=== PATIENT | female | born 1940 | race Caucasian/White ===

== ENCOUNTER → 2020-06-02 10:26 | Outpatient (BNVA) | payer MEDICARE, MEDICAID, SELFPAY | PROVIDERS: PCP Internal Medicine; Visit Provider Family Medicine Adult Medicine | DX: M54.17 Radiculopathy, lumbosacral region (principal); Z79.891 Long term (current) use of opiate analgesic | CPT/HCPCS: 99212 ==

== ENCOUNTER → 2020-07-07 11:28 | Outpatient (BNVA) | payer MEDICARE, MEDICAID, SELFPAY | PROVIDERS: Visit Provider Family Medicine Adult Medicine | DX: M54.17 Radiculopathy, lumbosacral region (principal) | CPT/HCPCS: 99212 ==

== ENCOUNTER → 2020-07-08 12:54 | Outpatient (BNVA) | payer MEDICARE, MEDICAID, SELFPAY | PROVIDERS: PCP Internal Medicine; Visit Provider Family Medicine Adult Medicine | DX: Z76.89 Persons encountering health services in other specified circumstances (principal) ==

== ENCOUNTER → 2020-09-13 13:02 | Outpatient (BNVA) | payer MEDICARE, MEDICAID, SELFPAY | PROVIDERS: PCP Internal Medicine; Visit Provider Family Medicine Adult Medicine | DX: M54.17 Radiculopathy, lumbosacral region (principal) | CPT/HCPCS: 99212 ==

== ENCOUNTER → 2020-10-11 13:34 | Outpatient (BNVA) | payer MEDICARE, MEDICAID, SELFPAY | PROVIDERS: PCP Internal Medicine; Visit Provider Family Medicine Adult Medicine | DX: M54.17 Radiculopathy, lumbosacral region (principal) | CPT/HCPCS: 99212 ==

== ENCOUNTER 2021-03-23 13:22 | Outpatient (RCR) | payer MEDICARE, MEDICAID, SELFPAY | END 2021-09-04 15:16 | disposition home or self-care (01) | LOC: HO.WCC 13:22 | PROVIDERS: Visit Provider Surgery | DX: E11.622 Type 2 diabetes mellitus with other skin ulcer (principal); I87.311 Chronic venous hypertension (idiopathic) with ulcer of right lower extremity; L97.812 Non-pressure chronic ulcer of other part of right lower leg with fat layer exposed; J44.9 Chronic obstructive pulmonary disease, unspecified; F17.200 Nicotine dependence, unspecified, uncomplicated; Z99.81 Dependence on supplemental oxygen; Z86.73 Personal history of transient ischemic attack (TIA), and cerebral infarction without residual deficits | CPT/HCPCS: 11042; 15271; 99212; 99214; Q4101 ==

== ENCOUNTER 2021-06-08 14:20 | Outpatient (REF) | payer MEDICARE, MEDICAID, SELFPAY ==
--- NOTE | ~2021-06-08 | US_ITS ---
EXAMINATION: US VENOUS ULTRASOUND WITH DOPPLER LOWER EXTREMITY, LEFT CLINICAL INFORMATION: Pain and edema COMPARISON: April 03, 2018 TECHNIQUE: Ultrasound of the deep veins is performed from the hip to the calf with compression sonography and color and pulse Doppler assessment. Spectral analysis with color-flow imaging is performed. FINDINGS: There is normal venous compression and respiratory variation and augmented flow. The visualized common femoral vein, superficial femoral vein, profunda femoral vein, popliteal vein, and the trifurcation region shows no evidence of deep venous thrombosis. There is limited visualization of the distal superficial femoral vein and peroneal veins related to edema. There is no significant popliteal fossa cyst. No popliteal artery aneurysm identified. There is noted to be reflux with insufficiency within the greater saphenous vein at the saphenofemoral junction. No definite evidence of synechiae or wall thickening from patient's old DVT seen on study of April 03, 2018. US/US venous duplex LE LT IMPRESSION: No acute DVT demonstrated in the left lower extremity.
== END 2021-06-08 14:21 | disposition home or self-care (01) ==
LOC: HO.US 14:20
PROVIDERS: PCP Internal Medicine; Visit Provider Surgery
DX: R60.0 Localized edema (principal); M79.662 Pain in left lower leg
CPT/HCPCS: 93971

== ENCOUNTER 2021-08-10 02:02 | Inpatient (IN) | payer MEDICARE, MEDICAID, SELFPAY ==
[2021-08-10] VITALS (10 sets, daily range): BP systolic 126–173; BP diastolic 50–98; PULSE 79–92; RESP 12–24; TEMP 36.2–36.9; O2SAT 90–100; BMI 25.9
--- NOTE | ~2021-08-10 | CT_ITS ---
EXAMINATION: CT ABDOMEN AND PELVIS WITHOUT CONTRAST CLINICAL INFORMATION: Pain. Deformity. COMPARISON: 03/22/2018 TECHNIQUE: Multidetector volumetric imaging was performed from the superior aspect of the liver through the pubic symphysis. Sagittal and coronal reformatted images were obtained on the technologist's workstation. This CT examination was performed using dose optimization techniques as appropriate, variously including the following: *Automated exposure control *Adjustment of mA and/or kV according to patient size (this includes techniques or standardized protocols for targeted exams where dose is matched to indication/reason for exam; i.e. extremities or head) *Use of iterative reconstruction technique DLP: 841 mGy-cm FINDINGS: LUNG BASES: Bibasilar atelectasis. Coronary artery calcifications. LIVER, GALLBLADDER, AND BILIARY TREE: The liver is normal in size, shape, and attenuation. No focal hepatic lesion or biliary ductal dilatation is present. The gallbladder is likely absent. PANCREAS: Unremarkable. 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 ADRENAL GLANDS: Bilateral hypoattenuating adrenal gland nodules are again noted. This measures 2.5 cm on the left. This measures 2.6 cm on the right. These measure simple fluid attenuation. KIDNEYS AND URETERS: The kidneys are normal in size, shape, and attenuation. No hydronephrosis, hydroureter, or calculi seen. No perinephric stranding. BLADDER: Unremarkable. GASTROINTESTINAL TRACT: The small and large bowel are unremarkable. The appendix is unremarkable. ABDOMINAL WALL: No significant hernia is appreciated. LYMPH NODES: Normal. VASCULAR: Normal caliber aorta with moderate atherosclerotic calcification. PELVIC VISCERA: No pelvic mass. OSSEOUS STRUCTURES: No acute or suspicious osseous abnormality. Degenerative changes throughout the spine. T12 vertebral body compression deformity noted. There is greater than 50% loss of anterior vertebral body height. CT/CT abdomen pelvis wo con IMPRESSION: Compression deformity of the anterior aspect of the T12 vertebral body. This is new from 2018 and could be acute. Bilateral hypoattenuating adrenal gland nodules. These were present in 2018. Fleischner guidelines were followed.
--- NOTE | ~2021-08-10 | CT_ITS ---
EXAMINATION: NONCONTRAST HEAD CT NONCONTRAST CERVICAL SPINE CT INDICATION INFORMATION: Fall COMPARISON: TECHNIQUE: Separate noncontrast CT examinations of the head and cervical spine were performed. Coronal and sagittal images were created for each examination at the technologist workstation. This CT examination was performed using dose optimization techniques as appropriate, variously including the following: *Automated exposure control *Adjustment of mA and/or kV according to patient size (this includes techniques or standardized protocols for targeted exams where dose is matched to indication/reason for exam; i.e. extremities or head) *Use of iterative reconstruction technique DLP: 1479 mGy-cm FINDINGS: Head: There is no evidence of acute intracranial hemorrhage or territorial infarction. No abnormal mass effect or midline shift is seen. Barahona to white matter differentiation is well preserved. No extra-axial fluid collections are identified. No hydrocephalus. Proportional prominence of the ventricles and sulcal spaces is consistent with mild volume loss. Patchy periventricular and deep white matter hypoattenuation is consistent with mild small vessel ischemic changes. No acute osseous or soft tissue abnormality. Opacification of the left mastoid air cells. Small fluid level in the left sphenoid sinus. The right mastoid air cells and visualized portions of the paranasal sinuses are otherwise well aerated. Cervical spine: There is anatomic alignment of the vertebral bodies and posterior elements. The atlantoaxial and atlantooccipital articulations are intact. Vertebral body heights are maintained. There is multilevel intervertebral disc space narrowing with endplate osteophyte formation and facet arthropathy. No evidence of acute fracture. No prevertebral soft tissue swelling. Visualized portions of the lung apices are unremarkable. The thyroid gland is unremarkable. CT/CT cervical spine wo con IMPRESSION: 1. No acute intracranial finding. 2. No fracture or malalignment of the cervical spine. Moderate degenerative changes throughout.
--- NOTE | ~2021-08-10 | XR_ITS ---
EXAMINATION: XR CHEST CLINICAL INFORMATION: Cough. COMPARISON: Chest radiograph 02/03/2019. 11/09/2018. 09/28/2018. CT angiography chest 09/02/2016 TECHNIQUE: Frontal view of the chest was obtained. FINDINGS: Multiple external artifacts overlie the thorax. Mild scattered aortic calcific atherosclerosis is noted. Blunting of the left costophrenic sulcus is noted and is unchanged in degree across multiple comparison studies. No pneumothoraces identified. Low lung volumes are present with the fourth anterior rib segments terminating projection with the lung bases. No focal pulmonary consolidation identified. Making allowances for low lung volumes, a normal pattern of pulmonary vasculature is noted. Diffuse osteopenia. XR/XR chest 1V IMPRESSION: *No acute cardiopulmonary abnormalities. *Chronic blunting of left costophrenic sulcus which may represent chronic pleural thickening.
--- NOTE | ~2021-08-10 | XR_ITS ---
EXAMINATION: XR BILATERAL HIPS WITH AP PELVIS CLINICAL INFORMATION: Fall. COMPARISON: None TECHNIQUE: AP view of the pelvis and single views of each hip were obtained. FINDINGS: AP pelvis: There is a right intraoperative medial femoral jessica and hip nail for an old healed neck fracture. No acute fracture or dislocation seen the right hip. The left hip is intact with maintained normal joint space.. SI joints are symmetrical and normal. The pelvic bones are unremarkable. There are bilateral inferior ischial enthesophytes. There is moderate gas and stool in the colon. Right hip: There is intramedullary short femoral jessica and a hip nail for an old healed right femoral neck fracture the hardware is intact. There is no periprosthetic fracture or loosening. Left hip: There is no acute fracture or dislocation. The soft tissues are normal. There is a small greater trochanter enthesophyte. XR/XR hip BI w PEL1V IMPRESSION: Old healed right femoral neck fracture with intact hardware. No periprostatic fracture or lucency. No acute fracture dislocation involving the pelvis or the left hip.
--- NOTE | 2021-08-10 02:28 | ECG_ITS ---
Test Reason : FALL Blood Pressure : / mmHG Vent. Rate : 085 BPM Atrial Rate : 085 BPM P-R Int : 146 ms QRS Dur : 136 ms QT Int : 410 ms P-R-T Axes : 000 020 006 degrees QTc Int : 487 ms Normal sinus rhythm Right bundle branch block Possible Inferior infarct (cited on or before 03-FEB-2019) Abnormal ECG When compared with ECG of 03-FEB-2019 15:58, Premature atrial complexes are no longer Present Referred By: Rosalind Avalos Electronically Signed By:Himanshu Du
[2021-08-10] MEDS: Ketorolac Tromethamine 30 MG/ML VIAL 15 MG IVPUSH (02:50)
[2021-08-10 02:59] LABS: MANUAL DIFF FLAG NO
[2021-08-10 03:00] LABS: Basophils Absolute Auto 0.1 X10*3/uL (0.0-0.2); Basophils Percent Auto 0.6 % (0-2); Eosinophils Percent Auto 0.2 % (0-4); Hematocrit 31.7 % (37.0-47.0); Hemoglobin 10.4 g/dl (12.0-16.0); Imm Gran Pct Auto 0.6 % (0.0-0.4); Lymphocytes Absolute Auto 1.4 X10*3/uL (1.2-4.9); Lymphocytes Percent Auto 7.7 % (20-40); Mean Corpuscular HGB Conc 32.8 g/dl (31.0-35.0); Mean Corpuscular Hemoglobin 31.2 pg (27.0-33.0); Mean Corpuscular Volume 95.2 fL (80.0-98.0); Mean Platelet Volume 10.1 fL (9.4-12.3); Monocytes Absolute Auto 1.2 X10*3/uL (0.1-1.2); Monocytes Percent Auto 6.8 % (2-11); Neutrophils Absolute Auto 15.1 x10*3/uL (2.0-8.3); Neutrophils Percent Auto 84.1 % (45-73); Platelet Count 436 X10*3/uL (160-400); Red Blood Count 3.33 X10*6/uL (4.20-5.50); Red Cell Distribution Width 13.1 % (11.0-16.0)
--- NOTE | 2021-08-10 03:00 | PC.NURSE ---
pt unable to take po at this time d/t inability to sit upright for aspiration precautions /04/[address] ellis aware. this rn requesting narcotic analgesics d/t pt's c/o 04/30 pain with appearance of likely hip dislocation. dr ellis states if pain persists despite toradol, she will consider narcotics.
[2021-08-10 03:04] LABS: Venous Blood Gas Refer to POC result
[2021-08-10 03:04] LABS: VBG Base Excess -3.7 mmol/L; VBG HCO3 22 mmol/L (22-26); VBG pCO2 45 mmHg; VBG pH 7.29 (7.32-7.43); VBG pO2 43 mmHg
[2021-08-10 03:05] LABS: INTERNATIONAL NORM RATIO 1.2 (0.9-1.1); Prothrombin Time 13.7 SEC (9.9-13.0)
[2021-08-10] MEDS: fentaNYL citrate/PF 100 MCG/2 ML VIAL 25 MCG IVPUSH (03:14)
[2021-08-10 03:16] LABS: COVID-19 Test Negative (Negative); IDNOW Serial# 9DD0AD1C
[2021-08-10 03:27] LABS: Alanine Aminotransferase 16 U/L (0-31); Albumin Level 2.9 g/dL (3.5-5.0); Alkaline Phosphatase 131 U/L (39-117); Anion Gap 16 (12-20); Aspartate Amino Transferase 21 U/L (5-31); Bilirubin Total 0.2 mg/dL (0.0-1.0); Blood Urea Nitrogen 37 mg/dL (9-16); Calcium 8.8 mg/dL (8.4-10.2); Carbon Dioxide 21 mmol/L (22-29); Chloride 101 mmol/L (96-108); Creatinine Clr Calc Pharmacy 22.2; Estimated Glomerular Filt Rate 24; Glucose Random 362 mg/dL (60-115); Potassium 5.8 mmol/L (3.3-5.1); Sodium 132 mmol/L (135-145); Total Protein 5.8 g/dL (6.5-8.0)
[2021-08-10 03:38] LABS: Acetone, serum QL Negative (Negative)
--- NOTE | 2021-08-10 03:46 | ED.FALL ---
HPI - Fall General Chief Complaint: Fall Stated Complaint: Fall Time Seen by Provider: 08/10/21 02:27 Source: patient Mode of arrival: EMS History of Present Illness HPI Narrative: 81-year-old female with history of COPD currently reliant on supplemental oxygen who is brought in via EMS after she had a slip and fall in the kitchen and landed on her left hip. Patient denies any head strike no although she states she is not on blood thinners she is noted to have a prescription for Xarelto and was provided a 90 day prescription on 06/01/2021. Patient denies any recent fever, chills, GI or symptoms and is expressing significant pain on movement that she points to the left hip. Related Data Home Medications Medication Instructions Recorded Confirmed alendronate 70 mg tablet (Fosamax) 70 mg PO QWEEK 05/23/20 08/01/21 dorzolamide 2 % eye drops 1 drp OPHTHALMIC (EYE) TID 05/23/20 08/01/21 fluticasone furoate 100 1 inh INHALATION DAILY 05/23/20 08/01/21 mcg-vilanterol 25 mcg/dose inhalation powder (Breo Ellipta) furosemide 40 mg tablet (Lasix) 40 mg PO DAILY 05/23/20 08/01/21 latanoprost 0.005 % eye drops 1 drp OPHTHALMIC (EYE) QPM 05/23/20 08/01/21 omeprazole 20 mg capsule,delayed 20 mg PO DAILY 05/23/20 08/01/21 release Previous Rx's Medication Instructions Recorded blood sugar diagnostic (FreeStyle #100 ea 04/03/21 Lite Strips) miscellaneous medical supply See Rx Instructions MISCELLANEOUS 04/03/21 .COMPLEX #1 ea albuterol sulfate 1.25 mg (1.5 mL) INHALATION TID 06/01/21 #75 ml insulin aspart U-100 100 unit/mL 10 unit (0.1 mL) SUBCUT TID #15 ml 06/01/21 (3 mL) subcutaneous pen (Novolog Flexpen U-100 Insulin aspart) lancets 28 gauge (FreeStyle #100 ea 06/01/21 Lancets) rivaroxaban 15 mg tablet (Xarelto) 15 mg PO DAILY #90 tab 06/01/21 miscellaneous medical supply 1 ea MISCELLANEOUS DAILY #1 ea 07/06/21 citalopram 10 mg tablet 10 mg PO DAILY #90 tab 07/25/21 insulin glargine 100 unit/mL (3 10 unit (0.1 mL) SUBCUT DAILY #15 07/25/21 mL) subcutaneous pen ml pen needle, diabetic 31 gauge x See Rx Instructions SUBCUT TID 07/25/2112/04 (BD Ultra-Fine Short Pen #100 ea Needle) spironolactone 25 mg tablet 25 mg PO DAILY #90 tab 07/25/21 sulfamethoxazole 800 1 tab PO Q12H #14 tab 08/01/21 mg-trimethoprim 160 mg tablet (Bactrim DS) diltiazem HCl 240 mg capsule,24 240 mg PO QAM #90 cap 08/04/21 hr,extended release Allergies Allergy/AdvReac Type Severity Reaction Status Date / Time No Known Allergies Allergy Unknown Verified 08/10/21 02:22 Review of Systems Review of Systems: Pertinent positives and negatives as stated in HPI 10 point review systems is otherwise negative. [facility] Past Medical History Source: nursing notes reviewed Medical History COPD (chronic obstructive pulmonary disease) Decreased hearing of both ears IDDM (insulin dependent diabetes mellitus) Lymphedema Osteoporosis with pathological fracture Right lumbosacral radiculopathy Smoker Surgical History H/O splenectomy History of section S/P LILI-BSO (total abdominal hysterectomy and bilateral salpingo-oophorectomy) Family History Family History Father No problems noted. Mother No problems noted. Social History Social History Housing: House Alcohol intake: never Patient Tobacco Use Status: Current everyday Tobacco user Tobacco use type: Cigarette Cigarettes Per Day: 1 e-Cigarette/Vaping Use: Never Used Second Hand Smoke Exposure: Yes Advance Directives: No service: No Current occupational status: retired Cognitive needs: Yes (wheelchair) Hearing needs: No Vision needs: No Physical Exam Vital Signs: Vital Signs: Last Vital Signs Temp 98.2 F 08/10/21 05:52 Pulse 83 08/10/21 05:52 Resp 15 08/10/21 05:52 BP 126/51 L 08/10/21 05:52 Pulse Ox 95 08/10/21 05:52 Oxygen Flow Rate 2 08/10/21 02:18 BMI result Body Mass Index 25.9 VITAL SIGNS: Reviewed. GENERAL: Well developed, well nourished, in no acute distress. HEAD: Normocephalic/atraumatic EYES: PERRLA, EOMI OROPHARYNX: no oral lesions noted, posterior pharynx clear, dry mucosa NECK: Supple, no adenopathy LUNGS: Good inspiratory effort, no wheeze/rhonchi/rales, no tachypnea <95> on 2 L of nasal cannula CARDIOVASCULAR: Regular rate and rhythm without noted murmurs, no JVD or lower extremity edema. ABDOMEN: Soft, non-tender, non-distended with bowel sounds. No rigidity. No guarding. No palpable masses or hernias noted MUSCULOSKELETAL: No tenderness, deformities, or effusions noted on gross inspection. EXTREMITIES: No cyanosis, clubbing but significant skin thickening and discoloration to bilateral lower extremities and a noted bandage to the right lower extremity. SKIN: Inspection of the skin reveals no rashes NEUROLOGIC: Alert and oriented x 4. Strength and sensation to light touch were grossly intact x 4. Course Course Course Narrative: 81-year-old female with history and clinical presentation suggestive of possible pelvic/femur fracture and/or dislocation. On review of all investigations there is a noted leukocytosis that is not significantly different from prior, patient is afebrile and provided with empiric antibiotics for RLE wound. In addition, on review recent notes the son reports that patient is minimally ambulatory with a cane and supervision (08/01/2020). Review of all imaging studies demonstrates suspected acute T12 compression fracture. Patient provided with pain medication as well as IV fluids and will repeat the BMP. I discussed this case with the inpatient hospitalist who accepts admission. There is noted anemia that on review is within normal range of prior values and there is no history or clinical evidence of blood loss. This case was discussed with the inpatient hospitalist who accepts admission. MDM - Fall Lab Data Result diagrams: 08/10/21 02:49 08/10/21 02:49 Labs: Lab Results 08/10/21 08/10/21 08/10/21 Range/Units 02:49 02:49 02:49 WBC 18.0 H (4.8-10.8) X10*3/uL RBC 3.33 L (4.20-5.50) X10*6/uL Hgb 10.4 L (12.0-16.0) g/dl Hct 31.7 L (37.0-47.0) % MCV 95.2 (80.0-98.0) fL MCH 31.2 (27.0-33.0) pg MCHC 32.8 (31.0-35.0) g/dl RDW 13.1 (11.0-16.0) % Plt Count 436 H (160-400) X10*3/uL MPV 10.1 (9.4-12.3) fL Immature Gran % (Auto) 0.6 H (0.0-0.4) % Neut % (Auto) 84.1 H (45-73) % Lymph % (Auto) 7.7 L (20-40) % Randolph % (Auto) 6.8 (2-11) % Eos % (Auto) 0.2 (0-4) % Baso % (Auto) 0.6 (0-2) % Lymph # (Auto) 1.4 (1.2-4.9) X10*3/uL Randolph # (Auto) 1.2 (0.1-1.2) X10*3/uL Eos # (Auto) 0.0 (0.0-0.4) X10*3/uL Baso # (Auto) 0.1 (0.0-0.2) X10*3/uL Abs Immat Gran (auto) 0.10 H (0.00-0.03) X10*3/uL Absolute Neuts (auto) 15.1 H (2.0-8.3) x10*3/uL Absolute Nucleated RBC 0.000 (0.0-0.012) X10*3/uL Nucleated RBC % (auto) 0.0 (0.0-0.2) /100WBC PT 13.7 H (9.9-13.0) SEC INR 1.2 H (0.9-1.1) VBG pH (7.32-7.43) VBG pCO2 mmHg VBG pO2 mmHg VBG HCO3 (22-26) mmol/L VBG O2 Saturation % VBG Base Excess mmol/L Sodium 132 L (135-145) mmol/L Potassium 5.8 H (3.3-5.1) mmol/L Chloride 101 (96-108) mmol/L Carbon Dioxide 21 L (22-29) mmol/L Anion Gap 16 (12-20) BUN 37 H (9-16) mg/dL Creatinine 1.96 H (0.5-1.4) mg/dL Estim Creat Clear Calc 22.2 Estimated GFR 24 Random Glucose 362 H* (60-115) mg/dL Lactic Acid (0.5-2.0) mmol/L Calcium 8.8 (8.4-10.2) mg/dL Total Bilirubin 0.2 (0.0-1.0) mg/dL AST 21 (5-31) U/L ALT 16 (0-31) U/L Alkaline Phosphatase 131 H (39-117) U/L Total Protein 5.8 L (6.5-8.0) g/dL Albumin 2.9 L (3.5-5.0) g/dL Urine Color Urine Appearance Urine pH (5.0-8.0) Ur Specific [place] (1.005-1.025) Urine Protein (NEG-TRACE) MG/DL Urine Glucose (UA) (NEG) MG/DL Urine Ketones (NEG) MG/DL Urine Blood (NEG) Urine Nitrite (NEG) Ur Leukocyte Esterase (NEG) Urine RBC (0) /HPF Urine WBC (0-4) /HPF Ur Squamous Epith Cells /LPF Amorphous Sediment /LPF Urine Bacteria /LPF Hyaline Casts /LPF Urine Mucus /LPF Acetone, Qual Negative (Negative) COVID-19 (DOUG) (Negative) COVID-19 Clin Com 08/10/21 08/10/21 08/10/21 Range/Units 02:54 02:56 04:24 WBC (4.8-10.8) X10*3/uL RBC (4.20-5.50) X10*6/uL Hgb (12.0-16.0) g/dl Hct (37.0-47.0) % MCV (80.0-98.0) fL MCH (27.0-33.0) pg MCHC (31.0-35.0) g/dl RDW (11.0-16.0) % Plt Count (160-400) X10*3/uL MPV (9.4-12.3) fL Immature Gran % (Auto) (0.0-0.4) % Neut % (Auto) (45-73) % Lymph % (Auto) (20-40) % [place] % (Auto) (2-11) % Eos % (Auto) (0-4) % Baso % (Auto) (0-2) % Lymph # (Auto) (1.2-4.9) X10*3/uL [place] # (Auto) (0.1-1.2) X10*3/uL Eos # (Auto) (0.0-0.4) X10*3/uL Baso # (Auto) (0.0-0.2) X10*3/uL Abs Immat Gran (auto) (0.00-0.03) X10*3/uL Absolute Neuts (auto) (2.0-8.3) x10*3/uL Absolute Nucleated RBC (0.0-0.012) X10*3/uL Nucleated RBC % (auto) (0.0-0.2) /100WBC PT (9.9-13.0) SEC INR (0.9-1.1) VBG pH 7.29 L (7.32-7.43) VBG pCO2 45 mmHg VBG pO2 43 mmHg VBG HCO3 22 (22-26) mmol/L VBG O2 Saturation 64.0 % VBG Base Excess -3.7 mmol/L Sodium (135-145) mmol/L Potassium (3.3-5.1) mmol/L Chloride (96-108) mmol/L Carbon Dioxide (22-29) mmol/L Anion Gap (12-20) BUN (9-16) mg/dL Creatinine (0.5-1.4) mg/dL Estim Creat Clear Calc Estimated GFR Random Glucose (60-115) mg/dL Lactic Acid (0.5-2.0) mmol/L Calcium (8.4-10.2) mg/dL Total Bilirubin (0.0-1.0) mg/dL AST (5-31) U/L ALT (0-31) U/L Alkaline Phosphatase (39-117) U/L Total Protein (6.5-8.0) g/dL Albumin (3.5-5.0) g/dL Urine Color YELLOW Urine Appearance CLEAR Urine pH 6.0 (5.0-8.0) Ur Specific [place] 1.020 (1.005-1.025) Urine Protein 2+ H (NEG-TRACE) MG/DL Urine Glucose (UA) 500 H (NEG) MG/DL Urine Ketones NEG (NEG) MG/DL Urine Blood TRACE (NEG) Urine Nitrite NEG (NEG) Ur Leukocyte Esterase NEG (NEG) Urine RBC 1-4 (0) /HPF Urine WBC 0 (0-4) /HPF Ur Squamous Epith Cells 1+ /LPF Amorphous Sediment TRACE /LPF Urine Bacteria NONE /LPF Hyaline Casts 5-9 /LPF Urine Mucus TRACE /LPF Acetone, Qual (Negative) COVID-19 (DOUG) Negative (Negative) COVID-19 Clin Com See Note 08/10/21 Range/Units 05:44 WBC (4.8-10.8) X10*3/uL RBC (4.20-5.50) X10*6/uL Hgb (12.0-16.0) g/dl Hct (37.0-47.0) % MCV (80.0-98.0) fL MCH (27.0-33.0) pg MCHC (31.0-35.0) g/dl RDW (11.0-16.0) % Plt Count (160-400) X10*3/uL MPV (9.4-12.3) fL Immature Gran % (Auto) (0.0-0.4) % Neut % (Auto) (45-73) % Lymph % (Auto) (20-40) % Randolph % (Auto) (2-11) % Eos % (Auto) (0-4) % Baso % (Auto) (0-2) % Lymph # (Auto) (1.2-4.9) X10*3/uL [place] # (Auto) (0.1-1.2) X10*3/uL Eos # (Auto) (0.0-0.4) X10*3/uL Baso # (Auto) (0.0-0.2) X10*3/uL Abs Immat Gran (auto) (0.00-0.03) X10*3/uL Absolute Neuts (auto) (2.0-8.3) x10*3/uL Absolute Nucleated RBC (0.0-0.012) X10*3/uL Nucleated RBC % (auto) (0.0-0.2) /100WBC PT (9.9-13.0) SEC INR (0.9-1.1) VBG pH (7.32-7.43) VBG pCO2 mmHg VBG pO2 mmHg VBG HCO3 (22-26) mmol/L VBG O2 Saturation % VBG Base Excess mmol/L Sodium (135-145) mmol/L Potassium (3.3-5.1) mmol/L Chloride (96-108) mmol/L Carbon Dioxide (22-29) mmol/L Anion Gap (12-20) BUN (9-16) mg/dL Creatinine (0.5-1.4) mg/dL Estim Creat Clear Calc Estimated GFR Random Glucose (60-115) mg/dL Lactic Acid 0.7 (0.5-2.0) mmol/L Calcium (8.4-10.2) mg/dL Total Bilirubin (0.0-1.0) mg/dL AST (5-31) U/L ALT (0-31) U/L Alkaline Phosphatase (39-117) U/L Total Protein (6.5-8.0) g/dL Albumin (3.5-5.0) g/dL Urine Color Urine Appearance Urine pH (5.0-8.0) Ur Specific [place] (1.005-1.025) Urine Protein (NEG-TRACE) MG/DL Urine Glucose (UA) (NEG) MG/DL Urine Ketones (NEG) MG/DL Urine Blood (NEG) Urine Nitrite (NEG) Ur Leukocyte Esterase (NEG) Urine RBC (0) /HPF Urine WBC (0-4) /HPF Ur Squamous Epith Cells /LPF Amorphous Sediment /LPF Urine Bacteria /LPF Hyaline Casts /LPF Urine Mucus /LPF Acetone, Qual (Negative) COVID-19 (DOUG) (Negative) COVID-19 Clin Com ECG Data Attestation: I personally reviewed and interpreted this ECG as follows: Prior ECG tracings: available for review (02/03/2019 no acute changes on comparison) Interpretation: NSR, HR-85, no STEMI, right bundle branch block, WA/QTC are within normal limits. Critical Care Time Critical Care Time Critical Care Time: Yes Total Critical Care Time: 30 Attestation: I personally attest to this time spent taking care of the patient. Discharge Plan Discharge Clinical Impression: T12 compression fracture, Intractable pain, Non-healing wound of right lower extremity, TONYA (acute kidney injury) Patient Disposition: Admitted As Inpatient
[2021-08-10 04:29] LABS: Appearance Urine CLEAR; Color Urine YELLOW; Glucose Urine UA 500 MG/DL (NEG); Leukocyte Esterase Urine NEG (NEG); Nitrite Urine NEG (NEG); UACC Culture Trigger NO; Urine Blood TRACE (NEG); Urine Ketones NEG (NEG); Urine Protein 2+ MG/DL (NEG-TRACE)
[2021-08-10 04:49] LABS: Amorphous Sediment Urine TRACE /LPF; Mucus Urine TRACE /LPF; Squamous Epithelial Cell Urine 1+ /LPF; WBC Urine 0 /HPF (0-4)
[2021-08-10] MEDS: cefTRIAXone sodium 1 GM in 0.9 % Sodium Chloride 50 ML IV (05:55)
[2021-08-10] MEDS: 0.9 % Sodium Chloride 1,000 ML 999 ML IV (05:56)
[2021-08-10 06:01] LABS: Lactic Acid 0.7 mmol/L (0.5-2.0)
[2021-08-10] MEDS: HYDROmorphone HCl 0.5 MG/0.5 ML SYRINGE 0.25 MG IVPUSH (07:09)
[2021-08-10] MEDS: Lidocaine 4 % Patch ADH..PATCH 1 PATCH TRANSDERMA (07:10)
--- NOTE | 2021-08-10 07:18 | PC.NURSE ---
patient medicated for pain with IV dilaudid. patient wanted to hold off to place lidocaine patch until pain decreases. will appy when patient feels ready.
[2021-08-10 07:57] LABS: Anion Gap 12 (12-20); Blood Urea Nitrogen 34 mg/dL (9-16); Calcium 8.1 mg/dL (8.4-10.2); Carbon Dioxide 23 mmol/L (22-29); Chloride 104 mmol/L (96-108); Creatinine Clr Calc Pharmacy 23.7; Estimated Glomerular Filt Rate 26; Glucose Random 353 mg/dL (60-115); Potassium 5.6 mmol/L (3.3-5.1); Sodium 133 mmol/L (135-145)
[2021-08-10 08:06] LABS: Glucose, Whole Blood 314 mg/dL (60-115)
--- NOTE | 2021-08-10 09:18 | PM.IMHP ---
History of Present Illness Date of Service: 08/10/21 Chief Complaint: Fall This is an 81 yo F with a PMH as outlined below who is BIBA after sustaining a fall on the evening prior to admission. The patient is currently confused and unable to provide a meaningful history. As such, history is largely obtained from the ED records. From the ED physician documentation: ?81-year-old female with history of COPD currently reliant on supplemental oxygen who is brought in via EMS after she had a slip and fall in the kitchen and landed on her left hip.? Patient denies any head strike no although she states she is not on blood thinners she is noted to have a prescription for Xarelto and was provided a 90 day prescription on 06/01/2021.? Patient denies any recent fever, chills, GI or symptoms and is expressing significant pain on movement that she points to the left hip. Multiple calls have been placed to the patients sons, but have not had any success in speaking with them. In the ED, her work up revealed suspected TONYA + T12 vertebral fracture. She was given IVF + IV analgesics. Her TONYA persisted and so she will be admitted for further treatment. Review of Systems Review of Systems: unreliable due to patients current confusion PMFSH Medical History COPD (chronic obstructive pulmonary disease) Decreased hearing of both ears IDDM (insulin dependent diabetes mellitus) Lymphedema Osteoporosis with pathological fracture Right lumbosacral radiculopathy Smoker Family History Father No problems noted. Mother No problems noted. Surgical History H/O splenectomy History of section S/P LILI-BSO (total abdominal hysterectomy and bilateral salpingo-oophorectomy) Social History Housing: House Alcohol intake: never Patient Tobacco Use Status: Current everyday Tobacco user Tobacco use type: Cigarette Cigarettes Per Day: 1 e-Cigarette/Vaping Use: Never Used Second Hand Smoke Exposure: Yes Advance Directives: No service: No Current occupational status: retired Cognitive needs: Yes (wheelchair) Hearing needs: No Vision needs: No Meds Allergies Allergy/AdvReac Type Severity Reaction Status Date / Time No Known Allergies Allergy Unknown Verified 08/10/21 02:22 Active Medications: Current Medications Pharmacy Consult (Consult Rx Perform Med Rec) 1 each MISCELLANE ONCE PRN PRN Reason: Consult order Pharmacy Consult (Consult Rx Perform Med Rec) 1 each MISCELLANE ONCE PRN PRN Reason: Consult order Home Medications Medication Instructions Recorded Confirmed Last Taken Type insulin aspart U-100 100 unit/mL 0 sliding scale dose SUBCUT TIDAC 08/10/21 08/10/21 Unknown History (3 mL) subcutaneous pen (Novolog Flexpen U-100 Insulin aspart) insulin glargine 100 unit/mL (3 10 unit SUBCUT BEDTIME 08/10/21 08/10/21 Unknown History mL) subcutaneous pen Physical Exam Vital Signs and Narrative: Vital Signs: Last Vital Signs Temp 98.1 F 08/10/21 07:24 Pulse 85 08/10/21 07:53 Resp 16 08/10/21 07:53 BP 156/54 H 08/10/21 07:53 Pulse Ox 95 08/10/21 07:53 Oxygen Flow Rate 2 08/10/21 02:18 BMI result Body Mass Index 25.9 Const: Other: Constitutional - Awake and Alert, No apparent distress; disoriented HEENT - PERRLA, EOMI; extremely dry mucous membranes Cardiovascular - S1S2, RRR, No edema Respiratory - Normal lung expansion, Normal respiratory effort, No respiratory distress, CTA bilaterally Gastrointestinal - NT / ND; +BS; No rebound or guarding - No CVA tenderness Extremities - no calf tenderness bilaterally, no swelling Musculoskeletal - Minimal TTP to thoracic spine; no bilateral hip tenderness Skin - Warm/Dry Neurological - Awake and alert; oriented to self and place, otherwise disoriented; tells me she lives with her mother Psychological - Appropriate affect Results Labs CBC and Chem 7: 08/10/21 02:49 08/10/21 07:23 Labs: Laboratory Results - last 24 hr 08/10/21 08/10/21 08/10/21 02:49 02:49 02:49 MCV 95.2 MCH 31.2 MCHC 32.8 RDW 13.1 Plt Count 436 H MPV 10.1 Immature Gran % (Auto) 0.6 H Neut % (Auto) 84.1 H Lymph % (Auto) 7.7 L [place] % (Auto) 6.8 Eos % (Auto) 0.2 Baso % (Auto) 0.6 Lymph # (Auto) 1.4 [place] # (Auto) 1.2 Eos # (Auto) 0.0 Baso # (Auto) 0.1 Abs Immat Gran (auto) 0.10 H Absolute Neuts (auto) 15.1 H Absolute Nucleated RBC 0.000 Nucleated RBC % (auto) 0.0 PT 13.7 H INR 1.2 H VBG pH VBG pCO2 VBG pO2 VBG HCO3 VBG O2 Saturation VBG Base Excess Anion Gap 16 Estim Creat Clear Calc 22.2 Estimated GFR 24 POC Glucose Random Glucose 362 H* Lactic Acid Calcium 8.8 Total Bilirubin 0.2 AST 21 ALT 16 Alkaline Phosphatase 131 H Total Protein 5.8 L Albumin 2.9 L Urine Color Urine Appearance Urine pH Ur Specific [place] Urine Protein Urine Glucose (UA) Urine Ketones Urine Blood Urine Nitrite Ur Leukocyte Esterase Urine RBC Urine WBC Ur Squamous Epith Cells Amorphous Sediment Urine Bacteria Hyaline Casts Urine Mucus Acetone, Qual Negative COVID-19 (DOUG) COVID-19 Clin Com 08/10/21 08/10/21 08/10/21 02:54 02:56 04:24 MCV MCH MCHC RDW Plt Count MPV Immature Gran % (Auto) Neut % (Auto) Lymph % (Auto) [place] % (Auto) Eos % (Auto) Baso % (Auto) Lymph # (Auto) [place] # (Auto) Eos # (Auto) Baso # (Auto) Abs Immat Gran (auto) Absolute Neuts (auto) Absolute Nucleated RBC Nucleated RBC % (auto) PT INR VBG pH 7.29 L VBG pCO2 45 VBG pO2 43 VBG HCO3 22 VBG O2 Saturation 64.0 VBG Base Excess -3.7 Anion Gap Estim Creat Clear Calc Estimated GFR POC Glucose Random Glucose Lactic Acid Calcium Total Bilirubin AST ALT Alkaline Phosphatase Total Protein Albumin Urine Color YELLOW Urine Appearance CLEAR Urine pH 6.0 Ur Specific [place] 1.020 Urine Protein 2+ H Urine Glucose (UA) 500 H Urine Ketones NEG Urine Blood TRACE Urine Nitrite NEG Ur Leukocyte Esterase NEG Urine RBC 1-4 Urine WBC 0 Ur Squamous Epith Cells 1+ Amorphous Sediment TRACE Urine Bacteria NONE Hyaline Casts 5-9 Urine Mucus TRACE Acetone, Qual COVID-19 (DOUG) Negative COVID-19 Clin Com See Note 08/10/21 08/10/21 08/10/21 05:44 07:23 08:02 MCV MCH MCHC RDW Plt Count MPV Immature Gran % (Auto) Neut % (Auto) Lymph % (Auto) [place] % (Auto) Eos % (Auto) Baso % (Auto) Lymph # (Auto) [place] # (Auto) Eos # (Auto) Baso # (Auto) Abs Immat Gran (auto) Absolute Neuts (auto) Absolute Nucleated RBC Nucleated RBC % (auto) PT INR VBG pH VBG pCO2 VBG pO2 VBG HCO3 VBG O2 Saturation VBG Base Excess Anion Gap 12 Estim Creat Clear Calc 23.7 Estimated GFR 26 POC Glucose 314 H Random Glucose 353 H* Lactic Acid 0.7 Calcium 8.1 L D Total Bilirubin AST ALT Alkaline Phosphatase Total Protein Albumin Urine Color Urine Appearance Urine pH Ur Specific [place] Urine Protein Urine Glucose (UA) Urine Ketones Urine Blood Urine Nitrite Ur Leukocyte Esterase Urine RBC Urine WBC Ur Squamous Epith Cells Amorphous Sediment Urine Bacteria Hyaline Casts Urine Mucus Acetone, Qual COVID-19 (DOUG) COVID-19 Clin Com Imaging Radiologist's Impressions: Impressions Abdomen/Pelvis CT 08/10/21 04:00 IMPRESSION: Compression deformity of the anterior aspect of the T12 vertebral body. This is new from 2018 and could be acute. Bilateral hypoattenuating adrenal gland nodules. These were present in 2018. Fleischner guidelines were followed. Cervical Spine CT 08/10/21 04:10 IMPRESSION: 1. No acute intracranial finding. 2. No fracture or malalignment of the cervical spine. Moderate degenerative changes throughout. Head CT 08/10/21 04:10 IMPRESSION: 1. No acute intracranial finding. 2. No fracture or malalignment of the cervical spine. Moderate degenerative changes throughout. Chest X-Ray 08/10/21 06:55 IMPRESSION: *No acute cardiopulmonary abnormalities. *Chronic blunting of left costophrenic sulcus which may represent chronic pleural thickening. Assessment and Plan (1) T12 compression fracture: Status: Acute (2) TONYA (acute kidney injury): Status: Acute This is a 81 yo F with multiple medical issues who presents to the ED after a mechanical fall and is found to have suspected TONYA + toxic/metabolic encephalopathy + T12 compression fracture. She will be admitted for further care. 1. TONYA Patients last SCr is around 1, but on presentation it is nearly double to 1.95 Suspected secondary to dehydration Will start LR @ 100 cc/hr x 2L repeat BMP tomorrow 2. Mlid hyperK no acute EKG changes lokelma 5mg x 1 3. Toxic/Metabolic Encephalopathy ? due to TONYA vs medications (received dilaudid in the ED) observe for now will need to get more collateral information from the patient's family 4. Fall suspected mechanical T12 compression fx -- pain control and if persisten, to consider IR for kyphoplasty no hip imaging done in the ED -- will order b/l hip+pelvis XR 5. DM basal + bolus hold orals if she on any at home 6. Anticoagulation use per outpatient records -- on it for DVT 7. Chronic COPD + Chronic Resp failure with hypoxia on 2L continue baseline O2 and inhalers Code status -- will be full code for the time being until discussion with family is held DVT pptx, Xarelt med rec is pending currently, continue baseline home meds as appropriate. Quality Stroke Does the patient have a stroke diagnosis?: No VTE Prior VTE?: No VTE Risk Level:: Medical - moderate - high VTE Device Contraindication: Treatment Not Indicated VTE Drug Contraindication: N/A - Med Ordered
[2021-08-10] MEDS: Insulin Lispro 100 UNIT/ML 3 ML VIAL SUBCUT ×3 (09:20→21:23)
--- NOTE | 2021-08-10 09:34 | PHA.MEDREC ---
Pharmacy Consult ? Medication Reconciliation Pharmacy has completed the medication reconciliation. Confirmed medications with patient's son. He was unsure if she still used eye drops or inhalers. There is no recent fill history but was on her medical record perviously. Steph Guerra, PharmD
[2021-08-10] MEDS: Lactated Ringers 1,000 ML 100 ML IVCONT ×2 (09:47→21:23)
[2021-08-10] MEDS: Sodium Zirconium Cyclosilicate 5 GM POWD.PACK PO (09:47)
[2021-08-10 12:26] LABS: Glucose, Whole Blood 213 mg/dL (60-115)
[2021-08-10] MEDS: dilTIAZem HCL CD 240 MG CAP.ER.DEG PO (12:33)
[2021-08-10] MEDS: HYDROmorphone HCl 2 MG TABLET 1 MG PO (12:33)
[2021-08-10] MEDS: ondansetron HCL 4 MG/2 ML VIAL IVPUSH (12:34)
[2021-08-10 16:41] LABS: Glucose, Whole Blood 105 mg/dL (60-115)
[2021-08-10] MEDS: 0.9 % Sodium Chloride Flush 3 ML SYRINGE IVFLUSH (16:56)
[2021-08-10] MEDS: Acetaminophen 325 MG TABLET 650 MG PO (17:19)
[2021-08-10 20:46] LABS: Glucose, Whole Blood 232 mg/dL (60-115)
[2021-08-10] MEDS: Insulin Glargine,Hum.rec.anlog 100 UNIT/ML 10 ML VIAL 10 UNIT SUBCUT (21:24)
[2021-08-11] VITALS (8 sets, daily range): BP systolic 131–184; BP diastolic 58–79; PULSE 55–94; RESP 17–18; TEMP 36.4–37.2; O2SAT 90–95
[2021-08-11] MEDS: HYDROmorphone HCl 2 MG TABLET 1 MG PO ×3 (04:21→13:27)
[2021-08-11 05:46] LABS: Hemoglobin 8.5 g/dl (12.0-16.0); Mean Corpuscular HGB Conc 32.7 g/dl (31.0-35.0); Mean Corpuscular Hemoglobin 31.3 pg (27.0-33.0); Mean Corpuscular Volume 95.6 fL (80.0-98.0); Platelet Count 412 X10*3/uL (160-400); Red Blood Count 2.72 X10*6/uL (4.20-5.50); Red Cell Distribution Width 13.2 % (11.0-16.0); White Blood Count 12.3 X10*3/uL (4.8-10.8)
[2021-08-11 06:15] LABS: Anion Gap 9 (12-20); Blood Urea Nitrogen 37 mg/dL (9-16); Calcium 8.5 mg/dL (8.4-10.2); Carbon Dioxide 25 mmol/L (22-29); Chloride 108 mmol/L (96-108); Creatinine Clr Calc Pharmacy 28.6; Estimated Glomerular Filt Rate 33; Glucose Random 91 mg/dL (60-115); Potassium 5.5 mmol/L (3.3-5.1); Sodium 136 mmol/L (135-145)
[2021-08-11 07:36] LABS: Glucose, Whole Blood 94 mg/dL (60-115)
[2021-08-11] MEDS: Escitalopram Oxalate 5 MG TABLET PO (08:34)
[2021-08-11] MEDS: dilTIAZem HCL CD 240 MG CAP.ER.DEG PO (08:34)
[2021-08-11] MEDS: Rivaroxaban 15 MG TABLET PO (08:34)
--- NOTE | 2021-08-11 09:24 | PC.NURSE ---
Skin/wound assessment completed. Patient has a venous/stasis ulcer on right lower anterior leg, cleansed with wound cleanser, silver alginate applied covered with foam dressing. Sween 24 moisturizer applied to dry skin on bilateral lower legs. No other skin issues noted at this time.
--- NOTE | 2021-08-11 09:47 | P.PNIM_ITS ---
Subjective Subjective Date of Service: 08/11/21 Interval History: seen and examined this AM reports she has back pain but improved with oral pain meds Review of Systems negative except interval history Physical Exam Vital Signs: Vital Signs: Last Vital Signs Temp 97.5 F 08/11/21 07:59 Pulse 79 08/11/21 07:59 Resp 18 08/11/21 07:59 BP 151/60 H 08/11/21 07:59 Pulse Ox 95 08/11/21 07:59 Oxygen Flow Rate 2 08/10/21 02:18 BMI result Body Mass Index 25.9 Const: Other: Constitutional - Awake and Alert, No apparent distress; disoriented HEENT -? PERRLA, EOMI; extremely dry mucous membranes Cardiovascular -? S1S2, RRR, No edema Respiratory - Normal lung expansion, Normal respiratory effort, No respiratory distress, CTA bilaterally Gastrointestinal -? NT / ND; +BS; No rebound or guarding - No CVA tenderness Extremities - no calf tenderness bilaterally, no swelling Musculoskeletal - Minimal TTP to thoracic spine; no bilateral hip tenderness Skin - Warm/Dry Neurological -? Awake and alert; oriented to self and place, otherwise disoriented; Psychological - Appropriate affect Objective Data Active Medications Acetaminophen (Acetaminophen 325 Mg Tablet) 650 mg PO Q6H PRN PRN Reason: Pain, Mild (Pain Scale 1-3) Last Admin: 08/10/21 17:19 Dose: 650 mg Documented by: ANGELA Diltiazem HCl (Diltiazem Hcl Cd 240 Mg Cap.Er.Deg) 240 mg PO DAILY [facility]; Protocol Last Admin: 08/11/21 08:34 Dose: 240 mg Documented by: SHRUTHI Escitalopram Oxalate (Escitalopram Oxalate 5 Mg Tablet) 5 mg PO DAILY [facility] Last Admin: 08/11/21 08:34 Dose: 5 mg Documented by: SHRUTHI Hydromorphone HCl (Hydromorphone Hcl 2 Mg Tablet) 1 mg PO Q4H PRN PRN Reason: Pain, Moderate (Pain Scale 4-6 Last Admin: 08/11/21 08:39 Dose: 1 mg Documented by: SHRUTHI Insulin Glargine (Insulin Glargine,Hum.Rec.Anlog 100 Unit/Ml 10 Ml Vial) 10 unit SUBCUT BEDTIME [facility] Last Admin: 08/10/21 21:24 Dose: 10 unit Documented by: ANGELA Insulin Human Lispro (Insulin Lispro 100 Unit/Ml 3 Ml Vial) 0 unit SUBCUT QIDACHS [facility]; Protocol Last Admin: 08/11/21 08:28 Dose: Not Given Documented by: SHRUTHI Non-Admin Reason: No Insulin Coverage Ondansetron HCl (Ondansetron Hcl 4 Mg/2 Ml Vial) 4 mg IVPUSH Q8H PRN PRN Reason: Nausea and Vomiting Last Admin: 08/10/21 12:34 Dose: 4 mg Documented by: CARLITO Pharmacy Consult (Consult Rx Perform Med Rec) 1 each MISCELLANE ONCE PRN PRN Reason: Consult order Rivaroxaban (Rivaroxaban 15 Mg Tablet) 15 mg PO DAILY [facility] Last Admin: 08/11/21 08:34 Dose: 15 mg Documented by: SHRUTHI Sodium Chloride (0.9 % Sodium Chloride Flush 3 Ml Syringe) 3 ml IVFLUSH QSHIFT [facility] Last Admin: 08/11/21 08:26 Dose: Not Given Documented by: SHRUTHI Non-Admin Reason: IV Running Labs CBC & Chem 7: 08/11/21 05:24 08/11/21 05:24 Labs: Laboratory Results - last 24 hr 08/10/21 08/10/21 08/10/21 12:19 16:37 20:43 MCV MCH MCHC RDW Plt Count MPV Absolute Nucleated RBC Nucleated RBC % (auto) Anion Gap Estim Creat Clear Calc Estimated GFR POC Glucose 213 H 105 232 H Random Glucose Calcium 08/11/21 08/11/21 08/11/21 05:24 05:24 07:28 MCV 95.6 MCH 31.3 MCHC 32.7 RDW 13.2 Plt Count 412 H MPV 10.0 Absolute Nucleated RBC 0.000 Nucleated RBC % (auto) 0.0 Anion Gap 9 L Estim Creat Clear Calc 28.6 Estimated GFR 33 POC Glucose 94 Random Glucose 91 Calcium 8.5 Microbiology Microbiology Results: Microbiology 08/10/21 05:52 Blood Culture - Preliminary Blood - Venous No growth after 24 hours. 08/10/21 05:44 Blood Culture - Preliminary Blood - Venous No growth after 24 hours. Assessment and Plan (1) TONYA (acute kidney injury): Status: Acute Assessment and Plan: This is a 81 yo F with multiple medical issues who presents to the ED after a mechanical fall and is found to have suspected TONYA + toxic/metabolic encephalopathy + T12 compression fracture. She will be admitted for further care. 1. TONYA Improving, SCr down to 1.5 encourage oral hydration secondary to deyhdration 2. Mlid hyperK repeat lokelma (on aldactone at home) 3. Toxic/Metabolic Encephalopathy ? due to TONYA vs medications (received dilaudid in the ED) observe for now will need to get more collateral information from the patient's family 4. Fall suspected mechanical T12 compression fx -- pain control and if persistent, to consider IR for kyphoplasty, however pain improving with oral meds given calcitonin nasal spray PT eval 5. DM basal + bolus hold orals if she on any at home 6. Anticoagulation use per outpatient records -- on it for DVT 7. Chronic COPD + Chronic Resp failure with hypoxia on 2L continue baseline O2 and inhalers Full Code DVT pptx, Xarelto Quality Stroke Does the patient have a stroke diagnosis?: No VTE Prior VTE?: No VTE Risk Level:: Medical - moderate - high VTE Device Contraindication: Treatment Not Indicated VTE Drug Contraindication: N/A - Med Ordered
[2021-08-11 12:13] LABS: Glucose, Whole Blood 177 mg/dL (60-115)
[2021-08-11] MEDS: Insulin Lispro 100 UNIT/ML 3 ML VIAL SUBCUT ×3 (12:39→22:06)
[2021-08-11] MEDS: Sodium Zirconium Cyclosilicate 10 GM POWD.PACK PO (12:40)
[2021-08-11] MEDS: Calcitonin,Salmon,Synth Nasal 3.7 ML BOTTLE 1 SPRAY NOSTRILALT (12:40)
--- NOTE | 2021-08-11 14:12 | MHC.CM.PN ---
pt reports livng alone call placed and message left for son genaro to discuss dc planning genaro rahman [phone]
--- NOTE | 2021-08-11 14:40 | MHC.CM.PN ---
met with pt who will need transportation home pt reports having a counselor no other services
[2021-08-11 16:36] LABS: Glucose, Whole Blood 172 mg/dL (60-115)
[2021-08-11] MEDS: 0.9 % Sodium Chloride Flush 3 ML SYRINGE IVFLUSH ×2 (17:21→22:07)
[2021-08-11 21:58] LABS: Glucose, Whole Blood 221 mg/dL (60-115)
[2021-08-11] MEDS: Insulin Glargine,Hum.rec.anlog 100 UNIT/ML 10 ML VIAL 10 UNIT SUBCUT (22:06)
[2021-08-12] VITALS (7 sets, daily range): BP systolic 149–177; BP diastolic 67–75; PULSE 72–87; RESP 16–19; TEMP 36.2–36.9; O2SAT 92–96
[2021-08-12] MEDS: HYDROmorphone HCl 2 MG TABLET 1 MG PO ×2 (01:36→09:48)
[2021-08-12 07:54] LABS: Glucose, Whole Blood 77 mg/dL (60-115)
[2021-08-12] MEDS: 0.9 % Sodium Chloride Flush 3 ML SYRINGE IVFLUSH ×3 (09:47→21:51)
[2021-08-12 09:48] LABS: Hematocrit 26.8 % (37.0-47.0); Hemoglobin 8.6 g/dl (12.0-16.0); Mean Corpuscular HGB Conc 32.1 g/dl (31.0-35.0); Mean Corpuscular Hemoglobin 30.6 pg (27.0-33.0); Mean Corpuscular Volume 95.4 fL (80.0-98.0); Mean Platelet Volume 10.5 fL (9.4-12.3); Platelet Count 433 X10*3/uL (160-400); Red Blood Count 2.81 X10*6/uL (4.20-5.50); Red Cell Distribution Width 13.1 % (11.0-16.0); White Blood Count 13.8 X10*3/uL (4.8-10.8)
[2021-08-12] MEDS: Acetaminophen 325 MG TABLET 650 MG PO (09:48)
[2021-08-12] MEDS: Rivaroxaban 15 MG TABLET PO (09:48)
[2021-08-12] MEDS: dilTIAZem HCL CD 240 MG CAP.ER.DEG PO (09:48)
[2021-08-12] MEDS: Escitalopram Oxalate 5 MG TABLET PO (09:52)
[2021-08-12] MEDS: Calcitonin,Salmon,Synth Nasal 3.7 ML BOTTLE 1 SPRAY NOSTRILALT (09:53)
[2021-08-12 10:07] LABS: Anion Gap 14 (12-20); Blood Urea Nitrogen 25 mg/dL (9-16); Calcium 8.8 mg/dL (8.4-10.2); Carbon Dioxide 23 mmol/L (22-29); Chloride 106 mmol/L (96-108); Creatinine Clr Calc Pharmacy 38.4; Estimated Glomerular Filt Rate 46; Glucose Random 85 mg/dL (60-115); Iron 45 mcg/dL (30-160); Lactate Dehydrogenase 205 U/L (122-220); Percent Iron Saturation 20 % (15-50); Potassium 5.5 mmol/L (3.3-5.1); Sodium 137 mmol/L (135-145); Total Iron Binding Capacity 228 mcg/dL (228-428); Unsaturated Iron Binding 183 ug/dL
--- NOTE | 2021-08-12 11:02 | HO.PM.IMPN ---
Subjective Subjective Date of Service: 08/12/21 Interval History: cc: fall, back pain interval history: improved but still with pain, able to ambulate with walker Cardiovascular Cardiovascular: Reports no additional cardiovascular complaints Respiratory Respiratory: Reports no additional respiratory complaints Physical Exam Vital Signs: Vital Signs: Last Vital Signs Temp 97.7 F 08/12/21 08:00 Pulse 72 08/12/21 08:28 Resp 19 08/12/21 08:00 BP 164/75 H 08/12/21 08:28 Pulse Ox 95 08/12/21 08:28 Oxygen Flow Rate 2 08/10/21 02:18 BMI result Body Mass Index 25.9 Const Other:?Constitutional - Awake and Alert, No apparent distress; disoriented HEENT -? PERRLA, EOMI; extremely dry mucous membranes Cardiovascular -? S1S2, RRR, No edema Respiratory - Normal lung expansion, Normal respiratory effort, No respiratory distress, CTA bilaterally Gastrointestinal -? NT / ND; +BS; No rebound or guarding - No CVA tenderness Extremities - no calf tenderness bilaterally, no swelling Musculoskeletal - Minimal TTP to thoracic spine; no bilateral hip tenderness Skin - Warm/Dry Neurological -? Awake and alert; oriented to self and place, otherwise disoriented; Psychological - Appropriate affect Objective Data Active Medications Acetaminophen (Acetaminophen 325 Mg Tablet) 650 mg PO Q6H PRN PRN Reason: Pain, Mild (Pain Scale 1-3) Last Admin: 08/12/21 09:48 Dose: 650 mg Documented by: LISA Calcitonin Irving (Calcitonin,Irving,Synth Nasal 3.7 Ml Bottle) 1 spray NOSTRILALT DAILY [facility] Last Admin: 08/12/21 09:53 Dose: 1 spray Documented by: LISA Diltiazem HCl (Diltiazem Hcl Cd 240 Mg Cap.Er.Deg) 240 mg PO DAILY [facility]; Protocol Last Admin: 08/12/21 09:48 Dose: 240 mg Documented by: LISA Escitalopram Oxalate (Escitalopram Oxalate 5 Mg Tablet) 5 mg PO DAILY [facility] Last Admin: 08/12/21 09:52 Dose: 5 mg Documented by: LISA Hydromorphone HCl (Hydromorphone Hcl 2 Mg Tablet) 1 mg PO Q4H PRN PRN Reason: Pain, Moderate (Pain Scale 4-6 Last Admin: 08/12/21 09:48 Dose: 1 mg Documented by: LISA Insulin Glargine (Insulin Glargine,Hum.Rec.Anlog 100 Unit/Ml 10 Ml Vial) 10 unit SUBCUT BEDTIME [facility] Last Admin: 08/11/21 22:06 Dose: 10 unit Documented by: CATRISGiuseppe Insulin Human Lispro (Insulin Lispro 100 Unit/Ml 3 Ml Vial) 0 unit SUBCUT QIDACHS [facility]; Protocol Last Admin: 08/12/21 07:46 Dose: Not Given Documented by: LISA Non-Admin Reason: No Insulin Coverage Ondansetron HCl (Ondansetron Hcl 4 Mg/2 Ml Vial) 4 mg IVPUSH Q8H PRN PRN Reason: Nausea and Vomiting Last Admin: 08/10/21 12:34 Dose: 4 mg Documented by: CARLITO Pharmacy Consult (Consult Rx Perform Med Rec) 1 each MISCELLANE ONCE PRN PRN Reason: Consult order Rivaroxaban (Rivaroxaban 15 Mg Tablet) 15 mg PO DAILY [facility] Last Admin: 08/12/21 09:48 Dose: 15 mg Documented by: LISA Sodium Chloride (0.9 % Sodium Chloride Flush 3 Ml Syringe) 3 ml IVFLUSH QSHIFT [facility] Last Admin: 08/12/21 09:47 Dose: 3 ml Documented by: LISA Sodium Zirconium Cyclosilicate (Sodium Zirconium Cyclosilicate 5 Gm Powd.Pack) 5 gm PO ONCE ONE Stop: 08/12/21 11:02 Labs CBC & Chem 7: 08/12/21 08:35 08/12/21 08:35 Labs: Laboratory Results - last 24 hr 08/11/21 08/11/21 08/11/21 11:26 15:54 21:46 MCV MCH MCHC RDW Plt Count MPV Absolute Nucleated RBC Nucleated RBC % (auto) Anion Gap Estim Creat Clear Calc Estimated GFR POC Glucose 177 H 172 H 221 H Random Glucose Calcium Iron TIBC % Saturation Unsat Iron Binding Lactate Dehydrogenase 08/12/21 08/12/21 08/12/21 07:37 08:35 08:35 MCV 95.4 MCH 30.6 MCHC 32.1 RDW 13.1 Plt Count 433 H MPV 10.5 Absolute Nucleated RBC 0.000 Nucleated RBC % (auto) 0.0 Anion Gap 14 Estim Creat Clear Calc 38.4 Estimated GFR 46 POC Glucose 77 Random Glucose 85 Calcium 8.8 Iron 45 TIBC 228 % Saturation 20 Unsat Iron Binding 183 Lactate Dehydrogenase 205 Microbiology Microbiology Results: Microbiology 08/10/21 05:52 Blood Culture - Preliminary Blood - Venous No growth after 48 hours. 08/10/21 05:44 Blood Culture - Preliminary Blood - Venous No growth after 48 hours. Assessment and Plan (1) TONYA (acute kidney injury): Status: Acute Assessment and Plan: This is a 81 yo F with multiple medical issues who presented to the ED after a mechanical fall and is found to have suspected TONYA + toxic/metabolic encephalopathy + T12 compression fracture. TONYA Improving, SCr down to 1.13, was 1.96 on admission secondary to deyhdration monitor Mlid hyperK 5.5 holding aldactone will give another dose of lokelma, follow up bmp Toxic/Metabolic Encephalopathy ? due to TONYA vs medications (received dilaudid in the ED) vs pain appears improved Fall suspected mechanical T12 compression fx -- pain control, ambulated with PT, will hold off on kyphoplasty for now given calcitonin nasal spray PT eval - reccomending str DM basal + bolus history of DVT continue xarelto Chronic COPD + Chronic Resp failure with hypoxia on 2L continue baseline O2 and inhalers Full Code DVT pptx, Xarelto Quality Stroke Does the patient have a stroke diagnosis?: No VTE Prior VTE?: No VTE Risk Level:: Medical - moderate - high VTE Device Contraindication: Treatment Not Indicated VTE Drug Contraindication: N/A - Med Ordered
[2021-08-12] MEDS: Sodium Zirconium Cyclosilicate 5 GM POWD.PACK PO (11:19)
[2021-08-12 11:49] LABS: Glucose, Whole Blood 197 mg/dL (60-115)
[2021-08-12] MEDS: Insulin Lispro 100 UNIT/ML 3 ML VIAL SUBCUT ×3 (12:25→21:51)
[2021-08-12 17:01] LABS: Glucose, Whole Blood 245 mg/dL (60-115)
[2021-08-12 20:52] LABS: Glucose, Whole Blood 236 mg/dL (60-115)
[2021-08-12] MEDS: Insulin Glargine,Hum.rec.anlog 100 UNIT/ML 10 ML VIAL 10 UNIT SUBCUT (21:50)
[2021-08-13] VITALS: BP 194/79; PULSE 85; RESP 18; TEMP 36; O2SAT 94
[2021-08-13] MEDS: HYDROmorphone HCl 2 MG TABLET 1 MG PO ×2 (02:27→17:45)
[2021-08-13 04:00] VITALS: BP 154/68; PULSE 86; RESP 17; TEMP 36.6; O2SAT 95
[2021-08-13 06:06] LABS: Hematocrit 26.1 % (37.0-47.0); Hemoglobin 8.4 g/dl (12.0-16.0); Mean Corpuscular HGB Conc 32.2 g/dl (31.0-35.0); Mean Corpuscular Hemoglobin 30.7 pg (27.0-33.0); Mean Corpuscular Volume 95.3 fL (80.0-98.0); Mean Platelet Volume 9.8 fL (9.4-12.3); Platelet Count 483 X10*3/uL (160-400); Red Blood Count 2.74 X10*6/uL (4.20-5.50); Red Cell Distribution Width 13.2 % (11.0-16.0); White Blood Count 12.2 X10*3/uL (4.8-10.8)
[2021-08-13 06:35] LABS: Anion Gap 12 (12-20); Blood Urea Nitrogen 25 mg/dL (9-16); Calcium 8.7 mg/dL (8.4-10.2); Carbon Dioxide 25 mmol/L (22-29); Chloride 104 mmol/L (96-108); Creatinine Clr Calc Pharmacy 41.4; Estimated Glomerular Filt Rate 50; Glucose Fasting 167 mg/dL (60-99); Potassium 5.1 mmol/L (3.3-5.1); Sodium 136 mmol/L (135-145)
[2021-08-13 07:58] LABS: Glucose, Whole Blood 137 mg/dL (60-115)
[2021-08-13 08:00] VITALS: BP 166/73; PULSE 84; RESP 17; TEMP 36.4; O2SAT 94
[2021-08-13] MEDS: 0.9 % Sodium Chloride Flush 3 ML SYRINGE IVFLUSH ×2 (09:40→16:51)
[2021-08-13] MEDS: dilTIAZem HCL CD 240 MG CAP.ER.DEG PO (09:40)
[2021-08-13] MEDS: Escitalopram Oxalate 5 MG TABLET PO (09:40)
[2021-08-13] MEDS: Rivaroxaban 15 MG TABLET PO (09:40)
[2021-08-13] MEDS: Calcitonin,Salmon,Synth Nasal 3.7 ML BOTTLE 1 SPRAY NOSTRILALT (09:41)
--- NOTE | 2021-08-13 10:01 | P.PNIM_ITS ---
Subjective Subjective Date of Service: 08/13/21 Interval History: cc: fall, back pain interval history: improved but still with pain, able to ambulate with walker Cardiovascular Cardiovascular: Reports no additional cardiovascular complaints Respiratory Respiratory: Reports no additional respiratory complaints Physical Exam Vital Signs: Vital Signs: Last Vital Signs Temp 97.5 F 08/13/21 08:00 Pulse 84 08/13/21 08:00 Resp 17 08/13/21 08:00 BP 166/73 H 08/13/21 08:00 Pulse Ox 94 08/13/21 08:00 Oxygen Flow Rate 2 08/10/21 02:18 BMI result Body Mass Index 25.9 onst Other:?Constitutional - Awake and Alert, No apparent distress; disoriented HEENT -? PERRLA, EOMI; extremely dry mucous membranes Cardiovascular -? S1S2, RRR, No edema Respiratory - Normal lung expansion, Normal respiratory effort, No respiratory distress, CTA bilaterally Gastrointestinal -? NT / ND; +BS; No rebound or guarding - No CVA tenderness Extremities - no calf tenderness bilaterally, no swelling Musculoskeletal - Minimal TTP to thoracic spine; no bilateral hip tenderness Skin - Warm/Dry Neurological -? Awake and alert; oriented to self and place, otherwise dis oriented; Psychological - Appropriate affect Objective Data Active Medications Acetaminophen (Acetaminophen 325 Mg Tablet) 650 mg PO Q6H PRN PRN Reason: Pain, Mild (Pain Scale 1-3) Last Admin: 08/12/21 09:48 Dose: 650 mg Documented by: LISA Calcitonin White (Calcitonin,White,Synth Nasal 3.7 Ml Bottle) 1 spray NOSTRILALT DAILY [facility] Last Admin: 08/13/21 09:41 Dose: 1 spray Documented by: LISA Diltiazem HCl (Diltiazem Hcl Cd 240 Mg Cap.Er.Deg) 240 mg PO DAILY [facility]; Protocol Last Admin: 08/13/21 09:40 Dose: 240 mg Documented by: LISA Escitalopram Oxalate (Escitalopram Oxalate 5 Mg Tablet) 5 mg PO DAILY [facility] Last Admin: 08/13/21 09:40 Dose: 5 mg Documented by: LISA Hydromorphone HCl (Hydromorphone Hcl 2 Mg Tablet) 1 mg PO Q4H PRN PRN Reason: Pain, Moderate (Pain Scale 4-6 Last Admin: 08/13/21 02:27 Dose: 1 mg Documented by: CATRISGiuseppe Insulin Glargine (Insulin Glargine,Hum.Rec.Anlog 100 Unit/Ml 10 Ml Vial) 10 unit SUBCUT BEDTIME [facility] Last Admin: 08/12/21 21:50 Dose: 10 unit Documented by: KIMBERLY Insulin Human Lispro (Insulin Lispro 100 Unit/Ml 3 Ml Vial) 0 unit SUBCUT QIDACHS [facility]; Protocol Last Admin: 08/13/21 07:48 Dose: Not Given Documented by: LISA Non-Admin Reason: No Insulin Coverage Ondansetron HCl (Ondansetron Hcl 4 Mg/2 Ml Vial) 4 mg IVPUSH Q8H PRN PRN Reason: Nausea and Vomiting Last Admin: 08/10/21 12:34 Dose: 4 mg Documented by: CARLITO Pharmacy Consult (Consult Rx Perform Med Rec) 1 each MISCELLANE ONCE PRN PRN Reason: Consult order Rivaroxaban (Rivaroxaban 15 Mg Tablet) 15 mg PO DAILY [facility] Last Admin: 08/13/21 09:40 Dose: 15 mg Documented by: LISA Sodium Chloride (0.9 % Sodium Chloride Flush 3 Ml Syringe) 3 ml IVFLUSH QSHIFT [facility] Last Admin: 08/13/21 09:40 Dose: 3 ml Documented by: LISA Labs CBC & Chem 7: 08/13/21 05:41 08/13/21 05:41 Labs: Laboratory Results - last 24 hr 08/12/21 08/12/21 08/12/21 08:35 11:31 16:51 MCV MCH MCHC RDW Plt Count MPV Absolute Nucleated RBC Nucleated RBC % (auto) Anion Gap 14 Estim Creat Clear Calc 38.4 Estimated GFR 46 POC Glucose 197 H 245 H Random Glucose 85 Fasting Glucose Calcium 8.8 Iron 45 TIBC 228 % Saturation 20 Unsat Iron Binding 183 Lactate Dehydrogenase 205 08/12/21 08/13/21 08/13/21 20:40 05:41 05:41 MCV 95.3 MCH 30.7 MCHC 32.2 RDW 13.2 Plt Count 483 H MPV 9.8 Absolute Nucleated RBC 0.000 Nucleated RBC % (auto) 0.0 Anion Gap 12 Estim Creat Clear Calc 41.4 Estimated GFR 50 POC Glucose 236 H Random Glucose Fasting Glucose 167 H Calcium 8.7 Iron TIBC % Saturation Unsat Iron Binding Lactate Dehydrogenase 08/13/21 07:36 MCV MCH MCHC RDW Plt Count MPV Absolute Nucleated RBC Nucleated RBC % (auto) Anion Gap Estim Creat Clear Calc Estimated GFR POC Glucose 137 H Random Glucose Fasting Glucose Calcium Iron TIBC % Saturation Unsat Iron Binding Lactate Dehydrogenase Microbiology Microbiology Results: Microbiology 08/10/21 05:52 Blood Culture - Preliminary Blood - Venous Prelim: GPR Gram Stain only 08/10/21 05:44 Blood Culture - Preliminary Blood - Venous No growth after 48 hours. Assessment and Plan (1) TONYA (acute kidney injury): Status: Acute Assessment and Plan: This is a 81 yo F with multiple medical issues who presented to the ED after a mechanical fall and is found to have suspected TONYA + toxic/metabolic encephalopa thy + T12 compression fracture. TONYA Improving, SCr down to 1.05, was 1.96 on admission secondary to deyhdration Mlid hyperK improved to 5.1 holding aldactone Toxic/Metabolic Encephalopathy ? 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
[2021-08-13 11:41] LABS: Glucose, Whole Blood 296 mg/dL (60-115)
[2021-08-13] MEDS: Insulin Lispro 100 UNIT/ML 3 ML VIAL SUBCUT ×3 (11:52→21:16)
[2021-08-13 12:00] VITALS: BP 164/71; PULSE 86; RESP 19; TEMP 36.6; O2SAT 95
[2021-08-13 15:43] VITALS: BP 175/77; PULSE 86; RESP 16; TEMP 36.4; O2SAT 92
[2021-08-13 16:17] LABS: Glucose, Whole Blood 299 mg/dL (60-115)
[2021-08-13 19:28] VITALS: BP 184/79; PULSE 89; RESP 16; TEMP 36.8; O2SAT 93
[2021-08-13 20:30] LABS: Glucose, Whole Blood 222 mg/dL (60-115)
[2021-08-13] MEDS: Insulin Glargine,Hum.rec.anlog 100 UNIT/ML 10 ML VIAL 10 UNIT SUBCUT (21:16)
[2021-08-14] VITALS: BP 133/78; PULSE 83; RESP 20; TEMP 36.6; O2SAT 96
[2021-08-14] MEDS: 0.9 % Sodium Chloride Flush 3 ML SYRINGE IVFLUSH ×3 (01:11→16:44)
[2021-08-14 03:34] VITALS: BP 159/71; PULSE 83; RESP 20; TEMP 36.8; O2SAT 92
[2021-08-14 08:00] VITALS: BP 168/72; PULSE 88; RESP 20; TEMP 36.8; O2SAT 94
[2021-08-14] MEDS: dilTIAZem HCL CD 240 MG CAP.ER.DEG PO (08:41)
[2021-08-14] MEDS: ondansetron HCL 4 MG/2 ML VIAL IVPUSH (08:41)
[2021-08-14] MEDS: Escitalopram Oxalate 5 MG TABLET PO (08:41)
[2021-08-14] MEDS: Rivaroxaban 15 MG TABLET PO (08:41)
[2021-08-14] MEDS: Calcitonin,Salmon,Synth Nasal 3.7 ML BOTTLE 1 SPRAY NOSTRILALT (08:48)
[2021-08-14] MEDS: HYDROmorphone HCl 2 MG TABLET 1 MG PO (08:51)
--- NOTE | 2021-08-14 09:34 | HO.PM.IMPN ---
Subjective Subjective Date of Service: 08/14/21 Interval History: ?cc: fall, back pain interval history: improved, able to ambulate with walker Cardiovascular Cardiovascular: Reports no additional cardiovascular complaints Respiratory Respiratory: Reports no additional respiratory complaints Physical Exam Vital Signs: Vital Signs: Last Vital Signs Temp 98.2 F 08/14/21 08:00 Pulse 88 08/14/21 08:00 Resp 20 08/14/21 08:00 BP 168/72 H 08/14/21 08:00 Pulse Ox 94 08/14/21 08:00 Oxygen Flow Rate 2 08/10/21 02:18 BMI result Body Mass Index 25.9 onst Other:?Constitutional - Awake and Alert, No apparent distress; disoriented HEENT -? PERRLA, EOMI; extremely dry mucous membranes Cardiovascular -? S1S2, RRR, No edema Respiratory - Normal lung expansion, Normal respiratory effort, No respiratory distress, CTA bilaterally Gastrointestinal -? NT / ND; +BS; No rebound or guarding - No CVA tenderness Extremities - no calf tenderness bilaterally, no swelling Musculoskeletal - Minimal TTP to thoracic spine; no bilateral hip tenderness Skin - Warm/Dry Neurological -? Awake and alert; oriented to self and place, otherwise disoriented; Psychological - Appropriate affect Objective Data Active Medications Acetaminophen (Acetaminophen 325 Mg Tablet) 650 mg PO Q6H PRN PRN Reason: Pain, Mild (Pain Scale 1-3) Last Admin: 08/12/21 09:48 Dose: 650 mg Documented by: LISA Calcitonin Lester (Calcitonin,Lester,Synth Nasal 3.7 Ml Bottle) 1 spray NOSTRILALT DAILY COUNT INCLUDES THE [facility] Last Admin: 08/14/21 08:48 Dose: 1 spray Documented by: SAMUEL Diltiazem HCl (Diltiazem Hcl Cd 240 Mg Cap.Er.Deg) 240 mg PO DAILY COUNT INCLUDES THE [facility]; Protocol Last Admin: 08/14/21 08:41 Dose: 240 mg Documented by: SAMUEL Escitalopram Oxalate (Escitalopram Oxalate 5 Mg Tablet) 5 mg PO DAILY COUNT INCLUDES THE [facility] Last Admin: 08/14/21 08:41 Dose: 5 mg Documented by: SAMUEL Hydromorphone HCl (Hydromorphone Hcl 2 Mg Tablet) 1 mg PO Q4H PRN PRN Reason: Pain, Moderate (Pain Scale 4-6 Last Admin: 08/14/21 08:51 Dose: 1 mg Documented by: SAMUEL Insulin Glargine (Insulin Glargine,Hum.Rec.Anlog 100 Unit/Ml 10 Ml Vial) 10 unit SUBCUT BEDTIME COUNT INCLUDES THE [facility] Last Admin: 08/13/21 21:16 Dose: 10 unit Documented by: LISA Insulin Human Lispro (Insulin Lispro 100 Unit/Ml 3 Ml Vial) 0 unit SUBCUT QIDACHS COUNT INCLUDES THE [facility]; Protocol Last Admin: 08/14/21 08:45 Dose: Not Given Documented by: SAMUEL Non-Admin Reason: No Insulin Coverage Ondansetron HCl (Ondansetron Hcl 4 Mg/2 Ml Vial) 4 mg IVPUSH Q8H PRN PRN Reason: Nausea and Vomiting Last Admin: 08/14/21 08:41 Dose: 4 mg Documented by: SAMUEL Pharmacy Consult (Consult Rx Perform Med Rec) 1 each MISCELLANE ONCE PRN PRN Reason: Consult order Rivaroxaban (Rivaroxaban 15 Mg Tablet) 15 mg PO DAILY COUNT INCLUDES THE [facility] Last Admin: 08/14/21 08:41 Dose: 15 mg Documented by: SAMUEL Sodium Chloride (0.9 % Sodium Chloride Flush 3 Ml Syringe) 3 ml IVFLUSH QSHIFT COUNT INCLUDES THE [facility] Last Admin: 08/14/21 08:42 Dose: 3 ml Documented by: SAMUEL Labs CBC & Chem 7: 08/13/21 05:41 08/13/21 05:41 Labs: Laboratory Results - last 24 hr 08/13/21 08/13/21 08/13/21 11:36 16:11 20:16 POC Glucose 296 H 299 H 222 H Microbiology Microbiology Results: Microbiology 08/10/21 05:52 Blood Culture - Final Blood - Venous Corynebacterium species Assessment and Plan (1) TONYA (acute kidney injury): Status: Acute Assessment and Plan: This is a 81 yo F with multiple medical issues who presented to the ED after a mechanical fall and is found to have suspected TONYA + toxic/metabolic encephalopathy + T12 compression fracture. TONYA Improving, SCr down to 1.05, was 1.96 on admission secondary to deyhdration Mlid hyperK improved to 5.1 holding aldactone Toxic/Metabolic Encephalopathy ? 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
[2021-08-14 10:29] VITALS: BP 168/72; PULSE 88; O2SAT 94
[2021-08-14 11:03] LABS: Glucose, Whole Blood 128 mg/dL (60-115)
[2021-08-14 11:03] LABS: Glucose, Whole Blood 272 mg/dL (60-115)
[2021-08-14 11:55] VITALS: BP 138/67; PULSE 88; RESP 18; TEMP 36.8; O2SAT 95
--- NOTE | 2021-08-14 12:02 | MHC.CM.PN ---
CM attempted to speak with listed contact/Son/Chau @ [phone], but the woman who answered indicated that Chau is not available and she provided CM with Patient's other Son/Kwasi's contact information.CM spoke with Kwasi, who indicated his approval for a broad snf search with the hope to stay as close to [facility] as possible. Patient is not covid vaccinated and CM will continue to follow.
[2021-08-14] MEDS: Insulin Lispro 100 UNIT/ML 3 ML VIAL SUBCUT ×2 (12:09→16:43)
--- NOTE | 2021-08-14 14:16 | P.CDIC_ITS ---
CDI Concurrent Query Documentation Clarification: PHYSICIAN'S DOCUMENTATION REQUEST Date of Query: 08/14/21 1416 Patient Name: Bibi Cormier Admit Date: 08/10/21 Dear Doctor, A review of the medical record indicates additional documentation may be indicated. Please review below and update the documentation accordingly. Clinical Indicators: Risk Factors/Clinical Indicators/Treatments per H&P 08/10/21: provided with empiric antibiotics for RLE wound PMH: IDDM, Lymphedema Per ED note, non-healing wound right lower extremity Based on the above, could you please provide, in the Progress Notes, further information regarding the ulcer/wound: * Location of the ulcer/wound * Type (etiology) of ulcer/wound: * Diabetic ulcer * Venous stasis ulcer * Arterial (ischemic) ulcer * Pressure (decubitus) ulcer * Traumatic wound * Non-healing surgical wound * Other * Unable to determine * For a non-pressure ulcer, please indicate the depth/severity: * Limited to the breakdown of skin * With fat layer exposed * With necrosis of muscle * With necrosis of bone * Other * Unable to determine * If a pressure ulcer, please also include the stage* of the ulcer: * Stage 1 - Skin intact, non-blanchable redness * Stage 2 - Partial thickness loss of dermis, includes intact or open blister * Stage 3 - Full thickness tissue not including bone, tendon, or muscle * Stage 4 - Full thickness tissue loss, including exposed bones, tendon, or muscle * Unstageable - Full thickness tissue loss in which the base of the ulcer is covered by slough (yellow, best, gusman, green or brown) and/or eschar (best, brown, or black) in the wound bed. * Suspected deep tissue injury - Purple or maroon localized area of discolored intact skin or blood-filled blister due to damage of underlying soft tissues from pressure and/or shear. The area may be preceded by tissue that is painful, firm, mushy, boggy, warmer, or cooler as compare to adjacent tissue. * Unable to determine *Source: National Pressure Ulcer Advisory Panel (NPUAP) Use of terms such as suspected, likely, concern for, or probable (associated with a specific diagnosis that is being evaluated, monitored, or treated as if it exists) are acceptable and can be coded in the inpatient setting, when documented at the time of discharge. Thank you, Salina Young RN Extension: [phone] Please use your independent medical judgment in providing your response. THIS QUERY IS PART OF THE PERMANENT MEDICAL RECORD Provider Response: Other Other Diagnosis: lymphedema
--- NOTE | 2021-08-14 14:16 | MHC.CDI.CONC ---
CDI Concurrent Query Documentation Clarification: PHYSICIAN'S DOCUMENTATION REQUEST Date of Query: 08/14/21 1416 Patient Name: Bibi Cormier Admit Date: 08/10/21 Dear Doctor, A review of the medical record indicates additional documentation may be indicated. Please review below and update the documentation accordingly. Clinical Indicators: Risk Factors/Clinical Indicators/Treatments per H&P 08/10/21: provided with empiric antibiotics for RLE wound PMH: IDDM, Lymphedema Per ED note, non-healing wound right lower extremity Based on the above, could you please provide, in the Progress Notes, further information regarding the ulcer/wound: Location of the ulcer/wound Type (etiology) of ulcer/wound: Diabetic ulcer Venous stasis ulcer Arterial (ischemic) ulcer Pressure (decubitus) ulcer Traumatic wound Non-healing surgical wound Other Unable to determine For a non-pressure ulcer, please indicate the depth/severity: Limited to the breakdown of skin With fat layer exposed With necrosis of muscle With necrosis of bone Other Unable to determine If a pressure ulcer, please also include the stage* of the ulcer: Stage 1 - Skin intact, non-blanchable redness Stage 2 - Partial thickness loss of dermis, includes intact or open blister Stage 3 - Full thickness tissue not including bone, tendon, or muscle Stage 4 - Full thickness tissue loss, including exposed bones, tendon, or muscle Unstageable - Full thickness tissue loss in which the base of the ulcer is covered by slough (yellow, best, gusman, green or brown) and/or eschar (best, brown, or black) in the wound bed. Suspected deep tissue injury - Purple or maroon localized area of discolored intact skin or blood-filled blister due to damage of underlying soft tissues from pressure and/or shear. The area may be preceded by tissue that is painful, firm, mushy, boggy, warmer, or cooler as compare to adjacent tissue. Unable to determine *Source: National Pressure Ulcer Advisory Panel (NPUAP) Use of terms such as suspected, likely, concern for, or probable (associated with a specific diagnosis that is being evaluated, monitored, or treated as if it exists) are acceptable and can be coded in the inpatient setting, when documented at the time of discharge. Thank you, Salina Young RN Extension: [phone] Please use your independent medical judgment in providing your response. THIS QUERY IS PART OF THE PERMANENT MEDICAL RECORD Provider Response: Other Other Diagnosis: lymphedema
--- NOTE | 2021-08-14 15:44 | PM.DS ---
DS: Providers Provider Date of Service: 08/14/21 Date of admission: 08/10/21 09:13 Primary care physician: Aba Cowan MD DS: Diagnosis Discharge Diagnosis (1) TONYA (acute kidney injury): Status: Acute DS: Summary Hospital Course Hospital Course: 81 yo F with multiple medical issues who presented to the ED after a mechanical fall and was found to have TONYA, hyperkalemia + toxic/metabolic encephalopathy + T12 compression fracture. her aldactone was held and she was given hydration. tonya and hyperkalemia resolved. her encephelaopathy also returned to baseline. she had PT and was able to ambulate with minimal pain. she will be discharged to SNF Time Spent with Patient Time attestation: Total time spent providing and/or coordinating discharge services: Discharge coordination time: Greater than 30 minutes Quality: Stroke Does the patient have a stroke diagnosis?: No Physical Exam Vital Signs: Vital Signs: Last Vital Signs Temp 98.2 F 08/14/21 11:55 Pulse 88 08/14/21 11:55 Resp 18 08/14/21 11:55 BP 138/67 08/14/21 11:55 Pulse Ox 95 08/14/21 11:55 Oxygen Flow Rate 2 08/10/21 02:18 BMI result Body Mass Index 25.9 onst Other:?Constitutional - Awake and Alert, No apparent distress; disoriented HEENT -? PERRLA, EOMI; extremely dry mucous membranes Cardiovascular -? S1S2, RRR, No edema Respiratory - Normal lung expansion, Normal respiratory effort, No respiratory distress, CTA bilaterally Gastrointestinal -? NT / ND; +BS; No rebound or guarding - No CVA tenderness Extremities - no calf tenderness bilaterally, no swelling Musculoskeletal - Minimal TTP to thoracic spine; no bilateral hip tenderness Skin - Warm/Dry Neurological -? Awake and alert; oriented to self and place, otherwise disoriented; Psychological - Appropriate affect DS: Data Data Completed and Pending Labs on day of discharge: Laboratory Results - last 24 hr 08/13/21 08/13/21 08/14/21 16:11 20:16 08:12 POC Glucose 299 H 222 H 128 H 08/14/21 10:49 POC Glucose 272 H Preliminary micro results at discharge 08/10/21 05:44 Blood Culture - Preliminary Blood - Venous No growth after 48 hours. Discharge Plan Discharge Patient Disposition: Xfer SNF Discharge Diagnosis: t12 fracture Referrals: [facility] [Outside] - 1 Week Aba Cowan MD [Primary Care Provider] - 1 Week Discharge Medications: New acetaminophen 325 mg Tablet 650 mg PO Q6H PRN (Reason: Pain, Mild (Pain Scale 1-3)) Qty: 0 RF: 0 Continued (DME) FreeStyle Lite Strips Strip See Rx Instructions .Route Qty: 100 RF: 12 citalopram 10 mg tablet 10 mg PO DAILY Qty: 90 RF: 1 diltiazem HCl 240 mg capsule,extended release 24 hr 240 mg PO QAM Qty: 90 RF: 1 insulin aspart U-100 [Novolog Flexpen U-100 Insulin] 100 unit/mL (3 mL) insulin pen 0 sliding scale dose subcut TIDAC RF: 0 insulin glargine 100 unit/mL (3 mL) insulin pen 10 unit subcut BEDTIME RF: 0 (DME) lancets [FreeStyle Lancets] 28 gauge misc See Rx Instructions .ROUTE .MEDSUPPLY Qty: 100 RF: 0 Xarelto 15 mg tablet 15 mg PO DAILY Qty: 90 RF: 1 Discontinued spironolactone 25 mg tablet 25 mg PO DAILY Qty: 90 RF: 1 Discharge Orders: Discharge Order (Routine); Ordered 08/14/21 Ordered By: Michoacano Castanon Diet: advance to usual diet Activity on Discharge: As tolerated Stand Alone Forms: Patient Portal Discharge page Care Plan Goals: rehab Health Concerns: t12 fracture Plan of Treatment: rehab Assessment: see above Discharge Date/Time: 08/14/21 19:09
[2021-08-14 15:56] VITALS: BP 138/67; PULSE 80; RESP 18; TEMP 36.6; O2SAT 93
--- NOTE | 2021-08-14 16:03 | MHC.CM.PN ---
Patient has been medically cleared for dc to [facility]/SNF today.Patient is confused and CM spoke with Son/Kwasi @ [phone],and addressed IMM with him (original to be mailed to Kwasi and a copy has been placed on the chart). Son/Kwasi is aware of and in agreement with the dc plan.Patient will dc to [facility] today at 6PM, via [facility].
[2021-08-14 16:31] LABS: Glucose, Whole Blood 235 mg/dL (60-115)
--- NOTE | 2021-08-14 17:05 | PC.NURSE ---
Spoke with RN from [facility] ,they are ok with monitoring voiding trials,sierra d/c
[2021-08-14 17:23] LABS: COVID-19 Test Negative (Negative)
--- NOTE | 2021-08-14 18:54 | MHC.CM.PN ---
CM uploaded current negative COVID results into [facility] to [facility]. Pt awaiting transport. CM to follow for d/c needs.
== END 2021-08-14 19:09 | disposition skilled nursing facility (03) | DRG 551 ==
LOC: HO.ED 07:06 → HO.EDOVER 09:21 → HO.S3 11:09
PROVIDERS: Admitting Provider Family Medicine; Emergency Provider Student in an Organized Health Care Education/Training Program; PCP Internal Medicine; Visit Provider Internal Medicine
DX: S22.088A Other fracture of T11-T12 vertebra, initial encounter for closed fracture (principal); G92.8 Other toxic encephalopathy; N17.9 Acute kidney failure, unspecified; J96.11 Chronic respiratory failure with hypoxia; W01.0XXA Fall on same level from slipping, tripping and stumbling without subsequent striking against object, initial encounter; I89.0 Lymphedema, not elsewhere classified; Y92.000 Kitchen of unspecified non-institutional (private) residence as the place of occurrence of the external cause; Z20.822 Contact with and (suspected) exposure to COVID-19; E86.0 Dehydration; F17.210 Nicotine dependence, cigarettes, uncomplicated; Z71.6 Tobacco abuse counseling; Z99.81 Dependence on supplemental oxygen; E87.5 Hyperkalemia; Z79.4 Long term (current) use of insulin; Z79.01 Long term (current) use of anticoagulants; Z79.899 Other long term (current) drug therapy
CPT/HCPCS: 36415; 70450; 71045; 72125; 73521; 74176; 80048; 80053; 81001; 82009; 82803; 82947; 83540; 83605; 83615; 85025; 85027; 85610; 87040; 87205; 87635; 93005; 97110; 97162; 99285; J0696; J1170; J1885; J2405; J3010

== ENCOUNTER 2021-08-18 09:25 | Emergency (ER) | payer MEDICARE, MEDICAID, SELFPAY ==
--- NOTE | ~2021-08-18 | XR_ITS ---
EXAMINATION: XR HIP, LEFT CLINICAL INFORMATION: Hip pain. COMPARISON: Radiographs of the pelvis and bilateral hips dated from 08/10/2021. TECHNIQUE: Two views of the left hip. FINDINGS: Evaluation is challenging due to patient's rotation, diffuse osteopenia and extensive overlying degenerative osteoarthritis. However, accounting for these limitations, no definite acute fractures or malalignment identified. Partially visualized right femoral hardware with chronic deformities of the right pubis and right ischial tuberosity. 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 Prominent bony productive changes and enthesophytes in the left ischial tuberosity. Pelvic phleboliths. Vascular calcifications. Moderate volume of stool burden in the rectum. XR/XR hip LT w PEL1V IMPRESSION: No acute fractures or malalignment. Chronic deformities of the right hemipelvis. Severe degenerative osteoarthritic of the left hip.
--- NOTE | ~2021-08-18 | CT_ITS ---
EXAMINATION: CT PELVIS WITHOUT CONTRAST CLINICAL INFORMATION: Fall, large hematoma left gluteus. COMPARISON: None TECHNIQUE: Helical scanning was performed with submillimeter collimation through the pelvis. Sagittal and coronal multiplanar 2-D reconstructions were obtained. This CT examination was performed using dose optimization techniques as appropriate, variously including the following: *Automated exposure control *Adjustment of mA and/or kV according to patient size (this includes techniques or standardized protocols for targeted exams where dose is matched to indication/reason for exam; i.e. extremities or head) *Use of iterative reconstruction technique DLP: 648 mGy-cm FINDINGS: PELVIS: The bladder is distended with no obstructive etiology seen. There is moderate stool seen throughout the colon consistent with severe constipation. The liver is enlarged there are small lacunar hernia containing a loop of bowel loops within. OSSEOUS STRUCTURES: There is a right femoral intramedullary not and hip nail. There is no acute fracture or dislocation left hip. There is calcified density seen adjacent to left ischium likely calcific bursitis. There is a large hematoma posterior to left ischium/gluteus measuring 10.8 x by 10.8 x 8.6 cm. There are degenerative disc changes and vacuum disc phenomena L4-L5 L5-S1 disc level with mild spondylosis. CT/CT pelvis wo con IMPRESSION: Large left gluteal/buttock hematoma. There is no ischial fracture. There is however calcification posterior to the ischium suggestive of calcific bursitis. Hepatomegaly. Distended urinary bladder with no obvious cause seen. Moderate to significant constipation. Umbilical hernia containing a loop of small bowel
--- NOTE | ~2021-08-18 | XR_ITS ---
EXAMINATION: XR CHEST CLINICAL INFORMATION: Cough, Covid positive. COMPARISON: None TECHNIQUE: Frontal view of the chest was obtained. FINDINGS: The lungs are well expanded with mild elevated left hemidiaphragm and blunting of left CP angle. There is patchy density in both lung bases and lingula, likely atelectasis. No consolidation seen. Prominent vasculature is seen in both lungs, especially right upper lung. Heart size and pulmonary vascularity is normal. No gross bony abnormality is seen. XR/XR chest 1V IMPRESSION: Mild elevated left hemidiaphragm with blunting of CP angle and bilateral lower lobe/lingular scarring and/or atelectasis.
[2021-08-18 09:30] VITALS: BP 144/50; BP 178/89; PULSE 79; PULSE 80; RESP 18; TEMP 36.6; O2SAT 100; BMI 23.4
--- NOTE | 2021-08-18 09:51 | PHA.MEDREC ---
Pharmacy Consult ? Medication Reconciliation Pharmacy has completed the medication reconciliation. Patient came from [facility] with a medication list. Steph Guerra, BeronicaD
[2021-08-18 09:52] LABS: Hematocrit 27.2 % (37.0-47.0); Hemoglobin 8.7 g/dl (12.0-16.0); Mean Corpuscular Volume 96.8 fL (80.0-98.0); Red Blood Count 2.81 X10*6/uL (4.20-5.50); White Blood Count 13.6 X10*3/uL (4.8-10.8)
[2021-08-18 09:53] LABS: Mean Platelet Volume 9.1 fL (9.4-12.3); Platelet Count 580 X10*3/uL (160-400); Red Cell Distribution Width 14.1 % (11.0-16.0)
[2021-08-18 10:09] LABS: Anion Gap 11 (12-20); Blood Urea Nitrogen 37 mg/dL (9-16); Calcium 8.4 mg/dL (8.4-10.2); Carbon Dioxide 27 mmol/L (22-29); Chloride 107 mmol/L (96-108); Creatinine Clr Calc Pharmacy 24.7; Estimated Glomerular Filt Rate 40; Glucose Random 212 mg/dL (60-115); Potassium 5.1 mmol/L (3.3-5.1); Sodium 140 mmol/L (135-145)
[2021-08-18 10:30] LABS: COVID-19 Test Positive (Negative)
--- NOTE | 2021-08-18 10:31 | ED_ITS ---
HPI - Fall General Chief Complaint: Fall Stated Complaint: fall, l hip pain Time Seen by Provider: 08/18/21 09:30 Source: patient and EMS Mode of arrival: EMS Limitations: no limitations History of Present Illness HPI Narrative: Patient comes to the emergency room [facility] [place] Patient had an unwitnessed fall this morning. Patient went to the bathroom unassisted. Patient was discharged from the hospital on August 14, patient was here for acute kidney injury and a left hip injury without fracture. Patient complaining of worsening pain in the left hip. Patient states that she did not hit her head, did not lose consciousness. Patient complaining of left-sided hip pain with any movement. Per patient's records, patient is on Xarelto. Related Data Home Medications Medication Instructions Recorded Confirmed insulin aspart U-100 100 0 sliding scale dose SUBCUT 08/10/21 08/18/21 unit/mL TIDAC (3 mL) subcutaneous pen (Novolog Flexpen U-100 Insulin aspart) insulin glargine 100 unit/mL 10 unit SUBCUT BEDTIME 08/10/21 08/18/21 (3 mL) subcutaneous pen acetaminophen 500 mg tablet 1,000 mg PO Q8H 08/18/21 08/18/21 lidocaine 4 % topical patch 1 patch TOPICAL DAILY 08/18/21 08/18/21 Previous Rx's Medication Instructions Recorded blood sugar diagnostic (FreeStyle #100 ea 04/03/21 Lite Strips) lancets 28 gauge (FreeStyle #100 ea 06/01/21 Lancets) rivaroxaban 15 mg tablet (Xarelto) 15 mg PO DAILY #90 tab 06/01/21 citalopram 10 mg tablet 10 mg PO DAILY #90 tab 07/25/21 diltiazem HCl 240 mg capsule,24 240 mg PO QAM #90 cap 08/04/21 hr,extended release oxycodone 5 mg tablet 5 mg PO Q8H PRN #10 tab 08/18/21 Allergies Allergy/AdvReac Type Severity Reaction Status Date / Time No Known Allergies Allergy Unknown Verified 08/10/21 02:22 Review of Systems Verdana 4l Review of Systems: Verdana 4d Verdana 4d Constitutional : No Weight loss, No Fever, No Chills, No Night Sweats, No Fatigue, No Malaise ENT/Mouth : No Hearing loss, No Ear Pain, No Nasal Congestion, No Sinus Pain, No Hoarseness, No sore throat, No Rhinorrhea, No Swallowing DifficultyDifficulty Eyes: No Eye Pain, No Swelling, No Redness, No Foreign Body, No Discharge, No Vision Changes Cardiovascular : No Chest Pain, No SOB, No Dyspnea on Exertion, No Orthopnea, No Edema, No Palpitations Respiratory : No Cough, No Sputum, No Wheezing, No Smoke Exposure, No Dyspnea Gastrointestinal : No Nausea, No Vomiting, No Diarrhea, No Constipation, No abdominal Pain, No Hematochezia, No Melena Genitourinary : no irregular bleeding, No Dysuria, No Urinary Frequency, No Hematuria, No Urinary Incontinence, No Urgency, No Flank Pain, No Urinary Flow Changes, No Hesitancy Musculoskeletal : Complaining of left-sided hip pain Skin : No Skin Lesions, No rash Neuro : No Weakness, No Numbness, No Paresthesias, No Loss of Consciousness, No Dizziness, No Headache Psych : No Anxiety/Panic, No Depression, No SI/HI/AH/VH, No Social Issues, Heme/Lymph: No Bruising, No Bleeding,No Lymphadenopathy Endocrine : No Polyuria, No Polydipsia, No Temperature Intolerance PMF Past Medical History Medical History COPD (chronic obstructive pulmonary disease) Decreased hearing of both ears IDDM (insulin dependent diabetes mellitus) Leukocytosis Lymphedema Osteoporosis with pathological fracture Right lumbosacral radiculopathy Smoker Thrombocytosis after splenectomy Surgical History H/O splenectomy History of section S/P LILI-BSO (total abdominal hysterectomy and bilateral salpingo-oophorectomy) Family History Family History Father No problems noted. Mother No problems noted. Social History Social History Household Members: Family Housing: House Alcohol intake: never Patient Tobacco Use Status: Never used Tobacco Tobacco use type: Cigarette Cigarettes Per Day: 3 e-Cigarette/Vaping Use: Never Used Second Hand Smoke Exposure: No Use of substances other than those prescribed or required for medical reasons: No Advance Directives: Yes Advance Directives on File: Yes Advance Directives Date on File: 08/10/21 service: No Current occupational status: retired Cognitive needs: Yes (wheelchair) Hearing needs: No Vision needs: No Physical Exam Verdana 4l Vital Signs: Verdana 4d Verdana 4d Vital Signs: Verdana 4d Verdana 4Bd Last Vital Signs Verdana 4d Heat Treatment Technician New 4d Heat Treatment Technician New 4d Temp 98.8 F 08/18/21 15:06 Heat Treatment Technician New 4d Pulse 76 08/18/21 15:06 Heat Treatment Technician New 4d Resp 18 08/18/21 15:06 BP 167/66 H 08/18/21 15:06 Pulse Ox 99 08/18/21 15:06 BMI result Body Mass Index 23.4 Const: Other: Appearance: Alert. Patient looks very uncomfortable Eyes: Pupils equal, round and reactive to light. ENT: Pharynx normal. Neck: Normal inspection. Neck supple. No lymph nodes noted. No crepitus CVS: Normal heart rate and rhythm. Pulses normal. Normal S1 and S2 Respiratory: No respiratory distress. Breath sounds normal. No Wheezing. No rales Abdomen: Soft and nontender. No rigidity. No distention. Skin: Skin warm and dry. Significant hematoma extending from the buttocks on the left side to the distal humerus on the left side. Patient unable to flex or extend the hip due to pain Extremities: No lower extremity edema. Neuro: Oriented X 3. No motor deficit. No sensory deficit. Moving all extermities. No slurred speech. Course Course Course Narrative: I discussed the CT scan with Dr. Batista, at this time, no surgical intervention for the hematoma. Recommendations: Warm compresses and pain management. Patient tested positive for COVID-19. Patient has no respiratory symptoms. MDM - Fall Lab Data Result diagrams: 08/18/21 17:13 08/18/21 09:42 Labs: Lab Results 08/18/21 08/18/21 08/18/21 Range/Units 09:42 09:42 09:43 WBC 13.6 H (4.8-10.8) X10*3/uL RBC 2.81 L (4.20-5.50) X10*6/uL Hgb 8.7 L (12.0-16.0) g/dl Hct 27.2 L (37.0-47.0) % MCV 96.8 (80.0-98.0) fL MCH 31.0 (27.0-33.0) pg MCHC 32.0 (31.0-35.0) g/dl RDW 14.1 (11.0-16.0) % Plt Count 580 H (160-400) X10*3/uL MPV 9.1 L (9.4-12.3) fL Immature Gran % (Auto) (0.0-0.4) % Neut % (Auto) (45-73) % Lymph % (Auto) (20-40) % Beltrami % (Auto) (2-11) % Eos % (Auto) (0-4) % Baso % (Auto) (0-2) % Lymph # (Auto) (1.2-4.9) X10*3/uL [place]ami # (Auto) (0.1-1.2) X10*3/uL Eos # (Auto) (0.0-0.4) X10*3/uL Baso # (Auto) (0.0-0.2) X10*3/uL Abs Immat Gran (auto) (0.00-0.03) X10*3/uL Absolute Neuts (auto) (2.0-8.3) x10*3/uL Absolute Nucleated RBC 0.000 (0.0-0.012) X10*3/uL Nucleated RBC % (auto) 0.0 (0.0-0.2) /100WBC Sodium 140 (135-145) mmol/L Potassium 5.1 (3.3-5.1) mmol/L Chloride 107 (96-108) mmol/L Carbon Dioxide 27 (22-29) mmol/L Anion Gap 11 L (12-20) BUN 37 H (9-16) mg/dL Creatinine 1.28 (0.5-1.4) mg/dL Estim Creat Clear Calc 24.7 Estimated GFR 40 Random Glucose 212 H (60-115) mg/dL Calcium 8.4 (8.4-10.2) mg/dL COVID-19 (DOUG) Positive A (Negative) COVID-19 Clin Com See Note 08/18/21 Range/Units 17:13 WBC 14.4 H (4.8-10.8) X10*3/uL RBC 2.73 L (4.20-5.50) X10*6/uL Hgb 8.5 L (12.0-16.0) g/dl Hct 26.6 L (37.0-47.0) % MCV 97.4 (80.0-98.0) fL MCH 31.1 (27.0-33.0) pg MCHC 32.0 (31.0-35.0) g/dl RDW 14.3 (11.0-16.0) % Plt Count 588 H (160-400) X10*3/uL MPV 9.2 L (9.4-12.3) fL Immature Gran % (Auto) 0.6 H (0.0-0.4) % Neut % (Auto) 76.1 H (45-73) % Lymph % (Auto) 13.9 L (20-40) % [place] % (Auto) 9.1 (2-11) % Eos % (Auto) 0.1 (0-4) % Baso % (Auto) 0.2 (0-2) % Lymph # (Auto) 2.0 (1.2-4.9) X10*3/uL [place]ami # (Auto) 1.3 H (0.1-1.2) X10*3/uL Eos # (Auto) 0.0 (0.0-0.4) X10*3/uL Baso # (Auto) 0.0 (0.0-0.2) X10*3/uL Abs Immat Gran (auto) 0.09 H (0.00-0.03) X10*3/uL Absolute Neuts (auto) 11.0 H (2.0-8.3) x10*3/uL Absolute Nucleated RBC 0.000 (0.0-0.012) X10*3/uL Nucleated RBC % (auto) 0.0 (0.0-0.2) /100WBC Sodium (135-145) mmol/L Potassium (3.3-5.1) mmol/L Chloride (96-108) mmol/L Carbon Dioxide (22-29) mmol/L Anion Gap (12-20) BUN (9-16) mg/dL Creatinine (0.5-1.4) mg/dL Estim Creat Clear Calc Estimated GFR Random Glucose (60-115) mg/dL Calcium (8.4-10.2) mg/dL COVID-19 (DOUG) (Negative) COVID-19 Clin Com Imaging Data Hip x-ray: Radiologist's impression: Evaluation is challenging due to patient's rotation, diffuse osteopenia and extensive overlying degenerative osteoarthritis. However, accounting for these limitations, no definite acute fractures or malalignment identified. Partially visualized right femoral hardware with chronic deformities of the right pubis and right ischial tuberosity. 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 Prominent bony productive changes and enthesophytes in the left ischial tuberosity. Pelvic phleboliths. Vascular calcifications. Moderate volume of stool burden in the rectum. XR/XR hip LT w PEL1V IMPRESSION: No acute fractures or malalignment. ? Chronic deformities of the right hemipelvis. ? Severe degenerative osteoarthritic of the left hip. CT pelvis: Radiologist's impression: FINDINGS: PELVIS: The bladder is distended with no obstructive etiology seen. There is moderate stool seen throughout the colon consistent with severe constipation. The liver is enlarged there are small lacunar hernia containing a loop of bowel loops within.? OSSEOUS STRUCTURES: There is a right femoral intramedullary not and hip nail. There is no acute fracture or dislocation left hip. There is calcified density seen adjacent to left ischium likely calcific bursitis. There is a large hematoma posterior to left ischium/gluteus measuring 10.8 x by 10.8 x 8.6 cm. There are degenerative disc changes and vacuum disc phenomena L4-L5 L5-S1 disc level with mild spondylosis. CT/CT pelvis wo con IMPRESSION: Large left gluteal/buttock hematoma. There is no ischial fracture. There is however calcification posterior to the ischium suggestive of calcific bursitis. ? Hepatomegaly. ? Distended urinary bladder with no obvious cause seen. ? Moderate to significant constipation. ? Umbilical hernia containing a loop of small bowel Chest x-ray: Radiologist's impression: FINDINGS: The lungs are well expanded with mild elevated left hemidiaphragm and blunting of left CP angle. There is patchy density in both lung bases and lingula, likely atelectasis. No consolidation seen. Prominent vasculature is seen in both lungs, especially right upper lung. Heart size and pulmonary vascularity is normal. No gross bony abnormality is seen. XR/XR chest 1V IMPRESSION: Mild elevated left hemidiaphragm with blunting of CP angle and bilateral lower lobe/lingular scarring and/or atelectasis. Discharge Plan Discharge Clinical Impression: Fall, Hematoma, COVID-19 Patient Disposition: Home, Self-Care Instructions: Contusion in Adults (ED), COVID-19 (Coronavirus Disease 2019) (ED) Additional Instructions: Discontinue Xarelto for 48 hours Apply warm compresses for 15 minutes every 3 hours for the next 24 hours Mrs. Cormier needs to quarantine for 7 days Please follow-up with your primary care physician tomorrow. If you have any worsening or new symptoms, please return to the emergency room or call 911 Prescriptions: New oxycodone 5 mg tablet 5 mg PO Q8H PRN (Reason: pain) Qty: 10 0RF No Action (DME) FreeStyle Lite Strips Strip See Rx Instructions .Route Qty: 100 12RF Rx Instructions: As directed three times daily citalopram 10 mg tablet 10 mg PO DAILY Qty: 90 1RF diltiazem HCl 240 mg capsule,extended release 24 hr 240 mg PO QAM Qty: 90 1RF insulin aspart U-100 [Novolog Flexpen U-100 Insulin] 100 unit/mL (3 mL) insulin pen 0 sliding scale dose subcut TIDAC 0RF Protocol: Insulin Correction Scale Less than or equal to 110 ---- Give (units): 0 111 to 150 Give (units): 0 151 to 200 Give (units): 2 201 to 250 Give (units): 4 251 to 300 Give (units): 6 301 to 350 Give (units): 8 Greater than 350 Give (units): 10 Call MD if Blood Glucose > : 350 insulin glargine 100 unit/mL (3 mL) insulin pen 10 unit subcut BEDTIME 0RF lidocaine 4 % Adhesive Patch,Medicated 1 patch TOPICAL DAILY 0RF acetaminophen 500 mg Tablet 1,000 mg PO Q8H 0RF (DME) lancets [FreeStyle Lancets] 28 gauge misc See Rx Instructions .ROUTE .MEDSUPPLY Qty: 100 0RF Rx Instructions: As directed Xarelto 15 mg tablet 15 mg PO DAILY Qty: 90 1RF
[2021-08-18] MEDS: Morphine Sulfate 2 MG/ML CARTRIDGE IVPUSH (10:44)
[2021-08-18] MEDS: ondansetron HCL 4 MG/2 ML VIAL IVPUSH (10:44)
[2021-08-18 13:37] VITALS: BP 140/65; PULSE 76; RESP 14; TEMP 36.8; O2SAT 99
[2021-08-18 15:06] VITALS: BP 167/66; PULSE 76; RESP 18; TEMP 37.1; O2SAT 99
[2021-08-18 17:17] LABS: MANUAL DIFF FLAG NO
[2021-08-18 17:19] LABS: Basophils Percent Auto 0.2 % (0-2); Eosinophils Percent Auto 0.1 % (0-4); Hematocrit 26.6 % (37.0-47.0); Hemoglobin 8.5 g/dl (12.0-16.0); Imm Gran Abs Auto 0.09 X10*3/uL (0.00-0.03); Imm Gran Pct Auto 0.6 % (0.0-0.4); Lymphocytes Percent Auto 13.9 % (20-40); Mean Corpuscular Hemoglobin 31.1 pg (27.0-33.0); Mean Corpuscular Volume 97.4 fL (80.0-98.0); Mean Platelet Volume 9.2 fL (9.4-12.3); Monocytes Absolute Auto 1.3 X10*3/uL (0.1-1.2); Monocytes Percent Auto 9.1 % (2-11); Neutrophils Percent Auto 76.1 % (45-73); Platelet Count 588 X10*3/uL (160-400); Red Blood Count 2.73 X10*6/uL (4.20-5.50); Red Cell Distribution Width 14.3 % (11.0-16.0); White Blood Count 14.4 X10*3/uL (4.8-10.8)
[2021-08-18] MEDS: oxyCODONE HCl Immed Release 5 MG TABLET PO (17:57)
[2021-08-18 19:27] VITALS: BP 171/98; PULSE 90; RESP 16; O2SAT 98
--- NOTE | 2021-08-18 19:36 | PC.NURSE ---
This RN to bedside to assess VS and determine if pt requires incontinence care. Pt asleep in between care, arousable to voice. Pt with purewick in place, draining appropriately. Pt offers no complaints of pain/discomfort while at rest but refusing to turn in stretcher for repositioning. Pt begins yelling at this RN I'm sick and tired of being turned around. Leave me alone and shut up! Pt placed in position of comfort. Stretcher low locked, rails raised, call [facility] within reach.
--- NOTE | 2021-08-18 20:16 | PC.NURSE ---
This RN called RN to RN report to Federico PETERS at [facility] who is accepting ptRubens Caballero aware of extended EMS wait times
== END 2021-08-18 22:20 | disposition home or self-care (01) ==
PROVIDERS: Emergency Provider Emergency Medicine
DX: S70.02XA Contusion of left hip, initial encounter (principal); M25.552 Pain in left hip; G44.309 Post-traumatic headache, unspecified, not intractable; W01.0XXA Fall on same level from slipping, tripping and stumbling without subsequent striking against object, initial encounter; Y93.9 Activity, unspecified; Y92.091 Bathroom in other non-institutional residence as the place of occurrence of the external cause; Y99.9 Unspecified external cause status; Z79.899 Other long term (current) drug therapy; Z20.822 Contact with and (suspected) exposure to COVID-19; F17.210 Nicotine dependence, cigarettes, uncomplicated; Z71.6 Tobacco abuse counseling
CPT/HCPCS: 36415; 71045; 72192; 73502; 80048; 85025; 85027; 87635; 96374; 96375; 99285; J2270; J2405

== ENCOUNTER 2021-08-29 16:25 | Inpatient (IN) | payer MEDICARE, MEDICAID, SELFPAY ==
--- NOTE | ~2021-08-29 | CT_ITS ---
EXAMINATION: CT ABDOMEN AND PELVIS WITHOUT CONTRAST CLINICAL INFORMATION: Left gluteal hematoma COMPARISON: CT scan of the chest from 08/29/[address] scan of the abdomen and pelvis from 08/10/[address] scan of the pelvis from 08/18/2019 TECHNIQUE: Multidetector volumetric imaging was performed from the superior aspect of the liver through the pubic symphysis. Sagittal and coronal reformatted images were obtained on the technologist's workstation. This CT examination was performed using dose optimization techniques as appropriate, variously including the following: *Automated exposure control *Adjustment of mA and/or kV according to patient size (this includes techniques or standardized protocols for targeted exams where dose is matched to indication/reason for exam; i.e. extremities or head) *Use of iterative reconstruction technique DLP: 875 mGy-cm Examination limited due to respiratory motion. FINDINGS: LUNG BASES: There is relatively stable dense consolidation in the right lower lobe with air bronchogram. LIVER, GALLBLADDER, AND BILIARY TREE: The liver is normal in size, shape, and attenuation. No focal hepatic lesion or biliary ductal dilatation is present. Gallbladder is surgically absent. PANCREAS: Pancreas limited for evaluation due to motion. SPLEEN: Spleen is surgically absent ADRENAL GLANDS: There are bilateral adrenal gland nodules of low attenuation measured approximately on the right 2.5 x 2.2 cm and on the left 3.0 x 2.7 cm unchanged since 08/10/2021 KIDNEYS AND URETERS: The kidneys are normal in size, shape, and attenuation. No hydronephrosis, hydroureter, or calculi seen. No perinephric stranding. BLADDER: Urinary bladder is distended GASTROINTESTINAL TRACT: Large amount of fecal debris seen through the sigmoid with fecal impaction ABDOMINAL WALL: No significant hernia is appreciated. LYMPH NODES: Normal. VASCULAR: Unremarkable. PELVIC VISCERA: Unremarkable. OSSEOUS STRUCTURES: There is no acute fracture seen. There is healed fracture deformity of right hemipelvis and there is more than 50% compression deformity of T12 vertebral body of increase attenuation of indeterminate age. There is large gluteal hematoma on the left measured 8.2 x 8.0 x 4.4 cm, with subcutaneous stranding, diminished since previous study of 08/10/2021. Patient is status post right hip surgery with hardware placement of indeterminate age CT/CT abdomen pelvis wo con IMPRESSION:. Limited study due to motion Diminished left gluteal hematoma Bilateral adrenal adenomas, stable since previous study. Fecal impaction Fleischner guidelines were followed.
--- NOTE | ~2021-08-29 | XR_ITS ---
EXAMINATION: XR CHEST CLINICAL INFORMATION: Dyspnea. Pneumonia. COMPARISON: Chest x-ray 08/10/2021 TECHNIQUE: Frontal view of the chest was obtained. FINDINGS: The lungs are hypoexpanded with bilateral basilar opacity likely effusion/underlying atelectasis. The upper lungs are clear. The heart size and pulmonary vascularity is normal. No gross bony abnormality seen. XR/XR chest 1V IMPRESSION: Bilateral lower lobe effusions/atelectasis/infiltrate. These are new findings compared to 08/18/2021 chest x-ray.
--- NOTE | ~2021-08-29 | CT_ITS ---
EXAMINATION: CT CHEST WITHOUT CONTRAST CLINICAL INFORMATION: Dyspnea, pulmonary edema and pleural effusion. COMPARISON: None TECHNIQUE: Multidetector volumetric CT imaging of the chest was done. Axial MIP volume rendering provided. Sagittal and coronal reformatted images were obtained. This CT examination was performed using dose optimization techniques as appropriate, variously including the following: *Automated exposure control *Adjustment of mA and/or kV according to patient size (this includes techniques or standardized protocols for targeted exams where dose is matched to indication/reason for exam; i.e. extremities or head) *Use of iterative reconstruction technique DLP: 160 mGy-cm FINDINGS: DIRECTOR [employer]IT[employer]: Mild blunting of right CP angle suggestive of pleural effusion. LUNGS: The lungs are well expanded with bilateral small pleural effusions and underlying bibasilar atelectasis/infiltrates. The upper lungs are clear. MEDIASTINUM: The heart size and the great vessels are normal caliber. There are coronary artery calcifications present. No pericardial effusion seen. There is food debris seen throughout the esophagus. No pericardial effusion seen. PLEURA: There is bilateral small pleural effusions. No pleural calcification or focal thickening seen. AXILLA: No lymphadenopathy. UPPER ABDOMEN: Visualized liver, spleen, pancreas and right adrenal gland appear unremarkable. 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 OSSEOUS STRUCTURES: Unremarkable. CT/CT chest wo con IMPRESSION: Bilateral small pleural effusions with underlying bibasilar atelectasis/infiltrate. Moderate food residue seen throughout the entire esophagus question reflux disease versus distal esophageal sphincter. Fleischner guidelines were followed.
--- NOTE | ~2021-08-29 | CT_ITS ---
EXAMINATION: CT CHEST WITHOUT CONTRAST CLINICAL INFORMATION: Pneumonia with altered mental status COMPARISON: Chest radiograph 08/18/[address] 03/14/2017 TECHNIQUE: Multidetector volumetric CT imaging of the chest was done. Axial MIP volume rendering provided. Sagittal and coronal reformatted images were obtained. This CT examination was performed using dose optimization techniques as appropriate, variously including the following: *Automated exposure control *Adjustment of mA and/or kV according to patient size (this includes techniques or standardized protocols for targeted exams where dose is matched to indication/reason for exam; i.e. extremities or head) *Use of iterative reconstruction technique DLP: 398 mGy-cm FINDINGS: The exam is degraded by marked respiratory motion artifact LUNGS: Patchy consolidation is noted in the right lower lobe. There is underlying COPD with hyperinflation. No other areas of gross infiltrate are seen. There is a minimal groundglass opacity seen adjacent to the mediastinum in the right upper lobe (5:212). Previously seen right upper lobe consolidation and other right lower lobe tree-in-bud opacities at the time of the prior study have cleared. MEDIASTINUM: Heart size normal. Coronary artery calcifications are seen. No mediastinal or hilar lymphadenopathy is seen PLEURA: There is no pleural effusion. No pleural mass or thickening. AXILLA: No lymphadenopathy. UPPER ABDOMEN: There is a 3.2 cm left adrenal mass along with a 2.5 cm right adrenal mass. These both measure fat density and are consistent with benign adenomas and have been seen previously. Status post cholecystectomy. OSSEOUS STRUCTURES: Again seen are degenerative changes in the spine with compression fracture of T12. CT/CT chest wo con IMPRESSION: 1. New right lower lobe pneumonia. 2. Other incidental findings as described above including COPD, adrenal adenomas, T12 compression fracture and coronary artery disease. Fleischner guidelines were followed.
[2021-08-29 16:36] VITALS: BP 130/72; BP 138/58; PULSE 96; RESP 24; TEMP 37.6; O2SAT 100; O2SAT 98; BMI 25.4
--- NOTE | 2021-08-29 16:43 | ECG_ITS ---
Test Reason : SOB/AMS Blood Pressure : / mmHG Vent. Rate : 089 BPM Atrial Rate : 089 BPM P-R Int : 126 ms QRS Dur : 120 ms QT Int : 384 ms P-R-T Axes : 000 034 -57 degrees QTc Int : 467 ms Sinus rhythm with Premature atrial complexes Right bundle branch block T wave abnormality, consider inferolateral ischemia Abnormal ECG When compared with ECG of 10-AUG-2021 04:10, Premature atrial complexes are now Present Borderline criteria for Inferior infarct are no longer Present Non-specific change in ST segment in Inferior leads T wave inversion more evident in Inferior leads T wave inversion now evident in Lateral leads Referred By: Ana Paula Del Cid Electronically Signed By:Himanshu Du
[2021-08-29 17:00] VITALS: O2SAT 88
[2021-08-29 17:05] LABS: Basophils Percent Auto 0.1 % (0-2); Hematocrit 33.8 % (37.0-47.0); Hemoglobin 10.8 g/dl (12.0-16.0); Imm Gran Abs Auto 0.19 X10*3/uL (0.00-0.03); Imm Gran Pct Auto 0.9 % (0.0-0.4); Lymphocytes Absolute Auto 0.9 X10*3/uL (1.2-4.9); Lymphocytes Percent Auto 3.9 % (20-40); MANUAL DIFF FLAG SCAN; Mean Corpuscular Hemoglobin 31.2 pg (27.0-33.0); Mean Corpuscular Volume 97.7 fL (80.0-98.0); Mean Platelet Volume 9.6 fL (9.4-12.3); Monocytes Absolute Auto 1.1 X10*3/uL (0.1-1.2); NRBC Pct Auto 0.1 /100WBC (0.0-0.2); Neutrophils Absolute Auto 19.5 x10*3/uL (2.0-8.3); Neutrophils Percent Auto 90.1 % (45-73); Platelet Count 729 X10*3/uL (160-400); Red Blood Count 3.46 X10*6/uL (4.20-5.50); Red Cell Distribution Width 15.1 % (11.0-16.0); SCAN SMEAR FLAG 1; White Blood Count 21.7 X10*3/uL (4.8-10.8)
--- NOTE | 2021-08-29 17:05 | ED.URI ---
HPI - URI/Sore Throat General Chief Complaint: Altered Mental Status <Ana Paula Del Cid NP - Last Filed: 08/29/21 20:20> Stated Complaint: weakness, confusion <Ana Paula Del Cid NP - Last Filed: 08/29/21 20:20> Time Seen by Provider: 08/29/21 21:37 <Ana Paula Del Cid NP - Last Filed: 08/29/21 20:20> Source: patient and EMS <Ana Paula Del Cid NP - Last Filed: 08/29/21 20:20> Mode of arrival: EMS <Ana Paula Del Cid NP - Last Filed: 08/29/21 20:20> Limitations: altered mental status <Ana Paula Del Cid NP - Last Filed: 08/29/21 20:20> History of Present Illness HPI Narrative: 81-year-old female presents from [facility] via EMS for altered mental status and hypoxia. Patient has dementia per baseline, was diagnosed with pneumonia yesterday. <Ana Paula Del Cid NP - Last Filed: 08/29/21 20:20> MD elicited complaint: cough and other (Pneumonia) <Ana Paula Del Cid NP - Last Filed: 08/29/21 20:20> Pertinent past history: pneumonia <Ana Paula Del Cid NP - Last Filed: 08/29/21 20:20> Onset (ago): day(s) <Ana Paula Del Cid NP - Last Filed: 08/29/21 20:20> Consistency: constant <Ana Paula Del Cid NP - Last Filed: 08/29/21 20:20> Severity: moderate <Ana Paula Del Cid NP - Last Filed: 08/29/21 20:20> Able to tolerate fluids by mouth: Yes <Ana Paula Del Cid NP - Last Filed: 08/29/21 20:20> Exacerbating factors: exertion and speaking <Ana Paula Del Cid NP - Last Filed: 08/29/21 20:20> Relieving factors: nothing <Ana Paula Del Cid NP - Last Filed: 08/29/21 20:20> Context: sick contacts <Ana Paula Del Cid NP - Last Filed: 08/29/21 20:20> Associated symptoms: nasal congestion, cough, shortness of breath and other (Altered mental status) <Ana Paula Del Cid NP - Last Filed: 08/29/21 20:20> Treatments prior to arrival: acetaminophen and antibiotics <Ana Paula De lCid NP - Last Filed: 08/29/21 20:20> Related Data Home Medications: Home Medications Medication Instructions Recorded Confirmed insulin aspart U-100 100 unit/mL 0 sliding scale dose SUBCUT TIDAC 08/10/21 08/29/21 (3 mL) subcutaneous pen (Novolog Flexpen U-100 Insulin aspart) insulin glargine 100 unit/mL (3 10 unit SUBCUT BEDTIME 08/10/21 08/29/21 mL) subcutaneous pen lidocaine 4 % topical patch 1 patch TOPICAL DAILY 08/18/21 08/29/21 diltiazem HCl 240 mg capsule,24 240 mg PO DAILY 08/29/21 08/29/21 hr,extended release spironolactone 25 mg tablet 1 tab PO DAILY 08/29/21 08/29/21 Previous Rx's Medication Instructions Recorded blood sugar diagnostic (FreeStyle #100 ea 04/03/21 Lite Strips) lancets 28 gauge (FreeStyle #100 ea 06/01/21 Lancets) rivaroxaban 15 mg tablet (Xarelto) 15 mg PO DAILY #90 tab 06/01/21 citalopram 10 mg tablet 10 mg PO DAILY #90 tab 07/25/21 oxycodone 5 mg tablet 5 mg PO Q8H PRN #10 tab 08/18/21 <Ana Paula Del Cid NP - Last Filed: 08/29/21 20:20> Allergies/Adverse Reactions: Allergies Allergy/AdvReac Type Severity Reaction Status Date / Time No Known Allergies Allergy Unknown Verified 08/10/21 02:22 <Ana Paula Del Cid NP - Last Filed: 08/29/21 20:20> Review of Systems Review of Systems: Constitutional: Positive altered mental status, No Fever, No Chills ENT/Mouth: No sore throat, No Rhinorrhea Eyes: No Eye Pain, No Swelling, No Redness Cardiovascular: No Chest Pain, positive SOB Respiratory: Positive hypoxia,Positive Cough, No Sputum Gastrointestinal: No Nausea, No Vomiting, No Diarrhea, No abdominal Pain Genitourinary: No Dysuria, No Hematuria Musculoskeletal: No joint pain, No Myalgias, No Joint Swelling Skin: No Skin Lesions, No rash Neuro: No Weakness, No Numbness, No Loss of Consciousness, No Dizziness, No Headache Psych: No Anxiety, No Depression, No SI/HI/AH/VH Heme/Lymph: No Bruising, No Bleeding,No Lymphadenopathy Endocrine: No Polyuria, No Polydipsia <Ana Paula Del Cid NP - Last Filed: 08/29/21 20:20> Yes all other systems are reviewed and are negative <Ana Paula Del Cid NP - Last Filed: 08/29/21 20:20> [facility] Past Medical History Attestation statement: The following information was validated with the patient. <Ana Paula Del Cid NP - Last Filed: 08/29/21 20:20> Source: old records reviewed <Ana Paula Del Cid NP - Last Filed: 08/29/21 20:20> Medical History: Medical History COPD (chronic obstructive pulmonary disease) Decreased hearing of both ears IDDM (insulin dependent diabetes mellitus) Leukocytosis Lymphedema Osteoporosis with pathological fracture Right lumbosacral radiculopathy Smoker Thrombocytosis after splenectomy <Ana Paula Del Cid NP - Last Filed: 08/29/21 20:20> Surgical History: Surgical History H/O splenectomy History of section S/P LILI-BSO (total abdominal hysterectomy and bilateral salpingo-oophorectomy) <Ana Paula Del Cid NP - Last Filed: 08/29/21 20:20> Family History Family History: Family History Father No problems noted. Mother No problems noted. <Ana Paula Del Cid NP - Last Filed: 08/29/21 20:20> Social History Social History: Social History Household Members: Family Housing: House Alcohol intake: never Patient Tobacco Use Status: Never used Tobacco Tobacco use type: Cigarette Cigarettes Per Day: 3 e-Cigarette/Vaping Use: Never Used Second Hand Smoke Exposure: No Use of substances other than those prescribed or required for medical reasons: No Advance Directives: Yes Advance Directives on File: Yes Advance Directives Date on File: 08/10/21 service: No Current occupational status: retired Cognitive needs: Yes (wheelchair) Hearing needs: No Vision needs: No <Ana Paula Del Cid NP - Last Filed: 08/29/21 20:20> Physical Exam Vital Signs: Vital Signs: Last Vital Signs Temp 99.7 F 08/29/21 16:36 Pulse 99 08/29/21 18:23 Resp 22 H 08/29/21 17:26 BP 132/55 L 08/29/21 18:23 Pulse Ox 91 L 08/29/21 18:23 BMI result Body Mass Index 25.4 <Ana Paula Del Cid NP - Last Filed: 08/29/21 20:20> Appearance: Alert. Oriented to self. Moderate respiratory distress. Eyes: Pupils equal, round and reactive to light. EOMI. Sclera nonicteric. ENT: Pharynx normal. Dry mucous membranes. Neck: Normal inspection. Neck supple. CVS: Tachycardic heart rate and rhythm. Pulses normal. Respiratory: Moderate respiratory distress, in orthoptic position. Rales greater on the left than the right, decreased airflow bilaterally. Abdomen: Soft and nontender. Skin: Skin warm and dry. Normal skin color. Normal skin turgor. Extremities: No lower extremity edema. Moves all extremities against resistance. Neuro: No motor deficit. No sensory deficit. <Ana Paula Del Cid NP - Last Filed: 08/29/21 20:20> Course Course Course Narrative: 81-year-old female presents with altered mental status, shortness of breath, and a diagnosis of pneumonia. Will rule out sepsis, COVID, order labs, CT scan of chest. Order for hour long albuterol, patient is hypoxic at 88% on 2 L. Patient on continuous O2 2 L per baseline. Patient unable to follow directions per baseline secondary to dementia. 17:23 lactic acid 2.1. Patient is COVID positive. Fluid resuscitation will remain at 1 L. white count 21.7 consistent with COVID pneumonia. CT scan pending. H&H 10.8/33.8 which is better than prior values dating back to 08/10/2021. 19:40 discussion with hospitalist regarding plan of care to admit for hypoxia, COVID pneumonia. <Ana Paula Del Cid CRYPTOANAL[employer]IS TEACHER - Last Filed: 08/29/21 20:20> Consultations Consultation #1: Billy <Ana Paula Del Cid CRYPTOANALYSIS TEACHER - Last Filed: 08/29/21 20:20> Time: 19:45 <Ana Paula Del Cid CRYPTOANALYSIS TEACHER - Last Filed: 08/29/21 20:20> MDM - URI/Sore Throat MDM Narrative Medical decision making narrative: Pneumonia, sepsis <Ana Paula Del Cid CRYPTOANALYSIS TEACHER - Last Filed: 08/29/21 20:20> Differential Diagnosis Differential diagnosis: Likely upper respiratory infection, viral infection, bronchitis, influenza and pharyngitis <Ana Paula Del Cid CRYPTOANALYSIS TEACHER - Last Filed: 08/29/21 20:20> Medical Records Attestation: I reviewed the patient's medical records. <Ana Paula Del Cid NP - Last Filed: 08/29/21 20:20> Lab Data Attestation: I reviewed the patient's lab results. <Ana Paula Del Cid NP - Last Filed: 08/29/21 20:20> Result diagrams: : 08/29/21 16:57 08/29/21 17:41 <Ana Paula Del Cid CRYPTOANALYSIS TEACHER - Last Filed: 08/29/21 20:20> Labs: Lab Results 08/29/21 08/29/21 08/29/21 Range/Units 16:54 16:56 16:56 WBC (4.8-10.8) X10*3/uL RBC (4.20-5.50) X10*6/uL Hgb (12.0-16.0) g/dl Hct (37.0-47.0) % MCV (80.0-98.0) fL MCH (27.0-33.0) pg MCHC (31.0-35.0) g/dl RDW (11.0-16.0) % Plt Count (160-400) X10*3/uL MPV (9.4-12.3) fL Immature Gran % (Auto) (0.0-0.4) % Neut % (Auto) (45-73) % Lymph % (Auto) (20-40) % [place] % (Auto) (2-11) % Eos % (Auto) (0-4) % Baso % (Auto) (0-2) % Lymph # (Auto) (1.2-4.9) X10*3/uL [place] # (Auto) (0.1-1.2) X10*3/uL Eos # (Auto) (0.0-0.4) X10*3/uL Baso # (Auto) (0.0-0.2) X10*3/uL Abs Immat Gran (auto) (0.00-0.03) X10*3/uL Absolute Neuts (auto) (2.0-8.3) x10*3/uL Absolute Nucleated RBC (0.0-0.012) X10*3/uL Nucleated RBC % (auto) (0.0-0.2) /100WBC Smear Tech's Comments PT (9.9-13.0) SEC INR (0.9-1.1) APTT (24.1-38.0) SEC VBG pH (7.32-7.43) VBG pCO2 mmHg VBG pO2 mmHg VBG HCO3 (22-26) mmol/L VBG O2 Saturation % VBG Base Excess mmol/L Sodium (135-145) mmol/L Potassium (3.3-5.1) mmol/L Chloride (96-108) mmol/L Carbon Dioxide (22-29) mmol/L Anion Gap (12-20) BUN (9-16) mg/dL Creatinine (0.5-1.4) mg/dL Estim Creat Clear Calc Estimated GFR Random Glucose (60-115) mg/dL Lactic Acid 2.1 H* (0.5-2.0) mmol/L Lactic Acid F/U @ 2Hr (0.5-2.0) mmol/L Calcium (8.4-10.2) mg/dL Magnesium (1.6-2.6) mg/dL Total Bilirubin (0.0-1.0) mg/dL Direct Bilirubin (0.0-0.5) mg/dL AST (5-31) U/L ALT (0-31) U/L Alkaline Phosphatase (39-117) U/L Troponin I High Sens 25.0 H (<3.5-17.0) ng/L B-Natriuretic Peptide 193 H (<100) pg/mL Total Protein (6.5-8.0) g/dL Albumin (3.5-5.0) g/dL Lipase (8-78) U/L Urine Color Urine Appearance Urine pH (5.0-8.0) Ur Specific [place] (1.005-1.025) Urine Protein (NEG-TRACE) MG/DL Urine Glucose (UA) (NEG) MG/DL Urine Ketones (NEG) MG/DL Urine Blood (NEG) Urine Nitrite (NEG) Ur Leukocyte Esterase (NEG) Urine RBC (0) /HPF Urine WBC (0-4) /HPF Urine WBC Clumps Ur Squamous Epith Cells /LPF Urine Bacteria /LPF Granular Casts /LPF Urine Mucus /LPF COVID-19 (DOUG) Positive A (Negative) COVID-19 Clin Com See Note 08/29/21 08/29/21 08/29/21 Range/Units 16:56 16:57 16:57 WBC 21.7 H (4.8-10.8) X10*3/uL RBC 3.46 L (4.20-5.50) X10*6/uL Hgb 10.8 L (12.0-16.0) g/dl Hct 33.8 L (37.0-47.0) % MCV 97.7 (80.0-98.0) fL MCH 31.2 (27.0-33.0) pg MCHC 32.0 (31.0-35.0) g/dl RDW 15.1 (11.0-16.0) % Plt Count 729 H (160-400) X10*3/uL MPV 9.6 (9.4-12.3) fL Immature Gran % (Auto) 0.9 H (0.0-0.4) % Neut % (Auto) 90.1 H (45-73) % Lymph % (Auto) 3.9 L (20-40) % Kaufman % (Auto) 5.0 (2-11) % Eos % (Auto) 0.0 (0-4) % Baso % (Auto) 0.1 (0-2) % Lymph # (Auto) 0.9 L (1.2-4.9) X10*3/uL [place] # (Auto) 1.1 (0.1-1.2) X10*3/uL Eos # (Auto) 0.0 (0.0-0.4) X10*3/uL Baso # (Auto) 0.0 (0.0-0.2) X10*3/uL Abs Immat Gran (auto) 0.19 H (0.00-0.03) X10*3/uL Absolute Neuts (auto) 19.5 H (2.0-8.3) x10*3/uL Absolute Nucleated RBC 0.020 H (0.0-0.012) X10*3/uL Nucleated RBC % (auto) 0.1 (0.0-0.2) /100WBC Smear Tech's Comments VERIFIED PT 12.6 (9.9-13.0) SEC INR 1.1 (0.9-1.1) APTT 40.8 H (24.1-38.0) SEC VBG pH (7.32-7.43) VBG pCO2 mmHg VBG pO2 mmHg VBG HCO3 (22-26) mmol/L VBG O2 Saturation % VBG Base Excess mmol/L Sodium (135-145) mmol/L Potassium (3.3-5.1) mmol/L Chloride (96-108) mmol/L Carbon Dioxide (22-29) mmol/L Anion Gap (12-20) BUN (9-16) mg/dL Creatinine (0.5-1.4) mg/dL Estim Creat Clear Calc Estimated GFR Random Glucose (60-115) mg/dL Lactic Acid (0.5-2.0) mmol/L Lactic Acid F/U @ 2Hr (0.5-2.0) mmol/L Calcium (8.4-10.2) mg/dL Magnesium (1.6-2.6) mg/dL Total Bilirubin (0.0-1.0) mg/dL Direct Bilirubin (0.0-0.5) mg/dL AST (5-31) U/L ALT (0-31) U/L Alkaline Phosphatase (39-117) U/L Troponin I High Sens (<3.5-17.0) ng/L B-Natriuretic Peptide Cancelled (<100) pg/mL Total Protein (6.5-8.0) g/dL Albumin (3.5-5.0) g/dL Lipase (8-78) U/L Urine Color Urine Appearance Urine pH (5.0-8.0) Ur Specific [place] (1.005-1.025) Urine Protein (NEG-TRACE) MG/DL Urine Glucose (UA) (NEG) MG/DL Urine Ketones (NEG) MG/DL Urine Blood (NEG) Urine Nitrite (NEG) Ur Leukocyte Esterase (NEG) Urine RBC (0) /HPF Urine WBC (0-4) /HPF Urine WBC Clumps Ur Squamous Epith Cells /LPF Urine Bacteria /LPF Granular Casts /LPF Urine Mucus /LPF COVID-19 (DOUG) (Negative) COVID-19 Clin Com 08/29/21 08/29/21 08/29/21 Range/Units 17:30 17:41 20:22 WBC (4.8-10.8) X10*3/uL RBC (4.20-5.50) X10*6/uL Hgb (12.0-16.0) g/dl Hct (37.0-47.0) % MCV (80.0-98.0) fL MCH (27.0-33.0) pg MCHC (31.0-35.0) g/dl RDW (11.0-16.0) % Plt Count (160-400) X10*3/uL MPV (9.4-12.3) fL Immature Gran % (Auto) (0.0-0.4) % Neut % (Auto) (45-73) % Lymph % (Auto) (20-40) % Kaufman % (Auto) (2-11) % Eos % (Auto) (0-4) % Baso % (Auto) (0-2) % Lymph # (Auto) (1.2-4.9) X10*3/uL [place] # (Auto) (0.1-1.2) X10*3/uL Eos # (Auto) (0.0-0.4) X10*3/uL Baso # (Auto) (0.0-0.2) X10*3/uL Abs Immat Gran (auto) (0.00-0.03) X10*3/uL Absolute Neuts (auto) (2.0-8.3) x10*3/uL Absolute Nucleated RBC (0.0-0.012) X10*3/uL Nucleated RBC % (auto) (0.0-0.2) /100WBC Smear Tech's Comments PT (9.9-13.0) SEC INR (0.9-1.1) APTT (24.1-38.0) SEC VBG pH 7.43 (7.32-7.43) VBG pCO2 35 mmHg VBG pO2 117 mmHg VBG HCO3 24 (22-26) mmol/L VBG O2 Saturation 98.0 % VBG Base Excess 0.3 mmol/L Sodium 146 H (135-145) mmol/L Potassium 4.2 D (3.3-5.1) mmol/L Chloride 111 H (96-108) mmol/L Carbon Dioxide 26 (22-29) mmol/L Anion Gap 13 (12-20) BUN 61 H (9-16) mg/dL Creatinine 1.31 (0.5-1.4) mg/dL Estim Creat Clear Calc 29.4 Estimated GFR 39 Random Glucose 95 (60-115) mg/dL Lactic Acid (0.5-2.0) mmol/L Lactic Acid F/U @ 2Hr 3.2 H* (0.5-2.0) mmol/L Calcium 8.7 (8.4-10.2) mg/dL Magnesium 2.2 (1.6-2.6) mg/dL Total Bilirubin 0.6 (0.0-1.0) mg/dL Direct Bilirubin 0.2 (0.0-0.5) mg/dL AST 20 (5-31) U/L ALT 17 (0-31) U/L Alkaline Phosphatase 144 H D (39-117) U/L Troponin I High Sens (<3.5-17.0) ng/L B-Natriuretic Peptide (<100) pg/mL Total Protein 6.6 D (6.5-8.0) g/dL Albumin 3.1 L (3.5-5.0) g/dL Lipase 23 (8-78) U/L Urine Color Urine Appearance Urine pH (5.0-8.0) Ur Specific [place] (1.005-1.025) Urine Protein (NEG-TRACE) MG/DL Urine Glucose (UA) (NEG) MG/DL Urine Ketones (NEG) MG/DL Urine Blood (NEG) Urine Nitrite (NEG) Ur Leukocyte Esterase (NEG) Urine RBC (0) /HPF Urine WBC (0-4) /HPF Urine WBC Clumps Ur Squamous Epith Cells /LPF Urine Bacteria /LPF Granular Casts /LPF Urine Mucus /LPF COVID-19 (DOUG) (Negative) COVID-19 Clin Com 08/29/21 08/29/21 Range/Units 20:22 20:42 WBC (4.8-10.8) X10*3/uL RBC (4.20-5.50) X10*6/uL Hgb (12.0-16.0) g/dl Hct (37.0-47.0) % MCV (80.0-98.0) fL MCH (27.0-33.0) pg MCHC (31.0-35.0) g/dl RDW (11.0-16.0) % Plt Count (160-400) X10*3/uL MPV (9.4-12.3) fL Immature Gran % (Auto) (0.0-0.4) % Neut % (Auto) (45-73) % Lymph % (Auto) (20-40) % [place]aufman % (Auto) (2-11) % Eos % (Auto) (0-4) % Baso % (Auto) (0-2) % Lymph # (Auto) (1.2-4.9) X10*3/uL [place] # (Auto) (0.1-1.2) X10*3/uL Eos # (Auto) (0.0-0.4) X10*3/uL Baso # (Auto) (0.0-0.2) X10*3/uL Abs Immat Gran (auto) (0.00-0.03) X10*3/uL Absolute Neuts (auto) (2.0-8.3) x10*3/uL Absolute Nucleated RBC (0.0-0.012) X10*3/uL Nucleated RBC % (auto) (0.0-0.2) /100WBC Smear Tech's Comments PT (9.9-13.0) SEC INR (0.9-1.1) APTT (24.1-38.0) SEC VBG pH (7.32-7.43) VBG pCO2 mmHg VBG pO2 mmHg VBG HCO3 (22-26) mmol/L VBG O2 Saturation % VBG Base Excess mmol/L Sodium (135-145) mmol/L Potassium (3.3-5.1) mmol/L Chloride (96-108) mmol/L Carbon Dioxide (22-29) mmol/L Anion Gap (12-20) BUN (9-16) mg/dL Creatinine (0.5-1.4) mg/dL Estim Creat Clear Calc Estimated GFR Random Glucose (60-115) mg/dL Lactic Acid (0.5-2.0) mmol/L Lactic Acid F/U @ 2Hr (0.5-2.0) mmol/L Calcium (8.4-10.2) mg/dL Magnesium (1.6-2.6) mg/dL Total Bilirubin (0.0-1.0) mg/dL Direct Bilirubin (0.0-0.5) mg/dL AST (5-31) U/L ALT (0-31) U/L Alkaline Phosphatase (39-117) U/L Troponin I High Sens 26.1 H (<3.5-17.0) ng/L B-Natriuretic Peptide (<100) pg/mL Total Protein (6.5-8.0) g/dL Albumin (3.5-5.0) g/dL Lipase (8-78) U/L Urine Color YELLOW Urine Appearance CLOUDY Urine pH 6.0 (5.0-8.0) Ur Specific [place] 1.025 (1.005-1.025) Urine Protein 3+ H (NEG-TRACE) MG/DL Urine Glucose (UA) 100 H (NEG) MG/DL Urine Ketones NEG (NEG) MG/DL Urine Blood 3+ H (NEG) Urine Nitrite NEG (NEG) Ur Leukocyte Esterase NEG (NEG) Urine RBC 1-4 (0) /HPF Urine WBC 15-29 H (0-4) /HPF Urine WBC Clumps NOTED Ur Squamous Epith Cells TRACE /LPF Urine Bacteria 4+ /LPF Granular Casts 5-9 /LPF Urine Mucus 1+ /LPF COVID-19 (DOUG) (Negative) COVID-19 Clin Com <Ana Paula Del Cid NP - Last Filed: 08/29/21 20:20> Imaging Data Chest CT: Attestation: I personally reviewed and interpreted this imaging study as follows: <JIM Craig Last Filed: 08/29/21 20:20> ECG Data Attestation: I personally reviewed and interpreted this ECG as follows: <Ana Paula Del Cid NP - Last Filed: 08/29/21 20:20> ECG interpretation date: 08/29/21 <JIM Craig Last Filed: 08/29/21 20:20> ECG interpretation time: 16:59 <Ana Paula Del Cid NP - Last Filed: 08/29/21 20:20> Prior ECG tracings: available for review <JIM Craig Last Filed: 08/29/21 20:20> Interpretation: Vent. rate 89 BPM HI interval 126 ms QRS duration 120 ms QT/QTc 384/467 ms P-R-T axes * 34 -57 Sinus rhythm with Premature atrial complexes Right bundle branch block T wave abnormality, consider inferolateral ischemia Abnormal ECG When compared with ECG of 10-AUG-2021 04:10, Premature atrial complexes are now Present Borderline criteria for Inferior infarct are no longer Present Non-specific change in ST segment in Inferior leads T wave inversion more evident in Inferior leads T wave inversion now evident in Lateral leads <Ana Paula Del Cid NP - Last Filed: 08/29/21 20:20> Critical Care Time Critical Care Time Critical Care Time: Yes <JIM Craig Last Filed: 08/29/21 20:20> Total Critical Care Time: 40 <Ana Paula Del Cid NP - Last Filed: 08/29/21 20:20> Attestation: I have personally provided critical care time exclusive of time spent on separately billable procedures. Time includes review of laboratory data, radiology results, discussion with consultants, and monitoring for potential decompensation. Interventions were performed as documented. <JIM Craig Last Filed: 08/29/21 20:20> Discharge Plan Discharge Clinical Impression: Pneumonia due to 2019 novel coronavirus, Hypoxia <JIM Craig Last Filed: 08/29/21 20:20> Patient Disposition: Admitted As Inpatient <JIM Craig Last Filed: 08/29/21 20:20>
[2021-08-29] MEDS: methylPREDNISolone Sod Succ 125 MG/2 ML VIAL IVPUSH (17:07)
[2021-08-29] MEDS: 0.9 % Sodium Chloride 1,000 ML 999 ML IVCONT (17:08)
[2021-08-29 17:11] LABS: INTERNATIONAL NORM RATIO 1.1 (0.9-1.1); Prothrombin Time 12.6 SEC (9.9-13.0)
[2021-08-29 17:13] LABS: Partial Thromboplastin Time 40.8 SEC (24.1-38.0)
[2021-08-29 17:15] LABS: COVID-19 Test Positive (Negative)
[2021-08-29] MEDS: Albuterol Sulfate (0.083%) 2.5 MG/3 ML VIAL.NEB 10 MG INHALE (17:15)
[2021-08-29 17:21] LABS: Lactic Acid 2.1 mmol/L (0.5-2.0)
[2021-08-29 17:24] LABS: SLIDE REVIEW VERIFIED
[2021-08-29] MEDS: cefTRIAXone sodium 1 GM in 0.9 % Sodium Chloride 50 ML IV (17:25)
[2021-08-29 17:26] VITALS: PULSE 107; RESP 22; O2SAT 95
[2021-08-29 17:28] LABS: B Type Natriuretic Peptide 193 pg/mL (<100)
[2021-08-29 17:36] LABS: VBG Base Excess 0.3 mmol/L; VBG HCO3 24 mmol/L (22-26); VBG pCO2 35 mmHg; VBG pH 7.43 (7.32-7.43); VBG pO2 117 mmHg
--- NOTE | 2021-08-29 17:55 | PHA.MEDREC ---
Pharmacy Consult ? Medication Reconciliation Pharmacy has completed the medication reconciliation.
[2021-08-29 17:57] LABS: Venous Blood Gas Refer to POC result
[2021-08-29 18:23] VITALS: BP 132/55; PULSE 99; O2SAT 91
[2021-08-29 18:26] LABS: Alanine Aminotransferase 17 U/L (0-31); Albumin Level 3.1 g/dL (3.5-5.0); Alkaline Phosphatase 144 U/L (39-117); Anion Gap 13 (12-20); Aspartate Amino Transferase 20 U/L (5-31); Bilirubin Direct 0.2 mg/dL (0.0-0.5); Bilirubin Total 0.6 mg/dL (0.0-1.0); Blood Urea Nitrogen 61 mg/dL (9-16); Calcium 8.7 mg/dL (8.4-10.2); Carbon Dioxide 26 mmol/L (22-29); Chloride 111 mmol/L (96-108); Creatinine Clr Calc Pharmacy 29.4; Estimated Glomerular Filt Rate 39; Glucose Random 95 mg/dL (60-115); Lipase 23 U/L (8-78); Magnesium 2.2 mg/dL (1.6-2.6); Potassium 4.2 mmol/L (3.3-5.1); Sodium 146 mmol/L (135-145); Total Protein 6.6 g/dL (6.5-8.0)
[2021-08-29] MEDS: Morphine Sulfate 2 MG/ML CARTRIDGE IVPUSH (18:28)
[2021-08-29 19:00] LABS: Reflex Lactate? Lactic Acid Added
[2021-08-29 20:51] LABS: Troponin-I High Sensitivity 26.1 ng/L (<3.5-17.0)
[2021-08-29 20:55] LABS: Appearance Urine CLOUDY; Color Urine YELLOW; Glucose Urine UA 100 MG/DL (NEG); Leukocyte Esterase Urine NEG (NEG); Nitrite Urine NEG (NEG); Specific Gravity - Urine 1.025 (1.005-1.025); UACC Culture Trigger NO; Urine Blood 3+ (NEG); Urine Ketones NEG (NEG); Urine Protein 3+ MG/DL (NEG-TRACE)
[2021-08-29 21:04] LABS: ~Lactic Acid-LAB USE ONLY 3.2 mmol/L (0.5-2.0)
--- NOTE | 2021-08-29 21:12 | P.HPHOSP_ITS ---
History of Present Illness Date of Service: 08/29/21 Chief Complaint: altered mental status this is a 81-year-old female with past medical history COPD, diabetes, lymphedema, who presents to the hospital from longterm with increased confusion from baseline. Patient is very confused, somnolent, wakes up to v erbal command but falls back asleep and unable to give much history. Therefore history is obtained from nursing documentation as well as PA. it appears the patient was diagnosed with pneumonia at the longterm the day prior, on arrival to the ED patient was found to be hypoxic in the low 80s, patient placed on high-flow in currently satting in the Low 90s. Unable to obtain review of system due to the clinical and mental status. on arrival to the ED patient found to be hypoxic, tachycardic with a heart rate of 107, respiratory rate of 22, blood pressure stable Labs are significant for WBC count of 21.7, hemoglobin of 10.8, sodium of 146, chloride of 111, lactic acid of 2.1, alk-phos of 144, troponin of 26, BNP of 193, UA positive for blood, negative for nitrites or leukocyte Estrace but positive for WBC. COVID-[address] shows right lower lobe consolidation. Patient will be admitted for further management Review of Systems Review of Systems: Yes all other systems are reviewed and are negative [facility] Medical History (Updated 08/30/21 @ 06:05 by Chrissy Cervantes MD) COPD (chronic obstructive pulmonary disease) Decreased hearing of both ears History of DVT (deep vein thrombosis) IDDM (insulin dependent diabetes mellitus) Leukocytosis Lymphedema Osteoporosis with pathological fracture Right lumbosacral radiculopathy Smoker Thrombocytosis after splenectomy Family History Father No problems noted. Mother No problems noted. Surgical History H/O splenectomy History of section S/P LILI-BSO (total abdominal hysterectomy and bilateral salpingo-oophorectomy) Social History Household Members: Family Housing: House Alcohol intake: never Patient Tobacco Use Status: Never used Tobacco Tobacco use type: Cigarette Cigarettes Per Day: 3 e-Cigarette/Vaping Use: Never Used Second Hand Smoke Exposure: No Use of substances other than those prescribed or required for medical reasons: No Advance Directives: Yes Advance Directives on File: Yes Advance Directives Date on File: 08/10/21 service: No Current occupational status: retired Cognitive needs: Yes (wheelchair) Hearing needs: No Vision needs: No Meds Allergies Allergy/AdvReac Type Severity Reaction Status Date / Time No Known Allergies Allergy Unknown Verified 08/10/21 02:22 Active Medications: Current Medications Acetaminophen (Acetaminophen 325 Mg Tablet) 650 mg PO Q6H PRN PRN Reason: Pain, Mild (Pain Scale 1-3) Dextrose (Dextrose 50 % 25 Gm/50 Ml Syringe) 25 gm IVPUSH Q15M PRN; Protocol PRN Reason: per Hypoglycemia Standing Ord. Docusate Sodium (Docusate Sodium 100 Mg Capsule) 100 mg PO DAILY PRN PRN Reason: Constipation Glucose (Glucose Gel 15 Gm Gel..Gram.) 15 gm PO Q15M PRN; Protocol PRN Reason: per Hypoglycemia Standing Ord. Lactated Ringer's (Lr) 1,000 mls @ 100 mls/hr IVCONT .Q10H [facility] Azithromycin 500 mg/ Sodium (Chloride) 250 mls @ 125 mls/hr IV ONCE ONE Stop: 08/29/21 23:06 Insulin Human Lispro (Insulin Lispro 100 Unit/Ml 3 Ml Vial) [facility]; Protocol Ondansetron HCl (Ondansetron Hcl 4 Mg/2 Ml Vial) 4 mg IVPUSH Q8H PRN PRN Reason: Nausea and Vomiting Sodium Chloride (0.9 % Sodium Chloride Flush 3 Ml Syringe) [address] [facility] Home Medications Medication Instructions Recorded Confirmed Last Taken Type insulin aspart U-100 100 unit/mL 0 sliding scale dose SUBCUT TIDAC 08/10/21 08/29/21 Unknown History (3 mL) subcutaneous pen (Novolog Flexpen U-100 Insulin aspart) insulin glargine 100 unit/mL (3 10 unit SUBCUT BEDTIME 08/10/21 08/29/21 Unknown History mL) subcutaneous pen lidocaine 4 % topical patch 1 patch TOPICAL DAILY 08/18/21 08/29/21 Unknown History diltiazem HCl 240 mg capsule,24 240 mg PO DAILY 08/29/21 08/29/21 Unknown History hr,extended release spironolactone 25 mg tablet 1 tab PO DAILY 08/29/21 08/29/21 Unknown History Physical Exam Vital Signs and Narrative: Vital Signs: Last Vital Signs Temp 99.7 F 08/29/21 16:36 Pulse 99 08/29/21 18:23 Resp 22 H 08/29/21 17:26 BP 132/55 L 08/29/21 18:23 Pulse Ox 91 L 08/29/21 18:23 BMI result Body Mass Index 25.4 Results Labs CBC and Chem 7: 08/29/21 16:57 08/29/21 17:41 Labs: Laboratory Results - last 24 hr 08/29/21 08/29/21 08/29/21 16:54 16:56 16:56 MCV MCH MCHC RDW Plt Count MPV Immature Gran % (Auto) Neut % (Auto) Lymph % (Auto) [place] % (Auto) Eos % (Auto) Baso % (Auto) Lymph # (Auto) [place] # (Auto) Eos # (Auto) Baso # (Auto) Abs Immat Gran (auto) Absolute Neuts (auto) Absolute Nucleated RBC Nucleated RBC % (auto) Smear Tech's Comments PT INR APTT VBG pH VBG pCO2 VBG pO2 VBG HCO3 VBG O2 Saturation VBG Base Excess Anion Gap Estim Creat Clear Calc Estimated GFR Random Glucose Lactic Acid 2.1 H* Lactic Acid F/U @ 2Hr Calcium Magnesium Total Bilirubin Direct Bilirubin AST ALT Alkaline Phosphatase B-Natriuretic Peptide 193 H Total Protein Albumin Lipase Urine Color Urine Appearance Urine pH Ur Specific [place] Urine Protein Urine Glucose (UA) Urine Ketones Urine Blood Urine Nitrite Ur Leukocyte Esterase COVID-19 (DOUG) Positive A COVID-19 Clin Com See Note 08/29/21 08/29/21 08/29/21 16:56 16:57 16:57 MCV 97.7 MCH 31.2 MCHC 32.0 RDW 15.1 Plt Count 729 H MPV 9.6 Immature Gran % (Auto) 0.9 H Neut % (Auto) 90.1 H Lymph % (Auto) 3.9 L [place] % (Auto) 5.0 Eos % (Auto) 0.0 Baso % (Auto) 0.1 Lymph # (Auto) 0.9 L [place] # (Auto) 1.1 Eos # (Auto) 0.0 Baso # (Auto) 0.0 Abs Immat Gran (auto) 0.19 H Absolute Neuts (auto) 19.5 H Absolute Nucleated RBC 0.020 H Nucleated RBC % (auto) 0.1 Smear Tech's Comments VERIFIED PT 12.6 INR 1.1 APTT 40.8 H VBG pH VBG pCO2 VBG pO2 VBG HCO3 VBG O2 Saturation VBG Base Excess Anion Gap Estim Creat Clear Calc Estimated GFR Random Glucose Lactic Acid Lactic Acid F/U @ 2Hr Calcium Magnesium Total Bilirubin Direct Bilirubin AST ALT Alkaline Phosphatase B-Natriuretic Peptide Cancelled Total Protein Albumin Lipase Urine Color Urine Appearance Urine pH Ur Specific [place] Urine Protein Urine Glucose (UA) Urine Ketones Urine Blood Urine Nitrite Ur Leukocyte Esterase COVID-19 (DOUG) COVID-Overwolf 08/29/21 08/29/21 08/29/21 17:30 17:41 20:22 MCV MCH MCHC RDW Plt Count MPV Immature Gran % (Auto) Neut % (Auto) Lymph % (Auto) [place] % (Auto) Eos % (Auto) Baso % (Auto) Lymph # (Auto) [place] # (Auto) Eos # (Auto) Baso # (Auto) Abs Immat Gran (auto) Absolute Neuts (auto) Absolute Nucleated RBC Nucleated RBC % (auto) Smear Tech's Comments PT INR APTT VBG pH 7.43 VBG pCO2 35 VBG pO2 117 VBG HCO3 24 VBG O2 Saturation 98.0 VBG Base Excess 0.3 Anion Gap 13 Estim Creat Clear Calc 29.4 Estimated GFR 39 Random Glucose 95 Lactic Acid Lactic Acid F/U @ 2Hr 3.2 H* Calcium 8.7 Magnesium 2.2 Total Bilirubin 0.6 Direct Bilirubin 0.2 AST 20 ALT 17 Alkaline Phosphatase 144 H D B-Natriuretic Peptide Total Protein 6.6 D Albumin 3.1 L Lipase 23 Urine Color Urine Appearance Urine pH Ur Specific [place] Urine Protein Urine Glucose (UA) Urine Ketones Urine Blood Urine Nitrite Ur Leukocyte Esterase COVID-19 (DOUG) COVID-19 [employer]Latex 08/29/21 20:42 MCV MCH MCHC RDW Plt Count MPV Immature Gran % (Auto) Neut % (Auto) Lymph % (Auto) [place] % (Auto) Eos % (Auto) Baso % (Auto) Lymph # (Auto) [place] # (Auto) Eos # (Auto) Baso # (Auto) Abs Immat Gran (auto) Absolute Neuts (auto) Absolute Nucleated RBC Nucleated RBC % (auto) Smear Tech's Comments PT INR APTT VBG pH VBG pCO2 VBG pO2 VBG HCO3 VBG O2 Saturation VBG Base Excess Anion Gap Estim Creat Clear Calc Estimated GFR Random Glucose Lactic Acid Lactic Acid F/U @ 2Hr Calcium Magnesium Total Bilirubin Direct Bilirubin AST ALT Alkaline Phosphatase B-Natriuretic Peptide Total Protein Albumin Lipase Urine Color YELLOW Urine Appearance CLOUDY Urine pH 6.0 Ur Specific [place] 1.025 Urine Protein 3+ H Urine Glucose (UA) 100 H Urine Ketones NEG Urine Blood 3+ H Urine Nitrite NEG Ur Leukocyte Esterase NEG COVID-19 (DOUG) COVID-19 Clin Com Assessment and Plan (1) COVID-19: Status: Acute (2) Pneumonia: Status: Acute (3) Encephalopathy: Status: Acute (4) Acute and chronic respiratory failure with hypoxia: Status: Acute Plan 81-year-old female with a past medical history of diabetes, COPD on baseline 2 L of oxygen presents to the hospital with increased confusion and recently treated for pneumonia found to have COVID-19 positive as well as pneumonia on chest CT # acute on chronic hypoxic respiratory failure - likely secondary to pneumonia as well as COVID-19 infection - patient on baseline 2 L of oxygen, currently requiring high-flow satting in the low 90s - chest CT showing right lower lobe pneumonia - given recent hospitalization will cover with vanc and Zosyn, pending blood cultures as well as procalcitonin - oxygen as required, titrate to less than 92% given her history of COPD # pneumonia - hospital versus acquired versus viral - patient with recent hospitalization, does also have positive COVID-19 infection - likely vaccinated given her longterm residency but I am not sure which vaccine at this time - will treat with broad-spectrum antibiotics given recent hospitalization, follow cultures - procalcitonin pending # cephalopathy - likely toxic metabolic - will treat above problems including hypoxia as well as pneumonia - follow mental status # COVID-19 infection - O2 as above - dexamethasone 6 mg daily # COPD - likely has exacerbation although unable to ask about any other symptoms including cough or sputum production - patient will be on dexamethasone, will add DuoNeb p.r.n. # diabetes - continue home insulin - will add low-dose sliding scale insulin, diabetic diet # History of DVT - continue Xarelto DVT prophylaxis: Xarelto Code status per MOLTS in chart full code Quality Stroke Does the patient have a stroke diagnosis?: No VTE Prior VTE?: Yes VTE Risk Level:: Medical - moderate - high VTE Device Contraindication: Treatment Not Indicated VTE Drug Contraindication: N/A - Med Ordered
[2021-08-29 21:13] LABS: UACC CULT YES
[2021-08-29 21:14] LABS: Bacteria Urine 4+ /LPF; Mucus Urine 1+ /LPF; Squamous Epithelial Cell Urine TRACE /LPF; WBC Clumps Urine NOTED
[2021-08-29] MEDS: Azithromycin 500 MG in 0.9 % Sodium Chloride 250 ML 125 MG IV (22:03)
[2021-08-29 22:26] LABS: Reflex Lactate? 2 Y
[2021-08-29 22:43] LABS: Procalcitonin 0.09 ng/mL
[2021-08-29] MEDS: Lactated Ringers 1,000 ML 100 ML IVCONT (23:08)
[2021-08-29 23:20] LABS: ~Lactic Acid-LAB USE ONLY 2.3 mmol/L (0.5-2.0)
[2021-08-30] VITALS (8 sets, daily range): BP systolic 115–150; BP diastolic 65–91; PULSE 63–80; RESP 16–20; TEMP 36.1–36.8; O2SAT 91–99
[2021-08-30 06:36] LABS: ABG Base Excess -3.3 mmol/L; ABG HCO3 20 mmol/L (22-26); ABG pCO2 34 mmHg (32-45); ABG pH 7.38 (7.35-7.45); ABG pO2 82 mmHg (83-108)
[2021-08-30] MEDS: Piperacillin Sodium/Tazobactam 3.375 GM in 0.9 % Sodium Chloride 50 ML IV ×2 (06:37→18:09)
[2021-08-30 07:21] LABS: Glucose, Whole Blood 402 mg/dL (60-115)
[2021-08-30 07:42] LABS: Basophils Percent Auto 0.1 % (0-2); Hematocrit 28.1 % (37.0-47.0); Hemoglobin 8.6 g/dl (12.0-16.0); Imm Gran Abs Auto 0.17 X10*3/uL (0.00-0.03); Imm Gran Pct Auto 1.1 % (0.0-0.4); Lymphocytes Absolute Auto 0.7 X10*3/uL (1.2-4.9); Lymphocytes Percent Auto 4.6 % (20-40); MANUAL DIFF FLAG SCAN; Mean Corpuscular HGB Conc 30.6 g/dl (31.0-35.0); Mean Corpuscular Hemoglobin 30.2 pg (27.0-33.0); Mean Corpuscular Volume 98.6 fL (80.0-98.0); Mean Platelet Volume 10.1 fL (9.4-12.3); Monocytes Absolute Auto 0.6 X10*3/uL (0.1-1.2); Monocytes Percent Auto 3.6 % (2-11); NRBC Pct Auto 0.1 /100WBC (0.0-0.2); Neutrophils Absolute Auto 14.3 x10*3/uL (2.0-8.3); Neutrophils Percent Auto 90.6 % (45-73); Platelet Count 611 X10*3/uL (160-400); Red Blood Count 2.85 X10*6/uL (4.20-5.50); Red Cell Distribution Width 15.5 % (11.0-16.0); SCAN SMEAR FLAG 1; White Blood Count 15.8 X10*3/uL (4.8-10.8)
[2021-08-30 07:59] LABS: Anion Gap 17 (12-20); Blood Urea Nitrogen 64 mg/dL (9-16); Carbon Dioxide 20 mmol/L (22-29); Chloride 111 mmol/L (96-108); Creatinine Clr Calc Pharmacy 26.9; Estimated Glomerular Filt Rate 35; Glucose Random 454 mg/dL (60-115); Potassium 5.3 mmol/L (3.3-5.1); Sodium 143 mmol/L (135-145)
[2021-08-30 08:02] LABS: Troponin-I High Sensitivity 24.4 ng/L (<3.5-17.0)
[2021-08-30 08:04] LABS: Glucose, Whole Blood 437 mg/dL (60-115)
[2021-08-30] MEDS: dexAMETHasone sod phosphate 4 MG/ML VIAL 6 MG IVPUSH (08:09)
[2021-08-30] MEDS: Rivaroxaban 15 MG TABLET PO (08:12)
[2021-08-30] MEDS: Escitalopram Oxalate 5 MG TABLET PO (08:12)
[2021-08-30] MEDS: dilTIAZem HCL CD 240 MG CAP.ER.DEG PO (08:12)
[2021-08-30] MEDS: vancomycin HCL 1,250 MG in 0.9 % Sodium Chloride 250 ML 166.67 MG IV (08:16)
[2021-08-30] MEDS: Lactated Ringers 1,000 ML 100 ML IVCONT (08:28)
[2021-08-30] MEDS: 0.9 % Sodium Chloride Flush 3 ML SYRINGE IVFLUSH ×2 (08:29→16:39)
--- NOTE | 2021-08-30 08:31 | PHA.PROG ---
Addendum entered by Steph Guerra RPh 08/31/21 08:33: Maintenance dose is 500 mg Q24H, not 750 mg Q24H Original Note: Admission Date/Time: August 29, 2021 21:01 Indication: Resp. Infection Weight in k.2 kg Adjusted body weight in K.3 kg Meally body weight in K.3 kg Obesity Dosing Indication % IBW: 125% Serum Creatinine - Last 168 Hours 08/29/21 08/30/21 17:41 07:29 Creatinine 1.31 1.43 H Estimated CrCl and GFR - Last 168 Hours 08/29/21 08/30/21 17:41 07:29 Estim Creat Clear Calc 29.4 26.9 Estimated GFR 39 35 Vancomycin Loading Dose: 1250 mg Current Vancomycin Dosing Regimen: 750 mg Q24H Date and Time for next Vancomycin Level to be drawn: 09/02 @ 0600 Pharmacist Comments on Vancomycin Plan: Utilize obese dosing due to % IBW >120 % Vancomycin 1250 mg loading dose to be given 08/30 @ 0800. Maintenance dose 750 mg Q24H to start 08/31 @ 0800. Expected AUC 432 with a trough of 14.6 Trough will be drawn prior to 4th dose on 09/02 @ 0600 SCr increase in 12 hours. Pharmacy will monitor renal function daily. Steph Guerra PharmD Vancomycin dosing will take advantage of [employer] as a clinical decision support tool that uses Bayesian modeling to calculate individual patient's pharmacokinetic parameters and forecast the patient's drug concentration time course with the target goal AUC 24 range of 400 - 600 mg/L/hr.
[2021-08-30 08:44] LABS: SLIDE REVIEW VERIFIED
[2021-08-30 08:49] LABS: C Reactive Protein 1.14 mg/dL (< or = 0.50); Lactate Dehydrogenase 368 U/L (122-220)
[2021-08-30 08:51] LABS: Estimated Average Glucose 220 mg/dL; Hemoglobin A1c % 9.3 %
[2021-08-30 09:10] LABS: Ferritin 502 ng/mL (10-250)
--- NOTE | 2021-08-30 09:51 | PC.NURSE ---
bindu held until 2hrs post meds. billy'torrie by pharmacy
[2021-08-30] MEDS: Sodium Zirconium Cyclosilicate 10 GM POWD.PACK PO (11:31)
[2021-08-30 11:35] LABS: Glucose, Whole Blood 323 mg/dL (60-115)
[2021-08-30] MEDS: Insulin Lispro 100 UNIT/ML 3 ML VIAL SUBCUT ×3 (12:53→21:38)
--- NOTE | 2021-08-30 13:35 | MHC.CM.PN ---
Patient is Covid (+); CM spoke with SonKyrie at [phone] and addressed IMM with him (original to be mailed certified letter to him and a copy has been placed on the chart). Patient lives in a two family house, on the second floor with her Son/Kwasi, while her Sister lives on the first floor of the same house. Patient is Active with [facility]; should STR be recommended, first choice is [facility] (prefers not to return to [facility]). CM has initiated and will follow for dc planning. Patient has had no Covid vax and her PCP is from [address] [place] [address]. Uday is the HCP @ [phone].
--- NOTE | 2021-08-30 14:49 | W.PM.IDCN ---
History of Present Illness Data of Consult Service Date: 08/30/21 Requesting physician: Ru Martin Primary Care Provider: Unknown Physician HPI Reason for consult: shortness of breath She presents with shortness of breath and worsening confusion from long-term. She had recently been in hospital and had T12 fracture and discharged on 08/14 She was noted to be more confused morning of admission and sent to ER She has WBC of 21,000 and procalcitonin of .09 She is normally on 2 liters and now is on high flow oxygen COVID test is postive She has COPD and diabetes and dementia. Review of Systems Review of Systems: Yes Unobtainable due to mental condition PMFSH Past Medical History Medical History COPD (chronic obstructive pulmonary disease) Decreased hearing of both ears Fecal impaction History of DVT (deep vein thrombosis) IDDM (insulin dependent diabetes mellitus) Leukocytosis Lymphedema Osteoporosis with pathological fracture Pneumonia due to 2019 novel coronavirus Right lumbosacral radiculopathy Smoker Thrombocytosis after splenectomy Family History Family History Father No problems noted. Mother No problems noted. Family history: reviewed and not pertinent Surgical History Surgical History H/O splenectomy History of section S/P LILI-BSO (total abdominal hysterectomy and bilateral salpingo-oophorectomy) Social History Social History Household Members: None Housing[facility] [place] [facility] [place] you presently have visiting nurse or other home services: No Unable to assess alcohol history related to: Refusing to respond Alcohol intake: never Patient Tobacco Use Status: Former Tobacco user Tobacco use type: Cigarette Cigarettes Per Day: 3 e-Cigarette/Vaping Use: Never Used Second Hand Smoke Exposure: No Advance Directives Date on File: 08/10/21 service: No Current occupational status: disabled Cognitive needs: Yes (wheelchair) Hearing needs: No Vision needs: No Meds Allergies Allergy/AdvReac Type Severity Reaction Status Date / Time No Known Allergies Allergy Unknown Verified 08/10/21 02:22 Active Medications: Current Medications Acetaminophen (Acetaminophen 325 Mg Tablet) 650 mg PO Q6H PRN PRN Reason: Pain, Mild (Pain Scale 1-3) Albuterol/Ipratropium (Albuterol/Iprat 2.5/0.5mg 3 Ml Ampul.Neb) 3 ml INHALE RQ4H PRN PRN Reason: Shortness of Breath/Wheezing Baricitinib (Baricitinib 2 Mg Tablet) 1 mg PO Q24H [facility] Stop: 09/12/21 09:01 Last Admin: 08/30/21 09:44 Dose: 1 mg Documented by: Dexamethasone Sodium Phosphate (Dexamethasone Sod Phosphate 4 Mg/Ml Vial) 6 mg IVPUSH DAILY [facility] Last Admin: 08/30/21 08:09 Dose: 6 mg Documented by: Dextrose (Dextrose 50 % 25 Gm/50 Ml Syringe) 25 gm IVPUSH Q15M PRN; Protocol PRN Reason: per Hypoglycemia Standing Ord. Dextrose (Dextrose 50 % 25 Gm/50 Ml Syringe) 25 gm IVPUSH Q15M PRN; Protocol PRN Reason: per Hypoglycemia Standing Ord. Diltiazem HCl (Diltiazem Hcl Cd 240 Mg Cap.Er.Deg) 240 mg PO DAILY [facility]; Protocol Last Admin: 08/30/21 08:12 Dose: 240 mg Documented by: Docusate Sodium (Docusate Sodium 100 Mg Capsule) 100 mg PO DAILY PRN PRN Reason: Constipation Escitalopram Oxalate (Escitalopram Oxalate 5 Mg Tablet) 5 mg PO DAILY [facility] Last Admin: 08/30/21 08:12 Dose: 5 mg Documented by: Glucose (Glucose Gel 15 Gm Gel..Gram.) 15 gm PO Q15M PRN; Protocol PRN Reason: per Hypoglycemia Standing Ord. Glucose (Glucose Gel 15 Gm Gel..Gram.) 15 gm PO Q15M PRN; Protocol PRN Reason: per Hypoglycemia Standing Ord. Piperacillin Sod/Tazobactam (Sod 3.375 gm/ Sodium Chloride) 50 mls @ 100 mls/hr IV Q6H [facility] Last Infusion: 08/30/21 07:53 Dose: Infused Documented by: Vancomycin HCl 500 mg/ Sodium (Chloride) 110 mls @ 110 mls/hr IV Q24H [facility] Insulin Glargine (Insulin Glargine,Hum.Rec.Anlog 100 Unit/Ml 10 Ml Vial) 10 unit SUBCUT BEDTIME [facility] Insulin Human Lispro (Insulin Lispro 100 Unit/Ml 3 Ml Vial) 0 unit SUBCUT QIDACHS [facility]; Protocol Last Admin: 08/30/21 12:53 Dose: 10 unit Documented by: Lidocaine (Lidocaine 4 % Patch Adh..Patch) 1 patch TRANSDERMA DAILY [facility]; Protocol Last Admin: 08/30/21 08:30 Dose: Not Given Documented by: Ondansetron HCl (Ondansetron Hcl 4 Mg/2 Ml Vial) 4 mg IVPUSH Q8H PRN PRN Reason: Nausea and Vomiting Pharmacy Consult (Consult Rx Vancomycin Dosing) 1 each MISCELLANE DAILY PRN PRN Reason: Consult order Rivaroxaban (Rivaroxaban 15 Mg Tablet) 15 mg PO DAILY [facility] Last Admin: 08/30/21 08:12 Dose: 15 mg Documented by: Sodium Chloride (0.9 % Sodium Chloride Flush 3 Ml Syringe) 3 ml IVFLUSH QSHIFT [facility] Last Admin: 08/30/21 08:29 Dose: 3 ml Documented by: Home Medications Medication Instructions Recorded Confirmed Last Taken Type insulin aspart U-100 100 unit/mL 0 sliding scale dose SUBCUT TIDAC 08/10/21 09/16/21 Unknown History (3 mL) subcutaneous pen (Novolog Flexpen U-100 Insulin aspart) diltiazem HCl 240 mg capsule,24 240 mg PO DAILY 08/29/21 09/16/21 Unknown History hr,extended release albuterol sulfate 0.5 vial INHALATION Q4H PRN 09/16/21 09/16/21 Unknown History albuterol sulfate 90 mcg/actuation 2 puff INHALATION Q4-6H PRN 09/16/21 09/16/21 Unknown History aerosol inhaler ipratropium 18 mcg-albuterol 103 2 spray INHALATION QID 09/16/21 09/16/21 Unknown History mcg/actuation aerosol inhaler Physical Exam Vital Signs: Vital Signs: Last Vital Signs Temp 97.8 F 08/30/21 12:53 Pulse 69 08/30/21 12:53 Resp 18 08/30/21 12:53 BP 148/70 H 08/30/21 12:53 Pulse Ox 93 08/30/21 12:53 BMI result Body Mass Index 25.4 Const: General: cooperative HENMT: Head: Yes normal to inspection Mouth: oropharynx normal Resp: Effort & Inspection: normal respiratory effort Cardio: Rate: regular rate Rhythm: regular rhythm GI: Palpation (GI): Soft to palpation and nontender Skin: General skin exam: no rashes or lesions noted Extrem: General: Yes normal to inspection Results Labs CBC & Chem 7: 09/13/21 06:37 09/13/21 06:37 Labs: Short CBC 08/29/21 08/29/21 08/30/21 Range/Units 16:57 21:58 07:29 WBC 21.7 H 15.8 H (4.8-10.8) X10*3/uL Hgb 10.8 L 8.6 L D (12.0-16.0) g/dl Hct 33.8 L 28.1 L (37.0-47.0) % Plt Count 729 H 611 H (160-400) X10*3/uL Procalcitonin 0.09 ng/mL BMP 08/29/21 08/30/21 17:41 07:29 Sodium 146 H 143 Potassium 4.2 D 5.3 H D Chloride 111 H 111 H Carbon Dioxide 26 20 L BUN 61 H 64 H Creatinine 1.31 1.43 H Calcium 8.7 8.0 L D Cardiac Enzymes 08/30/21 Range/Units 07:29 Total Creatine Kinase 64 (26-140) U/L Liver Function 08/29/21 Range/Units 17:41 Total Bilirubin 0.6 (0.0-1.0) mg/dL Direct Bilirubin 0.2 (0.0-0.5) mg/dL AST 20 (5-31) U/L ALT 17 (0-31) U/L Alkaline Phosphatase 144 H D (39-117) U/L Albumin 3.1 L (3.5-5.0) g/dL Urine 08/29/21 Range/Units 20:42 Urine Color YELLOW Urine Appearance CLOUDY Urine pH 6.0 (5.0-8.0) Ur Specific [place] 1.025 (1.005-1.025) Urine Protein 3+ H (NEG-TRACE) MG/DL Urine Glucose (UA) 100 H (NEG) MG/DL Microbiology Microbiology Results: Microbiology 08/29/21 20:42 Urine clean catch - Urine gusman top Urine Culture - Preliminary Culture in progress. Assessment and Plan (1) Acute and chronic respiratory failure with hypoxia: Status: Resolved This patient likely has multiple reasons for pneumonia The increased leukocytosis as well as immunosuppression and lobar infiltrate are highly suspicious for bacterial pneumonia even with unremarkable procalcitonin COVID is of unknown duration and unclear contribution to hypoxia however probably contributing highly COPD and DM risk factors as is age and living in facility (2) Encephalopathy: Status: Resolved (3) Pneumonia: Status: Resolved (4) Leukocytosis: Status: Chronic Plan Would continue Vancomycin and Zosyn possibly 3-5 days IV and then po Augmentin and Doxycycline Check nares for MRSA Would give steroids cover COVID and COPD Would not give Remdesivir due to unknown duration of COVID Would not give baricitinib due to suspected bacterial lung infection and immunosuppression
[2021-08-30 16:24] LABS: Glucose, Whole Blood 231 mg/dL (60-115)
--- NOTE | 2021-08-30 16:56 | P.PNIM_ITS ---
Subjective Subjective Date of Service: 08/30/21 Interval History: On 7L O2 via [place] nasal cannula Unable to obtain ROS due to altered mental status Review of Systems Review of Systems: Yes Unobtainable due to mental status Physical Exam Vital Signs: Vital Signs: Last Vital Signs Temp 97.7 F 08/30/21 15:21 Pulse 63 08/30/21 15:21 Resp 18 08/30/21 15:21 BP 132/71 08/30/21 15:21 Pulse Ox 95 08/30/21 15:21 BMI result Body Mass Index 25.4 Gen: ill-appearing, non-verbal HEENT: sclera anicteric, moist mucus membranes Neck: supple Lungs: diminished at R base Heart: regular rate and rhythm, no murmurs Abd: soft, non-tender, non-distended Ext: no edema Skin: warm/well-perfused Neuro: somnolent Psych: impaired insight Objective Data Active Medications Acetaminophen (Acetaminophen 325 Mg Tablet) 650 mg PO Q6H PRN PRN Reason: Pain, Mild (Pain Scale 1-3) Albuterol/Ipratropium (Albuterol/Iprat 2.5/0.5mg 3 Ml Ampul.Neb) 3 ml INHALE RQ4H PRN PRN Reason: Shortness of Breath/Wheezing Baricitinib (Baricitinib 2 Mg Tablet) 1 mg PO Q24H [facility] Stop: 09/12/21 09:01 Last Admin: 08/30/21 09:44 Dose: 1 mg Documented by: COMFORT Dexamethasone Sodium Phosphate (Dexamethasone Sod Phosphate 4 Mg/Ml Vial) 6 mg IVPUSH DAILY [facility] Last Admin: 08/30/21 08:09 Dose: 6 mg Documented by: COMFORT Dextrose (Dextrose 50 % 25 Gm/50 Ml Syringe) 25 gm IVPUSH Q15M PRN; Protocol PRN Reason: per Hypoglycemia Standing Ord. Dextrose (Dextrose 50 % 25 Gm/50 Ml Syringe) 25 gm IVPUSH Q15M PRN; Protocol PRN Reason: per Hypoglycemia Standing Ord. Diltiazem HCl (Diltiazem Hcl Cd 240 Mg Cap.Er.Deg) 240 mg PO DAILY [facility]; Protocol Last Admin: 08/30/21 08:12 Dose: 240 mg Documented by: COMFORT Docusate Sodium (Docusate Sodium 100 Mg Capsule) 100 mg PO DAILY PRN PRN Reason: Constipation Escitalopram Oxalate (Escitalopram Oxalate 5 Mg Tablet) 5 mg PO DAILY [facility] Last Admin: 08/30/21 08:12 Dose: 5 mg Documented by: COMFORT Glucose (Glucose Gel 15 Gm Gel..Gram.) 15 gm PO Q15M PRN; Protocol PRN Reason: per Hypoglycemia Standing Ord. Glucose (Glucose Gel 15 Gm Gel..Gram.) 15 gm PO Q15M PRN; Protocol PRN Reason: per Hypoglycemia Standing Ord. Piperacillin Sod/Tazobactam (Sod 3.375 gm/ Sodium Chloride) 50 mls @ 100 mls/hr IV Q6H [facility] Last Admin: 08/30/21 14:50 Dose: Not Given Documented by: BRITANY Non-Admin Reason: Not In Room Vancomycin HCl 500 mg/ Sodium (Chloride) 110 mls @ 110 mls/hr IV Q24H [facility] Insulin Glargine (Insulin Glargine,Hum.Rec.Anlog 100 Unit/Ml 10 Ml Vial) 10 unit SUBCUT BEDTIME [facility] Insulin Human Lispro (Insulin Lispro 100 Unit/Ml 3 Ml Vial) 0 unit SUBCUT QIDACHS [facility]; Protocol Last Admin: 08/30/21 16:38 Dose: 6 unit Documented by: LEONELA Lidocaine (Lidocaine 4 % Patch Adh..Patch) 1 patch TRANSDERMA DAILY [facility]; Protocol Last Admin: 08/30/21 08:30 Dose: Not Given Documented by: COMFORT Non-Admin Reason: Patient Refused Ondansetron HCl (Ondansetron Hcl 4 Mg/2 Ml Vial) 4 mg IVPUSH Q8H PRN PRN Reason: Nausea and Vomiting Pharmacy Consult (Consult Rx Vancomycin Dosing) 1 each MISCELLANE DAILY PRN PRN Reason: Consult order Rivaroxaban (Rivaroxaban 15 Mg Tablet) 15 mg PO DAILY [facility] Last Admin: 08/30/21 08:12 Dose: 15 mg Documented by: COMFORT Sodium Chloride (0.9 % Sodium Chloride Flush 3 Ml Syringe) 3 ml IVFLUSH QSHIFT [facility] Last Admin: 08/30/21 16:39 Dose: 3 ml Documented by: LEONELA Labs CBC & Chem 7: 08/30/21 07:29 08/30/21 07:29 Labs: Laboratory Results - last 24 hr 08/29/21 08/29/21 08/29/21 16:54 16:56 16:56 MCV MCH MCHC RDW Plt Count MPV Immature Gran % (Auto) Neut % (Auto) Lymph % (Auto) [place] % (Auto) Eos % (Auto) Baso % (Auto) Lymph # (Auto) [place] # (Auto) Eos # (Auto) Baso # (Auto) Abs Immat Gran (auto) Absolute Neuts (auto) Absolute Nucleated RBC Nucleated RBC % (auto) Smear Tech's Comments PT INR APTT O2 Saturation ABG pH at Pt Temp ABG pCO2 at Pt Temp ABG pO2 at Pt Temp ABG HCO3 ABG Base Excess (Actual) VBG pH VBG pCO2 VBG pO2 VBG HCO3 VBG O2 Saturation VBG Base Excess Anion Gap Estim Creat Clear Calc Estimated GFR POC Glucose Random Glucose Estimat Average Glucose Hemoglobin A1c % Lactic Acid 2.1 H* Lactic Acid F/U @ 2Hr Lactic Acid F/U @ 4Hr Calcium Magnesium Ferritin Total Bilirubin Direct Bilirubin AST ALT Alkaline Phosphatase Lactate Dehydrogenase Total Creatine Kinase C-Reactive Protein B-Natriuretic Peptide 193 H Total Protein Albumin Lipase Procalcitonin Urine Color Urine Appearance Urine pH Ur Specific [place] Urine Protein Urine Glucose (UA) Urine Ketones Urine Blood Urine Nitrite Ur Leukocyte Esterase Urine RBC Urine WBC Urine WBC Clumps Ur Squamous Epith Cells Urine Bacteria Granular Casts Urine Mucus COVID-19 (DOUG) Positive A COVID-19 Clin Com See Note 08/29/21 08/29/21 08/29/21 16:56 16:57 16:57 MCV 97.7 MCH 31.2 MCHC 32.0 RDW 15.1 Plt Count 729 H MPV 9.6 Immature Gran % (Auto) 0.9 H Neut % (Auto) 90.1 H Lymph % (Auto) 3.9 L [place] % (Auto) 5.0 Eos % (Auto) 0.0 Baso % (Auto) 0.1 Lymph # (Auto) 0.9 L [place] # (Auto) 1.1 Eos # (Auto) 0.0 Baso # (Auto) 0.0 Abs Immat Gran (auto) 0.19 H Absolute Neuts (auto) 19.5 H Absolute Nucleated RBC 0.020 H Nucleated RBC % (auto) 0.1 Smear Tech's Comments VERIFIED PT 12.6 INR 1.1 APTT 40.8 H O2 Saturation ABG pH at Pt Temp ABG pCO2 at Pt Temp ABG pO2 at Pt Temp ABG HCO3 ABG Base Excess (Actual) VBG pH VBG pCO2 VBG pO2 VBG HCO3 VBG O2 Saturation VBG Base Excess Anion Gap Estim Creat Clear Calc Estimated GFR POC Glucose Random Glucose Estimat Average Glucose Hemoglobin A1c % Lactic Acid Lactic Acid F/U @ 2Hr Lactic Acid F/U @ 4Hr Calcium Magnesium Ferritin Total Bilirubin Direct Bilirubin AST ALT Alkaline Phosphatase Lactate Dehydrogenase Total Creatine Kinase C-Reactive Protein B-Natriuretic Peptide Cancelled Total Protein Albumin Lipase Procalcitonin Urine Color Urine Appearance Urine pH Ur Specific [place] Urine Protein Urine Glucose (UA) Urine Ketones Urine Blood Urine Nitrite Ur Leukocyte Esterase Urine RBC Urine WBC Urine WBC Clumps Ur Squamous Epith Cells Urine Bacteria Granular Casts Urine Mucus COVID-19 (DOUG) COVID-19 Clin Com 08/29/21 08/29/21 08/29/21 17:30 17:41 20:22 MCV MCH MCHC RDW Plt Count MPV Immature Gran % (Auto) Neut % (Auto) Lymph % (Auto) [place] % (Auto) Eos % (Auto) Baso % (Auto) Lymph # (Auto) [place] # (Auto) Eos # (Auto) Baso # (Auto) Abs Immat Gran (auto) Absolute Neuts (auto) Absolute Nucleated RBC Nucleated RBC % (auto) Smear Tech's Comments PT INR APTT O2 Saturation ABG pH at Pt Temp ABG pCO2 at Pt Temp ABG pO2 at Pt Temp ABG HCO3 ABG Base Excess (Actual) VBG pH 7.43 VBG pCO2 35 VBG pO2 117 VBG HCO3 24 VBG O2 Saturation 98.0 VBG Base Excess 0.3 Anion Gap 13 Estim Creat Clear Calc 29.4 Estimated GFR 39 POC Glucose Random Glucose 95 Estimat Average Glucose Hemoglobin A1c % Lactic Acid Lactic Acid F/U @ 2Hr 3.2 H* Lactic Acid F/U @ 4Hr Calcium 8.7 Magnesium 2.2 Ferritin Total Bilirubin 0.6 Direct Bilirubin 0.2 AST 20 ALT 17 Alkaline Phosphatase 144 H D Lactate Dehydrogenase Total Creatine Kinase C-Reactive Protein B-Natriuretic Peptide Total Protein 6.6 D Albumin 3.1 L Lipase 23 Procalcitonin Urine Color Urine Appearance Urine pH Ur Specific [place] Urine Protein Urine Glucose (UA) Urine Ketones Urine Blood Urine Nitrite Ur Leukocyte Esterase Urine RBC Urine WBC Urine WBC Clumps Ur Squamous Epith Cells Urine Bacteria Granular Casts Urine Mucus COVID-19 (DOUG) COVID-19 Clin Com 08/29/21 08/29/21 08/29/21 20:42 21:58 22:48 MCV MCH MCHC RDW Plt Count MPV Immature Gran % (Auto) Neut % (Auto) Lymph % (Auto) [place] % (Auto) Eos % (Auto) Baso % (Auto) Lymph # (Auto) [place] # (Auto) Eos # (Auto) Baso # (Auto) Abs Immat Gran (auto) Absolute Neuts (auto) Absolute Nucleated RBC Nucleated RBC % (auto) Smear Tech's Comments PT INR APTT O2 Saturation ABG pH at Pt Temp ABG pCO2 at Pt Temp ABG pO2 at Pt Temp ABG HCO3 ABG Base Excess (Actual) VBG pH VBG pCO2 VBG pO2 VBG HCO3 VBG O2 Saturation VBG Base Excess Anion Gap Estim Creat Clear Calc Estimated GFR POC Glucose Random Glucose Estimat Average Glucose Hemoglobin A1c % Lactic Acid Lactic Acid F/U @ 2Hr Lactic Acid F/U @ 4Hr 2.3 H* Calcium Magnesium Ferritin Total Bilirubin Direct Bilirubin AST ALT Alkaline Phosphatase Lactate Dehydrogenase Total Creatine Kinase C-Reactive Protein B-Natriuretic Peptide Total Protein Albumin Lipase Procalcitonin 0.09 Urine Color YELLOW Urine Appearance CLOUDY Urine pH 6.0 Ur Specific [place] 1.025 Urine Protein 3+ H Urine Glucose (UA) 100 H Urine Ketones NEG Urine Blood 3+ H Urine Nitrite NEG Ur Leukocyte Esterase NEG Urine RBC 1-4 Urine WBC 15-29 H Urine WBC Clumps NOTED Ur Squamous Epith Cells TRACE Urine Bacteria 4+ Granular Casts 5-9 Urine Mucus 1+ COVID-19 (DOUG) COVID-19 Clin Com 08/30/21 08/30/21 08/30/21 06:29 07:16 07:29 MCV 98.6 H MCH 30.2 MCHC 30.6 L RDW 15.5 Plt Count 611 H MPV 10.1 Immature Gran % (Auto) 1.1 H Neut % (Auto) 90.6 H Lymph % (Auto) 4.6 L [place] % (Auto) 3.6 Eos % (Auto) 0.0 Baso % (Auto) 0.1 Lymph # (Auto) 0.7 L [place] # (Auto) 0.6 Eos # (Auto) 0.0 Baso # (Auto) 0.0 Abs Immat Gran (auto) 0.17 H Absolute Neuts (auto) 14.3 H Absolute Nucleated RBC 0.020 H Nucleated RBC % (auto) 0.1 Smear Tech's Comments VERIFIED PT INR APTT O2 Saturation 95.0 ABG pH at Pt Temp 7.38 ABG pCO2 at Pt Temp 34 ABG pO2 at Pt Temp 82 L ABG HCO3 20 L ABG Base Excess (Actual) -3.3 VBG pH VBG pCO2 VBG pO2 VBG HCO3 VBG O2 Saturation VBG Base Excess Anion Gap Estim Creat Clear Calc Estimated GFR POC Glucose 402 H* Random Glucose Estimat Average Glucose Hemoglobin A1c % Lactic Acid Lactic Acid F/U @ 2Hr Lactic Acid F/U @ 4Hr Calcium Magnesium Ferritin Total Bilirubin Direct Bilirubin AST ALT Alkaline Phosphatase Lactate Dehydrogenase Total Creatine Kinase C-Reactive Protein B-Natriuretic Peptide Total Protein Albumin Lipase Procalcitonin Urine Color Urine Appearance Urine pH Ur Specific [place] Urine Protein Urine Glucose (UA) Urine Ketones Urine Blood Urine Nitrite Ur Leukocyte Esterase Urine RBC Urine WBC Urine WBC Clumps Ur Squamous Epith Cells Urine Bacteria Granular Casts Urine Mucus COVID-19 (DOUG) COVID-19 Clin Com 08/30/21 08/30/21 08/30/21 07:29 07:29 07:57 MCV MCH MCHC RDW Plt Count MPV Immature Gran % (Auto) Neut % (Auto) Lymph % (Auto) [place] % (Auto) Eos % (Auto) Baso % (Auto) Lymph # (Auto) [place] # (Auto) Eos # (Auto) Baso # (Auto) Abs Immat Gran (auto) Absolute Neuts (auto) Absolute Nucleated RBC Nucleated RBC % (auto) Smear Tech's Comments PT INR APTT O2 Saturation ABG pH at Pt Temp ABG pCO2 at Pt Temp ABG pO2 at Pt Temp ABG HCO3 ABG Base Excess (Actual) VBG pH VBG pCO2 VBG pO2 VBG HCO3 VBG O2 Saturation VBG Base Excess Anion Gap 17 Estim Creat Clear Calc 26.9 Estimated GFR 35 POC Glucose 437 H* Random Glucose 454 H* D Estimat Average Glucose 220 Hemoglobin A1c % 9.3 Lactic Acid Lactic Acid F/U @ 2Hr Lactic Acid F/U @ 4Hr Calcium 8.0 L D Magnesium Ferritin 502 H Total Bilirubin Direct Bilirubin AST ALT Alkaline Phosphatase Lactate Dehydrogenase 368 H Total Creatine Kinase 64 C-Reactive Protein 1.14 H B-Natriuretic Peptide Total Protein Albumin Lipase Procalcitonin Urine Color Urine Appearance Urine pH Ur Specific [place] Urine Protein Urine Glucose (UA) Urine Ketones Urine Blood Urine Nitrite Ur Leukocyte Esterase Urine RBC Urine WBC Urine WBC Clumps Ur Squamous Epith Cells Urine Bacteria Granular Casts Urine Mucus COVID-19 (DOUG) COVID-19 Clin Com 08/30/21 08/30/21 11:30 16:16 MCV MCH MCHC RDW Plt Count MPV Immature Gran % (Auto) Neut % (Auto) Lymph % (Auto) [place] % (Auto) Eos % (Auto) Baso % (Auto) Lymph # (Auto) [place] # (Auto) Eos # (Auto) Baso # (Auto) Abs Immat Gran (auto) Absolute Neuts (auto) Absolute Nucleated RBC Nucleated RBC % (auto) Smear Tech's Comments PT INR APTT O2 Saturation ABG pH at Pt Temp ABG pCO2 at Pt Temp ABG pO2 at Pt Temp ABG HCO3 ABG Base Excess (Actual) VBG pH VBG pCO2 VBG pO2 VBG HCO3 VBG O2 Saturation VBG Base Excess Anion Gap Estim Creat Clear Calc Estimated GFR POC Glucose 323 H 231 H Random Glucose Estimat Average Glucose Hemoglobin A1c % Lactic Acid Lactic Acid F/U @ 2Hr Lactic Acid F/U @ 4Hr Calcium Magnesium Ferritin Total Bilirubin Direct Bilirubin AST ALT Alkaline Phosphatase Lactate Dehydrogenase Total Creatine Kinase C-Reactive Protein B-Natriuretic Peptide Total Protein Albumin Lipase Procalcitonin Urine Color Urine Appearance Urine pH Ur Specific [place] Urine Protein Urine Glucose (UA) Urine Ketones Urine Blood Urine Nitrite Ur Leukocyte Esterase Urine RBC Urine WBC Urine WBC Clumps Ur Squamous Epith Cells Urine Bacteria Granular Casts Urine Mucus COVID-19 (DOUG) COVID-19 Clin Com Microbiology Microbiology Results: Microbiology 08/29/21 20:42 Urine Culture - Preliminary Urine clean catch - Urine gusman top Culture in progress. Assessment and Plan (1) Acute and chronic respiratory failure with hypoxia: Status: Acute (2) Encephalopathy: Status: Acute (3) Pneumonia: Status: Acute (4) COVID-19: Status: Acute Plan hospital d#2 81yo F recently [08/14/20] admitted to [facility] with encephalopathy + thoracic compression fracture, tested positive for Covid-19 08/18/21 Hx DM2, COPD on 2L O2 brought in with increased confusion + PNA # suspected bacterial pneumonia - vanc + pip/justice d#2, trend PCT, follow BCx, check Legionella + pneumococcal UAgs, ID consulted # Covid-19 pneumonia - dexamethasone d#08/31 - ID consulted, no remdesivir given duration of Covid-19, no baricitinib due to concern of bacterial pneumonia # acute/chronic hypoxic respiratory failure - suppl via [place], wean as tolerated # encephalopathy secondary to infection - treat infection as above # COPD exacerbation - dexamethasone as above, nebs # pAF - continue rivaroxaban, diltiazem # DM2, A1c 9.3 - basal/bolus insulin # mood disorder - escitalopram # VTE ppx - rivaroxaban Quality Stroke Does the patient have a stroke diagnosis?: No VTE Prior VTE?: Yes VTE Risk Level:: Medical - moderate - high VTE Device Contraindication: Treatment Not Indicated VTE Drug Contraindication: N/A - Med Ordered
[2021-08-30 18:04] LABS: MRSA Nasal PCR NEGATIVE (Negative); SA Nasal PCR POSITIVE (Negative)
[2021-08-30 20:24] LABS: Glucose, Whole Blood 164 mg/dL (60-115)
[2021-08-30] MEDS: Insulin Glargine,Hum.rec.anlog 100 UNIT/ML 10 ML VIAL 10 UNIT SUBCUT (21:38)
[2021-08-31] MEDS: 0.9 % Sodium Chloride Flush 3 ML SYRINGE IVFLUSH ×4 (00:37→21:28)
[2021-08-31] MEDS: Piperacillin Sodium/Tazobactam 3.375 GM in 0.9 % Sodium Chloride 50 ML IV ×5 (00:37→23:24)
[2021-08-31 04:00] VITALS: BP 152/74; PULSE 82; RESP 16; TEMP 37.2; O2SAT 92
[2021-08-31 06:39] LABS: Hematocrit 26.6 % (37.0-47.0); Hemoglobin 8.4 g/dl (12.0-16.0); Mean Corpuscular HGB Conc 31.6 g/dl (31.0-35.0); Mean Corpuscular Hemoglobin 30.7 pg (27.0-33.0); Mean Corpuscular Volume 97.1 fL (80.0-98.0); Mean Platelet Volume 10.2 fL (9.4-12.3); NRBC Pct Auto 0.1 /100WBC (0.0-0.2); Platelet Count 612 X10*3/uL (160-400); Red Blood Count 2.74 X10*6/uL (4.20-5.50); Red Cell Distribution Width 15.4 % (11.0-16.0); Venous Blood Gas Refer to POC result; White Blood Count 29.6 X10*3/uL (4.8-10.8)
[2021-08-31 06:40] LABS: VBG Base Excess 1.9 mmol/L; VBG HCO3 26 mmol/L (22-26); VBG pCO2 38 mmHg; VBG pH 7.43 (7.32-7.43); VBG pO2 64 mmHg
[2021-08-31 07:17] LABS: Anion Gap 11 (12-20); Blood Urea Nitrogen 56 mg/dL (9-16); Calcium 8.4 mg/dL (8.4-10.2); Carbon Dioxide 26 mmol/L (22-29); Chloride 114 mmol/L (96-108); Creatinine Clr Calc Pharmacy 33.2; Estimated Glomerular Filt Rate 45; Glucose Random 255 mg/dL (60-115); Potassium 4.1 mmol/L (3.3-5.1); Sodium 147 mmol/L (135-145)
[2021-08-31 07:20] VITALS: BP 179/74; PULSE 78; RESP 18; TEMP 35.9; O2SAT 91
[2021-08-31 07:41] LABS: Glucose, Whole Blood 283 mg/dL (60-115)
[2021-08-31] MEDS: vancomycin HCL 500 MG in 0.9 % Sodium Chloride 100 ML 110 MG IV (08:28)
[2021-08-31] MEDS: dexAMETHasone sod phosphate 4 MG/ML VIAL 6 MG IVPUSH (08:29)
[2021-08-31] MEDS: Lidocaine 4 % Patch ADH..PATCH 1 PATCH TRANSDERMA (08:29)
[2021-08-31] MEDS: Rivaroxaban 15 MG TABLET PO (08:29)
[2021-08-31] MEDS: Escitalopram Oxalate 5 MG TABLET PO (08:29)
[2021-08-31] MEDS: dilTIAZem HCL CD 240 MG CAP.ER.DEG PO (08:29)
[2021-08-31] MEDS: Insulin Lispro 100 UNIT/ML 3 ML VIAL SUBCUT ×4 (08:30→21:28)
[2021-08-31 08:57] LABS: Glucose, Whole Blood 423 mg/dL (60-115)
[2021-08-31 09:49] LABS: Procalcitonin 0.12 ng/mL
--- NOTE | 2021-08-31 10:44 | P.CDIC_ITS ---
CDI Concurrent Query Documentation Clarification: PHYSICIAN'S DOCUMENTATION REQUEST Date of Query: 08/31/21 1045 Patient Name: Bibi Cormier Admit Date: 08/29/21 Dear Doctor, A review of the medical record indicates additional documentation may be needed. Please review below and update the documentation accordingly. Risk Factors/Clinical Indicators/Treatments PN 2/9 - Suspected bacterial pneumonia WBC 21.7 LA 3.2 RR 24 HR 107 IV Vancomycin and Zosyn, Oxygen, IV fluids. Hospital acquired pneumonia vs. viral pneumonia - Covid infection. Acute respiratory failure, encephalopathy due to infection. Based on the above, could you clarify in the Progress Notes the appropriate diagnosis, if significant, that supports the above abnormalities and additional evaluation, monitoring, and/or treatment rendered: Are the indicators above related to a sepsis criteria: * Sepsis, POA, Resolved, Treating or rule out * * Sepsis due to Pneumonia (bacterial vs. viral) or other etiology * Bacterial pneumonia vs. viral pneumonia * Other (please specify) * Unable to determine Use of terms such as suspected, likely, concern for, or probable (associated with a specific diagnosis that is being evaluated, monitored, or treated as if i t exists) are acceptable and can be coded in the inpatient setting, when documented at the time of discharge. Thank you, Goldie Yañez [facility], CD[facility] Extension: [phone] Please use your independent medical judgment in providing your response. THIS QUERY IS PART OF THE PERMANENT MEDICAL RECORD Provider Response: Other Other Diagnosis: Sepsis due to pneumonia
[2021-08-31 10:54] VITALS: BP 144/67; PULSE 83; RESP 19; TEMP 35.7; O2SAT 96
[2021-08-31 11:23] LABS: Glucose, Whole Blood 347 mg/dL (60-115)
[2021-08-31] MEDS: Acetaminophen 325 MG TABLET 650 MG PO (11:58)
--- NOTE | 2021-08-31 15:21 | P.PNIM_ITS ---
Subjective Subjective Date of Service: 08/31/21 Interval History: confused...no acute distress Review of Systems unable to obtain Physical Exam Vital Signs: Vital Signs: Last Vital Signs Temp 96.3 F L 08/31/21 10:54 Pulse 83 08/31/21 10:54 Resp 19 08/31/21 10:54 BP 144/67 H 08/31/21 10:54 Pulse Ox 96 08/31/21 10:54 BMI result Body Mass Index 25.4 Const: Other: NAD Resp: Other: diminished with bilat basilar crackles Cardio: Other: -S4 +S1/S2 -S3 No MRG GI: Other: soft NT/ND NABS x 4 quads Extrem: Other: no edema Objective Data Active Medications Acetaminophen (Acetaminophen 325 Mg Tablet) 650 mg PO Q6H PRN PRN Reason: Pain, Mild (Pain Scale 1-3) Last Admin: 08/31/21 11:58 Dose: 650 mg Documented by: LEYLA Albuterol/Ipratropium (Albuterol/Iprat 2.5/0.5mg 3 Ml Ampul.Neb) 3 ml INHALE RQ4H PRN PRN Reason: Shortness of Breath/Wheezing Dexamethasone Sodium Phosphate (Dexamethasone Sod Phosphate 4 Mg/Ml Vial) 6 mg IVPUSH DAILY [facility] Last Admin: 08/31/21 08:29 Dose: 6 mg Documented by: LEYLA Dextrose (Dextrose 50 % 25 Gm/50 Ml Syringe) 25 gm IVPUSH Q15M PRN; Protocol PRN Reason: per Hypoglycemia Standing Ord. Dextrose (Dextrose 50 % 25 Gm/50 Ml Syringe) 25 gm IVPUSH Q15M PRN; Protocol PRN Reason: per Hypoglycemia Standing Ord. Diltiazem HCl (Diltiazem Hcl Cd 240 Mg Cap.Er.Deg) 240 mg PO DAILY [facility]; Protocol Last Admin: 08/31/21 08:29 Dose: 240 mg Documented by: LEYLA Docusate Sodium (Docusate Sodium 100 Mg Capsule) 100 mg PO DAILY PRN PRN Reason: Constipation Escitalopram Oxalate (Escitalopram Oxalate 5 Mg Tablet) 5 mg PO DAILY [facility] Last Admin: 08/31/21 08:29 Dose: 5 mg Documented by: LEYLA Glucose (Glucose Gel 15 Gm Gel..Gram.) 15 gm PO Q15M PRN; Protocol PRN Reason: per Hypoglycemia Standing Ord. Glucose (Glucose Gel 15 Gm Gel..Gram.) 15 gm PO Q15M PRN; Protocol PRN Reason: per Hypoglycemia Standing Ord. Piperacillin Sod/Tazobactam (Sod 3.375 gm/ Sodium Chloride) 50 mls @ 100 mls/hr IV Q6H [facility] Last Infusion: 08/31/21 14:18 Dose: 0 mls/hr Documented by: LEYLA Vancomycin HCl 500 mg/ Sodium (Chloride) 110 mls @ 110 mls/hr IV Q24H [facility] Last Infusion: 08/31/21 10:13 Dose: 0 mls/hr Documented by: LEYLA Insulin Glargine (Insulin Glargine,Hum.Rec.Anlog 100 Unit/Ml 10 Ml Vial) 10 unit SUBCUT BEDTIME [facility] Last Admin: 08/30/21 21:38 Dose: 10 unit Documented by: LEONELA Insulin Human Lispro (Insulin Lispro 100 Unit/Ml 3 Ml Vial) 0 unit SUBCUT QIDACHS [facility]; Protocol Last Admin: 08/31/21 11:51 Dose: 10 unit Documented by: LEYLA Lidocaine (Lidocaine 4 % Patch Adh..Patch) 1 patch TRANSDERMA DAILY [facility]; Protocol Last Admin: 08/31/21 08:29 Dose: 1 patch Documented by: LEYLA Ondansetron HCl (Ondansetron Hcl 4 Mg/2 Ml Vial) 4 mg IVPUSH Q8H PRN PRN Reason: Nausea and Vomiting Pharmacy Consult (Consult Rx Vancomycin Dosing) 1 each MISCELLANE DAILY PRN PRN Reason: Consult order Rivaroxaban (Rivaroxaban 15 Mg Tablet) 15 mg PO DAILY [facility] Last Admin: 08/31/21 08:29 Dose: 15 mg Documented by: LEYLA Sodium Chloride (0.9 % Sodium Chloride Flush 3 Ml Syringe) 3 ml IVFLUSH QSHIFT [facility] Last Admin: 08/31/21 08:28 Dose: 3 ml Documented by: LEYLA Labs CBC & Chem 7: 08/31/21 06:24 08/31/21 06:24 Labs: Laboratory Results - last 24 hr 08/29/21 08/30/21 08/30/21 16:57 07:29 16:07 WBC 21.7 H 15.8 H MCV MCH MCHC RDW Plt Count MPV Absolute Nucleated RBC Nucleated RBC % (auto) VBG pH VBG pCO2 VBG pO2 VBG HCO3 VBG O2 Saturation VBG Base Excess Anion Gap Estim Creat Clear Calc Estimated GFR POC Glucose Random Glucose Calcium Procalcitonin Nasal Screen MRSA (PCR) NEGATIVE Nasal S. aureus Screen POSITIVE A Nasal MRSA/S.aureus Interp SEE NOTE 08/30/21 08/30/21 08/31/21 16:16 20:01 06:24 WBC 29.6 H MCV 97.1 MCH 30.7 MCHC 31.6 RDW 15.4 Plt Count 612 H MPV 10.2 Absolute Nucleated RBC 0.020 H Nucleated RBC % (auto) 0.1 VBG pH VBG pCO2 VBG pO2 VBG HCO3 VBG O2 Saturation VBG Base Excess Anion Gap Estim Creat Clear Calc Estimated GFR POC Glucose 231 H 164 H Random Glucose Calcium Procalcitonin Nasal Screen MRSA (PCR) Nasal S. aureus Screen Nasal MRSA/S.aureus Interp 08/31/21 08/31/21 08/31/21 06:24 06:24 06:34 WBC MCV MCH MCHC RDW Plt Count MPV Absolute Nucleated RBC Nucleated RBC % (auto) VBG pH 7.43 VBG pCO2 38 VBG pO2 64 VBG HCO3 26 VBG O2 Saturation 91.0 VBG Base Excess 1.9 Anion Gap 11 L Estim Creat Clear Calc 33.2 Estimated GFR 45 POC Glucose Random Glucose 255 H Calcium 8.4 Procalcitonin 0.12 Nasal Screen MRSA (PCR) Nasal S. aureus Screen Nasal MRSA/S.aureus Interp 08/31/21 08/31/21 08/31/21 07:20 08:53 11:19 WBC MCV MCH MCHC RDW Plt Count MPV Absolute Nucleated RBC Nucleated RBC % (auto) VBG pH VBG pCO2 VBG pO2 VBG HCO3 VBG O2 Saturation VBG Base Excess Anion Gap Estim Creat Clear Calc Estimated GFR POC Glucose 283 H 423 H* 347 H Random Glucose Calcium Procalcitonin Nasal Screen MRSA (PCR) Nasal S. aureus Screen Nasal MRSA/S.aureus Interp Microbiology Microbiology Results: Microbiology 08/29/21 20:42 Urine Culture - Preliminary Urine clean catch - Urine gusman top Gram negative jessica Lactobacillus species 08/29/21 16:57 Blood Culture - Preliminary Blood - Venous No growth after 24 hours. 08/29/21 16:54 Blood Culture - Preliminary Blood - Venous No growth after 24 hours. Assessment and Plan (1) Acute and chronic respiratory failure with hypoxia: Status: Acute (2) Pneumonia: Status: Acute (3) COVID-19: Status: Acute Plan hospital d#2 81yo F recently [08/14/20] admitted to [facility] with encephalopathy + thoracic compression fracture, tested positive for Covid-19 08/18/21 brought in with increased confusion + PNA 1.Pneumonia(HAP) acute/chronic hypoxic respiratory failure - continue Vanco/Zosyn -titrate O2 as tolerated 2.Covid-19 pneumonia - dexamethasone (09/28) - ID consulted, no remdesivir given duration of Covid-19, no baricitinib due to concern of bacterial pneumonia 2. COPD exacerbation - dexamethasone as above, nebs 3.PAF - continue rivaroxaban, diltiazem 4. DMII - acceptable control on current therapies(basal/bolus insulin) -adjust as indicated # VTE ppx - rivaroxaban Quality Stroke Does the patient have a stroke diagnosis?: No VTE Prior VTE?: Yes VTE Risk Level:: Medical - moderate - high VTE Device Contraindication: Treatment Not Indicated VTE Drug Contraindication: N/A - Med Ordered
[2021-08-31 15:58] VITALS: BP 139/62; PULSE 55; RESP 18; TEMP 36.6; O2SAT 2
--- NOTE | 2021-08-31 16:32 | PC.NURSE ---
Pt is alert and oriented x3 with occasional periods of confusion and forgetfulness. Pt continues on IV ABT therapy for PNE, and UTI. Urine Culture grew gram negative rods from Lactobacillus. notified. New IV inserted to Right hand. Pt was slightly combative and tried to hit the nurse while inserting IV.
[2021-08-31 16:44] LABS: Glucose, Whole Blood 150 mg/dL (60-115)
[2021-08-31 20:00] VITALS: BP 150/80; PULSE 68; RESP 18; TEMP 36.6; O2SAT 95
[2021-08-31 20:39] LABS: Glucose, Whole Blood 169 mg/dL (60-115)
[2021-08-31 23:25] VITALS: BP 153/76; PULSE 83; RESP 18; TEMP 36.2; O2SAT 96
[2021-09-01 03:04] VITALS: BP 146/72; PULSE 75; RESP 18; TEMP 36.5; O2SAT 91
[2021-09-01] MEDS: Piperacillin Sodium/Tazobactam 3.375 GM in 0.9 % Sodium Chloride 50 ML IV ×3 (05:23→17:13)
[2021-09-01 07:17] LABS: Basophils Percent Auto 0.1 % (0-2); Hematocrit 30.8 % (37.0-47.0); Hemoglobin 9.6 g/dl (12.0-16.0); Imm Gran Abs Auto 0.31 X10*3/uL (0.00-0.03); Imm Gran Pct Auto 1.2 % (0.0-0.4); Lymphocytes Absolute Auto 1.2 X10*3/uL (1.2-4.9); Lymphocytes Percent Auto 4.4 % (20-40); MANUAL DIFF FLAG SCAN; Mean Corpuscular HGB Conc 31.2 g/dl (31.0-35.0); Mean Corpuscular Hemoglobin 30.6 pg (27.0-33.0); Mean Corpuscular Volume 98.1 fL (80.0-98.0); Mean Platelet Volume 10.2 fL (9.4-12.3); Monocytes Absolute Auto 1.1 X10*3/uL (0.1-1.2); Monocytes Percent Auto 4.1 % (2-11); NRBC Pct Auto 0.1 /100WBC (0.0-0.2); Neutrophils Percent Auto 90.2 % (45-73); Platelet Count 673 X10*3/uL (160-400); Red Blood Count 3.14 X10*6/uL (4.20-5.50); Red Cell Distribution Width 15.3 % (11.0-16.0); SCAN SMEAR FLAG 1; White Blood Count 26.6 X10*3/uL (4.8-10.8)
[2021-09-01 07:25] LABS: Glucose, Whole Blood 214 mg/dL (60-115)
[2021-09-01 07:34] LABS: Alanine Aminotransferase 15 U/L (0-31); Albumin Level 2.6 g/dL (3.5-5.0); Alkaline Phosphatase 116 U/L (39-117); Anion Gap 11 (12-20); Aspartate Amino Transferase 15 U/L (5-31); Bilirubin Total 0.6 mg/dL (0.0-1.0); Blood Urea Nitrogen 46 mg/dL (9-16); Calcium 8.6 mg/dL (8.4-10.2); Carbon Dioxide 27 mmol/L (22-29); Chloride 112 mmol/L (96-108); Creatinine Clr Calc Pharmacy 33.5; Estimated Glomerular Filt Rate 45; Glucose Fasting 212 mg/dL (60-99); Potassium 4.2 mmol/L (3.3-5.1); Sodium 146 mmol/L (135-145); Total Protein 5.5 g/dL (6.5-8.0)
[2021-09-01 07:36] LABS: Vancomycin Trough 9.5 mcg/mL (10.0-20.0)
[2021-09-01 07:38] LABS: SLIDE REVIEW VERIFIED
[2021-09-01 07:47] VITALS: BP 161/89; PULSE 75; RESP 20; TEMP 36.6; O2SAT 100
--- NOTE | 2021-09-01 08:12 | HE.PHANOTE ---
RE Vancomycin Patient's trough returned at 9.5 after a 1250mg load, and 500mg IVQ24H x 1 dose. I recommend increasing the dose to 750mg Q24H (12 mg/kg) that will give a suspect AUC of 478 and trough of 16.9. Next trough to assess safety and efficacy is 09/03 @0600 Thanks Austin
[2021-09-01] MEDS: Insulin Lispro 100 UNIT/ML 3 ML VIAL SUBCUT ×3 (08:59→17:11)
[2021-09-01] MEDS: dilTIAZem HCL CD 240 MG CAP.ER.DEG PO (08:59)
[2021-09-01] MEDS: Escitalopram Oxalate 5 MG TABLET PO (08:59)
[2021-09-01] MEDS: Rivaroxaban 15 MG TABLET PO (08:59)
[2021-09-01] MEDS: vancomycin HCL 750 MG in 0.9 % Sodium Chloride 250 ML 265 MG IV (08:59)
[2021-09-01] MEDS: dexAMETHasone sod phosphate 4 MG/ML VIAL 6 MG IVPUSH (08:59)
[2021-09-01] MEDS: 0.9 % Sodium Chloride Flush 3 ML SYRINGE IVFLUSH ×2 (09:00→17:12)
[2021-09-01] MEDS: Lidocaine 4 % Patch ADH..PATCH 1 PATCH TRANSDERMA (10:27)
[2021-09-01 11:26] LABS: Glucose, Whole Blood 284 mg/dL (60-115)
[2021-09-01 11:39] VITALS: BP 159/77; PULSE 85; RESP 18; TEMP 36.6; O2SAT 95
--- NOTE | 2021-09-01 15:08 | MHC.CM.PN ---
Female 81 DX Covid+DP [facility] [address] [facility]. Bls will provide transport. Patient is not Vaccinated
[2021-09-01 15:18] VITALS: BP 123/59; PULSE 37; RESP 20; TEMP 36.7; O2SAT 93
--- NOTE | 2021-09-01 15:18 | P.PNIM_ITS ---
Subjective Subjective Date of Service: 09/01/21 Interval History: confused...no acute distress. No acute changes last 24hrs Review of Systems unable to obtain Physical Exam Vital Signs: Vital Signs: Last Vital Signs Temp 97.8 F 09/01/21 11:39 Pulse 85 09/01/21 11:39 Resp 18 09/01/21 11:39 BP 159/77 H 09/01/21 11:39 Pulse Ox 95 09/01/21 11:39 BMI result Body Mass Index 25.4 Const: Other: NAD Resp: Other: diminished with bilat basilar crackles Cardio: Other: -S4 +S1/S2 -S3 No MRG GI: Other: soft NT/ND NABS x 4 quads Extrem: Other: no edema Objective Data Active Medications Acetaminophen (Acetaminophen 325 Mg Tablet) 650 mg PO Q6H PRN PRN Reason: Pain, Mild (Pain Scale 1-3) Last Admin: 08/31/21 11:58 Dose: 650 mg Documented by: LEYLA Albuterol/Ipratropium (Albuterol/Iprat 2.5/0.5mg 3 Ml Ampul.Neb) 3 ml INHALE RQ4H PRN PRN Reason: Shortness of Breath/Wheezing Dexamethasone Sodium Phosphate (Dexamethasone Sod Phosphate 4 Mg/Ml Vial) 6 mg IVPUSH DAILY [facility] Last Admin: 09/01/21 08:59 Dose: 6 mg Documented by: LEYLA Dextrose (Dextrose 50 % 25 Gm/50 Ml Syringe) 25 gm IVPUSH Q15M PRN; Protocol PRN Reason: per Hypoglycemia Standing Ord. Dextrose (Dextrose 50 % 25 Gm/50 Ml Syringe) 25 gm IVPUSH Q15M PRN; Protocol PRN Reason: per Hypoglycemia Standing Ord. Diltiazem HCl (Diltiazem Hcl Cd 240 Mg Cap.Er.Deg) 240 mg PO DAILY [facility]; Protocol Last Admin: 09/01/21 08:59 Dose: 240 mg Documented by: LEYLA Docusate Sodium (Docusate Sodium 100 Mg Capsule) 100 mg PO DAILY PRN PRN Reason: Constipation Escitalopram Oxalate (Escitalopram Oxalate 5 Mg Tablet) 5 mg PO DAILY [facility] Last Admin: 09/01/21 08:59 Dose: 5 mg Documented by: LEYLA Glucose (Glucose Gel 15 Gm Gel..Gram.) 15 gm PO Q15M PRN; Protocol PRN Reason: per Hypoglycemia Standing Ord. Glucose (Glucose Gel 15 Gm Gel..Gram.) 15 gm PO Q15M PRN; Protocol PRN Reason: per Hypoglycemia Standing Ord. Piperacillin Sod/Tazobactam (Sod 3.375 gm/ Sodium Chloride) 50 mls @ 100 mls/hr IV Q6H [facility] Last Infusion: 09/01/21 13:43 Dose: 0 mls/hr Documented by: LEYLA Vancomycin HCl 750 mg/ Sodium (Chloride) 265 mls @ 265 mls/hr IV Q24H [facility] Last Infusion: 09/01/21 10:27 Dose: 0 mls/hr Documented by: LEYLA Insulin Glargine (Insulin Glargine,Hum.Rec.Anlog 100 Unit/Ml 10 Ml Vial) 10 unit SUBCUT BEDTIME [facility] Last Admin: 08/31/21 21:28 Dose: Not Given Documented by: PHU Non-Admin Reason: No Insulin Coverage Insulin Human Lispro (Insulin Lispro 100 Unit/Ml 3 Ml Vial) 0 unit SUBCUT Q IDACHS [facility]; Protocol Last Admin: 09/01/21 12:33 Dose: 8 unit Documented by: LEYLA Lidocaine (Lidocaine 4 % Patch Adh..Patch) 1 patch TRANSDERMA DAILY [facility]; Protocol Last Admin: 09/01/21 10:27 Dose: 1 patch Documented by: LEYLA Ondansetron HCl (Ondansetron Hcl 4 Mg/2 Ml Vial) 4 mg IVPUSH Q8H PRN PRN Reason: Nausea and Vomiting Pharmacy Consult (Consult Rx Vancomycin Dosing) 1 each MISCELLANE DAILY PRN PRN Reason: Consult order Rivaroxaban (Rivaroxaban 15 Mg Tablet) 15 mg PO DAILY [facility] Last Admin: 09/01/21 08:59 Dose: 15 mg Documented by: LEYLA Sodium Chloride (0.9 % Sodium Chloride Flush 3 Ml Syringe) 3 ml IVFLUSH QSHIFT [facility] Last Admin: 09/01/21 09:00 Dose: 3 ml Documented by: LEYLA Labs CBC & Chem 7: 09/01/21 06:39 09/01/21 06:39 Labs: Laboratory Results - last 24 hr 08/31/21 08/31/21 09/01/21 16:36 20:31 06:39 MCV MCH MCHC RDW Plt Count MPV Immature Gran % (Auto) Neut % (Auto) Lymph % (Auto) [place] % (Auto) Eos % (Auto) Baso % (Auto) Lymph # (Auto) [place] # (Auto) Eos # (Auto) Baso # (Auto) Abs Immat Gran (auto) Absolute Neuts (auto) Absolute Nucleated RBC Nucleated RBC % (auto) Smear Tech's Comments Anion Gap 11 L Estim Creat Clear Calc 33.5 Estimated GFR 45 POC Glucose 150 H 169 H Fasting Glucose 212 H Calcium 8.6 Total Bilirubin 0.6 AST 15 ALT 15 Alkaline Phosphatase 116 Total Protein 5.5 L Albumin 2.6 L Vancomycin Trough 09/01/21 09/01/21 09/01/21 06:39 06:39 07:17 MCV 98.1 H MCH 30.6 MCHC 31.2 RDW 15.3 Plt Count 673 H MPV 10.2 Immature Gran % (Auto) 1.2 H Neut % (Auto) 90.2 H Lymph % (Auto) 4.4 L [place] % (Auto) 4.1 Eos % (Auto) 0.0 Baso % (Auto) 0.1 Lymph # (Auto) 1.2 [place] # (Auto) 1.1 Eos # (Auto) 0.0 Baso # (Auto) 0.0 Abs Immat Gran (auto) 0.31 H Absolute Neuts (auto) 24.0 H Absolute Nucleated RBC 0.020 H Nucleated RBC % (auto) 0.1 Smear Tech's Comments VERIFIED Anion Gap Estim Creat Clear Calc Estimated GFR POC Glucose 214 H Fasting Glucose Calcium Total Bilirubin AST ALT Alkaline Phosphatase Total Protein Albumin Vancomycin Trough 9.5 L 09/01/21 11:19 MCV MCH MCHC RDW Plt Count MPV Immature Gran % (Auto) Neut % (Auto) Lymph % (Auto) [place] % (Auto) Eos % (Auto) Baso % (Auto) Lymph # (Auto) [place] # (Auto) Eos # (Auto) Baso # (Auto) Abs Immat Gran (auto) Absolute Neuts (auto) Absolute Nucleated RBC Nucleated RBC % (auto) Smear Tech's Comments Anion Gap Estim Creat Clear Calc Estimated GFR POC Glucose 284 H Fasting Glucose Calcium Total Bilirubin AST ALT Alkaline Phosphatase Total Protein Albumin Vancomycin Trough Microbiology Microbiology Results: Microbiology 08/29/21 20:42 Urine Culture - Final Urine clean catch - Urine gusman top Escherichia coli Lactobacillus species 08/29/21 16:57 Blood Culture - Preliminary Blood - Venous No growth after 48 hours. 08/29/21 16:54 Blood Culture - Preliminary Blood - Venous No growth after 48 hours. Assessment and Plan (1) Acute and chronic respiratory failure with hypoxia: Status: Acute (2) Pneumonia: Status: Acute (3) COVID-19: Status: Acute Plan hospital d#2 81yo F recently [08/14/20] admitted to [facility] with encephalopathy + thoracic compression fracture, tested positive for Covid-19 08/18/21 brought in with increased confusion + PNA 1.Pneumonia(HAP) acute/chronic hypoxic respiratory failure - continue Vanco/Zosyn(3) -titrate O2 as tolerated 2.Covid-19 pneumonia - dexamethasone (10/29) - ID consulted, no remdesivir given duration of Covid-19, no baricitinib due to concern of bacterial pneumonia 2. COPD exacerbation - dexamethasone as above, nebs 3.PAF - continue rivaroxaban, diltiazem 4. DMII - acceptable control on current therapies(basal/bolus insulin) -adjust as indicated # VTE ppx - rivaroxaban Quality Stroke Does the patient have a stroke diagnosis?: No VTE Prior VTE?: Yes VTE Risk Level:: Medical - moderate - high VTE Device Contraindication: Treatment Not Indicated VTE Drug Contraindication: N/A - Med Ordered
[2021-09-01 16:05] LABS: Glucose, Whole Blood 160 mg/dL (60-115)
--- NOTE | 2021-09-01 18:08 | PC.NURSE ---
Addendum entered by Charo Dia RN 09/01/21 18:10: Pt is nit on tele but she is saturating in the 90s Original Note: Pt is alert and oriented x3 but with periods of confusion and forgetfullness. Pt continues on IV ABT therapy for PNE and UTI. Pt is 1-2 assist OOB with a walker. Pt can be combative and resistive to care sometimes.
[2021-09-01 19:15] VITALS: BP 146/66; PULSE 80; RESP 20; TEMP 36.1; O2SAT 99
[2021-09-01 19:45] LABS: Glucose, Whole Blood 150 mg/dL (60-115)
[2021-09-01] MEDS: Insulin Glargine,Hum.rec.anlog 100 UNIT/ML 10 ML VIAL 10 UNIT SUBCUT (22:02)
[2021-09-01 23:09] VITALS: BP 149/70; PULSE 66; RESP 20; TEMP 36.7; O2SAT 97
[2021-09-02] VITALS (7 sets, daily range): BP systolic 128–173; BP diastolic 65–77; PULSE 67–104; RESP 16–24; TEMP 36.3–37.1; O2SAT 93–98
[2021-09-02] MEDS: 0.9 % Sodium Chloride Flush 3 ML SYRINGE IVFLUSH ×3 (00:31→16:13)
[2021-09-02] MEDS: Piperacillin Sodium/Tazobactam 3.375 GM in 0.9 % Sodium Chloride 50 ML IV ×4 (00:38→17:34)
[2021-09-02 07:19] LABS: Basophils Percent Auto 0.1 % (0-2); Hematocrit 32.5 % (37.0-47.0); Hemoglobin 10.2 g/dl (12.0-16.0); Lymphocytes Absolute Auto 1.6 X10*3/uL (1.2-4.9); Lymphocytes Percent Auto 5.5 % (20-40); MANUAL DIFF FLAG SCAN; Mean Corpuscular HGB Conc 31.4 g/dl (31.0-35.0); Mean Corpuscular Hemoglobin 30.7 pg (27.0-33.0); Mean Corpuscular Volume 97.9 fL (80.0-98.0); Mean Platelet Volume 10.5 fL (9.4-12.3); Monocytes Absolute Auto 1.3 X10*3/uL (0.1-1.2); Monocytes Percent Auto 4.6 % (2-11); Neutrophils Absolute Auto 25.7 x10*3/uL (2.0-8.3); Neutrophils Percent Auto 88.8 % (45-73); Platelet Count 610 X10*3/uL (160-400); Red Blood Count 3.32 X10*6/uL (4.20-5.50); Red Cell Distribution Width 15.3 % (11.0-16.0); SCAN SMEAR FLAG 1
[2021-09-02 07:42] LABS: Glucose, Whole Blood 167 mg/dL (60-115)
[2021-09-02 07:58] LABS: SLIDE REVIEW VERIFIED
[2021-09-02 08:02] LABS: Alanine Aminotransferase 14 U/L (0-31); Albumin Level 2.5 g/dL (3.5-5.0); Alkaline Phosphatase 114 U/L (39-117); Anion Gap 14 (12-20); Aspartate Amino Transferase 16 U/L (5-31); Bilirubin Total 0.6 mg/dL (0.0-1.0); Blood Urea Nitrogen 46 mg/dL (9-16); Calcium 8.4 mg/dL (8.4-10.2); Carbon Dioxide 22 mmol/L (22-29); Chloride 114 mmol/L (96-108); Creatinine Clr Calc Pharmacy 33.7; Estimated Glomerular Filt Rate 46; Glucose Fasting 145 mg/dL (60-99); Potassium 4.2 mmol/L (3.3-5.1); Sodium 146 mmol/L (135-145); Total Protein 5.7 g/dL (6.5-8.0)
[2021-09-02] MEDS: Rivaroxaban 15 MG TABLET PO (08:27)
[2021-09-02] MEDS: Escitalopram Oxalate 5 MG TABLET PO (08:27)
[2021-09-02] MEDS: Insulin Lispro 100 UNIT/ML 3 ML VIAL SUBCUT ×4 (08:27→21:29)
[2021-09-02] MEDS: dilTIAZem HCL CD 240 MG CAP.ER.DEG PO (08:27)
[2021-09-02] MEDS: dexAMETHasone sod phosphate 4 MG/ML VIAL 6 MG IVPUSH (08:28)
[2021-09-02] MEDS: Lidocaine 4 % Patch ADH..PATCH 1 PATCH TRANSDERMA (08:29)
[2021-09-02] MEDS: vancomycin HCL 750 MG in 0.9 % Sodium Chloride 250 ML 265 MG IV (08:44)
--- NOTE | 2021-09-02 08:53 | HE.PHANOTE ---
Cr is stable, next level 2/13
[2021-09-02 11:32] LABS: Glucose, Whole Blood 360 mg/dL (60-115)
--- NOTE | 2021-09-02 11:32 | P.PNIM_ITS ---
Subjective Subjective Date of Service: 09/02/21 Interval History: confused...no acute distress. No acute changes last 24hrs Review of Systems unable to obtain Physical Exam Vital Signs: Vital Signs: Last Vital Signs Temp 98.5 F 09/02/21 07:50 Pulse 76 09/02/21 07:50 Resp 20 09/02/21 07:50 BP 168/77 H 09/02/21 07:50 Pulse Ox 98 09/02/21 07:50 BMI result Body Mass Index 25.4 Const: Other: NAD Resp: Other: diminished with bilat basilar crackles Cardio: Other: -S4 +S1/S2 -S3 No MRG GI: Other: soft NT/ND NABS x 4 quads Extrem: Other: no edema Objective Data Active Medications Acetaminophen (Acetaminophen 325 Mg Tablet) 650 mg PO Q6H PRN PRN Reason: Pain, Mild (Pain Scale 1-3) Last Admin: 08/31/21 11:58 Dose: 650 mg Documented by: ELISEENOEMMIE Albuterol/Ipratropium (Albuterol/Iprat 2.5/0.5mg 3 Ml Ampul.Neb) 3 ml INHALE RQ4H PRN PRN Reason: Shortness of Breath/Wheezing Dexamethasone Sodium Phosphate (Dexamethasone Sod Phosphate 4 Mg/Ml Vial) 6 mg IVPUSH DAILY [facility] Last Admin: 09/02/21 08:28 Dose: 6 mg Documented by: SAMUEL Dextrose (Dextrose 50 % 25 Gm/50 Ml Syringe) 25 gm IVPUSH Q15M PRN; Protocol PRN Reason: per Hypoglycemia Standing Ord. Dextrose (Dextrose 50 % 25 Gm/50 Ml Syringe) 25 gm IVPUSH Q15M PRN; Protocol PRN Reason: per Hypoglycemia Standing Ord. Diltiazem HCl (Diltiazem Hcl Cd 240 Mg Cap.Er.Deg) 240 mg PO DAILY [facility]; Protocol Last Admin: 09/02/21 08:27 Dose: 240 mg Documented by: SAMUEL Docusate Sodium (Docusate Sodium 100 Mg Capsule) 100 mg PO DAILY PRN PRN Reason: Constipation Escitalopram Oxalate (Escitalopram Oxalate 5 Mg Tablet) 5 mg PO DAILY [facility] Last Admin: 09/02/21 08:27 Dose: 5 mg Documented by: SAMUEL Glucose (Glucose Gel 15 Gm Gel..Gram.) 15 gm PO Q15M PRN; Protocol PRN Reason: per Hypoglycemia Standing Ord. Glucose (Glucose Gel 15 Gm Gel..Gram.) 15 gm PO Q15M PRN; Protocol PRN Reason: per Hypoglycemia Standing Ord. Piperacillin Sod/Tazobactam (Sod 3.375 gm/ Sodium Chloride) 50 mls @ 100 mls/hr IV Q6H [facility] Last Infusion: 09/02/21 06:28 Dose: 100 mls/hr Documented by: MAYDA Vancomycin HCl 750 mg/ Sodium (Chloride) 265 mls @ 265 mls/hr IV Q24H [facility] Last Infusion: 09/02/21 10:42 Dose: 265 mls/hr Documented by: SAMUEL Insulin Glargine (Insulin Glargine,Hum.Rec.Anlog 100 Unit/Ml 10 Ml Vial) 10 unit SUBCUT BEDTIME [facility] Last Admin: 09/01/21 22:02 Dose: 10 unit Documented by: MAYDA Insulin Human Lispro (Insulin Lispro 100 Unit/Ml 3 Ml Vial) 0 unit SUBCUT QIDACHS [facility]; Protocol Last Admin: 09/02/21 08:27 Dose: 2 unit Documented by: SAMUEL Lidocaine (Lidocaine 4 % Patch Adh..Patch) 1 patch TRANSDERMA DAILY [facility]; Protocol Last Admin: 09/02/21 08:29 Dose: 1 patch Documented by: SAMUEL Ondansetron HCl (Ondansetron Hcl 4 Mg/2 Ml Vial) 4 mg IVPUSH Q8H PRN PRN Reason: Nausea and Vomiting Pharmacy Consult (Consult Rx Vancomycin Dosing) 1 each MISCELLANE DAILY PRN PRN Reason: Consult order Rivaroxaban (Rivaroxaban 15 Mg Tablet) 15 mg PO DAILY [facility] Last Admin: 09/02/21 08:27 Dose: 15 mg Documented by: SAMUEL Sodium Chloride (0.9 % Sodium Chloride Flush 3 Ml Syringe) 3 ml IVFLUSH QSHIFT [facility] Last Admin: 09/02/21 08:29 Dose: 3 ml Documented by: SAMUEL Labs CBC & Chem 7: 09/02/21 06:38 09/02/21 06:38 Labs: Laboratory Results - last 24 hr 09/01/21 09/01/21 09/02/21 15:58 19:38 06:38 MCV MCH MCHC RDW Plt Count MPV Immature Gran % (Auto) Neut % (Auto) Lymph % (Auto) [place] % (Auto) Eos % (Auto) Baso % (Auto) Lymph # (Auto) [place] # (Auto) Eos # (Auto) Baso # (Auto) Abs Immat Gran (auto) Absolute Neuts (auto) Absolute Nucleated RBC Nucleated RBC % (auto) Smear Tech's Comments Anion Gap 14 Estim Creat Clear Calc 33.7 Estimated GFR 46 POC Glucose 160 H 150 H Fasting Glucose 145 H Calcium 8.4 Total Bilirubin 0.6 AST 16 ALT 14 Alkaline Phosphatase 114 Total Protein 5.7 L Albumin 2.5 L 09/02/21 09/02/21 06:38 07:32 MCV 97.9 MCH 30.7 MCHC 31.4 RDW 15.3 Plt Count 610 H MPV 10.5 Immature Gran % (Auto) 1.0 H Neut % (Auto) 88.8 H Lymph % (Auto) 5.5 L [place] % (Auto) 4.6 Eos % (Auto) 0.0 Baso % (Auto) 0.1 Lymph # (Auto) 1.6 [place] # (Auto) 1.3 H Eos # (Auto) 0.0 Baso # (Auto) 0.0 Abs Immat Gran (auto) 0.30 H Absolute Neuts (auto) 25.7 H Absolute Nucleated RBC 0.000 Nucleated RBC % (auto) 0.0 Smear Tech's Comments VERIFIED Anion Gap Estim Creat Clear Calc Estimated GFR POC Glucose 167 H Fasting Glucose Calcium Total Bilirubin AST ALT Alkaline Phosphatase Total Protein Albumin Microbiology Microbiology Results: Microbiology 08/29/21 20:42 Urine Culture - Final Urine clean catch - Urine gusman top Escherichia coli Lactobacillus species Assessment and Plan (1) Acute and chronic respiratory failure with hypoxia: Status: Acute (2) Pneumonia: Status: Acute (3) COVID-19: Status: Acute Plan 81yo F recently [08/14/20] admitted to [facility] with encephalopathy + thoracic compression fracture, tested positive for Covid-19 08/18/21 brought in with increased confusion + PNA.Slow progress...not tolerating wean 1.Pneumonia(HAP) acute/chronic hypoxic respiratory failure - continue Vanco/Zosyn(4) -titrate O2 as tolerated 2.Covid-19 pneumonia - dexamethasone (5/10) - ID consulted, no remdesivir given duration of Covid-19, no baricitinib due to concern of bacterial pneumonia 2. COPD exacerbation - dexamethasone as above, nebs 3.PAF - continue rivaroxaban, diltiazem 4. DMII - acceptable control on current therapies(basal/bolus insulin) -adjust as indicated # VTE ppx - rivaroxaban Quality Stroke Does the patient have a stroke diagnosis?: No VTE Prior VTE?: Yes VTE Risk Level:: Medical - moderate - high VTE Device Contraindication: Treatment Not Indicated VTE Drug Contraindication: N/A - Med Ordered
[2021-09-02] MEDS: Albuterol/Iprat 2.5/0.5MG 3 ML AMPUL.NEB INHALE (13:15)
[2021-09-02 16:32] LABS: Glucose, Whole Blood 273 mg/dL (60-115)
[2021-09-02 20:42] LABS: Glucose, Whole Blood 328 mg/dL (60-115)
[2021-09-02] MEDS: Insulin Glargine,Hum.rec.anlog 100 UNIT/ML 10 ML VIAL 10 UNIT SUBCUT (21:29)
[2021-09-03] VITALS: BP 144/73; PULSE 70; RESP 18; TEMP 36.9; O2SAT 98
[2021-09-03] MEDS: Piperacillin Sodium/Tazobactam 3.375 GM in 0.9 % Sodium Chloride 50 ML IV ×4 (00:28→17:30)
[2021-09-03] MEDS: 0.9 % Sodium Chloride Flush 3 ML SYRINGE IVFLUSH (00:38)
[2021-09-03 04:00] VITALS: BP 165/76; PULSE 80; RESP 20; TEMP 36.6; O2SAT 97
[2021-09-03 06:25] LABS: Basophils Percent Auto 0.1 % (0-2); Hematocrit 29.5 % (37.0-47.0); Hemoglobin 9.1 g/dl (12.0-16.0); Imm Gran Abs Auto 0.23 X10*3/uL (0.00-0.03); Imm Gran Pct Auto 0.9 % (0.0-0.4); Lymphocytes Absolute Auto 1.3 X10*3/uL (1.2-4.9); Lymphocytes Percent Auto 5.1 % (20-40); MANUAL DIFF FLAG SCAN; Mean Corpuscular HGB Conc 30.8 g/dl (31.0-35.0); Mean Corpuscular Hemoglobin 30.1 pg (27.0-33.0); Mean Corpuscular Volume 97.7 fL (80.0-98.0); Mean Platelet Volume 10.3 fL (9.4-12.3); Monocytes Absolute Auto 1.2 X10*3/uL (0.1-1.2); Monocytes Percent Auto 4.8 % (2-11); NRBC Pct Auto 0.1 /100WBC (0.0-0.2); Neutrophils Absolute Auto 22.2 x10*3/uL (2.0-8.3); Neutrophils Percent Auto 89.1 % (45-73); Platelet Count 611 X10*3/uL (160-400); Red Blood Count 3.02 X10*6/uL (4.20-5.50); Red Cell Distribution Width 15.1 % (11.0-16.0); SCAN SMEAR FLAG 1; White Blood Count 24.9 X10*3/uL (4.8-10.8)
[2021-09-03 06:51] LABS: Vancomycin Trough 12.2 mcg/mL (10.0-20.0)
[2021-09-03 07:00] LABS: SLIDE REVIEW VERIFIED
--- NOTE | 2021-09-03 07:02 | HE.PHANOTE ---
PT trough 12.2, auc 403, pending scr, continue same dose, next trough 09/05@0600
[2021-09-03 07:03] LABS: Alanine Aminotransferase 11 U/L (0-31); Albumin Level 2.3 g/dL (3.5-5.0); Alkaline Phosphatase 102 U/L (39-117); Anion Gap 13 (12-20); Aspartate Amino Transferase 23 U/L (5-31); Bilirubin Total 0.5 mg/dL (0.0-1.0); Blood Urea Nitrogen 45 mg/dL (9-16); Calcium 8.1 mg/dL (8.4-10.2); Carbon Dioxide 23 mmol/L (22-29); Chloride 116 mmol/L (96-108); Creatinine Clr Calc Pharmacy 34.3; Estimated Glomerular Filt Rate 47; Glucose Fasting 103 mg/dL (60-99); Potassium 4.7 mmol/L (3.3-5.1); Sodium 147 mmol/L (135-145); Total Protein 5.5 g/dL (6.5-8.0)
[2021-09-03 07:37] VITALS: BP 125/81; PULSE 70; RESP 18; TEMP 36.3; O2SAT 93
[2021-09-03 07:49] LABS: Glucose, Whole Blood 89 mg/dL (60-115)
[2021-09-03] MEDS: Dextrose 5 % and 0.45 % NaCl 1,000 ML 100 ML IVCONT ×2 (08:35→21:30)
[2021-09-03] MEDS: vancomycin HCL 750 MG in 0.9 % Sodium Chloride 250 ML 265 MG IV (08:36)
[2021-09-03] MEDS: dexAMETHasone sod phosphate 4 MG/ML VIAL 6 MG IVPUSH (08:41)
[2021-09-03] MEDS: Rivaroxaban 15 MG TABLET PO (08:42)
[2021-09-03] MEDS: Escitalopram Oxalate 5 MG TABLET PO (08:42)
[2021-09-03] MEDS: dilTIAZem HCL CD 240 MG CAP.ER.DEG PO (08:42)
[2021-09-03] MEDS: Lidocaine 4 % Patch ADH..PATCH 1 PATCH TRANSDERMA (09:48)
[2021-09-03 11:26] VITALS: BP 133/66; PULSE 80; RESP 18; TEMP 36.7; O2SAT 97
[2021-09-03 11:35] LABS: Glucose, Whole Blood 178 mg/dL (60-115)
[2021-09-03] MEDS: Insulin Lispro 100 UNIT/ML 3 ML VIAL SUBCUT ×4 (11:54→21:30)
--- NOTE | 2021-09-03 13:44 | HO.PM.IMPN ---
Subjective Subjective Date of Service: 09/03/21 Interval History: confused...no acute distress. No improvement last 24hrs Review of Systems unable to obtain Physical Exam Vital Signs: Vital Signs: Last Vital Signs Temp 98.1 F 09/03/21 11:26 Pulse 80 09/03/21 11:26 Resp 18 09/03/21 11:26 BP 133/66 09/03/21 11:26 Pulse Ox 97 09/03/21 11:26 BMI result Body Mass Index 25.4 Const: Other: NAD Resp: Other: diminished with bilat basilar crackles Cardio: Other: -S4 +S1/S2 -S3 No MRG GI: Other: soft NT/ND NABS x 4 quads Extrem: Other: no edema Objective Data Active Medications Acetaminophen (Acetaminophen 325 Mg Tablet) 650 mg PO Q6H PRN PRN Reason: Pain, Mild (Pain Scale 1-3) Last Admin: 08/31/21 11:58 Dose: 650 mg Documented by: LEYLA Albuterol/Ipratropium (Albuterol/Iprat 2.5/0.5mg 3 Ml Ampul.Neb) 3 ml INHALE RQ4H PRN PRN Reason: Shortness of Breath/Wheezing Last Admin: 09/02/21 13:15 Dose: 3 ml Documented by: ISAÍAS Dexamethasone Sodium Phosphate (Dexamethasone Sod Phosphate 4 Mg/Ml Vial) 6 mg IVPUSH DAILY [facility] Last Admin: 09/03/21 08:41 Dose: 6 mg Documented by: SAMUEL Dextrose (Dextrose 50 % 25 Gm/50 Ml Syringe) 25 gm IVPUSH Q15M PRN; Protocol PRN Reason: per Hypoglycemia Standing Ord. Dextrose (Dextrose 50 % 25 Gm/50 Ml Syringe) 25 gm IVPUSH Q15M PRN; Protocol PRN Reason: per Hypoglycemia Standing Ord. Diltiazem HCl (Diltiazem Hcl Cd 240 Mg Cap.Er.Deg) 240 mg PO DAILY [facility]; Protocol Last Admin: 09/03/21 08:42 Dose: 240 mg Documented by: SAMUEL Docusate Sodium (Docusate Sodium 100 Mg Capsule) 100 mg PO DAILY PRN PRN Reason: Constipation Escitalopram Oxalate (Escitalopram Oxalate 5 Mg Tablet) 5 mg PO DAILY [facility] Last Admin: 09/03/21 08:42 Dose: 5 mg Documented by: SAMUEL Glucose (Glucose Gel 15 Gm Gel..Gram.) 15 gm PO Q15M PRN; Protocol PRN Reason: per Hypoglycemia Standing Ord. Glucose (Glucose Gel 15 Gm Gel..Gram.) 15 gm PO Q15M PRN; Protocol PRN Reason: per Hypoglycemia Standing Ord. Piperacillin Sod/Tazobactam (Sod 3.375 gm/ Sodium Chloride) 50 mls @ 100 mls/hr IV Q6H [facility] Last Infusion: 09/03/21 12:50 Dose: 100 mls/hr Documented by: SAMUEL Vancomycin HCl 750 mg/ Sodium (Chloride) 265 mls @ 265 mls/hr IV Q24H [facility] Last Infusion: 09/03/21 09:46 Dose: 265 mls/hr Documented by: SAMUEL Dextrose/Sodium Chloride (D51/2ns) 1,000 mls @ 100 mls/hr IVCONT .Q10H [facility] Last Admin: 09/03/21 08:35 Dose: 100 mls/hr Documented by: SAMUEL Insulin Glargine (Insulin Glargine,Hum.Rec.Anlog 100 Unit/Ml 10 Ml Vial) 10 unit SUBCUT BEDTIME [facility] Last Admin: 09/02/21 21:29 Dose: 10 unit Documented by: LEONELA Insulin Human Lispro (Insulin Lispro 100 Unit/Ml 3 Ml Vial) 0 unit SUBCUT QIDACHS [facility]; Protocol Last Admin: 09/03/21 11:54 Dose: 4 unit Documented by: SAMUEL Lidocaine (Lidocaine 4 % Patch Adh..Patch) 1 patch TRANSDERMA DAILY [facility]; Protocol Last Admin: 09/03/21 09:48 Dose: 1 patch Documented by: SAMUEL Ondansetron HCl (Ondansetron Hcl 4 Mg/2 Ml Vial) 4 mg IVPUSH Q8H PRN PRN Reason: Nausea and Vomiting Pharmacy Consult (Consult Rx Vancomycin Dosing) 1 each MISCELLANE DAILY PRN PRN Reason: Consult order Rivaroxaban (Rivaroxaban 15 Mg Tablet) 15 mg PO DAILY [facility] Last Admin: 09/03/21 08:42 Dose: 15 mg Documented by: SAMUEL Sodium Chloride (0.9 % Sodium Chloride Flush 3 Ml Syringe) 3 ml IVFLUSH QSHIFT [facility] Last Admin: 02/13/22 08:42 Dose: Not Given Documented by: SAMUEL Non-Admin Reason: IV Running Labs CBC & Chem 7: 09/03/21 06:09 09/03/21 06:09 Labs: Laboratory Results - last 24 hr 09/02/21 09/02/21 09/03/21 16:26 20:37 06:09 MCV MCH MCHC RDW Plt Count MPV Immature Gran % (Auto) Neut % (Auto) Lymph % (Auto) [place] % (Auto) Eos % (Auto) Baso % (Auto) Lymph # (Auto) [place] # (Auto) Eos # (Auto) Baso # (Auto) Abs Immat Gran (auto) Absolute Neuts (auto) Absolute Nucleated RBC Nucleated RBC % (auto) Smear Tech's Comments Anion Gap 13 Estim Creat Clear Calc 34.3 Estimated GFR 47 POC Glucose 273 H 328 H Fasting Glucose 103 H Calcium 8.1 L Total Bilirubin 0.5 AST 23 D ALT 11 Alkaline Phosphatase 102 Total Protein 5.5 L Albumin 2.3 L Vancomycin Trough 09/03/21 09/03/21 09/03/21 06:09 06:09 07:39 MCV 97.7 MCH 30.1 MCHC 30.8 L RDW 15.1 Plt Count 611 H MPV 10.3 Immature Gran % (Auto) 0.9 H Neut % (Auto) 89.1 H Lymph % (Auto) 5.1 L [place] % (Auto) 4.8 Eos % (Auto) 0.0 Baso % (Auto) 0.1 Lymph # (Auto) 1.3 [place] # (Auto) 1.2 Eos # (Auto) 0.0 Baso # (Auto) 0.0 Abs Immat Gran (auto) 0.23 H Absolute Neuts (auto) 22.2 H Absolute Nucleated RBC 0.020 H Nucleated RBC % (auto) 0.1 Smear Tech's Comments VERIFIED Anion Gap Estim Creat Clear Calc Estimated GFR POC Glucose 89 Fasting Glucose Calcium Total Bilirubin AST ALT Alkaline Phosphatase Total Protein Albumin Vancomycin Trough 12.2 09/03/21 11:28 MCV MCH MCHC RDW Plt Count MPV Immature Gran % (Auto) Neut % (Auto) Lymph % (Auto) [place] % (Auto) Eos % (Auto) Baso % (Auto) Lymph # (Auto) [place] # (Auto) Eos # (Auto) Baso # (Auto) Abs Immat Gran (auto) Absolute Neuts (auto) Absolute Nucleated RBC Nucleated RBC % (auto) Smear Tech's Comments Anion Gap Estim Creat Clear Calc Estimated GFR POC Glucose 178 H Fasting Glucose Calcium Total Bilirubin AST ALT Alkaline Phosphatase Total Protein Albumin Vancomycin Trough Assessment and Plan (1) Pneumonia: Status: Acute (2) COVID-19: Status: Acute (3) Acute and chronic respiratory failure with hypoxia: Status: Acute Plan 81yo F recently [08/14/20] admitted to [facility] with encephalopathy + thoracic compression fracture, tested positive for Covid-19 08/18/21 brought in with increased confusion + PNA.Slow progress...not tolerating wean 1.Pneumonia(HAP) acute/chronic hypoxic respiratory failure - continue Vanco/Zosyn(4) -titrate O2 as tolerated 2.Covid-19 pneumonia - dexamethasone (12/29) - ID consulted, no remdesivir given duration of Covid-19, no baricitinib due to concern of bacterial pneumonia 2. COPD exacerbation - dexamethasone as above, nebs 3.PAF - continue rivaroxaban, diltiazem 4. DMII - acceptable control on current therapies(basal/bolus insulin) -adjust as indicated # VTE ppx - rivaroxaban Quality Stroke Does the patient have a stroke diagnosis?: No VTE Prior VTE?: Yes VTE Risk Level:: Medical - moderate - high VTE Device Contraindication: Treatment Not Indicated VTE Drug Contraindication: N/A - Med Ordered
[2021-09-03 15:35] VITALS: BP 126/70; PULSE 80; RESP 18; TEMP 36.6; O2SAT 92
[2021-09-03 16:21] LABS: Glucose, Whole Blood 397 mg/dL (60-115)
[2021-09-03 19:27] VITALS: BP 138/68; PULSE 66; RESP 18; TEMP 36.6; O2SAT 97
[2021-09-03 20:30] LABS: Glucose, Whole Blood 338 mg/dL (60-115)
[2021-09-03] MEDS: Insulin Glargine,Hum.rec.anlog 100 UNIT/ML 10 ML VIAL 10 UNIT SUBCUT (21:31)
[2021-09-04] VITALS (8 sets, daily range): BP systolic 151–183; BP diastolic 63–85; PULSE 68–90; RESP 16–20; TEMP 36.1–36.9; O2SAT 94–100
[2021-09-04] MEDS: Piperacillin Sodium/Tazobactam 3.375 GM in 0.9 % Sodium Chloride 50 ML IV ×4 (01:39→17:30)
[2021-09-04 06:58] LABS: Basophils Absolute Auto 0.1 X10*3/uL (0.0-0.2); Basophils Percent Auto 0.2 % (0-2); Hematocrit 32.8 % (37.0-47.0); Hemoglobin 10.3 g/dl (12.0-16.0); Imm Gran Abs Auto 0.44 X10*3/uL (0.00-0.03); Imm Gran Pct Auto 1.5 % (0.0-0.4); Lymphocytes Absolute Auto 1.6 X10*3/uL (1.2-4.9); Lymphocytes Percent Auto 5.3 % (20-40); MANUAL DIFF FLAG SCAN; Mean Corpuscular HGB Conc 31.4 g/dl (31.0-35.0); Mean Corpuscular Hemoglobin 30.7 pg (27.0-33.0); Mean Corpuscular Volume 97.9 fL (80.0-98.0); Mean Platelet Volume 10.5 fL (9.4-12.3); Monocytes Absolute Auto 1.7 X10*3/uL (0.1-1.2); Monocytes Percent Auto 5.8 % (2-11); Neutrophils Percent Auto 87.2 % (45-73); Platelet Count 590 X10*3/uL (160-400); Red Blood Count 3.35 X10*6/uL (4.20-5.50); Red Cell Distribution Width 14.9 % (11.0-16.0); SCAN SMEAR FLAG 1; White Blood Count 29.8 X10*3/uL (4.8-10.8)
[2021-09-04 07:13] LABS: Alanine Aminotransferase 14 U/L (0-31); Albumin Level 2.3 g/dL (3.5-5.0); Alkaline Phosphatase 103 U/L (39-117); Anion Gap 12 (12-20); Aspartate Amino Transferase 13 U/L (5-31); Bilirubin Total 0.4 mg/dL (0.0-1.0); Blood Urea Nitrogen 43 mg/dL (9-16); Calcium 7.8 mg/dL (8.4-10.2); Carbon Dioxide 23 mmol/L (22-29); Chloride 114 mmol/L (96-108); Creatinine Clr Calc Pharmacy 33.7; Estimated Glomerular Filt Rate 46; Glucose Fasting 113 mg/dL (60-99); Potassium 3.8 mmol/L (3.3-5.1); Sodium 145 mmol/L (135-145); Total Protein 5.1 g/dL (6.5-8.0)
--- NOTE | 2021-09-04 07:34 | HE.PHANOTE ---
VANCOMYCIN ADDENDUM: Continue current regimen and continue to monitor renal function. Next trough will be drawn on 09/05 @ 0600.
[2021-09-04 07:39] LABS: Glucose, Whole Blood 148 mg/dL (60-115)
[2021-09-04 07:41] LABS: SLIDE REVIEW VERIFIED
[2021-09-04] MEDS: vancomycin HCL 750 MG in 0.9 % Sodium Chloride 250 ML 265 MG IV (08:21)
[2021-09-04] MEDS: Dextrose 5 % and 0.45 % NaCl 1,000 ML 100 ML IVCONT ×2 (08:21→17:31)
[2021-09-04] MEDS: dexAMETHasone sod phosphate 4 MG/ML VIAL 6 MG IVPUSH (08:24)
[2021-09-04] MEDS: dilTIAZem HCL CD 240 MG CAP.ER.DEG PO (08:24)
[2021-09-04] MEDS: Rivaroxaban 15 MG TABLET PO (08:24)
[2021-09-04] MEDS: Escitalopram Oxalate 5 MG TABLET PO (08:24)
[2021-09-04] MEDS: Lidocaine 4 % Patch ADH..PATCH 1 PATCH TRANSDERMA (08:25)
[2021-09-04] MEDS: 0.9 % Sodium Chloride Flush 3 ML SYRINGE IVFLUSH ×2 (08:26→17:30)
[2021-09-04 11:23] LABS: Glucose, Whole Blood 275 mg/dL (60-115)
--- NOTE | 2021-09-04 11:35 | MHC.CM.PN ---
Per ROUNDS discussion, Patient is not yet medically cleared for dc (IV Decadron, IV Vanco, IV Zosyn, 5L O2);Home resume vna vs str pending pt eval is the plan and CM will continue to follow for dc planning.
[2021-09-04] MEDS: Insulin Lispro 100 UNIT/ML 3 ML VIAL SUBCUT ×3 (12:29→20:35)
--- NOTE | 2021-09-04 13:26 | HO.PM.IMPN ---
Subjective Subjective Date of Service: 09/04/21 Interval History: confused...no acute distress. No improvement last 24hrs Review of Systems unable to obtain Physical Exam Vital Signs: Vital Signs: Last Vital Signs Temp 97.0 F 09/04/21 11:03 Pulse 81 09/04/21 11:03 Resp 19 09/04/21 11:03 BP 170/85 H 09/04/21 11:03 Pulse Ox 99 09/04/21 11:03 BMI result Body Mass Index 25.4 Const: Other: NAD Resp: Other: diminished with bilat basilar crackles Cardio: Other: -S4 +S1/S2 -S3 No MRG GI: Other: soft NT/ND NABS x 4 quads Extrem: Other: no edema Objective Data Active Medications Acetaminophen (Acetaminophen 325 Mg Tablet) 650 mg PO Q6H PRN PRN Reason: Pain, Mild (Pain Scale 1-3) Last Admin: 08/31/21 11:58 Dose: 650 mg Documented by: LEYLA Albuterol/Ipratropium (Albuterol/Iprat 2.5/0.5mg 3 Ml Ampul.Neb) 3 ml INHALE RQ4H PRN PRN Reason: Shortness of Breath/Wheezing Last Admin: 09/02/21 13:15 Dose: 3 ml Documented by: ISAÍAS Dexamethasone Sodium Phosphate (Dexamethasone Sod Phosphate 4 Mg/Ml Vial) 6 mg IVPUSH DAILY [facility] Last Admin: 09/04/21 08:24 Dose: 6 mg Documented by: BRANNON Dextrose (Dextrose 50 % 25 Gm/50 Ml Syringe) 25 gm IVPUSH Q15M PRN; Protocol PRN Reason: per Hypoglycemia Standing Ord. Dextrose (Dextrose 50 % 25 Gm/50 Ml Syringe) 25 gm IVPUSH Q15M PRN; Protocol PRN Reason: per Hypoglycemia Standing Ord. Diltiazem HCl (Diltiazem Hcl Cd 240 Mg Cap.Er.Deg) 240 mg PO DAILY [facility]; Protocol Last Admin: 09/04/21 08:24 Dose: 240 mg Documented by: BRANNON Docusate Sodium (Docusate Sodium 100 Mg Capsule) 100 mg PO DAILY PRN PRN Reason: Constipation Escitalopram Oxalate (Escitalopram Oxalate 5 Mg Tablet) 5 mg PO DAILY [facility] Last Admin: 09/04/21 08:24 Dose: 5 mg Documented by: BRANNON Glucose (Glucose Gel 15 Gm Gel..Gram.) 15 gm PO Q15M PRN; Protocol PRN Reason: per Hypoglycemia Standing Ord. Glucose (Glucose Gel 15 Gm Gel..Gram.) 15 gm PO Q15M PRN; Protocol PRN Reason: per Hypoglycemia Standing Ord. Piperacillin Sod/Tazobactam (Sod 3.375 gm/ Sodium Chloride) 50 mls @ 100 mls/hr IV Q6H [facility] Last Admin: 09/04/21 12:29 Dose: 100 mls/hr Documented by: BRANNON Vancomycin HCl 750 mg/ Sodium (Chloride) 265 mls @ 265 mls/hr IV Q24H [facility] Last Infusion: 09/04/21 09:34 Dose: 0 mls/hr Documented by: BRANNON Dextrose/Sodium Chloride (D51/2ns) 1,000 mls @ 100 mls/hr IVCONT .Q10H [facility] Last Admin: 09/04/21 08:21 Dose: 100 mls/hr Documented by: BRANNON Insulin Glargine (Insulin Glargine,Hum.Rec.Anlog 100 Unit/Ml 10 Ml Vial) 10 unit SUBCUT BEDTIME [facility] Last Admin: 09/03/21 21:31 Dose: 10 unit Documented by: LEONELA Insulin Human Lispro (Insulin Lispro 100 Unit/Ml 3 Ml Vial) 0 unit SUBCUT QIDACHS [facility]; Protocol Last Admin: 09/04/21 12:29 Dose: 8 unit Documented by: BRANNON Lidocaine (Lidocaine 4 % Patch Adh..Patch) 1 patch TRANSDERMA DAILY [facility]; Protocol Last Admin: 09/04/21 08:25 Dose: 1 patch Documented by: BRANNON Ondansetron HCl (Ondansetron Hcl 4 Mg/2 Ml Vial) 4 mg IVPUSH Q8H PRN PRN Reason: Nausea and Vomiting Pharmacy Consult (Consult Rx Vancomycin Dosing) 1 each MISCELLANE DAILY PRN PRN Reason: Consult order Rivaroxaban (Rivaroxaban 15 Mg Tablet) 15 mg PO DAILY [facility] Last Admin: 09/04/21 08:24 Dose: 15 mg Documented by: BRANNON Sodium Chloride (0.9 % Sodium Chloride Flush 3 Ml Syringe) 3 ml IVFLUSH QSHIFT [facility] Last Admin: 09/04/21 08:26 Dose: 3 ml Documented by: BRANNON Labs CBC & Chem 7: 09/04/21 06:12 09/04/21 06:12 Labs: Laboratory Results - last 24 hr 08/29/21 08/30/21 08/31/21 16:57 07:29 06:24 WBC 21.7 H 15.8 H 29.6 H MCV MCH MCHC RDW Plt Count MPV Immature Gran % (Auto) Neut % (Auto) Lymph % (Auto) [place] % (Auto) Eos % (Auto) Baso % (Auto) Lymph # (Auto) [place] # (Auto) Eos # (Auto) Baso # (Auto) Abs Immat Gran (auto) Absolute Neuts (auto) Absolute Nucleated RBC Nucleated RBC % (auto) Smear Tech's Comments Anion Gap Estim Creat Clear Calc Estimated GFR POC Glucose Fasting Glucose Calcium Total Bilirubin AST ALT Alkaline Phosphatase Total Protein Albumin 09/01/21 09/02/21 09/03/21 06:39 06:38 06:09 WBC 26.6 H 29.0 H 24.9 H MCV MCH MCHC RDW Plt Count MPV Immature Gran % (Auto) Neut % (Auto) Lymph % (Auto) [place] % (Auto) Eos % (Auto) Baso % (Auto) Lymph # (Auto) [place] # (Auto) Eos # (Auto) Baso # (Auto) Abs Immat Gran (auto) Absolute Neuts (auto) Absolute Nucleated RBC Nucleated RBC % (auto) Smear Tech's Comments Anion Gap Estim Creat Clear Calc Estimated GFR POC Glucose Fasting Glucose Calcium Total Bilirubin AST ALT Alkaline Phosphatase Total Protein Albumin 09/03/21 09/03/21 09/04/21 16:15 20:25 06:12 WBC MCV MCH MCHC RDW Plt Count MPV Immature Gran % (Auto) Neut % (Auto) Lymph % (Auto) [place] % (Auto) Eos % (Auto) Baso % (Auto) Lymph # (Auto) [place] # (Auto) Eos # (Auto) Baso # (Auto) Abs Immat Gran (auto) Absolute Neuts (auto) Absolute Nucleated RBC Nucleated RBC % (auto) Smear Tech's Comments Anion Gap 12 Estim Creat Clear Calc 33.7 Estimated GFR 46 POC Glucose 397 H* 338 H Fasting Glucose 113 H Calcium 7.8 L Total Bilirubin 0.4 AST 13 D ALT 14 Alkaline Phosphatase 103 Total Protein 5.1 L Albumin 2.3 L 09/04/21 09/04/21 09/04/21 06:12 07:27 11:05 WBC 29.8 H MCV 97.9 MCH 30.7 MCHC 31.4 RDW 14.9 Plt Count 590 H MPV 10.5 Immature Gran % (Auto) 1.5 H Neut % (Auto) 87.2 H Lymph % (Auto) 5.3 L [place] % (Auto) 5.8 Eos % (Auto) 0.0 Baso % (Auto) 0.2 Lymph # (Auto) 1.6 [place] # (Auto) 1.7 H Eos # (Auto) 0.0 Baso # (Auto) 0.1 Abs Immat Gran (auto) 0.44 H Absolute Neuts (auto) 26.0 H Absolute Nucleated RBC 0.000 Nucleated RBC % (auto) 0.0 Smear Tech's Comments VERIFIED Anion Gap Estim Creat Clear Calc Estimated GFR POC Glucose 148 H 275 H Fasting Glucose Calcium Total Bilirubin AST ALT Alkaline Phosphatase Total Protein Albumin Microbiology Microbiology Results: Microbiology 08/29/21 16:57 Blood Culture - Final Blood - Venous No growth after 5 days. 08/29/21 16:54 Blood Culture - Final Blood - Venous No growth after 5 days. Assessment and Plan (1) Acute and chronic respiratory failure with hypoxia: Status: Acute (2) Pneumonia: Status: Acute (3) COPD (chronic obstructive pulmonary disease): Status: Acute Plan 81yo F recently [08/14/20] admitted to [facility] with encephalopathy + thoracic compression fracture, tested positive for Covid-19 08/18/21 brought in with increased confusion + PNA.Slow progress...not tolerating wean 1.Pneumonia(HAP) acute/chronic hypoxic respiratory failure - continue Vanco/Zosyn(4) -titrate O2 as tolerated -ID consult..leukocytosis likely secondary to steroids 2.Covid-19 pneumonia - dexamethasone (01/28) - ID consulted, no remdesivir given duration of Covid-19, no baricitinib due to concern of bacterial pneumonia 2. COPD exacerbation - dexamethasone as above, nebs 3.PAF - continue rivaroxaban, diltiazem 4. DMII - acceptable control on current therapies(basal/bolus insulin) -adjust as indicated # VTE ppx - rivaroxaban Quality Stroke Does the patient have a stroke diagnosis?: No VTE Prior VTE?: Yes VTE Risk Level:: Medical - moderate - high VTE Device Contraindication: Treatment Not Indicated VTE Drug Contraindication: N/A - Med Ordered
--- NOTE | 2021-09-04 16:37 | P.PNID_ITS ---
Subjective Subjective Date of Service: 09/04/21 Critical Care Time (minutes): 15 Comment: she still has leukocytosis with WBC in 20s she is proning ,not awake Objective Data Labs CBC & Chem 7: 09/13/21 06:37 09/13/21 06:37 Labs: Laboratory Results - last 24 hr 09/03/21 09/04/21 09/04/21 20:25 06:12 06:12 WBC 29.8 H RBC 3.35 L Hgb 10.3 L Hct 32.8 L MCV 97.9 MCH 30.7 MCHC 31.4 RDW 14.9 Plt Count 590 H MPV 10.5 Immature Gran % (Auto) 1.5 H Neut % (Auto) 87.2 H Lymph % (Auto) 5.3 L [place] % (Auto) 5.8 Eos % (Auto) 0.0 Baso % (Auto) 0.2 Lymph # (Auto) 1.6 [place] # (Auto) 1.7 H Eos # (Auto) 0.0 Baso # (Auto) 0.1 Abs Immat Gran (auto) 0.44 H Absolute Neuts (auto) 26.0 H Absolute Nucleated RBC 0.000 Nucleated RBC % (auto) 0.0 Smear Tech's Comments VERIFIED Sodium 145 Potassium 3.8 Chloride 114 H Carbon Dioxide 23 Anion Gap 12 BUN 43 H Creatinine 1.14 Estim Creat Clear Calc 33.7 Estimated GFR 46 POC Glucose 338 H Fasting Glucose 113 H Calcium 7.8 L Total Bilirubin 0.4 AST 13 D ALT 14 Alkaline Phosphatase 103 Total Protein 5.1 L Albumin 2.3 L 09/04/21 09/04/21 07:27 11:05 WBC RBC Hgb Hct MCV MCH MCHC RDW Plt Count MPV Immature Gran % (Auto) Neut % (Auto) Lymph % (Auto) [place] % (Auto) Eos % (Auto) Baso % (Auto) Lymph # (Auto) [place] # (Auto) Eos # (Auto) Baso # (Auto) Abs Immat Gran (auto) Absolute Neuts (auto) Absolute Nucleated RBC Nucleated RBC % (auto) Smear Tech's Comments Sodium Potassium Chloride Carbon Dioxide Anion Gap BUN Creatinine Estim Creat Clear Calc Estimated GFR POC Glucose 148 H 275 H Fasting Glucose Calcium Total Bilirubin AST ALT Alkaline Phosphatase Total Protein Albumin Microbiology Microbiology Results: Microbiology 08/29/21 16:57 Blood - Venous Blood Culture - Final No growth after 5 days. 08/29/21 16:54 Blood - Venous Blood Culture - Final No growth after 5 days. 08/29/21 20:42 Urine clean catch - Urine gusman top Urine Culture - Final Escherichia coli Lactobacillus species Physical Exam Vital Signs: Vital Signs: Last Vital Signs Temp 97.9 F 09/04/21 15:12 Pulse 74 09/04/21 15:12 Resp 16 09/04/21 15:12 BP 151/63 H 09/04/21 15:12 Pulse Ox 100 09/04/21 15:12 BMI result Body Mass Index 25.4 Const: General: cooperative HENMT: Head: Yes normal to inspection Mouth: Normal oral and palatal mucosa present Resp: Effort & Inspection: normal respiratory effort Cardio: Rate: regular rate Rhythm: regular rhythm GI: Palpation (GI): Soft to palpation and nontender Skin: General skin exam: no rashes or lesions noted Assessment and Plan Assessment and plan (1) Acute and chronic respiratory failure with hypoxia: Status: Resolved (2) Leukocytosis: Problem details: 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 She is on day 6 of Vancomycin and Zosyn Status: Chronic Plan Would recheck CT abdomen and pelvis without contrast Continue Vancomycin and Zosyn Time Spent With Patient Time: Total time spent is greater than 50% in coordination of care (as documented) at patient's floor/unit and/or counseling patient: Time with patient: 15 - 24 minutes
[2021-09-04 16:54] LABS: Glucose, Whole Blood 276 mg/dL (60-115)
[2021-09-04 20:09] LABS: Glucose, Whole Blood 203 mg/dL (60-115)
[2021-09-04] MEDS: Insulin Glargine,Hum.rec.anlog 100 UNIT/ML 10 ML VIAL 10 UNIT SUBCUT (20:35)
[2021-09-05] MEDS: 0.9 % Sodium Chloride Flush 3 ML SYRINGE IVFLUSH ×4 (01:04→23:53)
[2021-09-05] MEDS: Piperacillin Sodium/Tazobactam 3.375 GM in 0.9 % Sodium Chloride 50 ML IV ×5 (01:05→23:52)
[2021-09-05 03:49] VITALS: BP 147/77; PULSE 64; RESP 20; TEMP 36.3; O2SAT 94
[2021-09-05] MEDS: Dextrose 5 % and 0.45 % NaCl 1,000 ML 100 ML IVCONT ×3 (06:16→23:59)
[2021-09-05 07:16] LABS: Vancomycin Trough 14.5 mcg/mL (10.0-20.0)
[2021-09-05 07:17] LABS: Creatinine Clr Calc Pharmacy 40.1; Estimated Glomerular Filt Rate 56
[2021-09-05 07:31] VITALS: BP 150/76; PULSE 69; RESP 19; TEMP 35.9; O2SAT 92
--- NOTE | 2021-09-05 07:34 | HE.PHANOTE ---
Vancomycin trough came back at 14.5. AUC model is predicting a AUC of 391, but I am going to continue the current regimen and monitor the renal function.
[2021-09-05 07:42] LABS: Glucose, Whole Blood 106 mg/dL (60-115)
[2021-09-05] MEDS: vancomycin HCL 750 MG in 0.9 % Sodium Chloride 250 ML 265 MG IV (08:52)
[2021-09-05] MEDS: Rivaroxaban 15 MG TABLET PO (08:52)
[2021-09-05] MEDS: dilTIAZem HCL CD 240 MG CAP.ER.DEG PO (08:52)
[2021-09-05] MEDS: Escitalopram Oxalate 5 MG TABLET PO (08:52)
[2021-09-05] MEDS: Lidocaine 4 % Patch ADH..PATCH 1 PATCH TRANSDERMA (08:52)
[2021-09-05] MEDS: dexAMETHasone sod phosphate 4 MG/ML VIAL 6 MG IVPUSH (09:01)
[2021-09-05 10:41] VITALS: BP 125/68; PULSE 83; RESP 19; TEMP 36.7; O2SAT 93
[2021-09-05 10:58] LABS: Glucose, Whole Blood 202 mg/dL (60-115)
[2021-09-05] MEDS: Insulin Lispro 100 UNIT/ML 3 ML VIAL SUBCUT ×3 (11:15→20:33)
--- NOTE | 2021-09-05 14:08 | HO.PM.IMPN ---
Subjective Subjective Date of Service: 09/05/21 Interval History: confused...no acute distress. No improvement last 24hrs Review of Systems unable to obtain Physical Exam Vital Signs: Vital Signs: Last Vital Signs Temp 98.0 F 09/05/21 10:41 Pulse 83 09/05/21 10:41 Resp 19 09/05/21 10:41 BP 125/68 09/05/21 10:41 Pulse Ox 93 09/05/21 10:41 BMI result Body Mass Index 25.4 Const: Other: NAD Resp: Other: diminished with bilat basilar crackles Cardio: Other: -S4 +S1/S2 -S3 No MRG GI: Other: soft NT/ND NABS x 4 quads Extrem: Other: no edema Objective Data Active Medications Acetaminophen (Acetaminophen 325 Mg Tablet) 650 mg PO Q6H PRN PRN Reason: Pain, Mild (Pain Scale 1-3) Last Admin: 08/31/21 11:58 Dose: 650 mg Documented by: LEYLA Albuterol/Ipratropium (Albuterol/Iprat 2.5/0.5mg 3 Ml Ampul.Neb) 3 ml INHALE RQ4H PRN PRN Reason: Shortness of Breath/Wheezing Last Admin: 09/02/21 13:15 Dose: 3 ml Documented by: ISAÍAS Dexamethasone Sodium Phosphate (Dexamethasone Sod Phosphate 4 Mg/Ml Vial) 6 mg IVPUSH DAILY [facility] Last Admin: 09/05/21 09:01 Dose: 6 mg Documented by: BELTRAN Dextrose (Dextrose 50 % 25 Gm/50 Ml Syringe) 25 gm IVPUSH Q15M PRN; Protocol PRN Reason: per Hypoglycemia Standing Ord. Dextrose (Dextrose 50 % 25 Gm/50 Ml Syringe) 25 gm IVPUSH Q15M PRN; Protocol PRN Reason: per Hypoglycemia Standing Ord. Diltiazem HCl (Diltiazem Hcl Cd 240 Mg Cap.Er.Deg) 240 mg PO DAILY [facility]; Protocol Last Admin: 09/05/21 08:52 Dose: 240 mg Documented by: BELTRAN Docusate Sodium (Docusate Sodium 100 Mg Capsule) 100 mg PO DAILY PRN PRN Reason: Constipation Escitalopram Oxalate (Escitalopram Oxalate 5 Mg Tablet) 5 mg PO DAILY [facility] Last Admin: 09/05/21 08:52 Dose: 5 mg Documented by: BELTRAN Glucose (Glucose Gel 15 Gm Gel..Gram.) 15 gm PO Q15M PRN; Protocol PRN Reason: per Hypoglycemia Standing Ord. Glucose (Glucose Gel 15 Gm Gel..Gram.) 15 gm PO Q15M PRN; Protocol PRN Reason: per Hypoglycemia Standing Ord. Piperacillin Sod/Tazobactam (Sod 3.375 gm/ Sodium Chloride) 50 mls @ 100 mls/hr IV Q6H [facility] Last Infusion: 09/05/21 11:54 Dose: 0 mls/hr Documented by: BELTRAN Vancomycin HCl 750 mg/ Sodium (Chloride) 265 mls @ 265 mls/hr IV Q24H [facility] Last Infusion: 09/05/21 09:54 Dose: 0 mls/hr Documented by: BELTRAN Dextrose/Sodium Chloride (D51/2ns) 1,000 mls @ 100 mls/hr IVCONT .Q10H [facility] Last Admin: 09/05/21 06:16 Dose: 100 mls/hr Documented by: KAYLEIGH Insulin Glargine (Insulin Glargine,Hum.Rec.Anlog 100 Unit/Ml 10 Ml Vial) 10 unit SUBCUT BEDTIME [facility] Last Admin: 09/04/21 20:35 Dose: 10 unit Documented by: LEONELA Insulin Human Lispro (Insulin Lispro 100 Unit/Ml 3 Ml Vial) 0 unit SUBCUT QIDACHS [facility]; Protocol Last Admin: 09/05/21 11:15 Dose: 6 unit Documented by: BELTRAN Lidocaine (Lidocaine 4 % Patch Adh..Patch) 1 patch TRANSDERMA DAILY [facility]; Protocol Last Admin: 09/05/21 08:52 Dose: 1 patch Documented by: BELTRAN Ondansetron HCl (Ondansetron Hcl 4 Mg/2 Ml Vial) 4 mg IVPUSH Q8H PRN PRN Reason: Nausea and Vomiting Pharmacy Consult (Consult Rx Vancomycin Dosing) 1 each MISCELLANE DAILY PRN PRN Reason: Consult order Rivaroxaban (Rivaroxaban 15 Mg Tablet) 15 mg PO DAILY [facility] Last Admin: 09/05/21 08:52 Dose: 15 mg Documented by: BELTRAN Sodium Chloride (0.9 % Sodium Chloride Flush 3 Ml Syringe) 3 ml IVFLUSH QSHIFT [facility] Last Admin: 02/15/22 08:52 Dose: 3 ml Documented by: BELTRAN Labs CBC & Chem 7: 09/04/21 06:12 09/05/21 06:19 Labs: Laboratory Results - last 24 hr 09/04/21 09/04/21 09/05/21 16:10 20:05 06:19 Estim Creat Clear Calc 40.1 Estimated GFR 56 POC Glucose 276 H 203 H Vancomycin Trough 09/05/21 09/05/21 09/05/21 06:19 07:33 10:43 Estim Creat Clear Calc Estimated GFR POC Glucose 106 202 H Vancomycin Trough 14.5 Assessment and Plan (1) Acute and chronic respiratory failure with hypoxia: Status: Acute (2) Pneumonia: Status: Acute (3) COVID-19: Status: Acute Plan 81yo F recently [08/14/20] admitted to [facility] with encephalopathy + thoracic compression fracture, tested positive for Covid-19 08/18/21 brought in with increased confusion + PNA.Slow progress...not tolerating wean 1.Pneumonia(HAP) acute/chronic hypoxic respiratory failure - continue Vanco/Zosyn(5) -titrate O2 as tolerated -ID consult..reviewed. Will obtain CT abd pelvis 2.Covid-19 pneumonia - dexamethasone (02/28) - ID consulted, no remdesivir given duration of Covid-19, no baricitinib due to concern of bacterial pneumonia 2. COPD exacerbation - dexamethasone as above, nebs 3.PAF - continue rivaroxaban, diltiazem 4. DMII - acceptable control on current therapies(basal/bolus insulin) -adjust as indicated # VTE ppx - rivaroxaban Quality Stroke Does the patient have a stroke diagnosis?: No VTE Prior VTE?: Yes VTE Risk Level:: Medical - moderate - high VTE Device Contraindication: Treatment Not Indicated VTE Drug Contraindication: N/A - Med Ordered
[2021-09-05 15:21] VITALS: BP 164/79; PULSE 80; RESP 20; TEMP 36.3; O2SAT 91
--- NOTE | 2021-09-05 15:36 | PM.CNGS ---
History of Present Illness Consult details Consult date: 09/05/21 Narrative: 81-year-old female with multiple medical problem problems including COPD, and chronic lymphedema, was admitted on August 29 because of altered mental status. She was diagnosed to have lower lobe pneumonia. She had been in acute on chronic respiratory failure and is requiring O2 by nasal cannula. She has also tested positive for COVID. She had a CAT scan done on admission because of workup for sepsis and had shown fecal impaction so I was consulted. She has significant respiratory distress so it is difficult to as for details regards to her history. Review of Systems Constitutional: Constitutional: Reports lethargy Cardiovascular: Cardiovascular: Denies chest pain, Reports dyspnea and Reports dyspnea on exertion Respiratory: Respiratory: Reports dyspnea and Reports dyspnea on exertion Gastrointestinal: Gastrointestinal: Denies hematochezia and Reports constipation Genitourinary: Genitourinary: Reports no additional female genitourinary complaints FORMERLY [facility], [facility] Past Medical History Medical History (Updated 09/05/21 @ 15:40 by Jerry Batista MD) COPD (chronic obstructive pulmonary disease) Decreased hearing of both ears Fecal impaction History of DVT (deep vein thrombosis) IDDM (insulin dependent diabetes mellitus) Leukocytosis Lymphedema Osteoporosis with pathological fracture Right lumbosacral radiculopathy Smoker Thrombocytosis after splenectomy Family History Family History Father No problems noted. Mother No problems noted. Family history: reviewed and not pertinent Surgical History Surgical History H/O splenectomy History of section S/P LILI-BSO (total abdominal hysterectomy and bilateral salpingo-oophorectomy) Social History Social History Household Members: Other Housing: Other Housing Other:: nsg home Unable to assess alcohol history related to: Unable to respond Alcohol intake: never Patient Tobacco Use Status: Former Tobacco user Tobacco use type: Cigarette Cigarettes Per Day: 3 e-Cigarette/Vaping Use: Never Used Second Hand Smoke Exposure: No Advance Directives Date on File: 08/10/21 service: No Current occupational status: disabled Cognitive needs: Yes (wheelchair) Hearing needs: No Vision needs: No Meds Allergies Allergy/AdvReac Type Severity Reaction Status Date / Time No Known Allergies Allergy Unknown Verified 08/10/21 02:22 Active Medications: Current Medications Acetaminophen (Acetaminophen 325 Mg Tablet) 650 mg PO Q6H PRN PRN Reason: Pain, Mild (Pain Scale 1-3) Last Admin: 08/31/21 11:58 Dose: 650 mg Documented by: Albuterol/Ipratropium (Albuterol/Iprat 2.5/0.5mg 3 Ml Ampul.Neb) 3 ml INHALE RQ4H PRN PRN Reason: Shortness of Breath/Wheezing Last Admin: 09/02/21 13:15 Dose: 3 ml Documented by: Dexamethasone Sodium Phosphate (Dexamethasone Sod Phosphate 4 Mg/Ml Vial) 6 mg IVPUSH DAILY [facility] Last Admin: 09/05/21 09:01 Dose: 6 mg Documented by: Dextrose (Dextrose 50 % 25 Gm/50 Ml Syringe) 25 gm IVPUSH Q15M PRN; Protocol PRN Reason: per Hypoglycemia Standing Ord. Dextrose (Dextrose 50 % 25 Gm/50 Ml Syringe) 25 gm IVPUSH Q15M PRN; Protocol PRN Reason: per Hypoglycemia Standing Ord. Diltiazem HCl (Diltiazem Hcl Cd 240 Mg Cap.Er.Deg) 240 mg PO DAILY [facility]; Protocol Last Admin: 09/05/21 08:52 Dose: 240 mg Documented by: Docusate Sodium (Docusate Sodium 100 Mg Capsule) 100 mg PO DAILY PRN PRN Reason: Constipation Escitalopram Oxalate (Escitalopram Oxalate 5 Mg Tablet) 5 mg PO DAILY [facility] Last Admin: 09/05/21 08:52 Dose: 5 mg Documented by: Glucose (Glucose Gel 15 Gm Gel..Gram.) 15 gm PO Q15M PRN; Protocol PRN Reason: per Hypoglycemia Standing Ord. Glucose (Glucose Gel 15 Gm Gel..Gram.) 15 gm PO Q15M PRN; Protocol PRN Reason: per Hypoglycemia Standing Ord. Piperacillin Sod/Tazobactam (Sod 3.375 gm/ Sodium Chloride) 50 mls @ 100 mls/hr IV Q6H [facility] Last Infusion: 09/05/21 11:54 Dose: Infused Documented by: Vancomycin HCl 750 mg/ Sodium (Chloride) 265 mls @ 265 mls/hr IV Q24H [facility] Last Infusion: 09/05/21 09:54 Dose: Infused Documented by: Dextrose/Sodium Chloride (D51/2ns) 1,000 mls @ 100 mls/hr IVCONT .Q10H [facility] Last Admin: 09/05/21 06:16 Dose: 100 mls/hr Documented by: Insulin Glargine (Insulin Glargine,Hum.Rec.Anlog 100 Unit/Ml 10 Ml Vial) 10 unit SUBCUT BEDTIME [facility] Last Admin: 09/04/21 20:35 Dose: 10 unit Documented by: Insulin Human Lispro (Insulin Lispro 100 Unit/Ml 3 Ml Vial) 0 unit SUBCUT QIDACHS [facility]; Protocol Last Admin: 09/05/21 11:15 Dose: 6 unit Documented by: Lidocaine (Lidocaine 4 % Patch Adh..Patch) 1 patch TRANSDERMA DAILY [facility]; Protocol Last Admin: 09/05/21 08:52 Dose: 1 patch Documented by: Ondansetron HCl (Ondansetron Hcl 4 Mg/2 Ml Vial) 4 mg IVPUSH Q8H PRN PRN Reason: Nausea and Vomiting Pharmacy Consult (Consult Rx Vancomycin Dosing) 1 each MISCELLANE DAILY PRN PRN Reason: Consult order Rivaroxaban (Rivaroxaban 15 Mg Tablet) 15 mg PO DAILY [facility] Last Admin: 09/05/21 08:52 Dose: 15 mg Documented by: Sodium Chloride (0.9 % Sodium Chloride Flush 3 Ml Syringe) 3 ml IVFLUSH QSHIFT [facility] Last Admin: 09/05/21 08:52 Dose: 3 ml Documented by: Home Medications Medication Instructions Recorded Confirmed Last Taken Type insulin aspart U-100 100 unit/mL 0 sliding scale dose SUBCUT TIDAC 08/10/21 08/29/21 Unknown History (3 mL) subcutaneous pen (Novolog Flexpen U-100 Insulin aspart) insulin glargine 100 unit/mL (3 10 unit SUBCUT BEDTIME 08/10/21 08/29/21 Unknown History mL) subcutaneous pen lidocaine 4 % topical patch 1 patch TOPICAL DAILY 08/18/21 08/29/21 Unknown History diltiazem HCl 240 mg capsule,24 240 mg PO DAILY 08/29/21 08/29/21 Unknown History hr,extended release spironolactone 25 mg tablet 1 tab PO DAILY 08/29/21 08/29/21 Unknown History Physical Exam Vital Signs: Vital Signs: Last Vital Signs Temp 97.4 F 09/05/21 15:21 Pulse 80 09/05/21 15:21 Resp 20 09/05/21 15:21 BP 164/79 H 09/05/21 15:21 Pulse Ox 91 L 09/05/21 15:21 BMI result Body Mass Index 25.4 Const: Other: Appears to be in respiratory distress, Resp: Effort & Inspection: not able to speak in complete sentences and abnormal respiratory pattern Cardio: Rhythm: regular rhythm GI: Other: Rectal exam was done - large amounts of hard, tolerated stools in the rectal vault, impacted, no lesions, no blood seen Palpation (GI): Soft to palpation, not firm and nontender Results Labs Result diagrams: 09/04/21 06:12 09/05/21 06:19 Labs: Abnormal lab results 09/04/21 09/04/21 09/05/21 Range/Units 16:10 20:05 10:43 POC Glucose 276 H 203 H 202 H (60-115) mg/dL BMP 09/05/21 06:19 Creatinine 0.96 Urine 08/29/21 Range/Units 20:42 Urine Color YELLOW Urine Appearance CLOUDY Urine pH 6.0 (5.0-8.0) Ur Specific [place] 1.025 (1.005-1.025) Urine Protein 3+ H (NEG-TRACE) MG/DL Urine Glucose (UA) 100 H (NEG) MG/DL All other labs normal. Imaging Abdomen CT scan report/results: report reviewed and image reviewed CT scan - pelvis: report reviewed and image reviewed Assessment and Plan (1) Fecal impaction: Status: Acute She was placed in left lateral decubitus knee-chest position. Digital rectal exam showed large amounts of hard, impacted stools in the rectal vault. I was able to successfully disimpact her rectal vault. She may need to be on softeners as well as enemas periodically. She has multiple other medical issues at this time. The rest of her management will be as per the medical service. Procedures Date of Service Date of Service: 09/05/21
[2021-09-05 16:16] LABS: Glucose, Whole Blood 200 mg/dL (60-115)
[2021-09-05 19:26] VITALS: BP 154/71; PULSE 80; RESP 20; TEMP 36.7; O2SAT 99
[2021-09-05 19:44] LABS: Glucose, Whole Blood 230 mg/dL (60-115)
[2021-09-05] MEDS: Insulin Glargine,Hum.rec.anlog 100 UNIT/ML 10 ML VIAL 10 UNIT SUBCUT (20:33)
[2021-09-05 23:49] VITALS: BP 151/74; PULSE 69; RESP 16; TEMP 36.3; O2SAT 98
[2021-09-06 04:00] VITALS: BP 158/76; PULSE 67; RESP 12; TEMP 36.3; O2SAT 97
[2021-09-06] MEDS: Piperacillin Sodium/Tazobactam 3.375 GM in 0.9 % Sodium Chloride 50 ML IV (05:32)
[2021-09-06 06:30] LABS: Basophils Percent Auto 0.1 % (0-2); Hematocrit 31.8 % (37.0-47.0); Hemoglobin 10.2 g/dl (12.0-16.0); Imm Gran Abs Auto 0.36 X10*3/uL (0.00-0.03); Imm Gran Pct Auto 1.5 % (0.0-0.4); Lymphocytes Absolute Auto 1.1 X10*3/uL (1.2-4.9); Lymphocytes Percent Auto 4.3 % (20-40); MANUAL DIFF FLAG SCAN; Mean Corpuscular HGB Conc 32.1 g/dl (31.0-35.0); Mean Corpuscular Hemoglobin 31.2 pg (27.0-33.0); Mean Corpuscular Volume 97.2 fL (80.0-98.0); Mean Platelet Volume 10.5 fL (9.4-12.3); Monocytes Absolute Auto 1.1 X10*3/uL (0.1-1.2); Monocytes Percent Auto 4.5 % (2-11); Neutrophils Absolute Auto 21.8 x10*3/uL (2.0-8.3); Neutrophils Percent Auto 89.6 % (45-73); Platelet Count 533 X10*3/uL (160-400); Red Blood Count 3.27 X10*6/uL (4.20-5.50); Red Cell Distribution Width 14.9 % (11.0-16.0); SCAN SMEAR FLAG 1; White Blood Count 24.4 X10*3/uL (4.8-10.8)
[2021-09-06 06:58] LABS: Alanine Aminotransferase 13 U/L (0-31); Alkaline Phosphatase 97 U/L (39-117); Anion Gap 11 (12-20); Aspartate Amino Transferase 14 U/L (5-31); Bilirubin Total 0.3 mg/dL (0.0-1.0); Blood Urea Nitrogen 33 mg/dL (9-16); Calcium 7.8 mg/dL (8.4-10.2); Carbon Dioxide 21 mmol/L (22-29); Chloride 112 mmol/L (96-108); Creatinine Clr Calc Pharmacy 34.7; Estimated Glomerular Filt Rate 47; Glucose Fasting 222 mg/dL (60-99); Potassium 3.9 mmol/L (3.3-5.1); Sodium 140 mmol/L (135-145); Total Protein 4.6 g/dL (6.5-8.0)
[2021-09-06 07:12] LABS: SLIDE REVIEW VERIFIED
[2021-09-06 07:29] VITALS: BP 151/62; PULSE 62; RESP 19; TEMP 36.4; O2SAT 97
[2021-09-06 07:37] LABS: Glucose, Whole Blood 244 mg/dL (60-115)
[2021-09-06] MEDS: Insulin Lispro 100 UNIT/ML 3 ML VIAL SUBCUT ×4 (08:01→20:39)
[2021-09-06] MEDS: Rivaroxaban 15 MG TABLET PO (08:02)
[2021-09-06] MEDS: Escitalopram Oxalate 5 MG TABLET PO (08:02)
[2021-09-06] MEDS: 0.9 % Sodium Chloride Flush 3 ML SYRINGE IVFLUSH ×3 (08:02→20:40)
[2021-09-06] MEDS: dexAMETHasone sod phosphate 4 MG/ML VIAL 6 MG IVPUSH (08:02)
[2021-09-06] MEDS: Lidocaine 4 % Patch ADH..PATCH 1 PATCH TRANSDERMA (08:02)
[2021-09-06] MEDS: vancomycin HCL 750 MG in 0.9 % Sodium Chloride 250 ML 265 MG IV (08:02)
[2021-09-06] MEDS: dilTIAZem HCL CD 240 MG CAP.ER.DEG PO (08:05)
[2021-09-06 11:28] VITALS: BP 160/66; PULSE 73; RESP 18; TEMP 36.3; O2SAT 96
[2021-09-06 11:33] LABS: C Reactive Protein 0.05 mg/dL (< or = 0.50)
[2021-09-06 11:35] LABS: Glucose, Whole Blood 286 mg/dL (60-115)
[2021-09-06 11:58] LABS: Procalcitonin 0.03 ng/mL
[2021-09-06 15:05] VITALS: BP 138/62; PULSE 80; RESP 20; TEMP 36.1; O2SAT 100
--- NOTE | 2021-09-06 15:45 | P.PNIM_ITS ---
Subjective Subjective Date of Service: 09/06/21 Interval History: Breathing somewhat improved but still c/o dyspnea. On 4L O2 via NC Review of Systems Review of Systems: Yes all other systems are reviewed and are negative Physical Exam Vital Signs: Vital Signs: Last Vital Signs Temp 97.0 F 09/06/21 15:05 Pulse 80 09/06/21 15:05 Resp 20 09/06/21 15:05 BP 138/62 09/06/21 15:05 Pulse Ox 100 09/06/21 15:05 BMI result Body Mass Index 25.4 Gen: mild resp distress HEENT: sclera anicteric, moist mucus membranes Neck: supple Lungs: bibasilar inspiratory crackles Heart: regular rate and rhythm, no murmurs Abd: soft, non-tender, non-distended Ext: no edema Skin: warm/well-perfused Neuro: alert and oriented x3, no focal findings Psych: appropriate affect Objective Data Active Medications Acetaminophen (Acetaminophen 325 Mg Tablet) 650 mg PO Q6H PRN PRN Reason: Pain, Mild (Pain Scale 1-3) Last Admin: 08/31/21 11:58 Dose: 650 mg Documented by: LEYLA Dexamethasone Sodium Phosphate (Dexamethasone Sod Phosphate 4 Mg/Ml Vial) 6 mg IVPUSH DAILY [facility] Last Admin: 09/06/21 08:02 Dose: 6 mg Documented by: BRANNON Dextrose (Dextrose 50 % 25 Gm/50 Ml Syringe) 25 gm IVPUSH Q15M PRN; Protocol PRN Reason: per Hypoglycemia Standing Ord. Dextrose (Dextrose 50 % 25 Gm/50 Ml Syringe) 25 gm IVPUSH Q15M PRN; Protocol PRN Reason: per Hypoglycemia Standing Ord. Diltiazem HCl (Diltiazem Hcl Cd 240 Mg Cap.Er.Deg) 240 mg PO DAILY [facility]; Protocol Last Admin: 09/06/21 08:05 Dose: 240 mg Documented by: BRANNON Docusate Sodium (Docusate Sodium 100 Mg Capsule) 100 mg PO DAILY PRN PRN Reason: Constipation Escitalopram Oxalate (Escitalopram Oxalate 5 Mg Tablet) 5 mg PO DAILY [facility] Last Admin: 09/06/21 08:02 Dose: 5 mg Documented by: BRANNON Glucose (Glucose Gel 15 Gm Gel..Gram.) 15 gm PO Q15M PRN; Protocol PRN Reason: per Hypoglycemia Standing Ord. Glucose (Glucose Gel 15 Gm Gel..Gram.) 15 gm PO Q15M PRN; Protocol PRN Reason: per Hypoglycemia Standing Ord. Vancomycin HCl 750 mg/ Sodium (Chloride) 265 mls @ 265 mls/hr IV Q24H [facility] Last Infusion: 09/06/21 09:07 Dose: 0 mls/hr Documented by: BRANNON Insulin Glargine (Insulin Glargine,Hum.Rec.Anlog 100 Unit/Ml 10 Ml Vial) 10 unit SUBCUT BEDTIME [facility] Last Admin: 09/05/21 20:33 Dose: 10 unit Documented by: SABINO Insulin Human Lispro (Insulin Lispro 100 Unit/Ml 3 Ml Vial) 0 unit SUBCUT QIDACHS [facility]; Protocol Last Admin: 09/06/21 12:21 Dose: 8 unit Documented by: BRANNON Lidocaine (Lidocaine 4 % Patch Adh..Patch) 1 patch TRANSDERMA DAILY [facility]; Protocol Last Admin: 09/06/21 08:02 Dose: 1 patch Documented by: BRANNON Ondansetron HCl (Ondansetron Hcl 4 Mg/2 Ml Vial) 4 mg IVPUSH Q8H PRN PRN Reason: Nausea and Vomiting Rivaroxaban (Rivaroxaban 15 Mg Tablet) 15 mg PO DAILY [facility] Last Admin: 09/06/21 08:02 Dose: 15 mg Documented by: BRANNON Sodium Chloride (0.9 % Sodium Chloride Flush 3 Ml Syringe) 3 ml IVFLUSH QSHIFT [facility] Last Admin: 09/06/21 08:02 Dose: 3 ml Documented by: BRANNON Labs CBC & Chem 7: 09/06/21 06:06 09/06/21 06:06 Labs: Laboratory Results - last 24 hr 09/05/21 09/05/21 09/06/21 16:12 19:41 06:06 MCV MCH MCHC RDW Plt Count MPV Immature Gran % (Auto) Neut % (Auto) Lymph % (Auto) [place] % (Auto) Eos % (Auto) Baso % (Auto) Lymph # (Auto) [place] # (Auto) Eos # (Auto) Baso # (Auto) Abs Immat Gran (auto) Absolute Neuts (auto) Absolute Nucleated RBC Nucleated RBC % (auto) Smear Tech's Comments Anion Gap 11 L Estim Creat Clear Calc 34.7 Estimated GFR 47 POC Glucose 200 H 230 H Fasting Glucose 222 H Calcium 7.8 L Total Bilirubin 0.3 AST 14 ALT 13 Alkaline Phosphatase 97 C-Reactive Protein 0.05 Total Protein 4.6 L Albumin 2.0 L Procalcitonin 09/06/21 09/06/21 09/06/21 06:06 06:06 07:31 MCV 97.2 MCH 31.2 MCHC 32.1 RDW 14.9 Plt Count 533 H MPV 10.5 Immature Gran % (Auto) 1.5 H Neut % (Auto) 89.6 H Lymph % (Auto) 4.3 L Adams % (Auto) 4.5 Eos % (Auto) 0.0 Baso % (Auto) 0.1 Lymph # (Auto) 1.1 L [place] # (Auto) 1.1 Eos # (Auto) 0.0 Baso # (Auto) 0.0 Abs Immat Gran (auto) 0.36 H Absolute Neuts (auto) 21.8 H Absolute Nucleated RBC 0.000 Nucleated RBC % (auto) 0.0 Smear Tech's Comments VERIFIED Anion Gap Estim Creat Clear Calc Estimated GFR POC Glucose 244 H Fasting Glucose Calcium Total Bilirubin AST ALT Alkaline Phosphatase C-Reactive Protein Total Protein Albumin Procalcitonin 0.03 09/06/21 11:30 MCV MCH MCHC RDW Plt Count MPV Immature Gran % (Auto) Neut % (Auto) Lymph % (Auto) [place] % (Auto) Eos % (Auto) Baso % (Auto) Lymph # (Auto) [place] # (Auto) Eos # (Auto) Baso # (Auto) Abs Immat Gran (auto) Absolute Neuts (auto) Absolute Nucleated RBC Nucleated RBC % (auto) Smear Tech's Comments Anion Gap Estim Creat Clear Calc Estimated GFR POC Glucose 286 H Fasting Glucose Calcium Total Bilirubin AST ALT Alkaline Phosphatase C-Reactive Protein Total Protein Albumin Procalcitonin Assessment and Plan (1) Acute and chronic respiratory failure with hypoxia: Status: Acute (2) Pneumonia: Status: Acute (3) COVID-19: Status: Acute Plan 81yo F recently [08/14/20] admitted to [facility] for STR for encephalopathy + thoracic compression fracture, tested positive for Covid-19 08/18/21, brought in with increased confusion + PNA + hypoxia due to Covid-19 + bacterial pneumonia # HCAP - completed 7d of vanc + pip/justice + PCT + CRP are low. BCx negative # acute/chronic hypoxic respiratory failure - wean O2 as tolerated # Covid-19 pneumonia - dexamethasone d#03/31, no remdesivir given duration of Covid-19, no baricitinib due to concern of bacterial pneumonia # encephalopathy secondary to infection - treat infection as above # COPD exacerbation - dexamethasone as above, nebs # pAF - continue rivaroxaban, diltiazem # DM2, A1c 9.3 - basal/bolus insulin # mood disorder - escitalopram # VTE ppx - rivaroxaban Quality Stroke Does the patient have a stroke diagnosis?: No VTE Prior VTE?: Yes VTE Risk Level:: Medical - moderate - high VTE Device Contraindication: Treatment Not Indicated VTE Drug Contraindication: N/A - Med Ordered
[2021-09-06 15:56] LABS: Glucose, Whole Blood 282 mg/dL (60-115)
--- NOTE | 2021-09-06 15:58 | MHC.CM.PN ---
Female 81 DX Covid+ Patient continues to require supplemental oxygen. DP Home resume [facility] vs [facility] STR. Transport via BLS.
[2021-09-06] MEDS: polyethylene glycoL 3350 17 GM POWD.PACK PO (16:16)
[2021-09-06 19:17] VITALS: BP 156/69; PULSE 80; RESP 20; TEMP 36.2; O2SAT 98
[2021-09-06 19:49] LABS: Glucose, Whole Blood 120 mg/dL (60-115)
[2021-09-06] MEDS: Insulin Glargine,Hum.rec.anlog 100 UNIT/ML 10 ML VIAL 10 UNIT SUBCUT (20:40)
[2021-09-06 23:37] VITALS: BP 146/70; PULSE 113; RESP 24; TEMP 36.1; O2SAT 94
[2021-09-07] VITALS (7 sets, daily range): BP systolic 126–153; BP diastolic 59–73; PULSE 76–102; RESP 18–22; TEMP 36–36.7; O2SAT 92–99
--- NOTE | 2021-09-07 | ECG_ITS ---
Test Reason : DYSPNEA Blood Pressure : / mmHG Vent. Rate : 080 BPM Atrial Rate : 080 BPM P-R Int : 140 ms QRS Dur : 114 ms QT Int : 428 ms P-R-T Axes : 095 030 235 degrees QTc Int : 493 ms Sinus rhythm with Premature atrial complexes Incomplete right bundle branch block ST & T wave abnormality, consider inferior ischemia ST & T wave abnormality, consider anterolateral ischemia Prolonged QT Abnormal ECG When compared with ECG of 29-AUG-2021 16:59, ST no longer depressed in Anterior leads T wave inversion more evident in Lateral leads Referred By: Ru Martin Electronically Signed By:RICKEY LAGUERRE MD
--- NOTE | 2021-09-07 04:46 | PC.NURSE ---
Around 0330, patients O2 saturation dipped down to 88% on 4L NC. Woke patient to assess. Pt slightly labored. Repositioned patint and increased O2 to 5L NC with sat 91%. Will continue to monitor.
[2021-09-07 07:02] LABS: Basophils Absolute Auto 0.1 X10*3/uL (0.0-0.2); Basophils Percent Auto 0.2 % (0-2); Hematocrit 33.2 % (37.0-47.0); Hemoglobin 10.6 g/dl (12.0-16.0); Imm Gran Abs Auto 0.68 X10*3/uL (0.00-0.03); Imm Gran Pct Auto 2.4 % (0.0-0.4); Lymphocytes Absolute Auto 1.6 X10*3/uL (1.2-4.9); Lymphocytes Percent Auto 5.8 % (20-40); MANUAL DIFF FLAG SCAN; Mean Corpuscular HGB Conc 31.9 g/dl (31.0-35.0); Mean Corpuscular Hemoglobin 30.8 pg (27.0-33.0); Mean Corpuscular Volume 96.5 fL (80.0-98.0); Mean Platelet Volume 10.6 fL (9.4-12.3); Monocytes Absolute Auto 2.3 X10*3/uL (0.1-1.2); Monocytes Percent Auto 8.1 % (2-11); Neutrophils Absolute Auto 23.3 x10*3/uL (2.0-8.3); Neutrophils Percent Auto 83.5 % (45-73); PLT CLUMP 1; Red Blood Count 3.44 X10*6/uL (4.20-5.50); Red Cell Distribution Width 15.4 % (11.0-16.0); SCAN SMEAR FLAG 1
[2021-09-07 07:06] LABS: Vancomycin Trough 18.1 mcg/mL (10.0-20.0)
[2021-09-07 07:17] LABS: Alanine Aminotransferase 12 U/L (0-31); Albumin Level 2.2 g/dL (3.5-5.0); Alkaline Phosphatase 99 U/L (39-117); Anion Gap 13 (12-20); Aspartate Amino Transferase 19 U/L (5-31); Bilirubin Total 0.3 mg/dL (0.0-1.0); Blood Urea Nitrogen 40 mg/dL (9-16); Calcium 8.2 mg/dL (8.4-10.2); Carbon Dioxide 20 mmol/L (22-29); Chloride 114 mmol/L (96-108); Creatinine Clr Calc Pharmacy 30.3; Estimated Glomerular Filt Rate 40; Glucose Fasting 40 mg/dL (60-99); Potassium 4.1 mmol/L (3.3-5.1); Sodium 143 mmol/L (135-145); Total Protein 4.9 g/dL (6.5-8.0)
[2021-09-07 07:38] LABS: Glucose, Whole Blood 34 mg/dL (60-115)
[2021-09-07] MEDS: Glucose Gel 15 GM GEL..GRAM. PO (07:43)
[2021-09-07] MEDS: Dextrose 50 % 25 GM/50 ML SYRINGE IVPUSH (07:43)
[2021-09-07 07:51] LABS: Glucose, Whole Blood 134 mg/dL (60-115)
[2021-09-07] MEDS: 0.9 % Sodium Chloride Flush 3 ML SYRINGE IVFLUSH ×3 (07:51→20:28)
[2021-09-07 08:31] LABS: Platelet Count 455 X10*3/uL (160-400); White Blood Count 27.5 X10*3/uL (4.8-10.8)
[2021-09-07 08:32] LABS: SLIDE REVIEW VERIFIED
[2021-09-07] MEDS: Lidocaine 4 % Patch ADH..PATCH 1 PATCH TRANSDERMA (08:43)
[2021-09-07] MEDS: dexAMETHasone sod phosphate 4 MG/ML VIAL 6 MG IVPUSH (08:44)
[2021-09-07] MEDS: Rivaroxaban 15 MG TABLET PO (08:46)
[2021-09-07] MEDS: Escitalopram Oxalate 5 MG TABLET PO (08:47)
[2021-09-07] MEDS: dilTIAZem HCL CD 240 MG CAP.ER.DEG PO (08:47)
[2021-09-07] MEDS: polyethylene glycoL 3350 17 GM POWD.PACK PO (08:47)
[2021-09-07 11:31] LABS: Venous Blood Gas Refer to POC result
[2021-09-07 11:31] LABS: Glucose, Whole Blood 217 mg/dL (60-115)
[2021-09-07 11:31] LABS: VBG Base Excess -0.8 mmol/L; VBG HCO3 23 mmol/L (22-26); VBG pCO2 36 mmHg; VBG pH 7.41 (7.32-7.43); VBG pO2 79 mmHg
[2021-09-07 11:49] LABS: B Type Natriuretic Peptide 403 pg/mL (<100)
[2021-09-07 12:01] LABS: Troponin-I High Sensitivity 65.6 ng/L (<3.5-17.0)
[2021-09-07] MEDS: Furosemide 40 MG/4 ML VIAL IVPUSH ×2 (12:54→17:21)
[2021-09-07] MEDS: Aspirin 81 MG TAB.CHEW 324 MG PO (12:54)
[2021-09-07] MEDS: Atorvastatin Calcium 40 MG TABLET PO (12:55)
--- NOTE | 2021-09-07 15:01 | P.PNIM_ITS ---
Subjective Subjective Date of Service: 09/07/21 Interval History: C/o dyspnea and chest pressure. On 5L O2 via NC Hypoglycemic this am, resolved after given D50 Review of Systems Review of Systems: Yes all other systems are reviewed and are negative Physical Exam Vital Signs: Vital Signs: Last Vital Signs Temp 96.8 F 09/07/21 11:30 Pulse 82 09/07/21 11:30 Resp 20 09/07/21 11:30 BP 141/67 H 09/07/21 11:30 Pulse Ox 93 09/07/21 11:30 BMI result Body Mass Index 25.4 Gen: mild resp distress HEENT: sclera anicteric, moist mucus membranes Neck: supple Lungs: bibasilar inspiratory crackles Heart: regular rate and rhythm, no murmurs Abd: soft, non-tender, non-distended Ext: no edema Skin: warm/well-perfused Neuro: alert and oriented x3, no focal findings Psych: appropriate affect Objective Data Active Medications Acetaminophen (Acetaminophen 325 Mg Tablet) 650 mg PO Q6H PRN PRN Reason: Pain, Mild (Pain Scale 1-3) Last Admin: 08/31/21 11:58 Dose: 650 mg Documented by: LEYLA Albuterol Sulfate (Albuterol Sulfate (0.083%) 2.5 Mg/3 Ml Vial.Neb) 2.5 mg INHALE Q2H PRN PRN Reason: shortness of breath/wheeze Albuterol/Ipratropium (Albuterol/Iprat 2.5/0.5mg 3 Ml Ampul.Neb) 3 ml INHALE RQ4H WHILE AWAKE [facility] Last Admin: 09/07/21 12:13 Dose: Not Given Documented by: ISAÍAS Non-Admin Reason: Patient Refused Aspirin (Aspirin 81 Mg Tab.Chew) 81 mg PO DAILY [facility] Atorvastatin Calcium (Atorvastatin Calcium 40 Mg Tablet) 40 mg PO DAILY [facility] Last Admin: 09/07/21 12:55 Dose: 40 mg Documented by: BRITANY Dexamethasone Sodium Phosphate (Dexamethasone Sod Phosphate 4 Mg/Ml Vial) 6 mg IVPUSH DAILY [facility] Last Admin: 09/07/21 08:44 Dose: 6 mg Documented by: BRITANY Dextrose (Dextrose 50 % 25 Gm/50 Ml Syringe) 25 gm IVPUSH Q15M PRN; Protocol PRN Reason: per Hypoglycemia Standing Ord. Last Admin: 09/07/21 07:43 Dose: 25 gm Documented by: BRITANY Dextrose (Dextrose 50 % 25 Gm/50 Ml Syringe) 25 gm IVPUSH Q15M PRN; Protocol PRN Reason: per Hypoglycemia Standing Ord. Diltiazem HCl (Diltiazem Hcl Cd 240 Mg Cap.Er.Deg) 240 mg PO DAILY [facility]; Protocol Last Admin: 09/07/21 08:47 Dose: 240 mg Documented by: BRITANY Docusate Sodium (Docusate Sodium 100 Mg Capsule) 100 mg PO DAILY PRN PRN Reason: Constipation Escitalopram Oxalate (Escitalopram Oxalate 5 Mg Tablet) 5 mg PO DAILY [facility] Last Admin: 09/07/21 08:47 Dose: 5 mg Documented by: BRITANY Furosemide (Furosemide 40 Mg/4 Ml Vial) 40 mg IVPUSH BID@0900,1800 [facility]; Protocol Last Admin: 09/07/21 12:54 Dose: 40 mg Documented by: BRITANY Glucose (Glucose Gel 15 Gm Gel..Gram.) 15 gm PO Q15M PRN; Protocol PRN Reason: per Hypoglycemia Standing Ord. Last Admin: 09/07/21 07:43 Dose: 15 gm Documented by: BRITANY Glucose (Glucose Gel 15 Gm Gel..Gram.) 15 gm PO Q15M PRN; Protocol PRN Reason: per Hypoglycemia Standing Ord. Insulin Human Lispro (Insulin Lispro 100 Unit/Ml 3 Ml Vial) 0 unit SUBCUT QIDACHS [facility]; Protocol Last Admin: 09/07/21 12:03 Dose: Not Given Documented by: BRITANY Non-Admin Reason: refused lunch Lidocaine (Lidocaine 4 % Patch Adh..Patch) 1 patch TRANSDERMA DAILY [facility]; Pr otocol Last Admin: 09/07/21 08:43 Dose: 1 patch Documented by: BRITANY Ondansetron HCl (Ondansetron Hcl 4 Mg/2 Ml Vial) 4 mg IVPUSH Q8H PRN PRN Reason: Nausea and Vomiting Polyethylene Glycol (Polyethylene Glycol 3350 17 Gm Powd.Pack) 17 gm PO DAILY [facility] Last Admin: 09/07/21 08:47 Dose: 17 gm Documented by: BRITANY Rivaroxaban (Rivaroxaban 15 Mg Tablet) 15 mg PO DAILY [facility] Last Admin: 09/07/21 08:46 Dose: 15 mg Documented by: BRITANY Sodium Chloride (0.9 % Sodium Chloride Flush 3 Ml Syringe) 3 ml IVFLUSH QSHIFT [facility] Last Admin: 09/07/21 07:51 Dose: 3 ml Documented by: BRITANY Labs CBC & Chem 7: 09/07/21 06:30 09/07/21 06:30 Labs: Laboratory Results - last 24 hr 09/06/21 09/06/21 09/07/21 15:53 19:46 06:30 MCV MCH MCHC RDW Plt Count MPV Immature Gran % (Auto) Neut % (Auto) Lymph % (Auto) [place] % (Auto) Eos % (Auto) Baso % (Auto) Lymph # (Auto) [place] # (Auto) Eos # (Auto) Baso # (Auto) Abs Immat Gran (auto) Absolute Neuts (auto) Absolute Nucleated RBC Nucleated RBC % (auto) Smear Tech's Comments VBG pH VBG pCO2 VBG pO2 VBG HCO3 VBG O2 Saturation VBG Base Excess Anion Gap Estim Creat Clear Calc Estimated GFR POC Glucose 282 H 120 H Fasting Glucose Calcium Total Bilirubin AST ALT Alkaline Phosphatase B-Natriuretic Peptide Total Protein Albumin Vancomycin Trough 18.1 09/07/21 09/07/21 09/07/21 06:30 06:30 07:32 MCV 96.5 MCH 30.8 MCHC 31.9 RDW 15.4 Plt Count 455 H MPV 10.6 Immature Gran % (Auto) 2.4 H Neut % (Auto) 83.5 H Lymph % (Auto) 5.8 L [place] % (Auto) 8.1 Eos % (Auto) 0.0 Baso % (Auto) 0.2 Lymph # (Auto) 1.6 [place] # (Auto) 2.3 H Eos # (Auto) 0.0 Baso # (Auto) 0.1 Abs Immat Gran (auto) 0.68 H Absolute Neuts (auto) 23.3 H Absolute Nucleated RBC 0.000 Nucleated RBC % (auto) 0.0 Smear Tech's Comments VERIFIED VBG pH VBG pCO2 VBG pO2 VBG HCO3 VBG O2 Saturation VBG Base Excess Anion Gap 13 Estim Creat Clear Calc 30.3 Estimated GFR 40 POC Glucose 34 L* Fasting Glucose 40 L* Calcium 8.2 L Total Bilirubin 0.3 AST 19 ALT 12 Alkaline Phosphatase 99 B-Natriuretic Peptide Total Protein 4.9 L Albumin 2.2 L Vancomycin Trough 09/07/21 09/07/21 09/07/21 07:46 11:20 11:24 MCV MCH MCHC RDW Plt Count MPV Immature Gran % (Auto) Neut % (Auto) Lymph % (Auto) [place] % (Auto) Eos % (Auto) Baso % (Auto) Lymph # (Auto) [place] # (Auto) Eos # (Auto) Baso # (Auto) Abs Immat Gran (auto) Absolute Neuts (auto) Absolute Nucleated RBC Nucleated RBC % (auto) Smear Tech's Comments VBG pH 7.41 VBG pCO2 36 VBG pO2 79 VBG HCO3 23 VBG O2 Saturation 95.0 VBG Base Excess -0.8 Anion Gap Estim Creat Clear Calc Estimated GFR POC Glucose 134 H Fasting Glucose Calcium Total Bilirubin AST ALT Alkaline Phosphatase B-Natriuretic Peptide 403 H Total Protein Albumin Vancomycin Trough 09/07/21 11:27 MCV MCH MCHC RDW Plt Count MPV Immature Gran % (Auto) Neut % (Auto) Lymph % (Auto) [place] % (Auto) Eos % (Auto) Baso % (Auto) Lymph # (Auto) [place] # (Auto) Eos # (Auto) Baso # (Auto) Abs Immat Gran (auto) Absolute Neuts (auto) Absolute Nucleated RBC Nucleated RBC % (auto) Smear Tech's Comments VBG pH VBG pCO2 VBG pO2 VBG HCO3 VBG O2 Saturation VBG Base Excess Anion Gap Estim Creat Clear Calc Estimated GFR POC Glucose 217 H Fasting Glucose Calcium Total Bilirubin AST ALT Alkaline Phosphatase B-Natriuretic Peptide Total Protein Albumin Vancomycin Trough Impressions Chest X-Ray 09/07/21 10:52 IMPRESSION: Bilateral lower lobe effusions/atelectasis/infiltrate. These are new findings compared to 08/18/2021 chest x-ray. Assessment and Plan (1) Acute and chronic respiratory failure with hypoxia: Status: Acute (2) Pneumonia: Status: Acute (3) COVID-19: Status: Acute Plan 81yo F recently [08/14/20] admitted to [facility] for STR for encephalopathy + thoracic compression fracture, tested positive for Covid-19 08/18/21, brought in with increased confusion + PNA + hypoxia due to Covid-19 + bacterial pneumonia # suspected CHF - start IV diuresis with furosemide + trend BNP + monitor BMP/Mg - TTE ordered; Cardiology consult # Tn-I indeterminate - delta <50%; ASA + atorvastatin; TTE; Cardiology consult # HCAP - completed 7d of vanc + pip/justice + PCT + CRP are low. BCx negative # acute/chronic hypoxic respiratory failure - wean O2 as tolerated, treat CHF as above # Covid-19 pneumonia - dexamethasone d#04/30, no remdesivir given duration of Covid-19, no baricitinib due to concern of bacterial pneumonia # encephalopathy secondary to infection - treat infection as above # COPD exacerbation - dexamethasone as above, nebs # pAF - continue rivaroxaban, diltiazem # DM2, A1c 9.3 - correciton-dose lispro; d/c Lantus due to hypoglycemia # mood disorder - escitalopram # VTE ppx - rivaroxaban Quality Stroke Does the patient have a stroke diagnosis?: No VTE Prior VTE?: Yes VTE Risk Level:: Medical - moderate - high VTE Device Contraindication: Treatment Not Indicated VTE Drug Contraindication: N/A - Med Ordered
[2021-09-07 15:16] LABS: Troponin-I High Sensitivity 45.8 ng/L (<3.5-17.0)
[2021-09-07] MEDS: Albuterol/Iprat 2.5/0.5MG 3 ML AMPUL.NEB INHALE (15:16)
--- NOTE | 2021-09-07 15:19 | PC.NURSE ---
0645 glucose 40 glucose gel PO given. Recheck of POC was 34. Pt very lethargic. Diff to arouse. IV Dextrose given with good eff. Recheck POC was [address] Martin that she was having chest pain and pressure. New orders received for EKG, blood work and CXR 1100 reported no further chest pain. lethargic, arousable. refused llunch.
[2021-09-07 16:15] LABS: Glucose, Whole Blood 297 mg/dL (60-115)
[2021-09-07] MEDS: Insulin Lispro 100 UNIT/ML 3 ML VIAL SUBCUT ×2 (17:20→20:27)
[2021-09-07 19:43] LABS: Glucose, Whole Blood 305 mg/dL (60-115)
[2021-09-08] VITALS (8 sets, daily range): BP systolic 130–142; BP diastolic 58–89; PULSE 56–83; RESP 18–24; TEMP 35.9–36.2; O2SAT 91–97
[2021-09-08 07:05] LABS: MANUAL DIFF FLAG NO
[2021-09-08 07:10] LABS: Basophils Percent Auto 0.1 % (0-2); Hematocrit 31.4 % (37.0-47.0); Hemoglobin 9.9 g/dl (12.0-16.0); Imm Gran Abs Auto 0.31 X10*3/uL (0.00-0.03); Imm Gran Pct Auto 1.4 % (0.0-0.4); Lymphocytes Absolute Auto 0.9 X10*3/uL (1.2-4.9); Lymphocytes Percent Auto 3.9 % (20-40); Mean Corpuscular HGB Conc 31.5 g/dl (31.0-35.0); Mean Corpuscular Hemoglobin 30.7 pg (27.0-33.0); Mean Corpuscular Volume 97.5 fL (80.0-98.0); Mean Platelet Volume 10.1 fL (9.4-12.3); Monocytes Absolute Auto 1.2 X10*3/uL (0.1-1.2); Monocytes Percent Auto 5.4 % (2-11); Neutrophils Absolute Auto 19.7 x10*3/uL (2.0-8.3); Neutrophils Percent Auto 89.2 % (45-73); Platelet Count 571 X10*3/uL (160-400); Red Blood Count 3.22 X10*6/uL (4.20-5.50); Red Cell Distribution Width 15.9 % (11.0-16.0); White Blood Count 22.1 X10*3/uL (4.8-10.8)
[2021-09-08 07:23] LABS: Alanine Aminotransferase 12 U/L (0-31); Albumin Level 2.4 g/dL (3.5-5.0); Alkaline Phosphatase 103 U/L (39-117); Anion Gap 13 (12-20); Aspartate Amino Transferase 13 U/L (5-31); Bilirubin Total 0.4 mg/dL (0.0-1.0); Blood Urea Nitrogen 48 mg/dL (9-16); Calcium 8.2 mg/dL (8.4-10.2); Carbon Dioxide 24 mmol/L (22-29); Chloride 112 mmol/L (96-108); Creatinine Clr Calc Pharmacy 27.3; Estimated Glomerular Filt Rate 36; Glucose Fasting 220 mg/dL (60-99); Potassium 4.6 mmol/L (3.3-5.1); Sodium 144 mmol/L (135-145); Total Protein 4.7 g/dL (6.5-8.0)
[2021-09-08 07:30] LABS: B Type Natriuretic Peptide 219 pg/mL (<100)
--- NOTE | 2021-09-08 07:30 | CA_ITS ---
Transthoracic Echocardiogram Patient (Last, First, Middle): Bibi Cormier A Gender: Female Date of : 1940 Age: 81 Procedure Date: 09/08/2021 Procedure Type: Transthoracic Echocardiogram Location: OP Height: 157.48 cm Weight: 63.05 kg BSA: 1.64 m2 Heart Rate: bpm BP: 140 / 65 mmHg Expenditure Requisition Clerk: REJI Referring MD: Ru Martin MD Napkin Machine Operator: Trell Fountain MD Symptoms: suspect HF, Tn-I elevated Study Quality: Technically Difficult ECG Rhythm: Sinus Conclusions: - 1. Technically difficult study due to positioning 2. Normal LV systolic function with moderate LVH with grade 1 diastolic dysfunction 3. Normal cardiac valvular Doppler 4. Normal RV systolic pressure 5. No gross pericardial effusion Findings Left Ventricle Normal left ventricular size and systolic function. There is moderately increased left ventricular wall thickness. The visually estimated ejection fraction is between 60-65%. Spectral Doppler is indicative of an impaired relaxation filling pattern. E/E prime ratio is <8, consistent with normal filling pressures. Evidence suggests grade I (mild) diastolic dysfunction. Right Ventricle The right ventricle was not well visualized. Atria The left atrium is normal in size. Interatrial shunt cannot be excluded. The right atrium is normal in size. Aortic Valve There is mild calcification of the aortic valve. There is no aortic valve stenosis. There is no aortic valve regurgitation. Mitral Valve There is mild anterior and posterior mitral leaflet thickening. There is mild mitral annular calcification. There is trace mitral valve regurgitation. There is no mitral valve stenosis. Pulmonic Valve The pulmonic valve was not well visualized. Tricuspid Valve Likely normal tricuspid valve structure and function. There is trace tricuspid valve regurgitation. The right ventricular systolic pressure is normal. The right ventricular systolic pressure is 16 mmHg. Low right atrial pressure. There is no evidence of pulmonary hypertension. Great Vessels The pulmonary artery was not well visualized. There is mild dilatation of the ascending aorta measuring 4.10 cm. Venous The inferior vena cava is collapsed, consistent with reduced intravascular volume. Pericardium/Pleural There is no evidence of pericardial effusion. Prior Study Comparison No significant change compared to prior study dated: 08/02/2016. Measurements 2D Linear Measurements IVSd: 1.41 0.6-0.9/0.6-1.0 cm LVIDd: 2.71 3.9-5.3/4.2-5.9 cm LVIDd Index: 1.65 2.4-3.2/2.2-3.1 cm/m2 LVIDs: 1.47 2.0-3.6 cm LVPWd: 1.44 0.7-1.1 cm Ao Root: 3.70 2.1-3.5 cm LA Diam: 3.40 2.7-3.8/3.0-4.0 cm LAIDs Index: 2.07 1.5-2.3 cm/m2 LV Mass: 178.05 67-162/88-224 g LV Mass Index: 108.57 43-95/49-115 g/m2 LVOT Diam: 2.00 3.0+(-)1.3 cm Mitral Valve MV Pk E: 0.43 MV PK A: 0.93 MV Decel Time: 303.00 E/A: 0.50 E'Lateral: 7.94 E'Medial: 5.00 E/E' Med: 8.70 E/E' Lat: 5.50 PHT: 89.00 MVA PHT: 2.47 Decel Cocke: 1.43 Aortic Valve AoV Pk Edin: 1.53 AoV Mn Edin: 1.22 AoV VTI: 0.35 AoV Pk Grad: 9.00 Aov Mn Grad: 7.00 VANESA Cont.VTI: 2.57 LVOT LVOT Pk Edin: 1.42 LVOT Mn Edin: 0.96 LVOT VTI: 0.29 LVOT Pk Grad: 8.00 LVOT Mn Grad: 4.00 LVOT Diam: 2.00 LVOT Area: 3.14 Diastolic Function MV Pk E: 0.43 MV Pk A: 0.93 E/A: 0.50 E'Medial: 5.00 E/E' Med: 8.70 E' Laterial: 7.94 E/E' Lat: 5.50 Right Ventricle TAPSE (mm): 19.30 TVS' Edin: 19.40 Tricuspid Valve TR Pk Edin: 1.79 TR Pk Grad: 13.00 RA Press: 3.00 RVSP: 16.00 Great Vessels Aorta Ao Root-2D: 3.70 2.0-3.7 cm Ao Asc: 4.10 2.1-3.4 cm Updated in Other Vendor System with Status of Final Trell Fountain MD electronically signed on 09/08/2021 4:45:44 PM with status of Final
[2021-09-08 07:36] LABS: Glucose, Whole Blood 195 mg/dL (60-115)
[2021-09-08] MEDS: dilTIAZem HCL CD 240 MG CAP.ER.DEG PO (08:37)
[2021-09-08] MEDS: dexAMETHasone sod phosphate 4 MG/ML VIAL 6 MG IVPUSH (08:37)
[2021-09-08] MEDS: Furosemide 40 MG/4 ML VIAL IVPUSH (08:37)
[2021-09-08] MEDS: Rivaroxaban 15 MG TABLET PO (08:37)
[2021-09-08] MEDS: Escitalopram Oxalate 5 MG TABLET PO (08:37)
[2021-09-08] MEDS: Atorvastatin Calcium 40 MG TABLET PO (08:37)
[2021-09-08] MEDS: Aspirin 81 MG TAB.CHEW PO (08:38)
[2021-09-08] MEDS: Lidocaine 4 % Patch ADH..PATCH 1 PATCH TRANSDERMA (08:38)
[2021-09-08] MEDS: 0.9 % Sodium Chloride Flush 3 ML SYRINGE IVFLUSH ×3 (08:38→20:34)
[2021-09-08] MEDS: polyethylene glycoL 3350 17 GM POWD.PACK PO (08:38)
[2021-09-08] MEDS: Insulin Lispro 100 UNIT/ML 3 ML VIAL SUBCUT ×4 (08:38→20:34)
--- NOTE | 2021-09-08 10:33 | P.CONCA_ITS ---
History of Present Illness History of Present Illness Date of Service: 09/08/21 Requesting physician: Ru Martin Chief complaint: Hypoxic respiratory failure Narrative: I was consulted to see Bibi in cardiology consultation today due to persistent hypoxemia requiring high levels of oxygen. Yesterday she underwent blood work and showed BNP was elevated upper 400 range with minimally elevated troponins. EKG showed T-wave inversions diffusely. Patient was then given Lasix 40 mg IV b.i.d. and seems like has had good diuresis with improving BMP. Patient says she is feeling better as compared to yesterday not sure she is reliable historian. Patient has been admitted with bacterial pneumonia an acute on chronic hypoxic respiratory failure with prior COVID-19 diagnosis. Patient denies any chest pain currently no palpitations. No arrhythmias noted. C ardiology consult was sought due to persistent hypoxemia. Review of Systems Review of Systems: Yes Unobtainable due to mental condition PMFSH Past Medical History Medical History COPD (chronic obstructive pulmonary disease) Decreased hearing of both ears Fecal impaction History of DVT (deep vein thrombosis) IDDM (insulin dependent diabetes mellitus) Leukocytosis Lymphedema Osteoporosis with pathological fracture Right lumbosacral radiculopathy Smoker Thrombocytosis after splenectomy Family History Family History Father No problems noted. Mother No problems noted. Family history: reviewed and not pertinent Surgical History Surgical History H/O splenectomy History of section S/P LILI-BSO (total abdominal hysterectomy and bilateral salpingo-oophorectomy) Social History Social History Household Members: Other Housing: Other Housing Other:: nsg home Unable to assess alcohol history related to: Unable to respond Alcohol intake: never Patient Tobacco Use Status: Former Tobacco user Tobacco use type: Cigarette Cigarettes Per Day: 3 e-Cigarette/Vaping Use: Never Used Second Hand Smoke Exposure: No Advance Directives Date on File: 08/10/21 service: No Current occupational status: disabled Cognitive needs: Yes (wheelchair) Hearing needs: No Vision needs: No Meds Allergies Allergy/AdvReac Type Severity Reaction Status Date / Time No Known Allergies Allergy Unknown Verified 08/10/21 02:22 Active Medications: Current Medications Acetaminophen (Acetaminophen 325 Mg Tablet) 650 mg PO Q6H PRN PRN Reason: Pain, Mild (Pain Scale 1-3) Last Admin: 08/31/21 11:58 Dose: 650 mg Documented by: Albuterol Sulfate (Albuterol Sulfate (0.083%) 2.5 Mg/3 Ml Vial.Neb) 2.5 mg INHALE Q2H PRN PRN Reason: shortness of breath/wheeze Albuterol/Ipratropium (Albuterol/Iprat 2.5/0.5mg 3 Ml Ampul.Neb) 3 ml INHALE RQ4H WHILE AWAKE [facility] Last Admin: 09/08/21 08:05 Dose: Not Given Documented by: Aspirin (Aspirin 81 Mg Tab.Chew) 81 mg PO DAILY [facility] Last Admin: 09/08/21 08:38 Dose: 81 mg Documented by: Atorvastatin Calcium (Atorvastatin Calcium 40 Mg Tablet) 40 mg PO DAILY [facility] Last Admin: 09/08/21 08:37 Dose: 40 mg Documented by: Dexamethasone Sodium Phosphate (Dexamethasone Sod Phosphate 4 Mg/Ml Vial) 6 mg IVPUSH DAILY [facility] Last Admin: 09/08/21 08:37 Dose: 6 mg Documented by: Dextrose (Dextrose 50 % 25 Gm/50 Ml Syringe) 25 gm IVPUSH Q15M PRN; Protocol PRN Reason: per Hypoglycemia Standing Ord. Last Admin: 09/07/21 07:43 Dose: 25 gm Documented by: Dextrose (Dextrose 50 % 25 Gm/50 Ml Syringe) 25 gm IVPUSH Q15M PRN; Protocol PRN Reason: per Hypoglycemia Standing Ord. Diltiazem HCl (Diltiazem Hcl Cd 240 Mg Cap.Er.Deg) 240 mg PO DAILY [facility]; Protocol Last Admin: 09/08/21 08:37 Dose: 240 mg Documented by: Docusate Sodium (Docusate Sodium 100 Mg Capsule) 100 mg PO DAILY PRN PRN Reason: Constipation Escitalopram Oxalate (Escitalopram Oxalate 5 Mg Tablet) 5 mg PO DAILY [facility] Last Admin: 09/08/21 08:37 Dose: 5 mg Documented by: Furosemide (Furosemide 40 Mg/4 Ml Vial) 40 mg IVPUSH BID@0900,1800 [facility]; Protocol Last Admin: 09/08/21 08:37 Dose: 40 mg Documented by: Glucose (Glucose Gel 15 Gm Gel..Gram.) 15 gm PO Q15M PRN; Protocol PRN Reason: per Hypoglycemia Standing Ord. Last Admin: 09/07/21 07:43 Dose: 15 gm Documented by: Glucose (Glucose Gel 15 Gm Gel..Gram.) 15 gm PO Q15M PRN; Protocol PRN Reason: per Hypoglycemia Standing Ord. Insulin Human Lispro (Insulin Lispro 100 Unit/Ml 3 Ml Vial) 0 unit SUBCUT QIDACHS [facility]; Protocol Last Admin: 09/08/21 08:38 Dose: 4 unit Documented by: Lidocaine (Lidocaine 4 % Patch Adh..Patch) 1 patch TRANSDERMA DAILY [facility]; Protocol Last Admin: 09/08/21 08:38 Dose: 1 patch Documented by: Ondansetron HCl (Ondansetron Hcl 4 Mg/2 Ml Vial) 4 mg IVPUSH Q8H PRN PRN Reason: Nausea and Vomiting Polyethylene Glycol (Polyethylene Glycol 3350 17 Gm Powd.Pack) 17 gm PO DAILY [facility] Last Admin: 09/08/21 08:38 Dose: 17 gm Documented by: Rivaroxaban (Rivaroxaban 15 Mg Tablet) 15 mg PO DAILY [facility] Last Admin: 09/08/21 08:37 Dose: 15 mg Documented by: Sodium Chloride (0.9 % Sodium Chloride Flush 3 Ml Syringe) [facility] Last Admin: 09/08/21 08:38 Dose: 3 ml Documented by: Home Medications Medication Instructions Recorded Confirmed Last Taken Type insulin aspart U-100 100 unit/mL 0 sliding scale dose SUBCUT TIDAC 08/10/21 08/29/21 Unknown History (3 mL) subcutaneous pen (Novolog Flexpen U-100 Insulin aspart) insulin glargine 100 unit/mL (3 10 unit SUBCUT BEDTIME 08/10/21 08/29/21 Unknown History mL) subcutaneous pen lidocaine 4 % topical patch 1 patch TOPICAL DAILY 08/18/21 08/29/21 Unknown History diltiazem HCl 240 mg capsule,24 240 mg PO DAILY 08/29/21 08/29/21 Unknown History hr,extended release spironolactone 25 mg tablet 1 tab PO DAILY 08/29/21 08/29/21 Unknown History Physical Exam Vital Signs: Vital Signs: Last Vital Signs Temp 97.2 F 09/08/21 08:00 Pulse 58 09/08/21 08:00 Resp 20 09/08/21 08:00 BP 134/66 09/08/21 08:00 Pulse Ox 95 09/08/21 08:00 BMI result Body Mass Index 25.4 Const: General: cooperative, alert, awake, in distress mild and respiratory and tired appearing Nutritional Appearance: average body habitus HENMT: Head: Yes normocephalic and Yes atraumatic Neck: Neck: Yes trachea midline and No no JVD Resp: Effort & Inspection: decreased respiratory effort Auscultation: no crackles, no rales, wheezes and diminished lung sounds Cardio: Palpation: normal PMI Rate: regular rate Rhythm: regular rhythm Heart sounds: S1 normal heart sound present, S2 normal heart sound present, no click, no gallops and no murmurs GI: Auscultation: normal bowel sounds Skin: General skin exam: no rashes or lesions noted and ecchymosis Extrem: General: Yes no clubbing, cyanosis or edema Objective Labs and Meds Result diagrams: 09/08/21 06:42 09/08/21 06:41 Lab results: Laboratory Results - last 24 hr 09/07/21 09/07/21 09/07/21 11:20 11:20 11:24 WBC RBC Hgb Hct MCV MCH MCHC RDW Plt Count MPV Immature Gran % (Auto) Neut % (Auto) Lymph % (Auto) [place] % (Auto) Eos % (Auto) Baso % (Auto) Lymph # (Auto) [place] # (Auto) Eos # (Auto) Baso # (Auto) Abs Immat Gran (auto) Absolute Neuts (auto) Absolute Nucleated RBC Nucleated RBC % (auto) VBG pH 7.41 VBG pCO2 36 VBG pO2 79 VBG HCO3 23 VBG O2 Saturation 95.0 VBG Base Excess -0.8 Sodium Potassium Chloride Carbon Dioxide Anion Gap BUN Creatinine Estim Creat Clear Calc Estimated GFR POC Glucose Fasting Glucose Calcium Magnesium Total Bilirubin AST ALT Alkaline Phosphatase Troponin I High Sens 65.6 H* D B-Natriuretic Peptide 403 H Total Protein Albumin 09/07/21 09/07/21 09/07/21 11:27 14:32 16:11 WBC RBC Hgb Hct MCV MCH MCHC RDW Plt Count MPV Immature Gran % (Auto) Neut % (Auto) Lymph % (Auto) [place] % (Auto) Eos % (Auto) Baso % (Auto) Lymph # (Auto) [place] # (Auto) Eos # (Auto) Baso # (Auto) Abs Immat Gran (auto) Absolute Neuts (auto) Absolute Nucleated RBC Nucleated RBC % (auto) VBG pH VBG pCO2 VBG pO2 VBG HCO3 VBG O2 Saturation VBG Base Excess Sodium Potassium Chloride Carbon Dioxide Anion Gap BUN Creatinine Estim Creat Clear Calc Estimated GFR POC Glucose 217 H 297 H Fasting Glucose Calcium Magnesium Total Bilirubin AST ALT Alkaline Phosphatase Troponin I High Sens 45.8 H B-Natriuretic Peptide Total Protein Albumin 09/07/21 09/08/21 09/08/21 19:39 06:41 06:41 WBC RBC Hgb Hct MCV MCH MCHC RDW Plt Count MPV Immature Gran % (Auto) Neut % (Auto) Lymph % (Auto) [place] % (Auto) Eos % (Auto) Baso % (Auto) Lymph # (Auto) [place] # (Auto) Eos # (Auto) Baso # (Auto) Abs Immat Gran (auto) Absolute Neuts (auto) Absolute Nucleated RBC Nucleated RBC % (auto) VBG pH VBG pCO2 VBG pO2 VBG HCO3 VBG O2 Saturation VBG Base Excess Sodium 144 Potassium 4.6 Chloride 112 H Carbon Dioxide 24 Anion Gap 13 BUN 48 H Creatinine 1.41 H Estim Creat Clear Calc 27.3 Estimated GFR 36 POC Glucose 305 H Fasting Glucose 220 H Calcium 8.2 L Magnesium 2.0 Total Bilirubin 0.4 AST 13 ALT 12 Alkaline Phosphatase 103 Troponin I High Sens B-Natriuretic Peptide 219 H Total Protein 4.7 L Albumin 2.4 L 09/08/21 09/08/21 06:42 07:30 WBC 22.1 H RBC 3.22 L Hgb 9.9 L Hct 31.4 L MCV 97.5 MCH 30.7 MCHC 31.5 RDW 15.9 Plt Count 571 H D MPV 10.1 Immature Gran % (Auto) 1.4 H Neut % (Auto) 89.2 H Lymph % (Auto) 3.9 L [place] % (Auto) 5.4 Eos % (Auto) 0.0 Baso % (Auto) 0.1 Lymph # (Auto) 0.9 L [place] # (Auto) 1.2 Eos # (Auto) 0.0 Baso # (Auto) 0.0 Abs Immat Gran (auto) 0.31 H Absolute Neuts (auto) 19.7 H Absolute Nucleated RBC 0.000 Nucleated RBC % (auto) 0.0 VBG pH VBG pCO2 VBG pO2 VBG HCO3 VBG O2 Saturation VBG Base Excess Sodium Potassium Chloride Carbon Dioxide Anion Gap BUN Creatinine Estim Creat Clear Calc Estimated GFR POC Glucose 195 H Fasting Glucose Calcium Magnesium Total Bilirubin AST ALT Alkaline Phosphatase Troponin I High Sens B-Natriuretic Peptide Total Protein Albumin Imaging Radiologist's impression: Impressions Chest X-Ray 09/07/21 10:52 IMPRESSION: Bilateral lower lobe effusions/atelectasis/infiltrate. These are new findings compared to 08/18/2021 chest x-ray. Assessment and Plan (1) Acute and chronic respiratory failure with hypoxia: Status: Acute Acute hypoxic respiratory failure in elderly woman, clinically does appear to be significantly fluid overloaded at this point time. Although her BNP and troponin the high which could probably due to RV strain from hypoxemia worse is stress-induced cardiomyopathy. Agree with echocardiogram. Her clinically I do not think she requires aggressive diuresis at this point in time given her rising creatinine. Possible other causes of hypoxemia needs to be considered including pleural effusion with underlying pulmonary atelectasis and decreased pulmonary capacity given her prolonged hospitalization deconditioning. Consider CT scan without contrast for the same. Discussed the case with Dr. Martin. Will review the echocardiogram. Will sign of the case. Thank you for allowing me to partake in her care Procedures Date of Service Date of Service: 09/08/21
[2021-09-08 11:14] LABS: Glucose, Whole Blood 246 mg/dL (60-115)
[2021-09-08] MEDS: Albuterol/Iprat 2.5/0.5MG 3 ML AMPUL.NEB INHALE ×2 (15:02→19:06)
[2021-09-08 15:41] LABS: Procalcitonin 0.04 ng/mL
--- NOTE | 2021-09-08 15:57 | P.PNIM_ITS ---
Subjective Subjective Date of Service: 09/08/21 Interval History: Chest pressure improved Still quite dyspniec + requiring 6L O2 via NC Physical Exam Vital Signs: Vital Signs: Last Vital Signs Temp 97.0 F 09/08/21 11:48 Pulse 78 09/08/21 15:06 Resp 24 H 09/08/21 15:06 BP 130/58 L 09/08/21 11:48 Pulse Ox 96 09/08/21 11:48 BMI result Body Mass Index 25.4 Gen: mild resp distress HEENT: sclera anicteric, moist mucus membranes Neck: supple Lungs: diminished bilaterally Heart: regular rate and rhythm, no murmurs Abd: soft, non-tender, non-distended Ext: no edema Skin: warm/well-perfused Neuro: alert and oriented x3, no focal findings Psych: appropriate affect Objective Data Active Medications Acetaminophen (Acetaminophen 325 Mg Tablet) 650 mg PO Q6H PRN PRN Reason: Pain, Mild (Pain Scale 1-3) Last Admin: 08/31/21 11:58 Dose: 650 mg Documented by: LEYLA Albuterol Sulfate (Albuterol Sulfate (0.083%) 2.5 Mg/3 Ml Vial.Neb) 2.5 mg INHALE Q2H PRN PRN Reason: shortness of breath/wheeze Albuterol/Ipratropium (Albuterol/Iprat 2.5/0.5mg 3 Ml Ampul.Neb) 3 ml INHALE RQ4H WHILE AWAKE [facility] Last Admin: 09/08/21 15:02 Dose: 3 ml Documented by: ERIN Aspirin (Aspirin 81 Mg Tab.Chew) 81 mg PO DAILY [facility] Last Admin: 09/08/21 08:38 Dose: 81 mg Documented by: CARLITO Atorvastatin Calcium (Atorvastatin Calcium 40 Mg Tablet) 40 mg PO DAILY [facility] Last Admin: 09/08/21 08:37 Dose: 40 mg Documented by: CARLITO Dexamethasone Sodium Phosphate (Dexamethasone Sod Phosphate 4 Mg/Ml Vial) 6 mg IVPUSH DAILY [facility] Last Admin: 09/08/21 08:37 Dose: 6 mg Documented by: CARLITO Dextrose (Dextrose 50 % 25 Gm/50 Ml Syringe) 25 gm IVPUSH Q15M PRN; Protocol PRN Reason: per Hypoglycemia Standing Ord. Last Admin: 09/07/21 07:43 Dose: 25 gm Documented by: BRITANY Dextrose (Dextrose 50 % 25 Gm/50 Ml Syringe) 25 gm IVPUSH Q15M PRN; Protocol PRN Reason: per Hypoglycemia Standing Ord. Diltiazem HCl (Diltiazem Hcl Cd 240 Mg Cap.Er.Deg) 240 mg PO DAILY [facility]; Protocol Last Admin: 09/08/21 08:37 Dose: 240 mg Documented by: CARLITO Docusate Sodium (Docusate Sodium 100 Mg Capsule) 100 mg PO DAILY PRN PRN Reason: Constipation Escitalopram Oxalate (Escitalopram Oxalate 5 Mg Tablet) 5 mg PO DAILY [facility] Last Admin: 09/08/21 08:37 Dose: 5 mg Documented by: CARLITO Furosemide (Furosemide 40 Mg/4 Ml Vial) 40 mg IVPUSH BID@0900,1800 [facility]; Protocol Last Admin: 09/08/21 08:37 Dose: 40 mg Documented by: CARLITO Glucose (Glucose Gel 15 Gm Gel..Gram.) 15 gm PO Q15M PRN; Protocol PRN Reason: per Hypoglycemia Standing Ord. Last Admin: 09/07/21 07:43 Dose: 15 gm Documented by: BRITANY Glucose (Glucose Gel 15 Gm Gel..Gram.) 15 gm PO Q15M PRN; Protocol PRN Reason: per Hypoglycemia Standing Ord. Insulin Human Lispro (Insulin Lispro 100 Unit/Ml 3 Ml Vial) 0 unit SUBCUT QIDACHS [facility]; Protocol Last Admin: 09/08/21 12:43 Dose: 6 unit Documented by: CARLITO Lidocaine (Lidocaine 4 % Patch Adh..Patch) 1 patch TRANSDERMA DAILY [facility]; Protocol Last Admin: 09/08/21 08:38 Dose: 1 patch Documented by: CARLITO Ondansetron HCl (Ondansetron Hcl 4 Mg/2 Ml Vial) 4 mg IVPUSH Q8H PRN PRN Reason: Nausea and Vomiting Polyethylene Glycol (Polyethylene Glycol 3350 17 Gm Powd.Pack) 17 gm PO DAILY [facility] Last Admin: 09/08/21 08:38 Dose: 17 gm Documented by: CARLITO Rivaroxaban (Rivaroxaban 15 Mg Tablet) 15 mg PO DAILY [facility] Last Admin: 09/08/21 08:37 Dose: 15 mg Documented by: CARLITO Sodium Chloride (0.9 % Sodium Chloride Flush 3 Ml Syringe) 3 ml IVFLUSH QSHIFT [facility] Last Admin: 09/08/21 08:38 Dose: 3 ml Documented by: CARLITO Labs CBC & Chem 7: 09/08/21 06:42 09/08/21 06:41 Labs: Laboratory Results - last 24 hr 09/07/21 09/07/21 09/08/21 16:11 19:39 06:41 MCV MCH MCHC RDW Plt Count MPV Immature Gran % (Auto) Neut % (Auto) Lymph % (Auto) [place] % (Auto) Eos % (Auto) Baso % (Auto) Lymph # (Auto) [place] # (Auto) Eos # (Auto) Baso # (Auto) Abs Immat Gran (auto) Absolute Neuts (auto) Absolute Nucleated RBC Nucleated RBC % (auto) Anion Gap 13 Estim Creat Clear Calc 27.3 Estimated GFR 36 POC Glucose 297 H 305 H Fasting Glucose 220 H Calcium 8.2 L Magnesium 2.0 Total Bilirubin 0.4 AST 13 ALT 12 Alkaline Phosphatase 103 B-Natriuretic Peptide Total Protein 4.7 L Albumin 2.4 L Procalcitonin 09/08/21 09/08/21 09/08/21 06:41 06:41 06:42 MCV 97.5 MCH 30.7 MCHC 31.5 RDW 15.9 Plt Count 571 H D MPV 10.1 Immature Gran % (Auto) 1.4 H Neut % (Auto) 89.2 H Lymph % (Auto) 3.9 L [place] % (Auto) 5.4 Eos % (Auto) 0.0 Baso % (Auto) 0.1 Lymph # (Auto) 0.9 L [place] # (Auto) 1.2 Eos # (Auto) 0.0 Baso # (Auto) 0.0 Abs Immat Gran (auto) 0.31 H Absolute Neuts (auto) 19.7 H Absolute Nucleated RBC 0.000 Nucleated RBC % (auto) 0.0 Anion Gap Estim Creat Clear Calc Estimated GFR POC Glucose Fasting Glucose Calcium Magnesium Total Bilirubin AST ALT Alkaline Phosphatase B-Natriuretic Peptide 219 H Total Protein Albumin Procalcitonin 0.04 09/08/21 09/08/21 07:30 11:09 MCV MCH MCHC RDW Plt Count MPV Immature Gran % (Auto) Neut % (Auto) Lymph % (Auto) [place] % (Auto) Eos % (Auto) Baso % (Auto) Lymph # (Auto) [place] # (Auto) Eos # (Auto) Baso # (Auto) Abs Immat Gran (auto) Absolute Neuts (auto) Absolute Nucleated RBC Nucleated RBC % (auto) Anion Gap Estim Creat Clear Calc Estimated GFR POC Glucose 195 H 246 H Fasting Glucose Calcium Magnesium Total Bilirubin AST ALT Alkaline Phosphatase B-Natriuretic Peptide Total Protein Albumin Procalcitonin Assessment and Plan (1) Acute and chronic respiratory failure with hypoxia: Status: Acute (2) Pneumonia: Status: Acute (3) COVID-19: Status: Acute Plan hospital d#[id number] 81yo F recently [08/14/20] admitted to [facility] for STR for encephalopathy + t horacic compression fracture, tested positive for Covid-19 08/18/21, brought in with increased confusion + PNA + hypoxia due to Covid-19 + bacterial pneumonia # acute/chronic hypoxic respiratory failure - CT chest, pulmonology consult - wean O2 as tolerated # COPD exacerbation - completed dexamethasone- will give IV methlyprednisolone; continue standing/prn nebs; pulmonology consult # ? CHF - diuresed with IV furosemide- hold given worsening SCr. Cardiology consulted, TTE pending # Tn-I indeterminate - delta <50%; ASA + atorvastatin; TTE # HCAP - completed 7d of vanc + pip/justice + PCT + CRP are low. BCx negative # Covid-19 pneumonia - completed 10d of dexamethasone; no remdesivir given duration of Covid-19, no baricitinib due to concern of bacterial pneumonia # encephalopathy secondary to infection - treat infection as above # pAF - continue rivaroxaban, diltiazem # DM2, A1c 9.3 - correciton-dose lispro; d/c'ed Lantus due to hypoglycemia # mood disorder - escitalopram # VTE ppx - rivaroxaban Quality Stroke Does the patient have a stroke diagnosis?: No VTE Prior VTE?: Yes VTE Risk Level:: Medical - moderate - high VTE Device Contraindication: Treatment Not Indicated VTE Drug Contraindication: N/A - Med Ordered
[2021-09-08 16:00] LABS: C Reactive Protein 0.08 mg/dL (< or = 0.50)
[2021-09-08 16:16] LABS: Glucose, Whole Blood 223 mg/dL (60-115)
[2021-09-08] MEDS: Omeprazole 20 MG CAPSULE.DR PO (16:52)
[2021-09-08] MEDS: methylPREDNISolone Sod Succ 40 MG/ML VIAL IVPUSH (16:52)
[2021-09-08 20:11] LABS: Glucose, Whole Blood 242 mg/dL (60-115)
[2021-09-09] VITALS (9 sets, daily range): BP systolic 140–157; BP diastolic 47–68; PULSE 71–80; RESP 20–24; TEMP 36.4–36.8; O2SAT 91–97
[2021-09-09] MEDS: methylPREDNISolone Sod Succ 40 MG/ML VIAL IVPUSH ×2 (01:00→10:54)
[2021-09-09] MEDS: Omeprazole 20 MG CAPSULE.DR PO ×2 (06:28→17:04)
[2021-09-09 06:51] LABS: Hemoglobin 9.4 g/dl (12.0-16.0); Mean Corpuscular HGB Conc 30.3 g/dl (31.0-35.0); Mean Corpuscular Hemoglobin 30.8 pg (27.0-33.0); Mean Corpuscular Volume 101.6 fL (80.0-98.0); Mean Platelet Volume 10.4 fL (9.4-12.3); Platelet Count 544 X10*3/uL (160-400); Red Blood Count 3.05 X10*6/uL (4.20-5.50); Red Cell Distribution Width 16.4 % (11.0-16.0); White Blood Count 24.7 X10*3/uL (4.8-10.8)
[2021-09-09 07:09] LABS: B Type Natriuretic Peptide 295 pg/mL (<100)
[2021-09-09 07:39] LABS: Glucose, Whole Blood 291 mg/dL (60-115)
[2021-09-09] MEDS: 0.9 % Sodium Chloride Flush 3 ML SYRINGE IVFLUSH ×3 (08:09→21:31)
[2021-09-09] MEDS: Insulin Lispro 100 UNIT/ML 3 ML VIAL SUBCUT ×4 (08:09→21:30)
[2021-09-09] MEDS: Albuterol/Iprat 2.5/0.5MG 3 ML AMPUL.NEB INHALE ×3 (09:51→19:06)
[2021-09-09 09:57] LABS: Anion Gap 19 (12-20); Blood Urea Nitrogen 64 mg/dL (9-16); Carbon Dioxide 20 mmol/L (22-29); Chloride 111 mmol/L (96-108); Creatinine Clr Calc Pharmacy 21.3; Estimated Glomerular Filt Rate 27; Glucose Random 316 mg/dL (60-115); Magnesium 2.2 mg/dL (1.6-2.6); Potassium 4.7 mmol/L (3.3-5.1); Sodium 145 mmol/L (135-145)
[2021-09-09] MEDS: Lidocaine 4 % Patch ADH..PATCH 1 PATCH TRANSDERMA (10:52)
[2021-09-09] MEDS: Aspirin 81 MG TAB.CHEW PO (10:53)
[2021-09-09] MEDS: dilTIAZem HCL CD 240 MG CAP.ER.DEG PO (10:54)
[2021-09-09] MEDS: Escitalopram Oxalate 5 MG TABLET PO (10:54)
[2021-09-09] MEDS: Atorvastatin Calcium 40 MG TABLET PO (10:54)
[2021-09-09] MEDS: Rivaroxaban 15 MG TABLET PO (10:54)
[2021-09-09] MEDS: polyethylene glycoL 3350 17 GM POWD.PACK PO (10:54)
[2021-09-09 11:36] LABS: Glucose, Whole Blood 337 mg/dL (60-115)
--- NOTE | 2021-09-09 12:22 | P.CONPL_ITS ---
History of Present Illness History of Present Illness Consult date: 09/09/21 Reason for consult: COPD, hypoxemia and pneumonia Chief complaint: Hypoxic respiratory failure Narrative: I am seeing this 81 years old female for pulmonary consultation. She has been admitted from a rehab facility 11 days ago, with increased confusion, shortness of breath, and marked generalized weakness. This patient has long-standing history of smoking, COPD, use of narcotic meds fo r chronic back pain, diabetes mellitus, chronic stasis edema of the legs, And she remains relatively immobile while in her house. A few weeks ago she had severe back pain and evaluation in the emergency room revealed compression fracture of T12, thus she was sent to the rehab facility. So currently she is being admitted from a healthcare facility. As noted in the records the fairly she did have a chest x-ray at the rehab facility showing some infiltrate , and as patient developed more hypoxemia and confusion she was sent to the hospital for admission his. At the time of admission her recur COVID 19 test positive for COVID 19 antibody, indicating that she may have had COVID pneumonia at some point, or it may be due to COVID vaccine. Anyway she has been treated with a course of dexamethasone, and did not require antiviral meds . Her past to records the indicated that she does have chronic leukocytosis, as she has had splenectomy in the past. CT scan of the chest on admission negative for pulmonary embolism, does show infiltrate in the right lower lobe, suggesting pneumonia, and in addition she has bibasilar atelectasis, Currently patient is the oxygenating well with nasal cannula 2 L/minute. Review of Systems Review of Systems: Yes Unobtainable due to mental condition PMFSH Past Medical History Medical History COPD (chronic obstructive pulmonary disease) Decreased hearing of both ears Fecal impaction History of DVT (deep vein thrombosis) IDDM (insulin dependent diabetes mellitus) Leukocytosis Lymphedema Osteoporosis with pathological fracture Right lumbosacral radiculopathy Smoker Thrombocytosis after splenectomy Family History Family History Father No problems noted. Mother No problems noted. Family history: reviewed and not pertinent Surgical History Surgical History H/O splenectomy History of section S/P LILI-BSO (total abdominal hysterectomy and bilateral salpingo-oophorectomy) Social History Social History Household Members: Other Housing: Other Housing Other:: nsg home Unable to assess alcohol history related to: Unable to respond Alcohol intake: never Patient Tobacco Use Status: Former Tobacco user Tobacco use type: Cigarette Cigarettes Per Day: 3 e-Cigarette/Vaping Use: Never Used Second Hand Smoke Exposure: No Advance Directives Date on File: 08/10/21 service: No Current occupational status: disabled Cognitive needs: Yes (wheelchair) Hearing needs: No Vision needs: No Meds Allergies Allergy/AdvReac Type Severity Reaction Status Date / Time No Known Allergies Allergy Unknown Verified 08/10/21 02:22 Active Medications: Current Medications Acetaminophen (Acetaminophen 325 Mg Tablet) 650 mg PO Q6H PRN PRN Reason: Pain, Mild (Pain Scale 1-3) Last Admin: 08/31/21 11:58 Dose: 650 mg Documented by: Albuterol Sulfate (Albuterol Sulfate (0.083%) 2.5 Mg/3 Ml Vial.Neb) 2.5 mg INHALE Q2H PRN PRN Reason: shortness of breath/wheeze Albuterol/Ipratropium (Albuterol/Iprat 2.5/0.5mg 3 Ml Ampul.Neb) 3 ml INHALE RQ4H WHILE AWAKE [facility] Last Admin: 09/09/21 09:51 Dose: 3 ml Documented by: Aspirin (Aspirin 81 Mg Tab.Chew) 81 mg PO DAILY [facility] Last Admin: 09/09/21 10:53 Dose: 81 mg Documented by: Atorvastatin Calcium (Atorvastatin Calcium 40 Mg Tablet) 40 mg PO DAILY [facility] Last Admin: 09/09/21 10:54 Dose: 40 mg Documented by: Dextrose (Dextrose 50 % 25 Gm/50 Ml Syringe) 25 gm IVPUSH Q15M PRN; Protocol PRN Reason: per Hypoglycemia Standing Ord. Last Admin: 09/07/21 07:43 Dose: 25 gm Documented by: Dextrose (Dextrose 50 % 25 Gm/50 Ml Syringe) 25 gm IVPUSH Q15M PRN; Protocol PRN Reason: per Hypoglycemia Standing Ord. Diltiazem HCl (Diltiazem Hcl Cd 240 Mg Cap.Er.Deg) 240 mg PO DAILY [facility]; Protocol Last Admin: 09/09/21 10:54 Dose: 240 mg Documented by: Docusate Sodium (Docusate Sodium 100 Mg Capsule) 100 mg PO DAILY PRN PRN Reason: Constipation Escitalopram Oxalate (Escitalopram Oxalate 5 Mg Tablet) 5 mg PO DAILY [facility] Last Admin: 09/09/21 10:54 Dose: 5 mg Documented by: Glucose (Glucose Gel 15 Gm Gel..Gram.) 15 gm PO Q15M PRN; Protocol PRN Reason: per Hypoglycemia Standing Ord. Last Admin: 09/07/21 07:43 Dose: 15 gm Documented by: Glucose (Glucose Gel 15 Gm Gel..Gram.) 15 gm PO Q15M PRN; Protocol PRN Reason: per Hypoglycemia Standing Ord. Insulin Human Lispro (Insulin Lispro 100 Unit/Ml 3 Ml Vial) 0 unit SUBCUT QIDACHS [facility]; Protocol Last Admin: 09/09/21 11:56 Dose: 10 unit Documented by: Lidocaine (Lidocaine 4 % Patch Adh..Patch) 1 patch TRANSDERMA DAILY [facility]; Protocol Last Admin: 09/09/21 10:52 Dose: 1 patch Documented by: Methylprednisolone Sodium Succinate (Methylprednisolone Sod Succ 40 Mg/Ml Vial) 40 mg IVPUSH Q8H [facility] Last Admin: 09/09/21 10:54 Dose: 40 mg Documented by: Omeprazole (Omeprazole 20 Mg Capsule.) 20 mg PO BID@0630,1630 [facility] Last Admin: 09/09/21 06:28 Dose: 20 mg Documented by: Ondansetron HCl (Ondansetron Hcl 4 Mg/2 Ml Vial) 4 mg IVPUSH Q8H PRN PRN Reason: Nausea and Vomiting Polyethylene Glycol (Polyethylene Glycol 3350 17 Gm Powd.Pack) 17 gm PO DAILY [facility] Last Admin: 09/09/21 10:54 Dose: 17 gm Documented by: Rivaroxaban (Rivaroxaban 15 Mg Tablet) 15 mg PO DAILY [facility] Last Admin: 09/09/21 10:54 Dose: 15 mg Documented by: Sodium Chloride (0.9 % Sodium Chloride Flush 3 Ml Syringe) 3 ml IVFLUSH QSHIFT [facility] Last Admin: 09/09/21 08:09 Dose: 3 ml Documented by: Home Medications Medication Instructions Recorded Confirmed Last Taken Type insulin aspart U-100 100 unit/mL 0 sliding scale dose SUBCUT TIDAC 08/10/21 08/29/21 Unknown History (3 mL) subcutaneous pen (Novolog Flexpen U-100 Insulin aspart) insulin glargine 100 unit/mL (3 10 unit SUBCUT BEDTIME 08/10/21 08/29/21 Unknown History mL) subcutaneous pen lidocaine 4 % topical patch 1 patch TOPICAL DAILY 08/18/21 08/29/21 Unknown History diltiazem HCl 240 mg capsule,24 240 mg PO DAILY 08/29/21 08/29/21 Unknown History hr,extended release spironolactone 25 mg tablet 1 tab PO DAILY 08/29/21 08/29/21 Unknown History Physical Exam Vital Signs: Vital Signs: Last Vital Signs Temp 97.9 F 09/09/21 12:00 Pulse 77 09/09/21 12:00 Resp 20 09/09/21 12:00 BP 145/59 H 09/09/21 12:00 Pulse Ox 91 L 09/09/21 12:00 BMI result Body Mass Index 25.4 Const: General: comfortable, no acute distress, alert and awake Orientation/consciousness: oriented to person, No oriented to place and No duy ented to time HENMT: Head: Yes normal to inspection General nose exam: No nasal polyps present and No nasal discharge present Face and sinus: Yes sinuses nontender Mouth: oropharynx normal Throat: Yes posterior oropharynx normal Eyes: General: appearance normal, both eyes and all related structures Neck: Neck: Yes normal visual inspection, Yes no lymphadenopathy, Yes trachea midline and Yes no JVD Thyroid: Thyroid normal Chest: Chest palpation & inspection: normal inspection of the chest, normal palpation of entire chest wall and no tenderness Resp: Other: Percussion note is resonant, Breath sounds are distant on both sides with prolonged expiratory phase, Coarse inspiratory crepitations are heard over right lower lobe on left base. No wheezes are heard. Cardio: Palpation: normal PMI Rate: regular rate Rhythm: regular rhythm Heart sounds: no gallops and Murmur heart sound present GI: Palpation (GI): Soft to palpation, nontender, No hepatosplenomegaly present and no masses Auscultation: normal bowel sounds Back/Spine/Pelvis: Other: Not examine Skin: General skin exam: no rashes or lesions noted Neuro: General: oriented to person, No oriented to place, No oriented to time, No gait normal (Patient is the a mobile and mostly in bed) and no focal motor deficits Cognition (Neuro): abnormal cognition (Slow) Extrem: General: Yes normal to inspection, Yes no calf tenderness, Yes edema (Minimal around the ankle) and Yes muscle atrophy Psych: Other: Patient to is quiet but to when I started conversation with her she did talk slowly and she was able to recognize me. Results Laboratory Findings CBC and BMP: 09/09/21 06:33 09/09/21 08:55 ABG, PT/INR, D-dimer: PT/INR, D-dimer PT 12.6 SEC (9.9-13.0) 08/29/21 16:57 INR 1.1 (0.9-1.1) 08/29/21 16:57 Abnormal lab findings: Abnormal Labs 08/29/21 08/29/21 08/29/21 16:54 16:56 16:56 WBC RBC Hgb Hct MCV MCHC RDW Plt Count Immature Gran % (Auto) Neut % (Auto) Lymph % (Auto) Lymph # (Auto) Pepin # (Auto) Abs Immat Gran (auto) Absolute Neuts (auto) Absolute Nucleated RBC APTT ABG pO2 at Pt Temp ABG HCO3 Sodium Potassium Chloride Carbon Dioxide Anion Gap BUN Creatinine POC Glucose Random Glucose Fasting Glucose Lactic Acid 2.1 H* Lactic Acid F/U @ 2Hr Lactic Acid F/U @ 4Hr Calcium Ferritin Alkaline Phosphatase Lactate Dehydrogenase Troponin I High Sens 25.0 H C-Reactive Protein B-Natriuretic Peptide 193 H Total Protein Albumin Urine Protein Urine Glucose (UA) Urine Blood Urine WBC Nasal S. aureus Screen Vancomycin Trough COVID-19 (DOUG) Positive A 08/29/21 08/29/21 08/29/21 16:57 16:57 17:41 WBC 21.7 H RBC 3.46 L Hgb 10.8 L Hct 33.8 L MCV MCHC RDW Plt Count 729 H Immature Gran % (Auto) 0.9 H Neut % (Auto) 90.1 H Lymph % (Auto) 3.9 L Lymph # (Auto) 0.9 L Pepin # (Auto) Abs Immat Gran (auto) 0.19 H Absolute Neuts (auto) 19.5 H Absolute Nucleated RBC 0.020 H APTT 40.8 H ABG pO2 at Pt Temp ABG HCO3 Sodium 146 H Potassium Chloride 111 H Carbon Dioxide Anion Gap BUN 61 H Creatinine POC Glucose Random Glucose Fasting Glucose Lactic Acid Lactic Acid F/U @ 2Hr Lactic Acid F/U @ 4Hr Calcium Ferritin Alkaline Phosphatase 144 H D Lactate Dehydrogenase Troponin I High Sens C-Reactive Protein B-Natriuretic Peptide Total Protein Albumin 3.1 L Urine Protein Urine Glucose (UA) Urine Blood Urine WBC Nasal S. aureus Screen Vancomycin Trough COVID-19 (DOUG) 08/29/21 08/29/21 08/29/21 20:22 20:22 20:42 WBC RBC Hgb Hct MCV MCHC RDW Plt Count Immature Gran % (Auto) Neut % (Auto) Lymph % (Auto) Lymph # (Auto) Pepin # (Auto) Abs Immat Gran (auto) Absolute Neuts (auto) Absolute Nucleated RBC APTT ABG pO2 at Pt Temp ABG HCO3 Sodium Potassium Chloride Carbon Dioxide Anion Gap BUN Creatinine POC Glucose Random Glucose Fasting Glucose Lactic Acid Lactic Acid F/U @ 2Hr 3.2 H* Lactic Acid F/U @ 4Hr Calcium Ferritin Alkaline Phosphatase Lactate Dehydrogenase Troponin I High Sens 26.1 H C-Reactive Protein B-Natriuretic Peptide Total Protein Albumin Urine Protein 3+ H Urine Glucose (UA) 100 H Urine Blood 3+ H Urine WBC 15-29 H Nasal S. aureus Screen Vancomycin Trough COVID-19 ([facility]OUG) 08/29/21 08/30/21 08/30/21 22:48 06:29 07:16 WBC RBC Hgb Hct MCV MCHC RDW Plt Count Immature Gran % (Auto) Neut % (Auto) Lymph % (Auto) Lymph # (Auto) Pepin # (Auto) Abs Immat Gran (auto) Absolute Neuts (auto) Absolute Nucleated RBC APTT ABG pO2 at Pt Temp 82 L ABG HCO3 20 L Sodium Potassium Chloride Carbon Dioxide Anion Gap BUN Creatinine POC Glucose 402 H* Random Glucose Fasting Glucose Lactic Acid Lactic Acid F/U @ 2Hr Lactic Acid F/U @ 4Hr 2.3 H* Calcium Ferritin Alkaline Phosphatase Lactate Dehydrogenase Troponin I High Sens C-Reactive Protein B-Natriuretic Peptide Total Protein Albumin Urine Protein Urine Glucose (UA) Urine Blood Urine WBC Nasal S. aureus Screen Vancomycin Trough COVID-19 ([facility]G) 08/30/21 08/30/21 08/30/21 07:29 07:29 07:29 WBC 15.8 H RBC 2.85 L Hgb 8.6 L D Hct 28.1 L MCV 98.6 H MCHC 30.6 L RDW Plt Count 611 H Immature Gran % (Auto) 1.1 H Neut % (Auto) 90.6 H Lymph % (Auto) 4.6 L Lymph # (Auto) 0.7 L Pepin # (Auto) Abs Immat Gran (auto) 0.17 H Absolute Neuts (auto) 14.3 H Absolute Nucleated RBC 0.020 H APTT ABG pO2 at Pt Temp ABG HCO3 Sodium Potassium 5.3 H D Chloride 111 H Carbon Dioxide 20 L Anion Gap BUN 64 H Creatinine 1.43 H POC Glucose Random Glucose 454 H* D Fasting Glucose Lactic Acid Lactic Acid F/U @ 2Hr Lactic Acid F/U @ 4Hr Calcium 8.0 L D Ferritin 502 H Alkaline Phosphatase Lactate Dehydrogenase 368 H Troponin I High Sens 24.4 H C-Reactive Protein 1.14 H B-Natriuretic Peptide Total Protein Albumin Urine Protein Urine Glucose (UA) Urine Blood Urine WBC Nasal S. aureus Screen Vancomycin Trough COVID-19 (D[facility]G) 08/30/21 08/30/21 08/30/21 07:57 11:30 16:07 WBC RBC Hgb Hct MCV MCHC RDW Plt Count Immature Gran % (Auto) Neut % (Auto) Lymph % (Auto) Lymph # (Auto) Pepin # (Auto) Abs Immat Gran (auto) Absolute Neuts (auto) Absolute Nucleated RBC APTT ABG pO2 at Pt Temp ABG HCO3 Sodium Potassium Chloride Carbon Dioxide Anion Gap BUN Creatinine POC Glucose 437 H* 323 H Random Glucose Fasting Glucose Lactic Acid Lactic Acid F/U @ 2Hr Lactic Acid F/U @ 4Hr Calcium Ferritin Alkaline Phosphatase Lactate Dehydrogenase Troponin I High Sens C-Reactive Protein B-Natriuretic Peptide Total Protein Albumin Urine Protein Urine Glucose (UA) Urine Blood Urine WBC Nasal S. aureus Screen POSITIVE A Vancomycin Trough COVID-19 ([facility]G) 08/30/21 08/30/21 08/31/21 16:16 20:01 06:24 WBC 29.6 H RBC 2.74 L Hgb 8.4 L Hct 26.6 L MCV MCHC RDW Plt Count 612 H Immature Gran % (Auto) Neut % (Auto) Lymph % (Auto) Lymph # (Auto) Pepin # (Auto) Abs Immat Gran (auto) Absolute Neuts (auto) Absolute Nucleated RBC 0.020 H APTT ABG pO2 at Pt Temp ABG HCO3 Sodium Potassium Chloride Carbon Dioxide Anion Gap BUN Creatinine POC Glucose 231 H 164 H Random Glucose Fasting Glucose Lactic Acid Lactic Acid F/U @ 2Hr Lactic Acid F/U @ 4Hr Calcium Ferritin Alkaline Phosphatase Lactate Dehydrogenase Troponin I High Sens C-Reactive Protein B-Natriuretic Peptide Total Protein Albumin Urine Protein Urine Glucose (UA) Urine Blood Urine WBC Nasal S. aureus Screen Vancomycin Trough COVID-19 ([facility]G) 08/31/21 08/31/21 08/31/21 06:24 07:20 08:53 WBC RBC Hgb Hct MCV MCHC RDW Plt Count Immature Gran % (Auto) Neut % (Auto) Lymph % (Auto) Lymph # (Auto) Pepin # (Auto) Abs Immat Gran (auto) Absolute Neuts (auto) Absolute Nucleated RBC APTT ABG pO2 at Pt Temp ABG HCO3 Sodium 147 H Potassium Chloride 114 H Carbon Dioxide Anion Gap 11 L BUN 56 H Creatinine POC Glucose 283 H 423 H* Random Glucose 255 H Fasting Glucose Lactic Acid Lactic Acid F/U @ 2Hr Lactic Acid F/U @ 4Hr Calcium Ferritin Alkaline Phosphatase Lactate Dehydrogenase Troponin I High Sens C-Reactive Protein B-Natriuretic Peptide Total Protein Albumin Urine Protein Urine Glucose (UA) Urine Blood Urine WBC Nasal S. aureus Screen Vancomycin Trough COVID-19 ([facility]G) 08/31/21 08/31/21 08/31/21 11:19 16:36 20:31 WBC RBC Hgb Hct MCV MCHC RDW Plt Count Immature Gran % (Auto) Neut % (Auto) Lymph % (Auto) Lymph # (Auto) Pepin # (Auto) Abs Immat Gran (auto) Absolute Neuts (auto) Absolute Nucleated RBC APTT ABG pO2 at Pt Temp ABG HCO3 Sodium Potassium Chloride Carbon Dioxide Anion Gap BUN Creatinine POC Glucose 347 H 150 H 169 H Random Glucose Fasting Glucose Lactic Acid Lactic Acid F/U @ 2Hr Lactic Acid F/U @ 4Hr Calcium Ferritin Alkaline Phosphatase Lactate Dehydrogenase Troponin I High Sens C-Reactive Protein B-Natriuretic Peptide Total Protein Albumin Urine Protein Urine Glucose (UA) Urine Blood Urine WBC Nasal S. aureus Screen Vancomycin Trough COVID-19 ([facility]G) 09/01/21 09/01/21 09/01/21 06:39 06:39 06:39 WBC 26.6 H RBC 3.14 L Hgb 9.6 L Hct 30.8 L MCV 98.1 H MCHC RDW Plt Count 673 H Immature Gran % (Auto) 1.2 H Neut % (Auto) 90.2 H Lymph % (Auto) 4.4 L Lymph # (Auto) Pepin # (Auto) Abs Immat Gran (auto) 0.31 H Absolute Neuts (auto) 24.0 H Absolute Nucleated RBC 0.020 H APTT ABG pO2 at Pt Temp ABG HCO3 Sodium 146 H Potassium Chloride 112 H Carbon Dioxide Anion Gap 11 L BUN 46 H Creatinine POC Glucose Random Glucose Fasting Glucose 212 H Lactic Acid Lactic Acid F/U @ 2Hr Lactic Acid F/U @ 4Hr Calcium Ferritin Alkaline Phosphatase Lactate Dehydrogenase Troponin I High Sens C-Reactive Protein B-Natriuretic Peptide Total Protein 5.5 L Albumin 2.6 L Urine Protein Urine Glucose (UA) Urine Blood Urine WBC Nasal S. aureus Screen Vancomycin Trough 9.5 L COVID-19 ([facility]G) 09/01/21 09/01/21 09/01/21 07:17 11:19 15:58 WBC RBC Hgb Hct MCV MCHC RDW Plt Count Immature Gran % (Auto) Neut % (Auto) Lymph % (Auto) Lymph # (Auto) Pepin # (Auto) Abs Immat Gran (auto) Absolute Neuts (auto) Absolute Nucleated RBC APTT ABG pO2 at Pt Temp ABG HCO3 Sodium Potassium Chloride Carbon Dioxide Anion Gap BUN Creatinine POC Glucose 214 H 284 H 160 H Random Glucose Fasting Glucose Lactic Acid Lactic Acid F/U @ 2Hr Lactic Acid F/U @ 4Hr Calcium Ferritin Alkaline Phosphatase Lactate Dehydrogenase Troponin I High Sens C-Reactive Protein B-Natriuretic Peptide Total Protein Albumin Urine Protein Urine Glucose (UA) Urine Blood Urine WBC Nasal S. aureus Screen Vancomycin Trough COVID-19 ([facility]) 09/01/21 09/02/21 09/02/21 19:38 06:38 06:38 WBC 29.0 H RBC 3.32 L Hgb 10.2 L Hct 32.5 L MCV MCHC RDW Plt Count 610 H Immature Gran % (Auto) 1.0 H Neut % (Auto) 88.8 H Lymph % (Auto) 5.5 L Lymph # (Auto) Pepin # (Auto) 1.3 H Abs Immat Gran (auto) 0.30 H Absolute Neuts (auto) 25.7 H Absolute Nucleated RBC APTT ABG pO2 at Pt Temp ABG HCO3 Sodium 146 H Potassium Chloride 114 H Carbon Dioxide Anion Gap BUN 46 H Creatinine POC Glucose 150 H Random Glucose Fasting Glucose 145 H Lactic Acid Lactic Acid F/U @ 2Hr Lactic Acid F/U @ 4Hr Calcium Ferritin Alkaline Phosphatase Lactate Dehydrogenase Troponin I High Sens C-Reactive Protein B-Natriuretic Peptide Total Protein 5.7 L Albumin 2.5 L Urine Protein Urine Glucose (UA) Urine Blood Urine WBC Nasal S. aureus Screen Vancomycin Trough COVID-19 ([facility]) 09/02/21 09/02/21 09/02/21 07:32 11:24 16:26 WBC RBC Hgb Hct MCV MCHC RDW Plt Count Immature Gran % (Auto) Neut % (Auto) Lymph % (Auto) Lymph # (Auto) Pepin # (Auto) Abs Immat Gran (auto) Absolute Neuts (auto) Absolute Nucleated RBC APTT ABG pO2 at Pt Temp ABG HCO3 Sodium Potassium Chloride Carbon Dioxide Anion Gap BUN Creatinine POC Glucose 167 H 360 H* 273 H Random Glucose Fasting Glucose Lactic Acid Lactic Acid F/U @ 2Hr Lactic Acid F/U @ 4Hr Calcium Ferritin Alkaline Phosphatase Lactate Dehydrogenase Troponin I High Sens C-Reactive Protein B-Natriuretic Peptide Total Protein Albumin Urine Protein Urine Glucose (UA) Urine Blood Urine WBC Nasal S. aureus Screen Vancomycin Trough COVID-19 ([facility]) 09/02/21 09/03/21 09/03/21 20:37 06:09 06:09 WBC 24.9 H RBC 3.02 L Hgb 9.1 L Hct 29.5 L MCV MCHC 30.8 L RDW Plt Count 611 H Immature Gran % (Auto) 0.9 H Neut % (Auto) 89.1 H Lymph % (Auto) 5.1 L Lymph # (Auto) Pepin # (Auto) Abs Immat Gran (auto) 0.23 H Absolute Neuts (auto) 22.2 H Absolute Nucleated RBC 0.020 H APTT ABG pO2 at Pt Temp ABG HCO3 Sodium 147 H Potassium Chloride 116 H Carbon Dioxide Anion Gap BUN 45 H Creatinine POC Glucose 328 H Random Glucose Fasting Glucose 103 H Lactic Acid Lactic Acid F/U @ 2Hr Lactic Acid F/U @ 4Hr Calcium 8.1 L Ferritin Alkaline Phosphatase Lactate Dehydrogenase Troponin I High Sens C-Reactive Protein B-Natriuretic Peptide Total Protein 5.5 L Albumin 2.3 L Urine Protein Urine Glucose (UA) Urine Blood Urine WBC Nasal S. aureus Screen Vancomycin Trough COVID-19 ([facility]) 09/03/21 09/03/21 09/03/21 11:28 16:15 20:25 WBC RBC Hgb Hct MCV MCHC RDW Plt Count Immature Gran % (Auto) Neut % (Auto) Lymph % (Auto) Lymph # (Auto) Pepin # (Auto) Abs Immat Gran (auto) Absolute Neuts (auto) Absolute Nucleated RBC APTT ABG pO2 at Pt Temp ABG HCO3 Sodium Potassium Chloride Carbon Dioxide Anion Gap BUN Creatinine POC Glucose 178 H 397 H* 338 H Random Glucose Fasting Glucose Lactic Acid Lactic Acid F/U @ 2Hr Lactic Acid F/U @ 4Hr Calcium Ferritin Alkaline Phosphatase Lactate Dehydrogenase Troponin I High Sens C-Reactive Protein B-Natriuretic Peptide Total Protein Albumin Urine Protein Urine Glucose (UA) Urine Blood Urine WBC Nasal S. aureus Screen Vancomycin Trough COVID-19 ([facility]) 09/04/21 09/04/21 09/04/21 06:12 06:12 07:27 WBC 29.8 H RBC 3.35 L Hgb 10.3 L Hct 32.8 L MCV MCHC RDW Plt Count 590 H Immature Gran % (Auto) 1.5 H Neut % (Auto) 87.2 H Lymph % (Auto) 5.3 L Lymph # (Auto) Pepin # (Auto) 1.7 H Abs Immat Gran (auto) 0.44 H Absolute Neuts (auto) 26.0 H Absolute Nucleated RBC APTT ABG pO2 at Pt Temp ABG HCO3 Sodium Potassium Chloride 114 H Carbon Dioxide Anion Gap BUN 43 H Creatinine POC Glucose 148 H Random Glucose Fasting Glucose 113 H Lactic Acid Lactic Acid F/U @ 2Hr Lactic Acid F/U @ 4Hr Calcium 7.8 L Ferritin Alkaline Phosphatase Lactate Dehydrogenase Troponin I High Sens C-Reactive Protein B-Natriuretic Peptide Total Protein 5.1 L Albumin 2.3 L Urine Protein Urine Glucose (UA) Urine Blood Urine WBC Nasal S. aureus Screen Vancomycin Trough COVID-19 ([facility]) 09/04/21 09/04/21 09/04/21 11:05 16:10 20:05 WBC RBC Hgb Hct MCV MCHC RDW Plt Count Immature Gran % (Auto) Neut % (Auto) Lymph % (Auto) Lymph # (Auto) Pepin # (Auto) Abs Immat Gran (auto) Absolute Neuts (auto) Absolute Nucleated RBC APTT ABG pO2 at Pt Temp ABG HCO3 Sodium Potassium Chloride Carbon Dioxide Anion Gap BUN Creatinine POC Glucose 275 H 276 H 203 H Random Glucose Fasting Glucose Lactic Acid Lactic Acid F/U @ 2Hr Lactic Acid F/U @ 4Hr Calcium Ferritin Alkaline Phosphatase Lactate Dehydrogenase Troponin I High Sens C-Reactive Protein B-Natriuretic Peptide Total Protein Albumin Urine Protein Urine Glucose (UA) Urine Blood Urine WBC Nasal S. aureus Screen Vancomycin Trough COVID-19 ([facility]) 09/05/21 09/05/21 09/05/21 10:43 16:12 19:41 WBC RBC Hgb Hct MCV MCHC RDW Plt Count Immature Gran % (Auto) Neut % (Auto) Lymph % (Auto) Lymph # (Auto) Pepin # (Auto) Abs Immat Gran (auto) Absolute Neuts (auto) Absolute Nucleated RBC APTT ABG pO2 at Pt Temp ABG HCO3 Sodium Potassium Chloride Carbon Dioxide Anion Gap BUN Creatinine POC Glucose 202 H 200 H 230 H Random Glucose Fasting Glucose Lactic Acid Lactic Acid F/U @ 2Hr Lactic Acid F/U @ 4Hr Calcium Ferritin Alkaline Phosphatase Lactate Dehydrogenase Troponin I High Sens C-Reactive Protein B-Natriuretic Peptide Total Protein Albumin Urine Protein Urine Glucose (UA) Urine Blood Urine WBC Nasal S. aureus Screen Vancomycin Trough COVID-19 ([facility]G) 09/06/21 09/06/21 09/06/21 06:06 06:06 07:31 WBC 24.4 H RBC 3.27 L Hgb 10.2 L Hct 31.8 L MCV MCHC RDW Plt Count 533 H Immature Gran % (Auto) 1.5 H Neut % (Auto) 89.6 H Lymph % (Auto) 4.3 L Lymph # (Auto) 1.1 L Pepin # (Auto) Abs Immat Gran (auto) 0.36 H Absolute Neuts (auto) 21.8 H Absolute Nucleated RBC APTT ABG pO2 at Pt Temp ABG HCO3 Sodium Potassium Chloride 112 H Carbon Dioxide 21 L Anion Gap 11 L BUN 33 H Creatinine POC Glucose 244 H Random Glucose Fasting Glucose 222 H Lactic Acid Lactic Acid F/U @ 2Hr Lactic Acid F/U @ 4Hr Calcium 7.8 L Ferritin Alkaline Phosphatase Lactate Dehydrogenase Troponin I High Sens C-Reactive Protein B-Natriuretic Peptide Total Protein 4.6 L Albumin 2.0 L Urine Protein Urine Glucose (UA) Urine Blood Urine WBC Nasal S. aureus Screen Vancomycin Trough COVID-19 ([facility]) 09/06/21 09/06/21 09/06/21 11:30 15:53 19:46 WBC RBC Hgb Hct MCV MCHC RDW Plt Count Immature Gran % (Auto) Neut % (Auto) Lymph % (Auto) Lymph # (Auto) Pepin # (Auto) Abs Immat Gran (auto) Absolute Neuts (auto) Absolute Nucleated RBC APTT ABG pO2 at Pt Temp ABG HCO3 Sodium Potassium Chloride Carbon Dioxide Anion Gap BUN Creatinine POC Glucose 286 H 282 H 120 H Random Glucose Fasting Glucose Lactic Acid Lactic Acid F/U @ 2Hr Lactic Acid F/U @ 4Hr Calcium Ferritin Alkaline Phosphatase Lactate Dehydrogenase Troponin I High Sens C-Reactive Protein B-Natriuretic Peptide Total Protein Albumin Urine Protein Urine Glucose (UA) Urine Blood Urine WBC Nasal S. aureus Screen Vancomycin Trough COVID-19 (DOUG) 09/07/21 09/07/21 09/07/21 06:30 06:30 07:32 WBC 27.5 H RBC 3.44 L Hgb 10.6 L Hct 33.2 L MCV MCHC RDW Plt Count 455 H Immature Gran % (Auto) 2.4 H Neut % (Auto) 83.5 H Lymph % (Auto) 5.8 L Lymph # (Auto) Pepin # (Auto) 2.3 H Abs Immat Gran (auto) 0.68 H Absolute Neuts (auto) 23.3 H Absolute Nucleated RBC APTT ABG pO2 at Pt Temp ABG HCO3 Sodium Potassium Chloride 114 H Carbon Dioxide 20 L Anion Gap BUN 40 H Creatinine POC Glucose 34 L* Random Glucose Fasting Glucose 40 L* Lactic Acid Lactic Acid F/U @ 2Hr Lactic Acid F/U @ 4Hr Calcium 8.2 L Ferritin Alkaline Phosphatase Lactate Dehydrogenase Troponin I High Sens C-Reactive Protein B-Natriuretic Peptide Total Protein 4.9 L Albumin 2.2 L Urine Protein Urine Glucose (UA) Urine Blood Urine WBC Nasal S. aureus Screen Vancomycin Trough COVID-19 (DOUG) 09/07/21 09/07/21 09/07/21 07:46 11:20 11:20 WBC RBC Hgb Hct MCV MCHC RDW Plt Count Immature Gran % (Auto) Neut % (Auto) Lymph % (Auto) Lymph # (Auto) Pepin # (Auto) Abs Immat Gran (auto) Absolute Neuts (auto) Absolute Nucleated RBC APTT ABG pO2 at Pt Temp ABG HCO3 Sodium Potassium Chloride Carbon Dioxide Anion Gap BUN Creatinine POC Glucose 134 H Random Glucose Fasting Glucose Lactic Acid Lactic Acid F/U @ 2Hr Lactic Acid F/U @ 4Hr Calcium Ferritin Alkaline Phosphatase Lactate Dehydrogenase Troponin I High Sens 65.6 H* D C-Reactive Protein B-Natriuretic Peptide 403 H Total Protein Albumin Urine Protein Urine Glucose (UA) Urine Blood Urine WBC Nasal S. aureus Screen Vancomycin Trough COVID-19 (DOUG) 09/07/21 09/07/21 09/07/21 11:27 14:32 16:11 WBC RBC Hgb Hct MCV MCHC RDW Plt Count Immature Gran % (Auto) Neut % (Auto) Lymph % (Auto) Lymph # (Auto) Pepin # (Auto) Abs Immat Gran (auto) Absolute Neuts (auto) Absolute Nucleated RBC APTT ABG pO2 at Pt Temp ABG HCO3 Sodium Potassium Chloride Carbon Dioxide Anion Gap BUN Creatinine POC Glucose 217 H 297 H Random Glucose Fasting Glucose Lactic Acid Lactic Acid F/U @ 2Hr Lactic Acid F/U @ 4Hr Calcium Ferritin Alkaline Phosphatase Lactate Dehydrogenase Troponin I High Sens 45.8 H C-Reactive Protein B-Natriuretic Peptide Total Protein Albumin Urine Protein Urine Glucose (UA) Urine Blood Urine WBC Nasal S. aureus Screen Vancomycin Trough COVID-19 (DOUG) 09/07/21 09/08/21 09/08/21 19:39 06:41 06:41 WBC RBC Hgb Hct MCV MCHC RDW Plt Count Immature Gran % (Auto) Neut % (Auto) Lymph % (Auto) Lymph # (Auto) Pepin # (Auto) Abs Immat Gran (auto) Absolute Neuts (auto) Absolute Nucleated RBC APTT ABG pO2 at Pt Temp ABG HCO3 Sodium Potassium Chloride 112 H Carbon Dioxide Anion Gap BUN 48 H Creatinine 1.41 H POC Glucose 305 H Random Glucose Fasting Glucose 220 H Lactic Acid Lactic Acid F/U @ 2Hr Lactic Acid F/U @ 4Hr Calcium 8.2 L Ferritin Alkaline Phosphatase Lactate Dehydrogenase Troponin I High Sens C-Reactive Protein B-Natriuretic Peptide 219 H Total Protein 4.7 L Albumin 2.4 L Urine Protein Urine Glucose (UA) Urine Blood Urine WBC Nasal S. aureus Screen Vancomycin Trough COVID-19 (DOUG) 09/08/21 09/08/21 09/08/21 06:42 07:30 11:09 WBC 22.1 H RBC 3.22 L Hgb 9.9 L Hct 31.4 L MCV MCHC RDW Plt Count 571 H D Immature Gran % (Auto) 1.4 H Neut % (Auto) 89.2 H Lymph % (Auto) 3.9 L Lymph # (Auto) 0.9 L Pepin # (Auto) Abs Immat Gran (auto) 0.31 H Absolute Neuts (auto) 19.7 H Absolute Nucleated RBC APTT ABG pO2 at Pt Temp ABG HCO3 Sodium Potassium Chloride Carbon Dioxide Anion Gap BUN Creatinine POC Glucose 195 H 246 H Random Glucose Fasting Glucose Lactic Acid Lactic Acid F/U @ 2Hr Lactic Acid F/U @ 4Hr Calcium Ferritin Alkaline Phosphatase Lactate Dehydrogenase Troponin I High Sens C-Reactive Protein B-Natriuretic Peptide Total Protein Albumin Urine Protein Urine Glucose (UA) Urine Blood Urine WBC Nasal S. aureus Screen Vancomycin Trough COVID-19 (DOUG) 09/08/21 09/08/21 09/09/21 16:10 20:06 06:33 WBC 24.7 H RBC 3.05 L Hgb 9.4 L Hct 31.0 L MCV 101.6 H MCHC 30.3 L RDW 16.4 H Plt Count 544 H Immature Gran % (Auto) Neut % (Auto) Lymph % (Auto) Lymph # (Auto) Pepin # (Auto) Abs Immat Gran (auto) Absolute Neuts (auto) Absolute Nucleated RBC APTT ABG pO2 at Pt Temp ABG HCO3 Sodium Potassium Chloride Carbon Dioxide Anion Gap BUN Creatinine POC Glucose 223 H 242 H Random Glucose Fasting Glucose Lactic Acid Lactic Acid F/U @ 2Hr Lactic Acid F/U @ 4Hr Calcium Ferritin Alkaline Phosphatase Lactate Dehydrogenase Troponin I High Sens C-Reactive Protein B-Natriuretic Peptide Total Protein Albumin Urine Protein Urine Glucose (UA) Urine Blood Urine WBC Nasal S. aureus Screen Vancomycin Trough COVID-19 (DOUG) 09/09/21 09/09/21 09/09/21 06:33 07:31 08:55 WBC RBC Hgb Hct MCV MCHC RDW Plt Count Immature Gran % (Auto) Neut % (Auto) Lymph % (Auto) Lymph # (Auto) Pepin # (Auto) Abs Immat Gran (auto) Absolute Neuts (auto) Absolute Nucleated RBC APTT ABG pO2 at Pt Temp ABG HCO3 Sodium Potassium Chloride 111 H Carbon Dioxide 20 L Anion Gap BUN 64 H Creatinine 1.81 H POC Glucose 291 H Random Glucose 316 H Fasting Glucose Lactic Acid Lactic Acid F/U @ 2Hr Lactic Acid F/U @ 4Hr Calcium 8.0 L Ferritin Alkaline Phosphatase Lactate Dehydrogenase Troponin I High Sens C-Reactive Protein B-Natriuretic Peptide 295 H Total Protein Albumin Urine Protein Urine Glucose (UA) Urine Blood Urine WBC Nasal S. aureus Screen Vancomycin Trough COVID-19 (DOUG) 09/09/21 11:28 WBC RBC Hgb Hct MCV MCHC RDW Plt Count Immature Gran % (Auto) Neut % (Auto) Lymph % (Auto) Lymph # (Auto) Pepin # (Auto) Abs Immat Gran (auto) Absolute Neuts (auto) Absolute Nucleated RBC APTT ABG pO2 at Pt Temp ABG HCO3 Sodium Potassium Chloride Carbon Dioxide Anion Gap BUN Creatinine POC Glucose 337 H Random Glucose Fasting Glucose Lactic Acid Lactic Acid F/U @ 2Hr Lactic Acid F/U @ 4Hr Calcium Ferritin Alkaline Phosphatase Lactate Dehydrogenase Troponin I High Sens C-Reactive Protein B-Natriuretic Peptide Total Protein Albumin Urine Protein Urine Glucose (UA) Urine Blood Urine WBC Nasal S. aureus Screen Vancomycin Trough COVID-19 (DOUG) Microbiology: Microbiology 08/29/21 16:57 Blood - Venous Blood Culture - Final No growth after 5 days. 08/29/21 16:54 Blood - Venous Blood Culture - Final No growth after 5 days. 08/29/21 20:42 Urine clean catch - Urine gusman top Urine Culture - Final Escherichia coli Lactobacillus species Diagnostic Findings Chest x-ray: report reviewed and image reviewed CT scan - chest: report reviewed and image reviewed Assessment and Plan (1) COVID-19: Status: Acute (2) Pneumonia: Status: Acute (3) COPD (chronic obstructive pulmonary disease): Status: Acute (4) Thrombocytosis after splenectomy: Status: Acute (5) Leukocytosis: Status: Chronic (6) Acute and chronic respiratory failure with hypoxia: Status: Acute Plan Patient does have chronic obstructive pulmonary disease due to her lifelong smoking, At present her acute exacerbation seems to have treated well and she should be on maintenance treatment. I would suggest that we can DC IV Solu-Medrol and put her on prednisone 40 mg a day taper by 10 mg every 5 days. Oxygen supplementation as needed to keep O2 sat above 90%. She will be better of having DuoNeb updrafts Q 6 hours while awake, and p.r.n.. Tested positive for COVID-19 on admission, but retrospectively ,I do not think she had a COVID related pneumonitis. I think she had community-acquired or healthcare facility acquired pneumonia right lower lobe, which has been treated adequately. Her persistent leukocytosis is chronic and probably related to previous splenectomy/as a leukemoid reaction. Patient is markedly debilitated and D condition, and she would definitely need short term or even long-term rehab . Placement. Procedures Date of Service Date of Service: 09/09/21
--- NOTE | 2021-09-09 14:12 | P.PNIM_ITS ---
Subjective Subjective Date of Service: 09/09/21 Interval History: Dyspnea improved On 6-7L O2 via NC No chest pain Review of Systems Review of Systems: Yes all other systems are reviewed and are negative Physical Exam Vital Signs: Vital Signs: Last Vital Signs Temp 97.9 F 09/09/21 12:00 Pulse 77 09/09/21 12:00 Resp 20 09/09/21 12:00 BP 145/59 H 09/09/21 12:00 Pulse Ox 91 L 09/09/21 12:00 BMI result Body Mass Index 25.4 Gen: mild resp distress HEENT: sclera anicteric, moist mucus membranes Neck: supple Lungs: diminished bilaterally Heart: regular rate and rhythm, no murmurs Abd: soft, non-tender, non-distended Ext: no edema Skin: warm/well-perfused Neuro: alert and oriented x3, no focal findings Psych: appropriate affect Objective Data Active Medications Acetaminophen (Acetaminophen 325 Mg Tablet) 650 mg PO Q6H PRN PRN Reason: Pain, Mild (Pain Scale 1-3) Last Admin: 08/31/21 11:58 Dose: 650 mg Documented by: LEYLA Albuterol Sulfate (Albuterol Sulfate (0.083%) 2.5 Mg/3 Ml Vial.Neb) 2.5 mg INHALE Q2H PRN PRN Reason: shortness of breath/wheeze Albuterol/Ipratropium (Albuterol/Iprat 2.5/0.5mg 3 Ml Ampul.Neb) 3 ml INHALE RQ4H WHILE AWAKE [facility] Last Admin: 09/09/21 09:51 Dose: 3 ml Documented by: MAX Aspirin (Aspirin 81 Mg Tab.Chew) 81 mg PO DAILY [facility] Last Admin: 09/09/21 10:53 Dose: 81 mg Documented by: PHILLIP Atorvastatin Calcium (Atorvastatin Calcium 40 Mg Tablet) 40 mg PO DAILY [facility] Last Admin: 09/09/21 10:54 Dose: 40 mg Documented by: PHILLIP Dextrose (Dextrose 50 % 25 Gm/50 Ml Syringe) 25 gm IVPUSH Q15M PRN; Protocol PRN Reason: per Hypoglycemia Standing Ord. Last Admin: 09/07/21 07:43 Dose: 25 gm Documented by: BRITANY Dextrose (Dextrose 50 % 25 Gm/50 Ml Syringe) 25 gm IVPUSH Q15M PRN; Protocol PRN Reason: per Hypoglycemia Standing Ord. Diltiazem HCl (Diltiazem Hcl Cd 240 Mg Cap.Er.Deg) 240 mg PO DAILY [facility]; Protoco l Last Admin: 09/09/21 10:54 Dose: 240 mg Documented by: PHILLIP Docusate Sodium (Docusate Sodium 100 Mg Capsule) 100 mg PO DAILY PRN PRN Reason: Constipation Escitalopram Oxalate (Escitalopram Oxalate 5 Mg Tablet) 5 mg PO DAILY [facility] Last Admin: 09/09/21 10:54 Dose: 5 mg Documented by: PHILLIP Glucose (Glucose Gel 15 Gm Gel..Gram.) 15 gm PO Q15M PRN; Protocol PRN Reason: per Hypoglycemia Standing Ord. Last Admin: 09/07/21 07:43 Dose: 15 gm Documented by: BRITANY Glucose (Glucose Gel 15 Gm Gel..Gram.) 15 gm PO Q15M PRN; Protocol PRN Reason: per Hypoglycemia Standing Ord. Insulin Human Lispro (Insulin Lispro 100 Unit/Ml 3 Ml Vial) 0 unit SUBCUT QIDACHS [facility]; Protocol Last Admin: 09/09/21 11:56 Dose: 10 unit Documented by: PHILLIP Lidocaine (Lidocaine 4 % Patch Adh..Patch) 1 patch TRANSDERMA DAILY [facility]; Protocol Last Admin: 09/09/21 10:52 Dose: 1 patch Documented by: PHILLIP Omeprazole (Omeprazole 20 Mg Capsule.Dr) 20 mg PO BID@0630,1630 [facility] Last Admin: 09/09/21 06:28 Dose: 20 mg Documented by: PHU Ondansetron HCl (Ondansetron Hcl 4 Mg/2 Ml Vial) 4 mg IVPUSH Q8H PRN PRN Reason: Nausea and Vomiting Polyethylene Glycol (Polyethylene Glycol 3350 17 Gm Powd.Pack) 17 gm PO DAILY [facility] Last Admin: 09/09/21 10:54 Dose: 17 gm Documented by: PHILLIP Prednisone (Prednisone 20 Mg Tablet) 40 mg PO DAILY [facility] Rivaroxaban (Rivaroxaban 15 Mg Tablet) 15 mg PO DAILY [facility] Last Admin: 09/09/21 10:54 Dose: 15 mg Documented by: PHILLIP Sodium Chloride (0.9 % Sodium Chloride Flush 3 Ml Syringe) 3 ml IVFLUSH QSHIFT KATE Last Admin: 09/09/21 08:09 Dose: 3 ml Documented by: PHILLIP Labs CBC & Chem 7: 09/09/21 06:33 09/09/21 08:55 Labs: Laboratory Results - last 24 hr 09/08/21 09/08/21 09/08/21 06:41 06:41 16:10 MCV MCH MCHC RDW Plt Count MPV Absolute Nucleated RBC Nucleated RBC % (auto) Anion Gap Estim Creat Clear Calc Estimated GFR POC Glucose 223 H Random Glucose Calcium Magnesium C-Reactive Protein 0.08 B-Natriuretic Peptide Procalcitonin 0.04 09/08/21 09/09/21 09/09/21 20:06 06:33 06:33 MCV 101.6 H MCH 30.8 MCHC 30.3 L RDW 16.4 H Plt Count 544 H MPV 10.4 Absolute Nucleated RBC 0.000 Nucleated RBC % (auto) 0.0 Anion Gap Estim Creat Clear Calc Estimated GFR POC Glucose 242 H Random Glucose Calcium Magnesium C-Reactive Protein B-Natriuretic Peptide 295 H Procalcitonin 09/09/21 09/09/21 09/09/21 07:31 08:55 11:28 MCV MCH MCHC RDW Plt Count MPV Absolute Nucleated RBC Nucleated RBC % (auto) Anion Gap 19 Estim Creat Clear Calc 21.3 Estimated GFR 27 POC Glucose 291 H 337 H Random Glucose 316 H Calcium 8.0 L Magnesium 2.2 C-Reactive Protein B-Natriuretic Peptide Procalcitonin Impressions Chest CT 09/08/21 13:11 IMPRESSION: Bilateral small pleural effusions with underlying bibasilar atelectasis/infiltrate. Moderate food residue seen throughout the entire esophagus question reflux disease versus distal esophageal sphincter. Fleischner guidelines were followed. TTE 09/08/21 1. Technically difficult study due to positioning? 2.? Normal LV systolic function with moderate LVH with grade 1 ? diastolic dysfunction? 3.? Normal cardiac valvular Doppler? 4.? Normal RV systolic pressure? 5. No gross pericardial effusion ? Assessment and Plan (1) Acute and chronic respiratory failure with hypoxia: Status: Acute (2) Pneumonia: Status: Acute (3) COVID-19: Status: Acute Plan hospital d#12 81yo F recently [08/14/20] admitted to [facility] for STR for encephalopathy + thoracic compression fracture, tested positive for Covid-19 08/18/21, brought in with increased confusion + PNA + hypoxia due to Covid-19 + bacterial pneumonia # acute/chronic hypoxic respiratory failure - wean O2 as tolerated # COPD exacerbation - completed dexamethasone - pulmonology consulted; change methylprednisolone to prednisone 40 mg/d, wean by 10 mg/d every 5d - continue standing/prn nebs # acute/chronic HFpEF - diuresed with IV furosemide x1d then stopped due to worsening sCr # TONYA - likely due to diuresis- held. recheck BMP in am # Tn-I indeterminate - delta <50%; ASA + atorvastatin; TTE no WMAs. likely demand physiology # HCAP - completed 7d of vanc + pip/justice + PCT + CRP are low. BCx negative # Covid-19 pneumonia - completed 10d of dexamethasone; no remdesivir given duration of Covid-19, no baricitinib due to concern of bacterial pneumonia # encephalopathy secondary to infection - treat infection as above # pAF - continue rivaroxaban, diltiazem # DM2, A1c 9.3 - correction-dose lispro; d/c'ed Lantus due to hypoglycemia # mood disorder - escitalopram # VTE ppx - rivaroxaban # dispo - plan return to STR in next few days - check Covid-19 DOUG to see if precautions can be lifted Quality Stroke Does the patient have a stroke diagnosis?: No VTE Prior VTE?: Yes VTE Risk Level:: Medical - moderate - high VTE Device Contraindication: Treatment Not Indicated VTE Drug Contraindication: N/A - Med Ordered
[2021-09-09 14:33] LABS: COVID-19 Test Negative (Negative)
[2021-09-09 16:08] LABS: Glucose, Whole Blood 265 mg/dL (60-115)
[2021-09-09 21:03] LABS: Glucose, Whole Blood 315 mg/dL (60-115)
[2021-09-10] VITALS (11 sets, daily range): BP systolic 130–185; BP diastolic 58–83; PULSE 66–89; RESP 14–22; TEMP 36.2–36.8; O2SAT 92–98
--- NOTE | 2021-09-10 05:00 | MHC.PIE ---
P.C/O DIFF BREATHING I/PT STATING SHE HAS DIFF BREATHING,SATS 70'S ON O2 7L PRATT.O2 INCREASED TO 11L,SATS IMPROVED TO 90.RESP NOTIFIED AND UPDRAFT GIVEN WITH GOOD EFFECT.PT STATES SHE FEELS BETTER.SATS 91-92% REMAINING ON 11L PRATT CANNULA.NEXT SHIFT UPDATED. E.CONT TO MONITOR.
[2021-09-10] MEDS: Omeprazole 20 MG CAPSULE.DR PO ×2 (05:28→17:28)
[2021-09-10] MEDS: Albuterol Sulfate (0.083%) 2.5 MG/3 ML VIAL.NEB INHALE (05:28)
[2021-09-10 07:30] LABS: Glucose, Whole Blood 254 mg/dL (60-115)
[2021-09-10 07:42] LABS: Anion Gap 18 (12-20); Blood Urea Nitrogen 78 mg/dL (9-16); Calcium 7.8 mg/dL (8.4-10.2); Carbon Dioxide 18 mmol/L (22-29); Chloride 111 mmol/L (96-108); Creatinine Clr Calc Pharmacy 18.8; Estimated Glomerular Filt Rate 23; Glucose Random 276 mg/dL (60-115); Potassium 4.9 mmol/L (3.3-5.1); Sodium 142 mmol/L (135-145)
[2021-09-10] MEDS: Albuterol/Iprat 2.5/0.5MG 3 ML AMPUL.NEB INHALE ×4 (07:55→19:55)
[2021-09-10] MEDS: 0.9 % Sodium Chloride Flush 3 ML SYRINGE IVFLUSH ×3 (07:56→20:58)
[2021-09-10] MEDS: Insulin Lispro 100 UNIT/ML 3 ML VIAL SUBCUT ×4 (07:56→20:56)
[2021-09-10] MEDS: Lidocaine 4 % Patch ADH..PATCH 1 PATCH TRANSDERMA (10:18)
[2021-09-10] MEDS: Atorvastatin Calcium 40 MG TABLET PO (10:19)
[2021-09-10] MEDS: Escitalopram Oxalate 5 MG TABLET PO (10:19)
[2021-09-10] MEDS: Aspirin 81 MG TAB.CHEW PO (10:19)
[2021-09-10] MEDS: predniSONE 20 MG TABLET 40 MG PO (10:19)
[2021-09-10] MEDS: polyethylene glycoL 3350 17 GM POWD.PACK PO (10:19)
[2021-09-10] MEDS: Rivaroxaban 15 MG TABLET PO (10:19)
[2021-09-10 11:25] LABS: Glucose, Whole Blood 278 mg/dL (60-115)
--- NOTE | 2021-09-10 12:11 | CONS_ITS ---
DATE OF SERVICE: 09/10/2021 REFERRING PHYSICIAN: Ru Martin MD REASON FOR CONSULTATION: Abnormal CT scan of the esophagus. HISTORY OF PRESENT ILLNESS: The patient is a pleasant 81-year-old woman, who was admitted to the hospital on August 29, with change in mental status and found to have COVID-19 infection with pneumonia. During her hospitalization, she underwent evaluation with CT scanning of the chest, which is reviewed. This is interpreted as showing moderate food residue throughout the entire esophagus, question reflux disease versus distal esophageal stricture. The patient denies any trouble swallowing. Nursing reports that she did have trouble with 1 long-acting pill that showed some difficulty when she transferred from the oral cavity to the pharynx. Swallowing evaluation has been requested. The patient denies any problems with chronic reflux or food sticking. She is on a diabetic diet, which is reportedly being tolerated well. PAST MEDICAL HISTORY: 1. COPD. 2. Diabetes. 3. Lymphedema. 4. DVT. 5. Leukocytosis. 6. Osteoporosis. 7. Splenectomy. 8. Lumbosacral radiculopathy on the right. CURRENT MEDICATIONS: Her current medication list is reviewed in the chart. ALLERGIES: THERE ARE NONE REPORTED. FAMILY HISTORY: This is reviewed with the patient, is noncontributory. SOCIAL HISTORY: There is no current substance abuse. REVIEW OF SYSTEMS: SKIN: No pruritus. HEENT: Negative. CARDIOPULMONARY: No shortness of breath or chest pain. GASTROINTESTINAL: As above. GENITOURINARY: Negative. NEUROPSYCHIATRIC: Negative. PHYSICAL EXAMINATION: GENERAL: A pleasant female, sitting comfortably in bed. VITAL SIGNS: Reviewed in electronic medical record and are stable. SKIN: Anicteric. HEENT: No scleral icterus. NECK: Without lymphadenopathy or thyromegaly. LUNGS: Clear with decreased breath sounds bilaterally. HEART: Regular rate and rhythm. S1, S2. No murmur. ABDOMEN: Soft without focal masses or tenderness. Bowel sounds are present. No organomegaly is noted. EXTREMITIES: Do show edema. LABORATORY DATA AND CT SCANNING: Reviewed. IMPRESSION: Abnormal CT scan of the esophagus. The findings are consistent with esophageal dysmotility. At this point, the patient seems to be tolerating her diet and swallowing without difficulty with the exception of the pill as described above and swallowing evaluation is being pursued by nursing. At some point, when her condition improves and allows, I would recommend she undergo a barium swallow to assess for the degree of dysmotility and rule out lower esophageal stricture, although clinically she does not appear to have one. Thank you for asking me to see her. I will follow her in the hospital with you. MD TOÑO Rutledge/CARMELO / [phone]
--- NOTE | 2021-09-10 14:32 | P.PNIM_ITS ---
Subjective Subjective Date of Service: 09/10/21 Interval History: No acute events overnight Review of Systems Denies chest pain Admits to shortness of breath denies nausea vomiting diarrhea Physical Exam Vital Signs: Vital Signs: Last Vital Signs Temp 98.0 F 09/10/21 12:00 Pulse 72 09/10/21 12:00 Resp 16 09/10/21 12:00 BP 185/83 H 09/10/21 12:00 Pulse Ox 98 09/10/21 12:00 BMI result Body Mass Index 25.4 Const: Other: No acute distress Resp: Other: Diminished at bases with scant expiratory wheezes Cardio: Other: No S4; positive S1-S2; NO S3 IS MURMURS RUBS OR GALLOPS GI: Other: Soft nontender nondistended with normoactive bowel sounds Extrem: Other: No edema bilaterally Objective Data Active Medications Acetaminophen (Acetaminophen 325 Mg Tablet) 650 mg PO Q6H PRN PRN Reason: Pain, Mild (Pain Scale 1-3) Last Admin: 08/31/21 11:58 Dose: 650 mg Documented by: LEYLA Albuterol Sulfate (Albuterol Sulfate (0.083%) 2.5 Mg/3 Ml Vial.Neb) 2.5 mg INHALE Q2H PRN PRN Reason: shortness of breath/wheeze Last Admin: 09/10/21 05:28 Dose: 2.5 mg Documented by: UMAIR Albuterol/Ipratropium (Albuterol/Iprat 2.5/0.5mg 3 Ml Ampul.Neb) 3 ml INHALE RQ4H WHILE AWAKE [facility] Last Admin: 09/10/21 11:25 Dose: 3 ml Documented by: MAX Aspirin (Aspirin 81 Mg Tab.Chew) 81 mg PO DAILY [facility] Last Admin: 09/10/21 10:19 Dose: 81 mg Documented by: PHILLIP Atorvastatin Calcium (Atorvastatin Calcium 40 Mg Tablet) 40 mg PO DAILY [facility] Last Admin: 09/10/21 10:19 Dose: 40 mg Documented by: PHILLIP Dextrose (Dextrose 50 % 25 Gm/50 Ml Syringe) 25 gm IVPUSH Q15M PRN; Protocol PRN Reason: per Hypoglycemia Standing Ord. Last Admin: 09/07/21 07:43 Dose: 25 gm Documented by: BRITANY Dextrose (Dextrose 50 % 25 Gm/50 Ml Syringe) 25 gm IVPUSH Q15M PRN; Protocol PRN Reason: per Hypoglycemia Standing Ord. Diltiazem HCl (Diltiazem Hcl Cd 240 Mg Cap.Er.Deg) 240 mg PO DAILY [facility]; Protocol Last Admin: 09/10/21 10:17 Dose: Not Given Documented by: PHILLIP Non-Admin Reason: cannot be crushed Docusate Sodium (Docusate Sodium 100 Mg Capsule) 100 mg PO DAILY PRN PRN Reason: Constipation Escitalopram Oxalate (Escitalopram Oxalate 5 Mg Tablet) 5 mg PO DAILY [facility] Last Admin: 09/10/21 10:19 Dose: 5 mg Documented by: PHILLIP Glucose (Glucose Gel 15 Gm Gel..Gram.) 15 gm PO Q15M PRN; Protocol PRN Reason: per Hypoglycemia Standing Ord. Last Admin: 09/07/21 07:43 Dose: 15 gm Documented by: BRITANY Glucose (Glucose Gel 15 Gm Gel..Gram.) 15 gm PO Q15M PRN; Protocol PRN Reason: per Hypoglycemia Standing Ord. Insulin Human Lispro (Insulin Lispro 100 Unit/Ml 3 Ml Vial) 0 unit SUBCUT QIDACHS [facility]; Protocol Last Admin: 09/10/21 11:55 Dose: 8 unit Documented by: PHILLIP Lidocaine (Lidocaine 4 % Patch Adh..Patch) 1 patch TRANSDERMA DAILY [facility]; Protocol Last Admin: 09/10/21 10:18 Dose: 1 patch Documented by: PHILLIP Omeprazole (Omeprazole 20 Mg Capsule.Dr) 20 mg PO BID@0630,1630 [facility] Last Admin: 09/10/21 05:28 Dose: 20 mg Documented by: KAYLEIGH Ondansetron HCl (Ondansetron Hcl 4 Mg/2 Ml Vial) 4 mg IVPUSH Q8H PRN PRN Reason: Nausea and Vomiting Polyethylene Glycol (Polyethylene Glycol 3350 17 Gm Powd.Pack) 17 gm PO DAILY [facility] Last Admin: 09/10/21 10:19 Dose: 17 gm Documented by: PHILLIP Prednisone (Prednisone 20 Mg Tablet) 40 mg PO DAILY [facility] Last Admin: 09/10/21 10:19 Dose: 40 mg Documented by: PHILLIP Rivaroxaban (Rivaroxaban 15 Mg Tablet) 15 mg PO DAILY [facility] Last Admin: 09/10/21 10:19 Dose: 15 mg Documented by: PHILLIP Sodium Chloride (0.9 % Sodium Chloride Flush 3 Ml Syringe) 3 ml IVFLUSH QSHIFT [facility] Last Admin: 09/10/21 07:56 Dose: 3 ml Documented by: PHILLIP Labs CBC & Chem 7: 09/09/21 06:33 09/10/21 07:00 Labs: Laboratory Results - last 24 hr 09/09/21 09/09/21 09/09/21 13:48 16:02 20:58 Anion Gap Estim Creat Clear Calc Estimated GFR POC Glucose 265 H 315 H Random Glucose Calcium COVID-19 (DOUG) Negative COVID-19 Clin Com See Note 09/10/21 09/10/21 09/10/21 07:00 07:22 11:19 Anion Gap 18 Estim Creat Clear Calc 18.8 Estimated GFR 23 POC Glucose 254 H 278 H Random Glucose 276 H Calcium 7.8 L COVID-19 (DOUG) COVID-19 Clin Com Assessment and Plan (1) COPD (chronic obstructive pulmonary disease): Status: Acute (2) PAF (paroxysmal atrial fibrillation): Status: Acute Plan 81yo F recently [08/14/20] admitted to [facility] for STR for encephalopathy + thoracic compression fracture; tested positive for Covid-19 08/18/21, brought in with increased confusion + PNA + hypoxia due to Covid-19 + bacterial pneumonia 1. COPD exacerbation - completed dexamethasone - prednisone 40 mg/d, wean by 10 mg/d every 5d(07/26) - continue standing/prn nebs 2.Acute/chronic HFpEF - well compensated on current theraapies -adjust as indicated 3. TONYA - likely due to diuresis - follow renals/divalents 4. HCAP - completed 7d of vanc + pip/justice + PCT + CRP are low.? BCx negative - no further treatments 5. Covid-19 pneumonia - completed 10d of dexamethasone; no remdesivir given duration of Covid-19, no baricitinib due to concern of bacterial pneumonia 6. Paroxysmal Atrial Fibrilation - acceptable rate control on current therapies - continue rivaroxaban, diltiazem 7. DMII -acceptable control oncurrent therapies - correction-dose lispro; rivaroxaban full code Quality Stroke Does the patient have a stroke diagnosis?: No VTE Prior VTE?: Yes VTE Risk Level:: Medical - moderate - high VTE Device Contraindication: Treatment Not Indicated VTE Drug Contraindication: N/A - Med Ordered
[2021-09-10 16:20] LABS: Glucose, Whole Blood 158 mg/dL (60-115)
[2021-09-10 19:44] LABS: Glucose, Whole Blood 194 mg/dL (60-115)
[2021-09-11] VITALS (9 sets, daily range): BP systolic 147–159; BP diastolic 66–74; PULSE 55–75; RESP 18–20; TEMP 36.1–37.2; O2SAT 91–98
[2021-09-11] MEDS: Omeprazole 20 MG CAPSULE.DR PO ×2 (05:50→16:57)
[2021-09-11 06:52] LABS: Basophils Percent Auto 0.1 % (0-2); Hematocrit 28.1 % (37.0-47.0); Hemoglobin 8.9 g/dl (12.0-16.0); Imm Gran Abs Auto 0.32 X10*3/uL (0.00-0.03); Imm Gran Pct Auto 1.1 % (0.0-0.4); Lymphocytes Absolute Auto 0.8 X10*3/uL (1.2-4.9); Lymphocytes Percent Auto 2.7 % (20-40); MANUAL DIFF FLAG SCAN; Mean Corpuscular HGB Conc 31.7 g/dl (31.0-35.0); Mean Corpuscular Hemoglobin 31.3 pg (27.0-33.0); Mean Corpuscular Volume 98.9 fL (80.0-98.0); Mean Platelet Volume 10.5 fL (9.4-12.3); Monocytes Absolute Auto 1.8 X10*3/uL (0.1-1.2); Monocytes Percent Auto 6.4 % (2-11); NRBC Pct Auto 0.1 /100WBC (0.0-0.2); Neutrophils Absolute Auto 25.8 x10*3/uL (2.0-8.3); Neutrophils Percent Auto 89.7 % (45-73); Platelet Count 378 X10*3/uL (160-400); Red Blood Count 2.84 X10*6/uL (4.20-5.50); Red Cell Distribution Width 17.4 % (11.0-16.0); SCAN SMEAR FLAG 1; White Blood Count 28.8 X10*3/uL (4.8-10.8)
[2021-09-11 06:56] LABS: Alanine Aminotransferase 13 U/L (0-31); Albumin Level 2.4 g/dL (3.5-5.0); Alkaline Phosphatase 91 U/L (39-117); Anion Gap 16 (12-20); Aspartate Amino Transferase 13 U/L (5-31); Bilirubin Total 0.5 mg/dL (0.0-1.0); Blood Urea Nitrogen 74 mg/dL (9-16); Calcium 7.8 mg/dL (8.4-10.2); Carbon Dioxide 21 mmol/L (22-29); Chloride 112 mmol/L (96-108); Estimated Glomerular Filt Rate 28; Glucose Fasting 164 mg/dL (60-99); Potassium 4.5 mmol/L (3.3-5.1); Sodium 144 mmol/L (135-145); Total Protein 4.6 g/dL (6.5-8.0)
[2021-09-11 07:35] LABS: SLIDE REVIEW VERIFIED
[2021-09-11] MEDS: Albuterol/Iprat 2.5/0.5MG 3 ML AMPUL.NEB INHALE ×4 (07:51→20:18)
[2021-09-11] MEDS: Insulin Lispro 100 UNIT/ML 3 ML VIAL SUBCUT ×4 (08:00→21:21)
[2021-09-11 08:06] LABS: Glucose, Whole Blood 142 mg/dL (60-115)
[2021-09-11] MEDS: polyethylene glycoL 3350 17 GM POWD.PACK PO (08:34)
[2021-09-11] MEDS: Lidocaine 4 % Patch ADH..PATCH 1 PATCH TRANSDERMA (08:34)
[2021-09-11] MEDS: 0.9 % Sodium Chloride Flush 3 ML SYRINGE IVFLUSH ×3 (08:35→21:24)
[2021-09-11] MEDS: Rivaroxaban 15 MG TABLET PO (08:36)
[2021-09-11] MEDS: predniSONE 20 MG TABLET 40 MG PO (08:36)
[2021-09-11] MEDS: Escitalopram Oxalate 5 MG TABLET PO (08:36)
[2021-09-11] MEDS: Atorvastatin Calcium 40 MG TABLET PO (08:36)
[2021-09-11] MEDS: Aspirin 81 MG TAB.CHEW PO (08:36)
--- NOTE | 2021-09-11 10:43 | MHC.SL.SWA ---
Speech Pathologist Impression: Risk of Aspiration Oral Phase Dysphagia Esophageal Dysphagia Risk of Aspiration Due to: History of Pneumonia Reduced Cognition Dysphasia Diet Status: Downgrade Liquid Consistency and Strategies for Safe Swallow: Liquid Intake Recommendation: Thin Liquid Intake Strategies: Small Sips No Straws Solid Food Consistency: Dietary Recommendations: Grnd/Mech Altered (NDD2) Additional Modifications to Solid Foods: Patient displays mild oral phase dysphagia and recent chest CT revealed moderate esophageal food residue- Recommend GROUND/MECH ALTERED (NDD2) solids (moisten with sauce/gravy) and THIN liquids (NO STRAWS), with pills CRUSHED in PUREE. Patient to be seated upright at 90 degree angle during PO intake and for at least 30 minutes afterwards. Recommend 1:1 supervision and aspiration precautions. Oral Medication Intake: Crushed with Puree Compensatory Strategies and Precautions to be Taken for Safe Swallow: Sitting Upright (90 deg) No Straw Small Bites and Sips Alternate Liquids/Solids Rate of Ingestion Change Supervision While Eating and Drinking for Safe Swallow: Total Supervision (1:1) Swallowing Recommended Treatments: Compens. Strategy Educat. Recommendation for Speech: Inpatient Speech Therapy Comment: WATER SAFETY INSTRUCTOR will continue to follow. Claims Supervisor Clinican/Clinical Fellow: No Supervisory Statement: I have reviewed and agree with the student/clinical fellow's documentation: N/A Speech Language Pathologist: Ila May M.A., [facility]-WATER SAFETY INSTRUCTOR
[2021-09-11 11:22] LABS: Glucose, Whole Blood 156 mg/dL (60-115)
--- NOTE | 2021-09-11 15:40 | P.PNIM_ITS ---
Subjective Subjective Date of Service: 09/11/21 Interval History: No acute events overnight Review of Systems Denies chest pain Admits to shortness of breath denies nausea vomiting diarrhea Physical Exam Vital Signs: Vital Signs: Last Vital Signs Temp 98.7 F 09/11/21 15:26 Pulse 67 09/11/21 15:26 Resp 18 09/11/21 15:26 BP 154/67 H 09/11/21 15:26 Pulse Ox 98 09/11/21 15:26 BMI result Body Mass Index 25.4 Const: Other: No acute distress Resp: Other: Diminished at bases with scant expiratory wheezes Cardio: Other: No S4; positive S1-S2; NO S3 IS MURMURS RUBS OR GALLOPS GI: Other: Soft nontender nondistended with normoactive bowel sounds Extrem: Other: No edema bilaterally Objective Data Active Medications Acetaminophen (Acetaminophen 325 Mg Tablet) 650 mg PO Q6H PRN PRN Reason: Pain, Mild (Pain Scale 1-3) Last Admin: 08/31/21 11:58 Dose: 650 mg Documented by: LEYLA Albuterol Sulfate (Albuterol Sulfate (0.083%) 2.5 Mg/3 Ml Vial.Neb) 2.5 mg INHALE Q2H PRN PRN Reason: shortness of breath/wheeze Last Admin: 09/10/21 05:28 Dose: 2.5 mg Documented by: UMAIR Albuterol/Ipratropium (Albuterol/Iprat 2.5/0.5mg 3 Ml Ampul.Neb) 3 ml INHALE RQ4H WHILE AWAKE [facility] Last Admin: 09/11/21 15:19 Dose: 3 ml Documented by: ISAÍAS Aspirin (Aspirin 81 Mg Tab.Chew) 81 mg PO DAILY [facility] Last Admin: 09/11/21 08:36 Dose: 81 mg Documented by: PHILLIP Atorvastatin Calcium (Atorvastatin Calcium 40 Mg Tablet) 40 mg PO DAILY [facility] Last Admin: 09/11/21 08:36 Dose: 40 mg Documented by: PHILLIP Dextrose (Dextrose 50 % 25 Gm/50 Ml Syringe) 25 gm IVPUSH Q15M PRN; Protocol PRN Reason: per Hypoglycemia Standing Ord. Last Admin: 09/07/21 07:43 Dose: 25 gm Documented by: BRITANY Dextrose (Dextrose 50 % 25 Gm/50 Ml Syringe) 25 gm IVPUSH Q15M PRN; Protocol PRN Reason: per Hypoglycemia Standing Ord. Diltiazem HCl (Diltiazem Hcl Cd 240 Mg Cap.Er.Deg) 240 mg PO DAILY [facility]; Protocol Last Admin: 09/11/21 08:36 Dose: Not Given Documented by: PHILLIP Non-Admin Reason: cannot be crushed Docusate Sodium (Docusate Sodium 100 Mg Capsule) 100 mg PO DAILY PRN PRN Reason: Constipation Escitalopram Oxalate (Escitalopram Oxalate 5 Mg Tablet) 5 mg PO DAILY [facility] Last Admin: 09/11/21 08:36 Dose: 5 mg Documented by: PHILLIP Glucose (Glucose Gel 15 Gm Gel..Gram.) 15 gm PO Q15M PRN; Protocol PRN Reason: per Hypoglycemia Standing Ord. Last Admin: 09/07/21 07:43 Dose: 15 gm Documented by: BRITANY Glucose (Glucose Gel 15 Gm Gel..Gram.) 15 gm PO Q15M PRN; Protocol PRN Reason: per Hypoglycemia Standing Ord. Insulin Human Lispro (Insulin Lispro 100 Unit/Ml 3 Ml Vial) 0 unit SUBCUT QIDACHS [facility]; Protocol Last Admin: 09/11/21 12:11 Dose: 4 unit Documented by: PHILLIP Lidocaine (Lidocaine 4 % Patch Adh..Patch) 1 patch TRANSDERMA DAILY [facility]; Protocol Last Admin: 09/11/21 08:34 Dose: 1 patch Documented by: PHILLIP Omeprazole (Omeprazole 20 Mg Capsule.Dr) 20 mg PO BID@0630,1630 [facility] Last Admin: 09/11/21 05:50 Dose: 20 mg Documented by: ANTFELIPE Ondansetron HCl (Ondansetron Hcl 4 Mg/2 Ml Vial) 4 mg IVPUSH Q8H PRN PRN Reason: Nausea and Vomiting Polyethylene Glycol (Polyethylene Glycol 3350 17 Gm Powd.Pack) 17 gm PO DAILY [facility] Last Admin: 09/11/21 08:34 Dose: 17 gm Documented by: PHILLIP Prednisone (Prednisone 20 Mg Tablet) 40 mg PO DAILY [facility] Last Admin: 09/11/21 08:36 Dose: 40 mg Documented by: PHILLIP Rivaroxaban (Rivaroxaban 15 Mg Tablet) 15 mg PO DAILY [facility] Last Admin: 09/11/21 08:36 Dose: 15 mg Documented by: PHILLIP Sodium Chloride (0.9 % Sodium Chloride Flush 3 Ml Syringe) 3 ml IVFLUSH QSHIFT [facility] Last Admin: 09/11/21 08:35 Dose: 3 ml Documented by: PHILLIP Labs CBC & Chem 7: 09/11/21 06:08 09/11/21 06:08 Labs: Laboratory Results - last 24 hr 09/10/21 09/10/21 09/11/21 16:08 19:04 06:08 MCV 98.9 H MCH 31.3 MCHC 31.7 RDW 17.4 H Plt Count 378 D MPV 10.5 Immature Gran % (Auto) 1.1 H Neut % (Auto) 89.7 H Lymph % (Auto) 2.7 L [place] % (Auto) 6.4 Eos % (Auto) 0.0 Baso % (Auto) 0.1 Lymph # (Auto) 0.8 L [place] # (Auto) 1.8 H Eos # (Auto) 0.0 Baso # (Auto) 0.0 Abs Immat Gran (auto) 0.32 H Absolute Neuts (auto) 25.8 H Absolute Nucleated RBC 0.020 H Nucleated RBC % (auto) 0.1 Smear Tech's Comments VERIFIED Anion Gap Estim Creat Clear Calc Estimated GFR POC Glucose 158 H 194 H Fasting Glucose Calcium Total Bilirubin AST ALT Alkaline Phosphatase Total Protein Albumin 09/11/21 09/11/21 09/11/21 06:08 07:43 11:11 MCV MCH MCHC RDW Plt Count MPV Immature Gran % (Auto) Neut % (Auto) Lymph % (Auto) [place] % (Auto) Eos % (Auto) Baso % (Auto) Lymph # (Auto) [place] # (Auto) Eos # (Auto) Baso # (Auto) Abs Immat Gran (auto) Absolute Neuts (auto) Absolute Nucleated RBC Nucleated RBC % (auto) Smear Tech's Comments Anion Gap 16 Estim Creat Clear Calc 22.0 Estimated GFR 28 POC Glucose 142 H 156 H Fasting Glucose 164 H Calcium 7.8 L Total Bilirubin 0.5 AST 13 ALT 13 Alkaline Phosphatase 91 Total Protein 4.6 L Albumin 2.4 L Assessment and Plan (1) COPD (chronic obstructive pulmonary disease): Status: Acute (2) Pneumonia due to 2019 novel coronavirus: Status: Acute (3) TONYA (acute kidney injury): Status: Acute Plan 81yo F recently [08/14/20] admitted to [facility] for STR for encephalopathy + thoracic compression fracture; tested positive for Covid-19 08/18/21, brought in with increased confusion + PNA + hypoxia due to Covid-19 + bacterial pneumonia 1. COPD exacerbation - completed dexamethasone - prednisone 40 mg/d, wean by 10 mg/d every 5d(08/26) - continue standing/prn nebs - difficult wean...continue as tolerated 2.Acute/chronic HFpEF - well compensated on current theraapies -adjust as indicated 3. TONYA - likely due to diuresis - follow renals/divalents 4. HCAP - completed 7d of vanc + pip/justice + PCT + CRP are low.? BCx negative - no further treatments 5. Covid-19 pneumonia - completed 10d of dexamethasone; no remdesivir given duration of Covid-19, no baricitinib due to concern of bacterial pneumonia 6. Paroxysmal Atrial Fibrilation - acceptable rate control on current therapies - continue rivaroxaban, diltiazem 7. DMII -acceptable control oncurrent therapies - correction-dose lispro; rivaroxaban full code Quality Stroke Does the patient have a stroke diagnosis?: No VTE Prior VTE?: Yes VTE Risk Level:: Medical - moderate - high VTE Device Contraindication: Treatment Not Indicated VTE Drug Contraindication: N/A - Med Ordered
[2021-09-11 15:46] LABS: Glucose, Whole Blood 190 mg/dL (60-115)
[2021-09-11 20:42] LABS: Glucose, Whole Blood 210 mg/dL (60-115)
[2021-09-12] VITALS (9 sets, daily range): BP systolic 127–151; BP diastolic 65–104; PULSE 57–78; RESP 16–20; TEMP 35.9–37.2; O2SAT 94–98
[2021-09-12] MEDS: Omeprazole 20 MG CAPSULE.DR PO ×2 (05:49→17:04)
[2021-09-12 07:24] LABS: Glucose, Whole Blood 198 mg/dL (60-115)
[2021-09-12] MEDS: Albuterol/Iprat 2.5/0.5MG 3 ML AMPUL.NEB INHALE ×2 (07:44→11:16)
[2021-09-12 08:05] LABS: Hematocrit 27.3 % (37.0-47.0); Hemoglobin 8.6 g/dl (12.0-16.0); Mean Corpuscular HGB Conc 31.5 g/dl (31.0-35.0); Mean Corpuscular Hemoglobin 31.5 pg (27.0-33.0); Mean Platelet Volume 10.6 fL (9.4-12.3); Platelet Count 341 X10*3/uL (160-400); Red Blood Count 2.73 X10*6/uL (4.20-5.50); Red Cell Distribution Width 17.7 % (11.0-16.0)
[2021-09-12 08:20] LABS: Alanine Aminotransferase 14 U/L (0-31); Albumin Level 2.3 g/dL (3.5-5.0); Alkaline Phosphatase 95 U/L (39-117); Anion Gap 13 (12-20); Aspartate Amino Transferase 16 U/L (5-31); Bilirubin Total 0.4 mg/dL (0.0-1.0); Blood Urea Nitrogen 70 mg/dL (9-16); Calcium 7.6 mg/dL (8.4-10.2); Carbon Dioxide 23 mmol/L (22-29); Chloride 110 mmol/L (96-108); Creatinine Clr Calc Pharmacy 24.5; Estimated Glomerular Filt Rate 32; Glucose Fasting 212 mg/dL (60-99); Potassium 4.9 mmol/L (3.3-5.1); Sodium 141 mmol/L (135-145); Total Protein 4.5 g/dL (6.5-8.0)
[2021-09-12 08:24] LABS: White Blood Count 30.1 X10*3/uL (4.8-10.8)
[2021-09-12 08:39] LABS: Band Neutrophils Percent 0 % (3-5); Lymphocytes Absolute Manual 0.6 X10*3/uL (1.2-4.9); Lymphocytes Percent Manual 2 % (20-40); Monocytes Absolute Manual 0.6 X10*3/uL (0.1-1.2); Monocytes Percent Manual 2 % (2-11); Neutrophils Absolute Manual 28.9 X10*3/uL (2.0-8.3); Neutrophils Percent Manual 96 % (45-73)
[2021-09-12 08:40] LABS: Platelet Estimate NORMAL (NORMAL)
[2021-09-12] MEDS: Insulin Lispro 100 UNIT/ML 3 ML VIAL SUBCUT ×3 (08:40→20:34)
[2021-09-12 08:41] LABS: Burr Cells 3+ (>5) /OIF; Howell Jolly Bodies PRESENT; Schistocytes 1+ (0-2) /OIF
[2021-09-12] MEDS: 0.9 % Sodium Chloride Flush 3 ML SYRINGE IVFLUSH ×3 (08:41→20:35)
[2021-09-12] MEDS: Atorvastatin Calcium 40 MG TABLET PO (08:41)
[2021-09-12] MEDS: Aspirin 81 MG TAB.CHEW PO (08:41)
[2021-09-12 08:42] LABS: Toxic Vacuolation PRESENT
[2021-09-12] MEDS: Lidocaine 4 % Patch ADH..PATCH 1 PATCH TRANSDERMA (08:42)
[2021-09-12] MEDS: Escitalopram Oxalate 5 MG TABLET PO (08:42)
[2021-09-12] MEDS: dilTIAZem HCL CD 240 MG CAP.ER.DEG PO (08:42)
[2021-09-12] MEDS: predniSONE 20 MG TABLET 40 MG PO (08:43)
[2021-09-12] MEDS: polyethylene glycoL 3350 17 GM POWD.PACK PO (08:43)
[2021-09-12] MEDS: Rivaroxaban 15 MG TABLET PO (08:43)
[2021-09-12 08:45] LABS: Hypochromasia 1+ (5-14) /OIF; Pappenheimer Bodies PRESENT
[2021-09-12 08:49] LABS: Ovalocytes 1+ (5-14) /OIF
[2021-09-12 08:50] LABS: Platelet Morphology Comment NORMAL; RBC Morphology NOTED
[2021-09-12 11:10] LABS: Glucose, Whole Blood 220 mg/dL (60-115)
--- NOTE | 2021-09-12 11:59 | MHC.SL.SWA ---
Speech Pathologist Impression: Risk of Aspiration Oral Phase Dysphagia Esophageal Dysphagia Risk of Aspiration Due to: History of Pneumonia Reduced Cognition Dysphasia Diet Status: Downgrade Liquid Consistency and Strategies for Safe Swallow: Liquid Intake Recommendation: Thin Liquid Intake Strategies: Small Sips Solid Food Consistency: Dietary Recommendations: Grnd/Mech Altered (NDD2) Additional Modifications to Solid Foods: Patient displays mild oral phase dysphagia and recent chest CT revealed moderate esophageal food residue- Recommend GROUND/MECH ALTERED (NDD2) solids (moisten with sauce/gravy) and THIN liquids (NO STRAWS), with pills CRUSHED in PUREE. Patient to be seated upright at 90 degree angle during PO intake and for at least 30 minutes afterwards. Recommend 1:1 supervision and aspiration precautions. Oral Medication Intake: Please contact the pharmacy regarding appropriate crushable or liquid drug formulations that are available if modifications to medication delivery is recommended. Crushed with Puree Compensatory Strategies and Precautions to be Taken for Safe Swallow: Sitting Upright (90 deg) Liquids from Cup Alternate Liquids/Solids Supervision While Eating and Drinking for Safe Swallow: Total Supervision (1:1) Foods to Avoid: Swallowing Recommended Treatments: Compens. Strategy Educat. Recommendation for Speech: Inpatient Speech Therapy: 08/23/21 Pt seen this a.m. Pt could not report about breakfast, did not recall eating. Pt was given TSP amounts of puree, w/ mild delay of oral phase, timely swallow noted. Pt took sips of liquid from cup w/good oral containment, mild delay propelling bolus, timely swallow w/ no clinical s/s of aspiration. Pt. tolerating current diet consistencies well, recommend continue THIN liquids w/ Ground Mech/Alt (NDD2). Comment: COILED TUBING SUPERVISOR will continue to follow. Frequency/Duration: Date Range for Service Req: Timeline to reassess: Mobile Tester Clinican/Clinical Fellow: No Supervisory Statement: I have reviewed and agree with the student/clinical fellow's documentation: N/A Speech Language Pathologist: Vesta Watt M.A., [facility]-COILED TUBING SUPERVISOR
--- NOTE | 2021-09-12 13:03 | PC.NURSE ---
Patient desaturating to high 80s, respirations more labored after eating. Lungs diminished bilaterally, unable to hear air movement. Patient is alert and following directions RR [address] Gilbert via text.
--- NOTE | 2021-09-12 15:14 | P.PNIM_ITS ---
Subjective Subjective Date of Service: 09/12/21 Interval History: Increased O2 requirements overnight Review of Systems Denies chest pain Admits to shortness of breath denies nausea vomiting diarrhea Physical Exam Vital Signs: Vital Signs: Last Vital Signs Temp 97.2 F 09/12/21 11:34 Pulse 68 09/12/21 11:34 Resp 16 09/12/21 11:34 BP 140/65 H 09/12/21 11:34 Pulse Ox 94 09/12/21 11:34 BMI result Body Mass Index 25.4 Const: Other: No acute distress Resp: Other: Diminished at bases with scant expiratory wheezes Cardio: Other: No S4; positive S1-S2; NO S3 IS MURMURS RUBS OR GALLOPS GI: Other: Soft nontender nondistended with normoactive bowel sounds Extrem: Other: No edema bilaterally Objective Data Active Medications Acetaminophen (Acetaminophen 325 Mg Tablet) 650 mg PO Q6H PRN PRN Reason: Pain, Mild (Pain Scale 1-3) Last Admin: 08/31/21 11:58 Dose: 650 mg Documented by: LEYLA Albuterol Sulfate (Albuterol Sulfate (0.083%) 2.5 Mg/3 Ml Vial.Neb) 2.5 mg INHALE Q2H PRN PRN Reason: shortness of breath/wheeze Last Admin: 09/10/21 05:28 Dose: 2.5 mg Documented by: UMAIR Albuterol/Ipratropium (Albuterol/Iprat 2.5/0.5mg 3 Ml Ampul.Neb) 3 ml INHALE RQ4H WHILE AWAKE [facility] Last Admin: 09/12/21 11:16 Dose: 3 ml Documented by: ISAÍAS Aspirin (Aspirin 81 Mg Tab.Chew) 81 mg PO DAILY [facility] Last Admin: 09/12/21 08:41 Dose: 81 mg Documented by: ANITA Atorvastatin Calcium (Atorvastatin Calcium 40 Mg Tablet) 40 mg PO DAILY [facility] Last Admin: 09/12/21 08:41 Dose: 40 mg Documented by: ANITA Dextrose (Dextrose 50 % 25 Gm/50 Ml Syringe) 25 gm IVPUSH Q15M PRN; Protocol PRN Reason: per Hypoglycemia Standing Ord. Last Admin: 09/07/21 07:43 Dose: 25 gm Documented by: BRITANY Dextrose (Dextrose 50 % 25 Gm/50 Ml Syringe) 25 gm IVPUSH Q15M PRN; Protocol PRN Reason: per Hypoglycemia Standing Ord. Diltiazem HCl (Diltiazem Hcl Cd 240 Mg Cap.Er.Deg) 240 mg PO DAILY [facility]; Protocol Last Admin: 09/12/21 08:42 Dose: 240 mg Documented by: ANITA Docusate Sodium (Docusate Sodium 100 Mg Capsule) 100 mg PO DAILY PRN PRN Reason: Constipation Escitalopram Oxalate (Escitalopram Oxalate 5 Mg Tablet) 5 mg PO DAILY [facility] Last Admin: 09/12/21 08:42 Dose: 5 mg Documented by: ANITA Glucose (Glucose Gel 15 Gm Gel..Gram.) 15 gm PO Q15M PRN; Protocol PRN Reason: per Hypoglycemia Standing Ord. Last Admin: 09/07/21 07:43 Dose: 15 gm Documented by: BRITANY Glucose (Glucose Gel 15 Gm Gel..Gram.) 15 gm PO Q15M PRN; Protocol PRN Reason: per Hypoglycemia Standing Ord. Insulin Human Lispro (Insulin Lispro 100 Unit/Ml 3 Ml Vial) 0 unit SUBCUT QIDACHS [facility]; Protocol Last Admin: 09/12/21 12:22 Dose: 6 unit Documented by: ANITA Lidocaine (Lidocaine 4 % Patch Adh..Patch) 1 patch TRANSDERMA DAILY [facility]; Protocol Last Admin: 09/12/21 08:42 Dose: 1 patch Documented by: ANITA Omeprazole (Omeprazole 20 Mg Capsule.Dr) 20 mg PO BID@0630,1630 [facility] Last Admin: 09/12/21 05:49 Dose: 20 mg Documented by: CATRISGiuseppe Ondansetron HCl (Ondansetron Hcl 4 Mg/2 Ml Vial) 4 mg IVPUSH Q8H PRN PRN Reason: Nausea and Vomiting Polyethylene Glycol (Polyethylene Glycol 3350 17 Gm Powd.Pack) 17 gm PO DAILY [facility] Last Admin: 09/12/21 08:43 Dose: 17 gm Documented by: ANITA Prednisone (Prednisone 20 Mg Tablet) 40 mg PO DAILY [facility] Last Admin: 09/12/21 08:43 Dose: 40 mg Documented by: ANITA Rivaroxaban (Rivaroxaban 15 Mg Tablet) 15 mg PO DAILY [facility] Last Admin: 09/12/21 08:43 Dose: 15 mg Documented by: ANITA Sodium Chloride (0.9 % Sodium Chloride Flush 3 Ml Syringe) 3 ml IVFLUSH QSHIFT [facility] Last Admin: 09/12/21 08:41 Dose: 3 ml Documented by: ANITA Labs CBC & Chem 7: 09/12/21 07:32 09/12/21 07:32 Labs: Laboratory Results - last 24 hr 09/11/21 09/11/21 09/12/21 15:28 20:17 07:12 MCV MCH MCHC RDW Plt Count MPV Immature Gran % (Auto) Neut % (Auto) Lymph % (Auto) [place] % (Auto) Eos % (Auto) Baso % (Auto) Lymph # (Auto) [place] # (Auto) Eos # (Auto) Baso # (Auto) Abs Immat Gran (auto) Absolute Neuts (auto) Absolute Nucleated RBC Nucleated RBC % (auto) Neutrophils % (Manual) Band Neutrophils % Lymphocytes % (Manual) Monocytes % (Manual) Abs Neuts (Manual) Lymphocytes # (Manual) Monocytes # (Manual) Toxic Vacuolation Platelet Estimate Plt Morphology Comment RBC Morphology Hypochromasia Pappenheimer Bodies Ovalocytes [place] Bodies [place] Cells Schistocytes Smear Path Review Anion Gap Estim Creat Clear Calc Estimated GFR POC Glucose 190 H 210 H 198 H Fasting Glucose Calcium Total Bilirubin AST ALT Alkaline Phosphatase Total Protein Albumin 09/12/21 09/12/21 09/12/21 07:32 07:32 11:05 MCV 100.0 H MCH 31.5 MCHC 31.5 RDW 17.7 H Plt Count 341 MPV 10.6 Immature Gran % (Auto) Cancelled Neut % (Auto) Cancelled Lymph % (Auto) Cancelled [place] % (Auto) Cancelled Eos % (Auto) Cancelled Baso % (Auto) Cancelled Lymph # (Auto) Cancelled [place] # (Auto) Cancelled Eos # (Auto) Cancelled Baso # (Auto) Cancelled Abs Immat Gran (auto) Cancelled Absolute Neuts (auto) Cancelled Absolute Nucleated RBC 0.000 Nucleated RBC % (auto) 0.0 Neutrophils % (Manual) 96 H Band Neutrophils % 0 L Lymphocytes % (Manual) 2 L Monocytes % (Manual) 2 Abs Neuts (Manual) 28.9 H Lymphocytes # (Manual) 0.6 L Monocytes # (Manual) 0.6 Toxic Vacuolation PRESENT Platelet Estimate NORMAL Plt Morphology Comment NORMAL RBC Morphology NOTED Hypochromasia 1+ (5-14) Pappenheimer Bodies PRESENT Ovalocytes 1+ (5-14) [place] Bodies PRESENT [place] Cells 3+ (>5) Schistocytes 1+ (0-2) Smear Path Review SEE NOTE Anion Gap 13 Estim Creat Clear Calc 24.5 Estimated GFR 32 POC Glucose 220 H Fasting Glucose 212 H Calcium 7.6 L Total Bilirubin 0.4 AST 16 ALT 14 Alkaline Phosphatase 95 Total Protein 4.5 L Albumin 2.3 L Assessment and Plan (1) COPD (chronic obstructive pulmonary disease): Status: Acute (2) TONYA (acute kidney injury): Status: Acute (3) IDDM (insulin dependent diabetes mellitus): Status: Acute Plan 81yo F recently [08/14/20] admitted to [facility] for STR for encephalopathy + thoracic compression fracture; tested positive for Covid-19 08/18/21, brought in with increased confusion + PNA + hypoxia due to Covid-19 + bacterial pneumonia 1. COPD exacerbation - completed dexamethasone - prednisone 40 mg/d, wean by 10 mg/d every 5d(09/23) - continue standing/prn nebs - difficult wean...continue as tolerated 2.Acute/chronic HFpEF - well compensated on current theraapies -adjust as indicated 3. TONYA - likely due to diuresis - follow renals/divalents 4. HCAP - completed 7d of vanc + pip/justice + PCT + CRP are low.? BCx negative - no further treatments 5. Covid-19 pneumonia - completed 10d of dexamethasone; no remdesivir given duration of Covid-19, no baricitinib due to concern of bacterial pneumonia 6. Paroxysmal Atrial Fibrilation - acceptable rate control on current therapies - continue rivaroxaban, diltiazem 7. DMII -acceptable control oncurrent therapies - correction-dose lispro; rivaroxaban full code Quality Stroke Does the patient have a stroke diagnosis?: No VTE Prior VTE?: Yes VTE Risk Level:: Medical - moderate - high VTE Device Contraindication: Treatment Not Indicated VTE Drug Contraindication: N/A - Med Ordered
--- NOTE | 2021-09-12 15:24 | PC.NURSE ---
incontinent of large amt urine and small amt feces
[2021-09-12 15:36] LABS: Glucose, Whole Blood 86 mg/dL (60-115)
[2021-09-12 19:47] LABS: Glucose, Whole Blood 174 mg/dL (60-115)
[2021-09-13] VITALS (9 sets, daily range): BP systolic 139–150; BP diastolic 61–70; PULSE 61–76; RESP 16–20; TEMP 36.3–36.9; O2SAT 93–100
[2021-09-13 03:04] LABS: Glucose, Whole Blood 247 mg/dL (60-115)
[2021-09-13] MEDS: Albuterol Sulfate (0.083%) 2.5 MG/3 ML VIAL.NEB INHALE (03:15)
[2021-09-13] MEDS: Omeprazole 20 MG CAPSULE.DR PO ×2 (05:32→17:35)
[2021-09-13 06:51] LABS: Hematocrit 27.8 % (37.0-47.0); Imm Gran Abs Auto 0.22 X10*3/uL (0.00-0.03); Imm Gran Pct Auto 0.9 % (0.0-0.4); Lymphocytes Absolute Auto 0.5 X10*3/uL (1.2-4.9); Lymphocytes Percent Auto 1.8 % (20-40); MANUAL DIFF FLAG SCAN; Mean Corpuscular HGB Conc 32.4 g/dl (31.0-35.0); Mean Corpuscular Hemoglobin 31.6 pg (27.0-33.0); Mean Corpuscular Volume 97.5 fL (80.0-98.0); Mean Platelet Volume 10.3 fL (9.4-12.3); Monocytes Absolute Auto 1.1 X10*3/uL (0.1-1.2); Monocytes Percent Auto 4.5 % (2-11); NRBC Pct Auto 0.1 /100WBC (0.0-0.2); Neutrophils Absolute Auto 23.3 x10*3/uL (2.0-8.3); Neutrophils Percent Auto 92.8 % (45-73); Platelet Count 347 X10*3/uL (160-400); Red Blood Count 2.85 X10*6/uL (4.20-5.50); Red Cell Distribution Width 17.2 % (11.0-16.0); SCAN SMEAR FLAG 1; White Blood Count 25.1 X10*3/uL (4.8-10.8)
[2021-09-13 07:15] LABS: SLIDE REVIEW VERIFIED
[2021-09-13 07:27] LABS: Alanine Aminotransferase 19 U/L (0-31); Albumin Level 2.4 g/dL (3.5-5.0); Alkaline Phosphatase 109 U/L (39-117); Anion Gap 15 (12-20); Aspartate Amino Transferase 19 U/L (5-31); Bilirubin Total 0.4 mg/dL (0.0-1.0); Blood Urea Nitrogen 73 mg/dL (9-16); Calcium 7.8 mg/dL (8.4-10.2); Carbon Dioxide 20 mmol/L (22-29); Chloride 106 mmol/L (96-108); Creatinine Clr Calc Pharmacy 23.2; Estimated Glomerular Filt Rate 30; Glucose Fasting 314 mg/dL (60-99); Sodium 136 mmol/L (135-145); Total Protein 4.7 g/dL (6.5-8.0)
[2021-09-13] MEDS: 0.9 % Sodium Chloride Flush 3 ML SYRINGE IVFLUSH ×2 (07:35→17:36)
[2021-09-13] MEDS: Albuterol/Iprat 2.5/0.5MG 3 ML AMPUL.NEB INHALE ×3 (07:37→18:49)
[2021-09-13 07:38] LABS: Glucose, Whole Blood 281 mg/dL (60-115)
[2021-09-13] MEDS: Insulin Lispro 100 UNIT/ML 3 ML VIAL SUBCUT ×4 (09:11→21:24)
[2021-09-13] MEDS: Atorvastatin Calcium 40 MG TABLET PO (09:13)
[2021-09-13] MEDS: Escitalopram Oxalate 5 MG TABLET PO (09:13)
[2021-09-13] MEDS: Aspirin 81 MG TAB.CHEW PO (09:13)
[2021-09-13] MEDS: dilTIAZem HCL CD 240 MG CAP.ER.DEG PO (09:13)
[2021-09-13] MEDS: Rivaroxaban 15 MG TABLET PO (09:13)
[2021-09-13] MEDS: predniSONE 20 MG TABLET 40 MG PO (09:13)
[2021-09-13] MEDS: polyethylene glycoL 3350 17 GM POWD.PACK PO (09:20)
[2021-09-13] MEDS: Lidocaine 4 % Patch ADH..PATCH 1 PATCH TRANSDERMA (09:20)
[2021-09-13 11:26] LABS: Glucose, Whole Blood 370 mg/dL (60-115)
--- NOTE | 2021-09-13 11:54 | MHC.SL.SWA ---
Speech Pathologist Impression: Risk of Aspiration Oral Phase Dysphagia Esophageal Dysphagia Risk of Aspiration Due to: History of Pneumonia Reduced Cognition Dysphasia Diet Status: No Change Liquid Consistency and Strategies for Safe Swallow: Liquid Intake Recommendation: Thin Liquid Intake Strategies: Small Sips No Straws Solid Food Consistency: Dietary Recommendations: Grnd/Mech Altered (NDD2) Additional Modifications to Solid Foods: Patient displays mild oral phase dysphagia and recent chest CT revealed moderate esophageal food residue- Recommend GROUND/MECH ALTERED (NDD2) solids (moisten with sauce/gravy) and THIN liquids (NO STRAWS), with pills CRUSHED in PUREE. Patient to be seated upright at 90 degree angle during PO intake and for at least 30 minutes afterwards. Recommend 1:1 supervision and aspiration precautions. Oral Medication Intake: Crushed with Puree Please contact the pharmacy regarding appropriate crushable or liquid drug formulations that are available whenever modified delivery is recommended. Compensatory Strategies and Precautions to be Taken for Safe Swallow: Sitting Upright (90 deg) No Straw Liquids from Cup Small Bites and Sips Alternate Liquids/Solids Rate of Ingestion Change Supervision While Eating and Drinking for Safe Swallow: Total Supervision (1:1) Swallowing Recommended Treatments: Compens. Strategy Educat. Recommendation for Speech: Inpatient Speech Therapy Comment: TELESALES MANAGER will continue to follow. Debate Director Clinican/Clinical Fellow: No Supervisory Statement: I have reviewed and agree with the student/clinical fellow's documentation: N/A Speech Language Pathologist: Ila May M.A., CCC-TELESALES MANAGER
--- NOTE | 2021-09-13 11:54 | PC.NURSE ---
elevated POC at 1130 of 370, Dr Gilbert notified, instructed to cover with sliding scale only. Patient has difficulty swallowing whole pills with puree. crushed pills.
--- NOTE | 2021-09-13 13:43 | MHC.CM.PN ---
Female 81 DX Covid+.DP was [facility]. A PT eval was sent to [facility] today. They have declined the patient. Called son Chau. A women answered. She stated that she would give The phone # of another son, Kwasi. Spoke w Kwasi re [place] planning. [facility] is now 1st choice. They are following for bed availability at discharge. Son was notified of the potential bed offer at [place]. Patient will transport via BLS.
--- NOTE | 2021-09-13 14:05 | HO.PM.IMPN ---
Subjective Subjective Date of Service: 09/14/21 Interval History: Increased O2 requirements overnight Review of Systems Denies chest pain Admits to shortness of breath denies nausea vomiting diarrhea Physical Exam Vital Signs: Vital Signs: Last Vital Signs Temp 98.4 F 09/13/21 11:18 Pulse 72 09/13/21 11:18 Resp 20 09/13/21 11:18 BP 143/65 H 09/13/21 11:18 Pulse Ox 97 09/13/21 11:18 BMI result Body Mass Index 25.4 Const: Other: No acute distress Resp: Other: Diminished at bases with scant expiratory wheezes Cardio: Other: No S4; positive S1-S2; NO S3 IS MURMURS RUBS OR GALLOPS GI: Other: Soft nontender nondistended with normoactive bowel sounds Extrem: Other: No edema bilaterally Objective Data Active Medications Acetaminophen (Acetaminophen 325 Mg Tablet) 650 mg PO Q6H PRN PRN Reason: Pain, Mild (Pain Scale 1-3) Last Admin: 08/31/21 11:58 Dose: 650 mg Documented by: LEYLA Albuterol Sulfate (Albuterol Sulfate (0.083%) 2.5 Mg/3 Ml Vial.Neb) 2.5 mg INHALE Q2H PRN PRN Reason: shortness of breath/wheeze Last Admin: 09/13/21 03:15 Dose: 2.5 mg Documented by: PHU Albuterol/Ipratropium (Albuterol/Iprat 2.5/0.5mg 3 Ml Ampul.Neb) 3 ml INHALE RQ4H WHILE AWAKE [facility] Last Admin: 09/13/21 10:59 Dose: Not Given Documented by: ISAÍAS Non-Admin Reason: Patient Refused Aspirin (Aspirin 81 Mg Tab.Chew) 81 mg PO DAILY [facility] Last Admin: 09/13/21 09:13 Dose: 81 mg Documented by: ADRIANA Atorvastatin Calcium (Atorvastatin Calcium 40 Mg Tablet) 40 mg PO DAILY [facility] Last Admin: 09/13/21 09:13 Dose: 40 mg Documented by: ADRIANA Dextrose (Dextrose 50 % 25 Gm/50 Ml Syringe) 25 gm IVPUSH Q15M PRN; Protocol PRN Reason: per Hypoglycemia Standing Ord. Last Admin: 09/07/21 07:43 Dose: 25 gm Documented by: BRITANY Dextrose (Dextrose 50 % 25 Gm/50 Ml Syringe) 25 gm IVPUSH Q15M PRN; Protocol PRN Reason: per Hypoglycemia Standing Ord. Diltiazem HCl (Diltiazem Hcl Cd 240 Mg Cap.Er.Deg) 240 mg PO DAILY [facility]; Protocol Last Admin: 09/13/21 09:13 Dose: 240 mg Documented by: ADRIANA Docusate Sodium (Docusate Sodium 100 Mg Capsule) 100 mg PO DAILY PRN PRN Reason: Constipation Escitalopram Oxalate (Escitalopram Oxalate 5 Mg Tablet) 5 mg PO DAILY [facility] Last Admin: 09/13/21 09:13 Dose: 5 mg Documented by: ADRIANA Glucose (Glucose Gel 15 Gm Gel..Gram.) 15 gm PO Q15M PRN; Protocol PRN Reason: per Hypoglycemia Standing Ord. Last Admin: 09/07/21 07:43 Dose: 15 gm Documented by: BRITANY Glucose (Glucose Gel 15 Gm Gel..Gram.) 15 gm PO Q15M PRN; Protocol PRN Reason: per Hypoglycemia Standing Ord. Insulin Human Lispro (Insulin Lispro 100 Unit/Ml 3 Ml Vial) 0 unit SUBCUT QIDACHS [facility]; Protocol Last Admin: 09/13/21 12:52 Dose: 12 unit Documented by: ADRIANA Lidocaine (Lidocaine 4 % Patch Adh..Patch) 1 patch TRANSDERMA DAILY [facility]; Protocol Last Admin: 09/13/21 09:20 Dose: 1 patch Documented by: ADRIANA Omeprazole (Omeprazole 20 Mg Capsule.) 20 mg PO BID@0630,1630 [facility] Last Admin: 09/13/21 05:32 Dose: 20 mg Documented by: PHU Ondansetron HCl (Ondansetron Hcl 4 Mg/2 Ml Vial) 4 mg IVPUSH Q8H PRN PRN Reason: Nausea and Vomiting Polyethylene Glycol (Polyethylene Glycol 3350 17 Gm Powd.Pack) 17 gm PO DAILY [facility] Last Admin: 09/13/21 09:20 Dose: 17 gm Documented by: ADRIANA Prednisone (Prednisone 20 Mg Tablet) 40 mg PO DAILY [facility] Last Admin: 09/13/21 09:13 Dose: 40 mg Documented by: ADRIANA Rivaroxaban (Rivaroxaban 15 Mg Tablet) 15 mg PO DAILY [facility] Last Admin: 09/13/21 09:13 Dose: 15 mg Documented by: ADRIANA Sodium Chloride (0.9 % Sodium Chloride Flush 3 Ml Syringe) 3 ml IVFLUSH QSSDFT [facility] Last Admin: 09/13/21 07:35 Dose: 3 ml Documented by: ADRIANA Labs CBC & Chem 7: 09/13/21 06:37 09/13/21 06:37 Labs: Laboratory Results - last 24 hr 09/12/21 09/12/21 09/13/21 15:27 19:13 03:00 MCV MCH MCHC RDW Plt Count MPV Immature Gran % (Auto) Neut % (Auto) Lymph % (Auto) [place] % (Auto) Eos % (Auto) Baso % (Auto) Lymph # (Auto) [place] # (Auto) Eos # (Auto) Baso # (Auto) Abs Immat Gran (auto) Absolute Neuts (auto) Absolute Nucleated RBC Nucleated RBC % (auto) Smear Tech's Comments Anion Gap Estim Creat Clear Calc Estimated GFR POC Glucose 86 174 H 247 H Fasting Glucose Calcium Total Bilirubin AST ALT Alkaline Phosphatase Total Protein Albumin 09/13/21 09/13/21 09/13/21 06:37 06:37 07:22 MCV 97.5 MCH 31.6 MCHC 32.4 RDW 17.2 H Plt Count 347 MPV 10.3 Immature Gran % (Auto) 0.9 H Neut % (Auto) 92.8 H Lymph % (Auto) 1.8 L [place] % (Auto) 4.5 Eos % (Auto) 0.0 Baso % (Auto) 0.0 Lymph # (Auto) 0.5 L [place] # (Auto) 1.1 Eos # (Auto) 0.0 Baso # (Auto) 0.0 Abs Immat Gran (auto) 0.22 H Absolute Neuts (auto) 23.3 H Absolute Nucleated RBC 0.020 H Nucleated RBC % (auto) 0.1 Smear Tech's Comments VERIFIED Anion Gap 15 Estim Creat Clear Calc 23.2 Estimated GFR 30 POC Glucose 281 H Fasting Glucose 314 H Calcium 7.8 L Total Bilirubin 0.4 AST 19 ALT 19 Alkaline Phosphatase 109 Total Protein 4.7 L Albumin 2.4 L 09/13/21 11:15 MCV MCH MCHC RDW Plt Count MPV Immature Gran % (Auto) Neut % (Auto) Lymph % (Auto) [place] % (Auto) Eos % (Auto) Baso % (Auto) Lymph # (Auto) [place] # (Auto) Eos # (Auto) Baso # (Auto) Abs Immat Gran (auto) Absolute Neuts (auto) Absolute Nucleated RBC Nucleated RBC % (auto) Smear Tech's Comments Anion Gap Estim Creat Clear Calc Estimated GFR POC Glucose 370 H* Fasting Glucose Calcium Total Bilirubin AST ALT Alkaline Phosphatase Total Protein Albumin Assessment and Plan (1) COPD (chronic obstructive pulmonary disease): Status: Acute (2) TONYA (acute kidney injury): Status: Acute Plan 81yo F recently [08/14/20] admitted to [facility] for STR for encephalopathy + thoracic compression fracture; tested positive for Covid-19 08/18/21, brought in with increased confusion + PNA + hypoxia due to Covid-19 + bacterial pneumonia 1. COPD exacerbation - completed dexamethasone - prednisone 40 mg/d, wean by 10 mg/d every 5d(10/24) - continue standing/prn nebs - difficult wean...continue as tolerated 2.Acute/chronic HFpEF - well compensated on current theraapies -adjust as indicated 3. TONYA - likely due to diuresis - follow renals/divalents 4. HCAP - completed 7d of vanc + pip/justice + PCT + CRP are low.? BCx negative - no further treatments 5. Covid-19 pneumonia - completed 10d of dexamethasone; no remdesivir given duration of Covid-19, no baricitinib due to concern of bacterial pneumonia 6. Paroxysmal Atrial Fibrilation - acceptable rate control on current therapies - continue rivaroxaban, diltiazem 7. DMII -acceptable control oncurrent therapies - correction-dose lispro; rivaroxaban full code Quality Stroke Does the patient have a stroke diagnosis?: No VTE Prior VTE?: Yes VTE Risk Level:: Medical - moderate - high VTE Device Contraindication: Treatment Not Indicated VTE Drug Contraindication: N/A - Med Ordered
[2021-09-13 16:47] LABS: Glucose, Whole Blood 226 mg/dL (60-115)
[2021-09-13 20:31] LABS: Glucose, Whole Blood 168 mg/dL (60-115)
[2021-09-14] VITALS (9 sets, daily range): BP systolic 138–157; BP diastolic 60–70; PULSE 63–78; RESP 16–20; TEMP 36.3–37; O2SAT 93–99
[2021-09-14] MEDS: Omeprazole 20 MG CAPSULE.DR PO ×2 (05:43→16:46)
[2021-09-14] MEDS: 0.9 % Sodium Chloride Flush 3 ML SYRINGE IVFLUSH ×5 (05:44→21:18)
[2021-09-14 07:14] LABS: Glucose, Whole Blood 231 mg/dL (60-115)
[2021-09-14] MEDS: Albuterol/Iprat 2.5/0.5MG 3 ML AMPUL.NEB INHALE ×2 (07:43→11:15)
[2021-09-14] MEDS: polyethylene glycoL 3350 17 GM POWD.PACK PO (08:22)
[2021-09-14] MEDS: dilTIAZem HCL CD 240 MG CAP.ER.DEG PO (08:22)
[2021-09-14] MEDS: Rivaroxaban 15 MG TABLET PO (08:22)
[2021-09-14] MEDS: Lidocaine 4 % Patch ADH..PATCH 1 PATCH TRANSDERMA (08:22)
[2021-09-14] MEDS: Escitalopram Oxalate 5 MG TABLET PO (08:22)
[2021-09-14] MEDS: predniSONE 20 MG TABLET 40 MG PO (08:22)
[2021-09-14] MEDS: Aspirin 81 MG TAB.CHEW PO (08:22)
[2021-09-14] MEDS: Atorvastatin Calcium 40 MG TABLET PO (08:22)
[2021-09-14] MEDS: Insulin Lispro 100 UNIT/ML 3 ML VIAL SUBCUT ×4 (09:33→21:13)
[2021-09-14 11:04] LABS: Glucose, Whole Blood 360 mg/dL (60-115)
--- NOTE | 2021-09-14 11:32 | MHC.SL.SWA ---
Speech Pathologist Impression: Risk of Aspiration Oral Phase Dysphagia Esophageal Dysphagia Risk of Aspiration Due to: History of Pneumonia Reduced Cognition Dysphasia Diet Status: Downgrade Liquid Consistency and Strategies for Safe Swallow: Liquid Intake Recommendation: Thin Liquid Intake Strategies: Small Sips No Straws Solid Food Consistency: Dietary Recommendations: Grnd/Mech Altered (NDD2) Additional Modifications to Solid Foods: Patient displays mild oral phase dysphagia and recent chest CT revealed moderate esophageal food residue- Recommend GROUND/MECH ALTERED (NDD2) solids (moisten with sauce/gravy) and THIN liquids (NO STRAWS), with pills CRUSHED in PUREE. Patient to be seated upright at 90 degree angle during PO intake and for at least 30 minutes afterwards. Recommend 1:1 supervision and aspiration precautions. Oral Medication Intake: Crushed with Puree Please contact the pharmacy regarding appropriate crushable or liquid drug formulations that are available whenever modified delivery is recommended. Compensatory Strategies and Precautions to be Taken for Safe Swallow: Sitting Upright (90 deg) No Straw Liquids from Cup Small Bites and Sips Alternate Liquids/Solids Rate of Ingestion Change Supervision While Eating and Drinking for Safe Swallow: Total Supervision (1:1) Foods to Avoid: Swallowing Recommended Treatments: Compens. Strategy Educat. Recommendation for Speech: Inpatient Speech Therapy Comment: Straws again present in drinks at bedside. Pt given straw sip of thin liquid, w/ Pt taking chain sips, w/wet voice/cough following. On cup sips, no clinical s/s of aspiration. Pt c/o hungry, given several bites of puree by spoon, w/timely oral and pharyngeal phase, no clinical signs of aspiration. Pt given bite of SB & J sandwich, w/mildly prolonged oral phase, swallow wnl, w/good oral clearance. Recommend NO STRAWS, continue on NDD2/Ground/Mech/Alt diet w/thin liquids. Due to hx Esophageal Dysphagia, recommend PT continue on this diet consistency while inpt and at next level of care. Continue w/ 1-1 supervision assistance during meals. Pt to remain upright w/head of bed at 90 Degrees following meals or snacks for at least 30 minutes. Recommend D/C Speech Svcs at this time. Frequency/Duration: Date Range for Service Req: Timeline to reassess: Restaurant Shift Leader Clinican/Clinical Fellow: No Supervisory Statement: I have reviewed and agree with the student/clinical fellow's documentation: N/A Speech Language Pathologist: Vesta Watt M.A., [facility]-CREDIT ANALYST
--- NOTE | 2021-09-14 13:05 | PC.NURSE ---
Patient tolerating room air at rest, but requires oxygen when repositioning or OOB, sitting up eating. on continuous O2 monitoring.
--- NOTE | 2021-09-14 13:56 | P.PNIM_ITS ---
Subjective Subjective Date of Service: 09/14/21 Interval History: Increased O2 requirements overnight Review of Systems Denies chest pain Admits to shortness of breath denies nausea vomiting diarrhea Physical Exam Vital Signs: Vital Signs: Last Vital Signs Temp 97.3 F 09/14/21 11:22 Pulse 75 09/14/21 11:22 Resp 20 09/14/21 11:22 BP 146/63 H 09/14/21 11:22 Pulse Ox 95 09/14/21 11:22 BMI result Body Mass Index 25.4 Const: Other: No acute distress Resp: Other: Diminished at bases with scant expiratory wheezes Cardio: Other: No S4; positive S1-S2; NO S3 IS MURMURS RUBS OR GALLOPS GI: Other: Soft nontender nondistended with normoactive bowel sounds Extrem: Other: No edema bilaterally Objective Data Active Medications Acetaminophen (Acetaminophen 325 Mg Tablet) 650 mg PO Q6H PRN PRN Reason: Pain, Mild (Pain Scale 1-3) Last Admin: 08/31/21 11:58 Dose: 650 mg Documented by: LEYLA Aspirin (Aspirin 81 Mg Tab.Chew) 81 mg PO DAILY [facility] Last Admin: 09/14/21 08:22 Dose: 81 mg Documented by: ADRIANA Atorvastatin Calcium (Atorvastatin Calcium 40 Mg Tablet) 40 mg PO DAILY [facility] Last Admin: 09/14/21 08:22 Dose: 40 mg Documented by: ADRIANA Dextrose (Dextrose 50 % 25 Gm/50 Ml Syringe) 25 gm IVPUSH Q15M PRN; Protocol PRN Reason: per Hypoglycemia Standing Ord. Last Admin: 09/07/21 07:43 Dose: 25 gm Documented by: BRITANY Dextrose (Dextrose 50 % 25 Gm/50 Ml Syringe) 25 gm IVPUSH Q15M PRN; Protocol PRN Reason: per Hypoglycemia Standing Ord. Diltiazem HCl (Diltiazem Hcl Cd 240 Mg Cap.Er.Deg) 240 mg PO DAILY [facility]; Protocol Last Admin: 09/14/21 08:22 Dose: 240 mg Documented by: ADRIANA Docusate Sodium (Docusate Sodium 100 Mg Capsule) 100 mg PO DAILY PRN PRN Reason: Constipation Escitalopram Oxalate (Escitalopram Oxalate 5 Mg Tablet) 5 mg PO DAILY [facility] Last Admin: 09/14/21 08:22 Dose: 5 mg Documented by: ADRIANA Glucose (Glucose Gel 15 Gm Gel..Gram.) 15 gm PO Q15M PRN; Protocol PRN Reason: per Hypoglycemia Standing Ord. Last Admin: 09/07/21 07:43 Dose: 15 gm Documented by: BRITANY Glucose (Glucose Gel 15 Gm Gel..Gram.) 15 gm PO Q15M PRN; Protocol PRN Reason: per Hypoglycemia Standing Ord. Insulin Human Lispro (Insulin Lispro 100 Unit/Ml 3 Ml Vial) 0 unit SUBCUT QIDACHS [facility]; Protocol Last Admin: 09/14/21 13:07 Dose: 12 unit Documented by: ADRIANA Lidocaine (Lidocaine 4 % Patch Adh..Patch) 1 patch TRANSDERMA DAILY [facility]; Protocol Last Admin: 09/14/21 08:22 Dose: 1 patch Documented by: ADRIANA Omeprazole (Omeprazole 20 Mg Capsule.Dr) 20 mg PO BID@0630,1630 [facility] Last Admin: 09/14/21 05:43 Dose: 20 mg Documented by: KEVIN Ondansetron HCl (Ondansetron Hcl 4 Mg/2 Ml Vial) 4 mg IVPUSH Q8H PRN PRN Reason: Nausea and Vomiting Polyethylene Glycol (Polyethylene Glycol 3350 17 Gm Powd.Pack) 17 gm PO DAILY [facility] Last Admin: 09/14/21 08:22 Dose: 17 gm Documented by: ADRIANA Prednisone (Prednisone 20 Mg Tablet) 40 mg PO DAILY [facility] Last Admin: 09/14/21 08:22 Dose: 40 mg Documented by: ADRIANA Rivaroxaban (Rivaroxaban 15 Mg Tablet) 15 mg PO DAILY [facility] Last Admin: 09/14/21 08:22 Dose: 15 mg Documented by: ADRIANA Sodium Chloride (0.9 % Sodium Chloride Flush 3 Ml Syringe) 3 ml IVFLUSH QSHIFT [facility] Last Admin: 09/14/21 09:34 Dose: 3 ml Documented by: ADRIANA Labs CBC & Chem 7: 09/13/21 06:37 09/13/21 06:37 Labs: Laboratory Results - last 24 hr 09/13/21 09/13/21 09/14/21 16:41 20:26 07:06 POC Glucose 226 H 168 H 231 H 09/14/21 10:59 POC Glucose 360 H* Assessment and Plan (1) COPD (chronic obstructive pulmonary disease): Status: Acute (2) TONYA (acute kidney injury): Status: Acute Plan 81yo F recently [08/14/20] admitted to [facility] for STR for encephalopathy + thoracic compression fracture; tested positive for Covid-19 08/18/21, brought in with increased confusion + PNA + hypoxia due to Covid-19 + bacterial pneumonia 1. COPD exacerbation - prednisone 40 mg/d, wean by 10 mg/d every 5d(11/23) - continue standing/prn nebs - hopeful D/C in am 2.Acute/chronic HFpEF - well compensated on current theraapies -adjust as indicated 3. TONYA - likely due to diuresis - follow renals/divalents 4. HCAP - completed 7d of vanc + pip/justice + PCT + CRP are low.? BCx negative - no further treatments 5. Covid-19 pneumonia - completed 10d of dexamethasone; no remdesivir given duration of Covid-19, no baricitinib due to concern of bacterial pneumonia 6. Paroxysmal Atrial Fibrilation - acceptable rate control on current therapies - continue rivaroxaban, diltiazem 7. DMII -acceptable control oncurrent therapies - correction-dose lispro; rivaroxaban full code Quality Stroke Does the patient have a stroke diagnosis?: No VTE Prior VTE?: Yes VTE Risk Level:: Medical - moderate - high VTE Device Contraindication: Treatment Not Indicated VTE Drug Contraindication: N/A - Med Ordered
--- NOTE | 2021-09-14 14:00 | MHC.CM.PN ---
Patient/Son originally indicated that they do not want Patient to return to [facility]. MCKINLEY spoke with Patient's Son/Kwasi today to discuss which facilities may have a bed to offer and Kwasi indicated that he would prefer that his Mother be closer to him and therefor chooses for Patient to return to [facility]. indicated that Patient will be ready for dc tomorrow and MCKINLEY has relayed this information to [facility].
[2021-09-14 16:12] LABS: Glucose, Whole Blood 300 mg/dL (60-115)
[2021-09-14 19:47] LABS: Glucose, Whole Blood 287 mg/dL (60-115)
[2021-09-15 03:11] VITALS: BP 133/67; PULSE 66; RESP 20; TEMP 36.3; O2SAT 95
[2021-09-15] MEDS: Omeprazole 20 MG CAPSULE.DR PO (05:50)
[2021-09-15 07:21] VITALS: BP 140/84; PULSE 70; RESP 19; TEMP 36.7; O2SAT 94
[2021-09-15 07:45] LABS: Glucose, Whole Blood 168 mg/dL (60-115)
[2021-09-15] MEDS: dilTIAZem HCL CD 240 MG CAP.ER.DEG PO (08:06)
[2021-09-15] MEDS: polyethylene glycoL 3350 17 GM POWD.PACK PO (08:06)
[2021-09-15] MEDS: Lidocaine 4 % Patch ADH..PATCH 1 PATCH TRANSDERMA (08:06)
[2021-09-15] MEDS: 0.9 % Sodium Chloride Flush 3 ML SYRINGE IVFLUSH (08:06)
[2021-09-15] MEDS: Escitalopram Oxalate 5 MG TABLET PO (08:07)
[2021-09-15] MEDS: Atorvastatin Calcium 40 MG TABLET PO (08:07)
[2021-09-15] MEDS: Rivaroxaban 15 MG TABLET PO (08:07)
[2021-09-15] MEDS: Insulin Lispro 100 UNIT/ML 3 ML VIAL SUBCUT ×2 (08:07→12:06)
[2021-09-15] MEDS: predniSONE 20 MG TABLET 40 MG PO (08:07)
[2021-09-15] MEDS: Aspirin 81 MG TAB.CHEW PO (08:07)
--- NOTE | 2021-09-15 09:35 | P.DS_ITS ---
DS: Providers Provider Date of Service: 09/15/21 Date of admission: 08/29/21 21:01 Date of discharge: 09/15/21 Primary care physician: Unknown Physician Consults: 08/30/21 08:08 Consult to Infectious Diseases Routine Consulting Provider: Rowena Osuna Reason for consultation: Covid + lobar pneumonia 09/04/21 13:22 Consult to Infectious Diseases Routine Consulting Provider: Rowena Osuna Reason for consultation: persistant leukocytosis Has provider been notified: Yes 09/04/21 22:19 Consult to General Surgery Routine Consulting Provider: Jerry Batista Reason for consultation: fecal impaction 09/07/21 15:18 Consult to Cardiology Routine Consulting Provider: Trell Fountain Reason for consultation: CHF exac 09/08/21 15:01 Consult to Pulmonology Routine Consulting Provider: Tony Hays Reason for consultation: s/p treatment for PNA + Covid-19. Persistent dyspnea/hypoxia 09/08/21 16:29 Consult to Gastroenterology Routine Consulting Provider: [facility] Reason for consultation: retained food in esophagus - dysmotility? DS: Diagnosis Discharge Diagnosis (1) COPD (chronic obstructive pulmonary disease): Status: Acute (2) TONAY (acute kidney injury): Status: Acute DS: Summary Hospital Course Hospital Course: 81-year-old female with past medical history COPD, diabetes, lymphedema, who presents to the hospital from half-way with increased confusion from baseline.? Patient is very confused,? somnolent, wakes up to verbal command but falls back asleep and unable to give much history.? Therefore history is obtained from nursing documentation as well as PA. ? it appears the patient was diagnosed with pneumonia at the half-way the day prior, on arrival to the ED patient was found to be hypoxic in the low 80s, patient placed on high-flow in currently satting in the ? Low 90s. ? Unable to obtain review of system due to the? clinical and mental status. ?on arrival to the ED patient found to be hypoxic, tachycardic with a heart rate of 107, respiratory rate of 22, blood pressure stable Labs are? significant for WBC count of 21.7, hemoglobin of 10.8, sodium of 146, chloride of 111, lactic acid of 2.1, alk-phos of 144, troponin of? 26, BNP of 193, UA positive for blood, negative for nitrites or leukocyte Estrace but positive for WBC.? COVID-[address] shows right lower lobe consolidation. Hospital Course seen by infectious disease; completed a course of vancomycin and Zosyn then switched Augmentin and doxycycline by mouth. Given dexamethasone as per protocol; did not get remdesivir due to unknown duration COVID-19; did not get baricitinib secondary to suspected bacterial lung infection immune suppression. Patient continued to have an exceedingly high O2 requirement requiring high- flow O2 for several days. She had persistent leukocytosis and was read consult by ID who felt this was related steroids and prolonged disease. She had what was thought to be 1 episode of CHF that was treated with IV Lasix and did not recur again. After prolonged taper of her O2, she she is now satting acceptable to be transferred to intermediate Time Spent with Patient Time attestation: Total time spent providing and/or coordinating discharge services: Discharge coordination time: Greater than 30 minutes Quality: Stroke Does the patient have a stroke diagnosis?: No Physical Exam Vital Signs: Vital Signs: Last Vital Signs Temp 98.0 F 09/15/21 07:21 Pulse 70 09/15/21 07:21 Resp 19 09/15/21 07:21 BP 140/84 H 09/15/21 07:21 Pulse Ox 94 09/15/21 07:21 BMI result Body Mass Index 25.4 Const: Other: No acute distress Resp: Other: Diminished at bases with scant expiratory wheezes Cardio: Other: No S4; positive S1-S2; NO S3 IS MURMURS RUBS OR GALLOPS GI: Other: Soft nontender nondistended with normoactive bowel sounds Extrem: Other: No edema bilaterally DS: Data Data Completed and Pending Labs on day of discharge: Laboratory Results - last 24 hr 09/14/21 09/14/21 09/14/21 10:59 16:06 19:43 POC Glucose 360 H* 300 H 287 H 09/15/21 07:24 POC Glucose 168 H Discharge Plan Discharge Patient Disposition: Xfer Inpatient Rehab Fac Discharge Diagnosis: Covid Pneumonia Referrals: [facility] [Outside] - 1 Week Physician,Lin Villatoro [Primary Care Provider] - 1 Week Discharge Medications: New atorvastatin 40 mg Tablet 40 mg PO DAILY Qty: 30 0RF acetaminophen 325 mg Tablet 650 mg PO Q6H PRN (Reason: Pain, Mild (Pain Scale 1-3)) Qty: 60 0RF docusate sodium 100 mg Capsule 100 mg PO DAILY PRN (Reason: Constipation) Qty: 30 0RF omeprazole 20 mg Capsule,Delayed Release(Dr/Ec) 20 mg PO BID@0630,1630 Qty: 30 0RF aspirin 81 mg Tablet,Chewable 81 mg PO DAILY Qty: 30 0RF prednisone 10 mg tablet See Rx Instructions .Route .COMPLEX Qty: 45 0RF Rx Instructions: 10 mg orally; 5 tabs p.o. daily x3 days; 4 tabs p.o. daily x3 days; 3 tabs daily x3 days; 2 tabs daily x3 days; 1 tab daily x3 days Continued (DME) FreeStyle Lite Strips Strip See Rx Instructions .Route Qty: 100 12RF Rx Instructions: As directed three times daily citalopram 10 mg tablet 10 mg PO DAILY Qty: 90 1RF insulin aspart U-100 [Novolog Flexpen U-100 Insulin] 100 unit/mL (3 mL) insulin pen 0 sliding scale dose subcut TIDAC 0RF Protocol: Insulin Correction Scale Less than or equal to 110 ---- Give (units): 0 111 to 150 Give (units): 0 151 to 200 Give (units): 2 201 to 250 Give (units): 4 251 to 300 Give (units): 6 301 to 350 Give (units): 8 Greater than 350 Give (units): 10 Call MD if Blood Glucose > : 350 insulin glargine 100 unit/mL (3 mL) insulin pen 10 unit subcut BEDTIME 0RF spironolactone 25 mg tablet 1 tab PO DAILY 0RF diltiazem HCl 240 mg capsule,extended release 24 hr 240 mg PO DAILY 0RF lidocaine 4 % Adhesive Patch,Medicated 1 patch TOPICAL DAILY 0RF (DME) lancets [FreeStyle Lancets] 28 gauge misc See Rx Instructions .ROUTE .MEDSUPPLY Qty: 100 0RF Rx Instructions: As directed Xarelto 15 mg tablet 15 mg PO DAILY Qty: 90 1RF Discontinued oxycodone 5 mg tablet 5 mg PO Q8H PRN (Reason: pain) Qty: 10 0RF Discharge Orders: Discharge Order (Routine); Ordered 09/15/21 Ordered By: Chance Gilbert Diet: advance to usual diet Activity on Discharge: As tolerated Stand Alone Forms: Patient Portal Discharge page Activity Restrictions/Additional Instructions: Dietary Recommendations: Grnd/Mech Altered (NDD2) Additional Modifications to Solid Foods: Patient displays mild oral phase dysphagia and recent chest CT revealed moderate esophageal food residue- Recommend GROUND/MECH ALTERED (NDD2) solids (moisten with sauce/gravy) and THIN liquids (NO STRAWS), with pills CRUSHED in PUREE. Patient to be seated upright at 90 degree angle during PO intake and for at least 30 minutes afterwards. Recommend 1:1 supervision and aspiration precautions. Care Plan Goals: Continue therapies as ordered Health Concerns: maintain highest level of function Plan of Treatment: as per receiving facility Assessment: See DC summary
--- NOTE | 2021-09-15 10:45 | PC.NURSE ---
Discharge assesent done. Report called to Aleta and given to FRAN Red
[2021-09-15 11:39] VITALS: BP 168/78; PULSE 71; RESP 20; TEMP 36.7; O2SAT 97
[2021-09-15 11:48] LABS: Glucose, Whole Blood 222 mg/dL (60-115)
--- NOTE | 2021-09-15 11:49 | MHC.CM.PN ---
Addendum entered by America Boyd 09/15/21 12:11: CM CONTACTED PTS SON, JACOB [phone] AND INFORMED HIM OF DISCHARGE. HE REPORTS BEING IN AGREEMENT PTS MEDICARE RIGHTS WERE REVIEWED AND A COPY WILL BE MAILED TO HIM AT: OUMAR TEIXEIRA [address] [place] [address] RJOELIO BURCIAGA [id number] Original Note: PT CLEARED TO RETURN TO [facility] TODAY AT 1200 HOURS VIA BLS
--- NOTE | 2021-09-19 07:37 | P.CDIR_ITS ---
Retrospective Query PHYSICIAN'S DOCUMENTATION REQUEST Date of Query: 09/19/21 0737 Patient Name: Bibi Cormier Admit Date: 08/29/21 Dear Doctor, A review of the medical record indicates additional documentation may be needed. Please review below and update the documentation accordingly. Clinical Indicators: Risk Factors/Clinical Indicators/Treatments WBC 21.7 LA 3.2 RR 24 HR 107 IV Vancomycin, Zosyn, IV fluids Query response 08/31 - Sepsis due to pneumonia. Please clarify which of the following most accurately describes the above abnormalities: * Sepsis * Systemic manifestations of infection, with 2 or more SIRS criteria which include: -Fever > 100.4F or hypothermia < 96.8 F -Leukocytosis - WBC > 12,000 or leukopenia, WBC < 4,000 or > 10% bands -Tachycardia > 90 beats/minute -Tachypnea - RR > 20 breaths/minute or PaCO2 < 32mmHg (Source: Merck Manual 2013) * Indicate the knows or suspected organism * Indicate the known or suspected underlying infection, such as UTI, pneumonia, or cellulitis * Indicate if a suspected bacteria infection of unknown source * Indicate if associated with an implanted device such as a F/C, PICC line, orthopedic hardware, etc * Indicate if there is associated organ dysfunction, such as renal or respiratory failure * Other * Unable to determine Use of terms such as suspected, likely, concern for, or probable (associated with a specific diagnosis that is being evaluated, monitored, or treated as if it exists) are acceptable and can be coded in the inpatient setting, when documented at the time of discharge. Thank you, Goldie Yañez [facility], [facility] Extension: [phone] Please use your independent medical judgment in providing your response. THIS QUERY IS PART OF THE PERMANENT MEDICAL RECORD
== END 2021-09-15 12:19 | DRG 871 ==
LOC: HO.ED 19:46 → HO.EDOVER 21:47 → HO.IMC 08-30 12:03
PROVIDERS: Family Medicine; Internal Medicine; Nurse Practitioner Family; Admitting Provider Internal Medicine; Emergency Provider Emergency Medicine; Visit Provider Hospitalist
DX: A41.89 Other specified sepsis (principal); G92.8 Other toxic encephalopathy; U07.1 COVID-19; J15.9 Unspecified bacterial pneumonia; J96.21 Acute and chronic respiratory failure with hypoxia; I50.33 Acute on chronic diastolic (congestive) heart failure; J12.82 Pneumonia due to coronavirus disease 2019; J44.1 Chronic obstructive pulmonary disease with (acute) exacerbation; J44.0 Chronic obstructive pulmonary disease with (acute) lower respiratory infection; N17.9 Acute kidney failure, unspecified; I48.0 Paroxysmal atrial fibrillation; K56.41 Fecal impaction; F39 Unspecified mood [affective] disorder; M81.0 Age-related osteoporosis without current pathological fracture; D72.829 Elevated white blood cell count, unspecified; E11.9 Type 2 diabetes mellitus without complications; Z86.718 Personal history of other venous thrombosis and embolism; Z87.891 Personal history of nicotine dependence; Z79.4 Long term (current) use of insulin; Z79.82 Long term (current) use of aspirin; Z79.899 Other long term (current) drug therapy
CPT/HCPCS: 32555; 36415; 36600; 71045; 71250; 74176; 80048; 80053; 80076; 80202; 81001; 82009; 82550; 82565; 82607; 82728; 82746; 82803; 82945; 82947; 83036; 83540; 83605; 83615; 83690; 83735; 83880; 83986; 84145; 84157; 84484; 85007; 85025; 85027; 85045; 85379; 85610; 85730; 86140; 86850; 86900; 86901; 87040; 87070; 87073; 87086; 87088; 87186; 87205; 87449; 87633; 87635; 87640; 87641; 87899; 88112; 88305; 89051; 92526; 92610; 93005; 93306; 93971; 94640; 94644; 96361; 96374; 96375; 97110; 97163; 97530; 99285; 99291; J0456; J0696; J1100; J1940; J2270; J2543; J2920; J2930; J3370

== ENCOUNTER 2021-09-16 11:13 | Inpatient (IN) | payer MEDICARE, MEDICAID, SELFPAY ==
[2021-09-16] VITALS (11 sets, daily range): BP systolic 115–135; BP diastolic 43–53; PULSE 53–68; RESP 18–24; TEMP 36.9; O2SAT 88–100; BMI 24.1
--- NOTE | ~2021-09-16 | US_ITS ---
EXAMINATION: ULTRASOUND-GUIDED RIGHT THORACENTESIS CLINICAL INFORMATION: Right pleural effusion. COMPARISON: CT scan of September 16, 2021 TECHNIQUE: Ultrasound-guided thoracentesis FINDINGS: Informed consent was obtained from the patient's proxy prior to the procedure. During this process, the procedure and potential alternatives were explained, along with the intended outcome and benefits. The risks of the procedure, as well as the risk of not doing the procedure, were discussed. The patient's proxy was given the opportunity to ask questions regarding the procedure and appeared competent to make medical decisions. A signed consent form which documents this discussion was placed in the medical record. Using ultrasound guidance and sterile technique a 5 Portuguese Yueh needle was directed into the right pleural space. A total of 350 mL of clear yellow fluid were removed. Fluid was sent for laboratory studies. Patient tolerated procedure without difficulty. US/US thoracentesis IMPRESSION: Right thoracentesis with removal of 350 mL of clear yellow fluid.
--- NOTE | ~2021-09-16 | US_ITS ---
EXAMINATION: US VENOUS WITH DOPPLER UPPER EXTREMITY, RIGHT CLINICAL INFORMATION: Shortness of breath COMPARISON: None TECHNIQUE: Ultrasound of the upper extremity is performed using compression sonography and color and pulse Doppler flow with assessment of augmentation of flow. There is also imaging and Doppler assessment of the jugular and subclavian veins. Spectral analysis with color-flow imaging is performed. FINDINGS: Respiratory variation, normal compression, and augmented flow are noted throughout the upper extremity including the brachial, cubital, and radial and ulnar veins. There is normal flow in the internal jugular and subclavian veins. There is no visible deep or superficial thrombophlebitis. Axillary vein unable to be imaged as the patient was unable to cooperate. US/US venous duplex UE RT IMPRESSION: No DVT demonstrated in the right upper extremity
--- NOTE | ~2021-09-16 | US_ITS ---
EXAMINATION: US VENOUS WITH DOPPLER UPPER EXTREMITY, RIGHT CLINICAL INFORMATION: Edema/swelling COMPARISON: September 16, 2021 TECHNIQUE: Ultrasound of the upper extremity is performed using compression sonography and color and pulse Doppler flow with assessment of augmentation of flow. There is also imaging and Doppler assessment of the jugular and subclavian veins. Spectral analysis with color-flow imaging is performed. FINDINGS: Respiratory variation, normal compression, and augmented flow are noted throughout the upper extremity including the axillary, brachial, cubital, and radial and ulnar veins. There is normal flow in the subclavian vein. There is some spectral broadening within the internal jugular vein which may be related to neck positioning or narrowing of other etiology involving the vein. There is no visible deep or superficial thrombophlebitis. The cephalic vein was not identified. US/US venous duplex UE RT IMPRESSION: No acute DVT demonstrated in the right upper extremity
--- NOTE | ~2021-09-16 | CT_ITS ---
EXAMINATION: CT CHEST WITHOUT CONTRAST CLINICAL INFORMATION: 81-year-old female with shortness of breath and chest pain. COMPARISON: 09/08/2021 TECHNIQUE: Multidetector volumetric CT imaging of the chest was done. Axial MIP volume rendering provided. Sagittal and coronal reformatted images were obtained. This CT examination was performed using dose optimization techniques as appropriate, variously including the following: *Automated exposure control *Adjustment of mA and/or kV according to patient size (this includes techniques or standardized protocols for targeted exams where dose is matched to indication/reason for exam; i.e. extremities or head) *Use of iterative reconstruction technique DLP: 473 mGy-cm FINDINGS: FLEXOGRAPHIC PRESS OPERATOR: There is bilateral pleural effusion. LUNGS: Lungs are clear with bibasilar atelectasis and small pleural effusions seen. Examination is limited due to noncontrast technique and motion. MEDIASTINUM: There is mediastinal lymphadenopathy with precarinal lymph node measured 1.7 x 1.7 cm and smaller-size lymph nodes. There is no hilar lymphadenopathy seen. Heart is enlarged with heavy coronary artery calcifications. Main pulmonary artery measures 4.1 cm, wider than aortic arch. There is no pericardial effusion. PLEURA: There is small pleural effusion. No pleural mass or thickening. AXILLA: No lymphadenopathy. UPPER ABDOMEN: There are bilateral low attenuation adrenal gland masses measuring 2.4 x 2.4 on the right and 2.1 x 2.8 on the left with attenuation of -20 HU on the right and -40 on the left . There is tiny non-obstructing calculus in the right kidney. Gallbladder surgically absent. OSSEOUS STRUCTURES: There is compression deformity of L1 vertebral body of indeterminate age and mild compression deformity of T7 vertebral body. There is diffuse osteopenia and multilevel degenerative changes. CT/CT chest wo con IMPRESSION: 1. Mild mediastinal lymphadenopathy cardiomegaly and possibly pulmonary artery hypertension. 2. Bibasilar atelectasis and small pleural effusion. 3. Bilateral adrenal gland adenomas. Technically limited study. Fleischner guidelines were followed.
--- NOTE | ~2021-09-16 | CT_ITS ---
EXAMINATION: CT ABDOMEN AND PELVIS WITHOUT CONTRAST CLINICAL INFORMATION: 81-year-old female with diffuse abdominal pain. COMPARISON: 09/04/2021 TECHNIQUE: Multidetector volumetric imaging was performed from the superior aspect of the liver through the pubic symphysis. Sagittal and coronal reformatted images were obtained on the technologist's workstation. This CT examination was performed using dose optimization techniques as appropriate, variously including the following: *Automated exposure control *Adjustment of mA and/or kV according to patient size (this includes techniques or standardized protocols for targeted exams where dose is matched to indication/reason for exam; i.e. extremities or head) *Use of iterative reconstruction technique DLP: 1005 mGy-cm FINDINGS: There is a right atelectasis with air bronchogram surrounded by small pleural effusion. There is trace of pleural effusion on the left. LIVER, GALLBLADDER, AND BILIARY TREE: Liver is of low attenuation with attenuation measured 32 HU. There are no intrahepatic masses or ductal dilatation. 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 Gallbladder is surgically absent. PANCREAS: Unremarkable, without contrast. SPLEEN: Not identified, surgically absent. ADRENAL GLANDS: There are bilateral adrenal gland adenomas stable since previous study. KIDNEYS AND URETERS: The kidneys are normal in size, shape, and attenuation. No hydronephrosis, hydroureter. Punctate calcification possibly seen in the right collecting system. No perinephric stranding. BLADDER: Unremarkable. GASTROINTESTINAL TRACT: There is impaction of fecal debris in the colon. There is no evidence of colitis or diverticulitis. Appendix is not identified. Loops of small bowel are unremarkable. There is no evidence of bowel obstruction or diverticulitis. ABDOMINAL WALL: No significant hernia is appreciated. LYMPH NODES: Normal. VASCULAR: Abdominal aorta is heavily calcified but not dilated. PELVIC VISCERA: Unremarkable. OSSEOUS STRUCTURES: There is unresolved gluteal hematoma on the left measured now 9.2 x 3.4 x 8 cm incompletely included on the images. There is subcutaneous anasarca. There is compression deformity of T12 vertebral body of indeterminate age. There are multilevel degenerative changes with narrowing of L4-L5 intervertebral disc space. Patient status post remote surgery for right hip fracture with hardware in place. CT/CT abdomen pelvis wo con IMPRESSION: Constipation with fecal impaction throughout the colon. Large gluteal hematoma on the left. Small bilateral pleural effusions with atelectasis on the right. Bilateral adrenal gland adenomas. Possible punctate calcification in right collecting system. Fleischner guidelines were followed.
--- NOTE | 2021-09-16 11:44 | ECG_ITS ---
Test Reason : DYSPNEA Blood Pressure : / mmHG Vent. Rate : 058 BPM Atrial Rate : 058 BPM P-R Int : 160 ms QRS Dur : 120 ms QT Int : 456 ms P-R-T Axes : 000 014 -34 degrees QTc Int : 447 ms Sinus bradycardia Right bundle branch block Abnormal ECG When compared with ECG of 07-SEP-2021 12:17, Premature atrial complexes are no longer Present T wave inversion no longer evident in Lateral leads QT has shortened Referred By: Fredi Telles Electronically Signed By:BERTHA SIDDIQUI
--- NOTE | 2021-09-16 11:44 | ED.SOB ---
HPI - SOB/Dyspnea General Chief Complaint: Dyspnea Stated Complaint: SOB PER SNF Time Seen by Provider: 09/16/21 11:36 Source: EMS Mode of arrival: EMS Limitations: no limitations History of Present Illness HPI Narrative: 81-year-old female who was sent to the emergency department from her detention facility, [facility] [place] for evaluation of shortness of breath that started this morning. The patient was given nebulizer treatments and then transported to the emergency department. The patient has COPD and uses 2 L of oxygen via nasal cannula. The patient's O2 saturation on 2 L at the facility was 88%, here in the emergency department, she was hypoxic with O2 saturation the % range, she was initially put on a Venti mask at 55% FiO2 and then changed over to 100% non-rebreather mask with O2 saturations in the 93-96% range. The patient has no complaints and lacks insight as to why she is here in the emergency department. The patient was admitted to this institution on 08/29/2021 for right lower lobe pneumonia and was COVID positive. The patient was managed with high-flow oxygen, she received vancomycin and Zosyn for possible aspiration pneumonia/healthcare acquired pneumonia. She was discharged yesterday on 09/15/2021 on Augmentin and doxycycline. Patient was noted to have dysphagia and was discharged on ground food and thickened liquids diet. Related Data Home Medications Medication Instructions Recorded Confirmed insulin aspart U-100 100 unit/mL 0 sliding scale dose SUBCUT TIDAC 08/10/21 09/16/21 (3 mL) subcutaneous pen (Novolog Flexpen U-100 Insulin aspart) insulin glargine 100 unit/mL (3 10 unit SUBCUT BEDTIME 08/10/21 09/16/21 mL) subcutaneous pen lidocaine 4 % topical patch 1 patch TOPICAL DAILY 08/18/21 09/16/21 diltiazem HCl 240 mg capsule,24 240 mg PO DAILY 08/29/21 09/16/21 hr,extended release spironolactone 25 mg tablet 1 tab PO DAILY 08/29/21 09/16/21 albuterol sulfate 0.5 vial INHALATION Q4H PRN 09/16/21 09/16/21 albuterol sulfate 90 mcg/actuation 2 puff INHALATION Q4-6H PRN 09/16/21 09/16/21 aerosol inhaler ipratropium 18 mcg-albuterol 103 2 spray INHALATION QID 09/16/21 09/16/21 mcg/actuation aerosol inhaler Previous Rx's Medication Instructions Recorded blood sugar diagnostic (FreeStyle #100 ea 04/03/21 Lite Strips) lancets 28 gauge (FreeStyle #100 ea 06/01/21 Lancets) rivaroxaban 15 mg tablet (Xarelto) 15 mg PO DAILY #90 tab 06/01/21 citalopram 10 mg tablet 10 mg PO DAILY #90 tab 07/25/21 acetaminophen 325 mg tablet 650 mg PO Q6H PRN #60 tab 09/15/21 aspirin 81 mg chewable tablet 81 mg PO DAILY #30 tab 09/15/21 atorvastatin 40 mg tablet 40 mg PO DAILY #30 tab 09/15/21 docusate sodium 100 mg capsule 100 mg PO DAILY PRN #30 cap 09/15/21 omeprazole 20 mg capsule,delayed 20 mg PO BID@0630,1630 #30 cap 09/15/21 release prednisone 10 mg tablet See Rx Instructions .ROUTE 09/15/21 .COMPLEX #45 tab Allergies Allergy/AdvReac Type Severity Reaction Status Date / Time No Known Allergies Allergy Unknown Verified 08/10/21 02:22 Review of Systems Review of Systems: Yes Unobtainable due to mental status (Lacks insight as to why she is here in the emergency department) [facility] Past Medical History Medical History COPD (chronic obstructive pulmonary disease) Decreased hearing of both ears Fecal impaction History of DVT (deep vein thrombosis) IDDM (insulin dependent diabetes mellitus) Leukocytosis Lymphedema Osteoporosis with pathological fracture Pneumonia due to 2019 novel coronavirus Right lumbosacral radiculopathy Smoker Thrombocytosis after splenectomy Surgical History H/O splenectomy History of section S/P LILI-BSO (total abdominal hysterectomy and bilateral salpingo-oophorectomy) Family History Family History Father No problems noted. Mother No problems noted. Social History Social History Household Members: Other Housing: Other Housing Other:: nsg home Unable to assess alcohol history related to: Unable to respond Alcohol intake: never Patient Tobacco Use Status: Former Tobacco user Tobacco use type: Cigarette Cigarettes Per Day: 3 e-Cigarette/Vaping Use: Never Used Second Hand Smoke Exposure: No Use of substances other than those prescribed or required for medical reasons: No Advance Directives: Yes Advance Directives on File: Yes Advance Directives Date on File: 08/10/21 service: No Current occupational status: disabled Cognitive needs: Yes (wheelchair) Hearing needs: No Vision needs: No Physical Exam Vital Signs: Vital Signs: Last Vital Signs Temp 98.4 F 09/16/21 11:19 Pulse 57 09/16/21 14:42 Resp 21 H 09/16/21 15:15 BP 124/47 L 09/16/21 15:15 Pulse Ox 98 09/16/21 15:15 BMI result Body Mass Index 24.1 Const: Other: Awake, alert, female patient, lacks insight as to why she is here in the emergency department, does answer questions appropriately , denies being in distress and has no complaints HENMT: Head: Yes normal to inspection, Yes normocephalic and Yes atraumatic Ears: external ears normal Eyes: General: appearance normal, both eyes and all related structures Periorbital: periorbital findings normal Eyelids: Yes eyelids normal Conjunctivae: conjunctivae normal Sclerae: sclerae normal Corneas: corneas normal Pupils: Equal, round and reactive pupils present Direct Ophthalmoscopy: normal light reflex Neck: Neck: Yes normal visual inspection and Yes supple Lymphatic: no lymphadenopathy noted Chest: Chest palpation & inspection: normal inspection of the chest and normal palpation of entire chest wall Resp: Effort & Inspection: normal respiratory effort Auscultation: no crackles, rales (Right base), rhonchi (Right base) and no wheezes Cardio: Rate: regular rate Rhythm: regular rhythm Heart sounds: S1 normal heart sound present, S2 normal heart sound present and Murmur heart sound present GI: Inspection: No distended Palpation (GI): Soft to palpation, nontender, no guarding and No hepatosplenomegaly present Auscultation: normal bowel sounds : General: Yes no CVA tenderness Back/Spine/Pelvis: Back: no CVA tenderness Skin: General skin exam: no rashes or lesions noted Lesions: no lesions Rashes: no rashes Wounds: no wounds Neuro: Cranial nerves: Yes CN's II-XII intact bilaterally and Yes Equal, round and reactive pupils present Cognition (Neuro): normal cognition Motor exam (neuro): 5/5 motor strength present throughout Extrem: Other: Patient has significant right upper extremity swelling from the hand to the shoulder with some mild left upper extremity swelling Psych: Appearance: grossly normal Mental Status: mental status grossly normal Speech and movement: Clear speech present Affect: normal affect Course Course Course Narrative: 81-year-old female who had a prolonged hospitalization from 08/29/2021 until 09/15/2021 (yesterday) for COVID-19 infection and a right lower lobe pneumonia. Patient was treated with vancomycin and Zosyn. She required high-flow oxygen and was eventually able to be discharged on oxygen via nasal cannula. She was discharged to the [facility]. She presents to emergency department for evaluation of shortness of breath and hypoxia. Patient was found to be hypoxic here in the emergency department and required 100% non-rebreather mask. Lung exam did reveal rhonchi and rales at the right base, asymmetric swelling of her right upper extremity being larger than her left. Differential includes was not limited to bacterial pneumonia, CHF, pulmonary embolism, COPD exacerbation. I ordered a BNP, ABG, CBC, CMP, lipase, procalcitonin, troponin, urinalysis, blood culture x2, right upper extremity duplex ultrasound. 1257: WBC was elevated 27.7, H&H was low at 9.6 and 30.5, platelet count was 298,000. Lactate was normal 1.3. Troponin was elevated at 49.1, BNP was elevated 240. Potassium was elevated 5.4, carbon dioxide was low at 21, BUN was elevated 85 with a creatinine of 1.78, glucose was elevated at 366. Alk-phos was elevated 122, BN P was elevated 240. ABG on 100% non-rebreather/15 L flow: PH 7.4, pCO2 34, PO2 67 bicarb 21, Patient's ABG revealed a normal CO2 but very low oxygen 100% non-rebreather therefore I ordered high-flow oxygen. Given her elevated BUN and creatinine, I will only get a CT scan of the chest without IV contrast to evaluate for possible pneumonia. 1609: CT scan of the chest revealed bilateral atelectasis with small pleural effusions and possible pulmonary hypertension. CT scan of the abdomen did reveal a large gluteal hematoma the left otherwise was unremarkable. Doppler ultrasound of the right upper extremity revealed no DVT. At this time I do not have a clear etiology for the patient's hypoxia except that it may be post COVID related lung injury. I did discuss this with the covering hospitalist, Dr. Gilbert and the patient will be admitted for further treatment. MDM - SOB/Dyspnea Lab Data Result diagrams: 09/16/21 12:12 09/16/21 12:12 Labs: Lab Results 09/16/21 09/16/21 09/16/21 Range/Units 11:51 12:12 12:12 WBC 27.7 H (4.8-10.8) X10*3/uL RBC 3.06 L (4.20-5.50) X10*6/uL Hgb 9.6 L (12.0-16.0) g/dl Hct 30.5 L (37.0-47.0) % MCV 99.7 H (80.0-98.0) fL MCH 31.4 (27.0-33.0) pg MCHC 31.5 (31.0-35.0) g/dl RDW 17.1 H (11.0-16.0) % Plt Count 298 (160-400) X10*3/uL MPV 10.3 (9.4-12.3) fL Immature Gran % (Auto) 0.8 H (0.0-0.4) % Neut % (Auto) 94.3 H (45-73) % Lymph % (Auto) 1.2 L (20-40) % [place] % (Auto) 3.6 (2-11) % Eos % (Auto) 0.0 (0-4) % Baso % (Auto) 0.1 (0-2) % Lymph # (Auto) 0.3 L (1.2-4.9) X10*3/uL [place] # (Auto) 1.0 (0.1-1.2) X10*3/uL Eos # (Auto) 0.0 (0.0-0.4) X10*3/uL Baso # (Auto) 0.0 (0.0-0.2) X10*3/uL Abs Immat Gran (auto) 0.21 H (0.00-0.03) X10*3/uL Absolute Neuts (auto) 26.1 H (2.0-8.3) x10*3/uL Absolute Nucleated RBC 0.000 (0.0-0.012) X10*3/uL Nucleated RBC % (auto) 0.0 (0.0-0.2) /100WBC Smear Tech's Comments VERIFIED PT 12.7 (9.9-13.0) SEC INR 1.1 (0.9-1.1) APTT 31.1 (24.1-38.0) SEC D-Dimer High Sensitivty 452 NG/ML O2 Saturation 91.0 % ABG pH at Pt Temp 7.41 (7.35-7.45) ABG pCO2 at Pt Temp 34 (32-45) mmHg ABG pO2 at Pt Temp 67 L (83-108) mmHg ABG HCO3 21 L (22-26) mmol/L ABG Base Excess (Actual) -2.1 mmol/L Sodium (135-145) mmol/L Potassium (3.3-5.1) mmol/L Chloride (96-108) mmol/L Carbon Dioxide (22-29) mmol/L Anion Gap (12-20) BUN (9-16) mg/dL Creatinine (0.5-1.4) mg/dL Estim Creat Clear Calc Estimated GFR Random Glucose (60-115) mg/dL Lactic Acid (0.5-2.0) mmol/L Calcium (8.4-10.2) mg/dL Total Bilirubin (0.0-1.0) mg/dL AST (5-31) U/L ALT (0-31) U/L Alkaline Phosphatase (39-117) U/L Troponin I High Sens (<3.5-17.0) ng/L B-Natriuretic Peptide (<100) pg/mL Total Protein (6.5-8.0) g/dL Albumin (3.5-5.0) g/dL Lipase (8-78) U/L Procalcitonin ng/mL 09/16/21 09/16/21 09/16/21 Range/Units 12:12 12:12 12:12 WBC (4.8-10.8) X10*3/uL RBC (4.20-5.50) X10*6/uL Hgb (12.0-16.0) g/dl Hct (37.0-47.0) % MCV (80.0-98.0) fL MCH (27.0-33.0) pg MCHC (31.0-35.0) g/dl RDW (11.0-16.0) % Plt Count (160-400) X10*3/uL MPV (9.4-12.3) fL Immature Gran % (Auto) (0.0-0.4) % Neut % (Auto) (45-73) % Lymph % (Auto) (20-40) % [place] % (Auto) (2-11) % Eos % (Auto) (0-4) % Baso % (Auto) (0-2) % Lymph # (Auto) (1.2-4.9) X10*3/uL [place] # (Auto) (0.1-1.2) X10*3/uL Eos # (Auto) (0.0-0.4) X10*3/uL Baso # (Auto) (0.0-0.2) X10*3/uL Abs Immat Gran (auto) (0.00-0.03) X10*3/uL Absolute Neuts (auto) (2.0-8.3) x10*3/uL Absolute Nucleated RBC (0.0-0.012) X10*3/uL Nucleated RBC % (auto) (0.0-0.2) /100WBC Smear Tech's Comments PT (9.9-13.0) SEC INR (0.9-1.1) APTT (24.1-38.0) SEC D-Dimer High Sensitivty NG/ML O2 Saturation % ABG pH at Pt Temp (7.35-7.45) ABG pCO2 at Pt Temp (32-45) mmHg ABG pO2 at Pt Temp (83-108) mmHg ABG HCO3 (22-26) mmol/L ABG Base Excess (Actual) mmol/L Sodium 137 (135-145) mmol/L Potassium 5.4 H (3.3-5.1) mmol/L Chloride 106 (96-108) mmol/L Carbon Dioxide 21 L (22-29) mmol/L Anion Gap 15 (12-20) BUN 85 H (9-16) mg/dL Creatinine 1.78 H (0.5-1.4) mg/dL Estim Creat Clear Calc 23.1 Estimated GFR 27 Random Glucose 366 H* (60-115) mg/dL Lactic Acid 1.3 (0.5-2.0) mmol/L Calcium 8.1 L (8.4-10.2) mg/dL Total Bilirubin 0.4 (0.0-1.0) mg/dL AST 23 (5-31) U/L ALT 31 (0-31) U/L Alkaline Phosphatase 122 H (39-117) U/L Troponin I High Sens 49.1 H (<3.5-17.0) ng/L B-Natriuretic Peptide 240 H (<100) pg/mL Total Protein 4.9 L (6.5-8.0) g/dL Albumin 2.6 L (3.5-5.0) g/dL Lipase 92 H (8-78) U/L Procalcitonin ng/mL 09/16/21 Range/Units 12:12 WBC (4.8-10.8) X10*3/uL RBC (4.20-5.50) X10*6/uL Hgb (12.0-16.0) g/dl Hct (37.0-47.0) % MCV (80.0-98.0) fL MCH (27.0-33.0) pg MCHC (31.0-35.0) g/dl RDW (11.0-16.0) % Plt Count (160-400) X10*3/uL MPV (9.4-12.3) fL Immature Gran % (Auto) (0.0-0.4) % Neut % (Auto) (45-73) % Lymph % (Auto) (20-40) % [place] % (Auto) (2-11) % Eos % (Auto) (0-4) % Baso % (Auto) (0-2) % Lymph # (Auto) (1.2-4.9) X10*3/uL [place] # (Auto) (0.1-1.2) X10*3/uL Eos # (Auto) (0.0-0.4) X10*3/uL Baso # (Auto) (0.0-0.2) X10*3/uL Abs Immat Gran (auto) (0.00-0.03) X10*3/uL Absolute Neuts (auto) (2.0-8.3) x10*3/uL Absolute Nucleated RBC (0.0-0.012) X10*3/uL Nucleated RBC % (auto) (0.0-0.2) /100WBC Smear Tech's Comments PT (9.9-13.0) SEC INR (0.9-1.1) APTT (24.1-38.0) SEC D-Dimer High Sensitivty NG/ML O2 Saturation % ABG pH at Pt Temp (7.35-7.45) ABG pCO2 at Pt Temp (32-45) mmHg ABG pO2 at Pt Temp (83-108) mmHg ABG HCO3 (22-26) mmol/L ABG Base Excess (Actual) mmol/L Sodium (135-145) mmol/L Potassium (3.3-5.1) mmol/L Chloride (96-108) mmol/L Carbon Dioxide (22-29) mmol/L Anion Gap (12-20) BUN (9-16) mg/dL Creatinine (0.5-1.4) mg/dL Estim Creat Clear Calc Estimated GFR Random Glucose (60-115) mg/dL Lactic Acid (0.5-2.0) mmol/L Calcium (8.4-10.2) mg/dL Total Bilirubin (0.0-1.0) mg/dL AST (5-31) U/L ALT (0-31) U/L Alkaline Phosphatase (39-117) U/L Troponin I High Sens (<3.5-17.0) ng/L B-Natriuretic Peptide (<100) pg/mL Total Protein (6.5-8.0) g/dL Albumin (3.5-5.0) g/dL Lipase (8-78) U/L Procalcitonin 0.08 ng/mL Critical Care Time Critical Care Time Critical Care Time: Yes Total Critical Care Time: 50 Attestation: Critical Care: The patient was critically ill with a high probability of imminent or life threatening deterioration. I spent greater than 30 minutes of discontinuous time evaluating the patient,delivering critical care at the bedside, discussing and evaluating pertinent data with consultants. Critical care time does not include time spent performing separately billable procedures or teaching. Total time spent performing critical care was 50 minutes. Discharge Plan Discharge Patient Disposition: Admitted As Inpatient Prescriptions: No Action (DME) FreeStyle Lite Strips Strip See Rx Instructions .Route Qty: 100 12RF Rx Instructions: As directed three times daily citalopram 10 mg tablet 10 mg PO DAILY Qty: 90 1RF insulin aspart U-100 [Novolog Flexpen U-100 Insulin] 100 unit/mL (3 mL) insulin pen 0 sliding scale dose subcut TIDAC 0RF Protocol: Insulin Correction Scale Less than or equal to 110 ---- Give (units): 0 111 to 150 Give (units): 0 151 to 200 Give (units): 2 201 to 250 Give (units): 4 251 to 300 Give (units): 6 301 to 350 Give (units): 8 Greater than 350 Give (units): 10 Call MD if Blood Glucose > : 350 insulin glargine 100 unit/mL (3 mL) insulin pen 10 unit subcut BEDTIME 0RF spironolactone 25 mg tablet 1 tab PO DAILY 0RF diltiazem HCl 240 mg capsule,extended release 24 hr 240 mg PO DAILY 0RF atorvastatin 40 mg Tablet 40 mg PO DAILY Qty: 30 0RF acetaminophen 325 mg Tablet 650 mg PO Q6H PRN (Reason: Pain, Mild (Pain Scale 1-3)) Qty: 60 0RF docusate sodium 100 mg Capsule 100 mg PO DAILY PRN (Reason: Constipation) Qty: 30 0RF omeprazole 20 mg Capsule,Delayed Release(Dr/Ec) 20 mg PO BID@0630,1630 Qty: 30 0RF aspirin 81 mg Tablet,Chewable 81 mg PO DAILY Qty: 30 0RF prednisone 10 mg tablet See Rx Instructions .Route .COMPLEX Qty: 45 0RF Rx Instructions: 10 mg orally; 5 tabs p.o. daily x3 days; 4 tabs p.o. daily x3 days; 3 tabs daily x3 days; 2 tabs daily x3 days; 1 tab daily x3 days lidocaine 4 % Adhesive Patch,Medicated 1 patch TOPICAL DAILY 0RF (DME) lancets [FreeStyle Lancets] 28 gauge misc See Rx Instructions .ROUTE .MEDSUPPLY Qty: 100 0RF Rx Instructions: As directed Xarelto 15 mg tablet 15 mg PO DAILY Qty: 90 1RF
--- NOTE | 2021-09-16 11:47 | PC.NURSE ---
Addendum entered by Mirian Martinez 09/16/21 12:14: venti mask setting was 55%, pt's both arms are very swollen all the way up to her elbows, right sided slightly more then the left Original Note: pt appears very sleepy/tired, but does wake up to voice command, ls diminished through all wilson, allyssa rt at bedside trying vent-mask but pt unable to tolerate sats drops down to 91% pt put back on the non-rebreather sating at 95%, ns on the monitor, pt denies pain and feeling sob
[2021-09-16 12:28] LABS: ABG Base Excess -2.1 mmol/L; ABG HCO3 21 mmol/L (22-26); ABG pCO2 34 mmHg (32-45); ABG pH 7.41 (7.35-7.45); ABG pO2 67 mmHg (83-108)
[2021-09-16 12:28] LABS: ABG Refer to POC result
[2021-09-16 12:30] LABS: Basophils Percent Auto 0.1 % (0-2); Hematocrit 30.5 % (37.0-47.0); Hemoglobin 9.6 g/dl (12.0-16.0); Imm Gran Abs Auto 0.21 X10*3/uL (0.00-0.03); Imm Gran Pct Auto 0.8 % (0.0-0.4); Lymphocytes Absolute Auto 0.3 X10*3/uL (1.2-4.9); Lymphocytes Percent Auto 1.2 % (20-40); MANUAL DIFF FLAG SCAN; Mean Corpuscular HGB Conc 31.5 g/dl (31.0-35.0); Mean Corpuscular Hemoglobin 31.4 pg (27.0-33.0); Mean Corpuscular Volume 99.7 fL (80.0-98.0); Mean Platelet Volume 10.3 fL (9.4-12.3); Monocytes Percent Auto 3.6 % (2-11); Neutrophils Absolute Auto 26.1 x10*3/uL (2.0-8.3); Neutrophils Percent Auto 94.3 % (45-73); Platelet Count 298 X10*3/uL (160-400); Red Blood Count 3.06 X10*6/uL (4.20-5.50); Red Cell Distribution Width 17.1 % (11.0-16.0); SCAN SMEAR FLAG 1; White Blood Count 27.7 X10*3/uL (4.8-10.8)
[2021-09-16 12:39] LABS: INTERNATIONAL NORM RATIO 1.1 (0.9-1.1); Prothrombin Time 12.7 SEC (9.9-13.0)
[2021-09-16 12:41] LABS: D Dimer High Sensitivity 452 NG/ML
[2021-09-16 12:42] LABS: Partial Thromboplastin Time 31.1 SEC (24.1-38.0)
[2021-09-16 12:44] LABS: Lactic Acid 1.3 mmol/L (0.5-2.0)
[2021-09-16 12:53] LABS: B Type Natriuretic Peptide 240 pg/mL (<100); Troponin-I High Sensitivity 49.1 ng/L (<3.5-17.0)
[2021-09-16 12:59] LABS: SLIDE REVIEW VERIFIED
[2021-09-16 13:01] LABS: Alanine Aminotransferase 31 U/L (0-31); Albumin Level 2.6 g/dL (3.5-5.0); Alkaline Phosphatase 122 U/L (39-117); Anion Gap 15 (12-20); Aspartate Amino Transferase 23 U/L (5-31); Bilirubin Total 0.4 mg/dL (0.0-1.0); Blood Urea Nitrogen 85 mg/dL (9-16); Calcium 8.1 mg/dL (8.4-10.2); Carbon Dioxide 21 mmol/L (22-29); Chloride 106 mmol/L (96-108); Creatinine Clr Calc Pharmacy 23.1; Estimated Glomerular Filt Rate 27; Glucose Random 366 mg/dL (60-115); Lipase 92 U/L (8-78); Potassium 5.4 mmol/L (3.3-5.1); Sodium 137 mmol/L (135-145); Total Protein 4.9 g/dL (6.5-8.0)
--- NOTE | 2021-09-16 13:05 | PC.NURSE ---
pt is a really hard stick unable to obtain the second set of cultures, pt refusing to attempt another stick at this time, pt using vulger language and refusing another stick
--- NOTE | 2021-09-16 13:09 | PC.NURSE ---
called respiratory to put pt on high flow, abg's oxygen reading low 67
[2021-09-16 13:15] LABS: Procalcitonin 0.08 ng/mL
[2021-09-16] MEDS: Piperacillin Sodium/Tazobactam 3.375 GM in 0.9 % Sodium Chloride 50 ML IV (13:18)
--- NOTE | 2021-09-16 13:24 | PC.NURSE ---
pt put on high flow at 100% oxygen and 55L, pt tolerating well sating at 93
--- NOTE | 2021-09-16 16:13 | PHA.MEDREC ---
Pharmacy Consult ? Medication Reconciliation Pharmacy has completed the medication reconciliation.
--- NOTE | 2021-09-16 16:44 | P.HPHOSP_ITS ---
History of Present Illness Date of Service: 09/16/21 Chief Complaint: SOB 81-year-old female recently discharged ( 09/15/2021 ) after prolonged stay related to COVID-19. Patient was discharged on approximately 3 L nasal cannula was doing well until she developed acute shortness of breath this morning. She was transferred back to [facility] ER where she was found to be hypoxic and placed on high-flow O2. Currently she is satting in the high 90s on high-flow I for further treatment... will be admitted Review of Systems Review of Systems: unable to obtain [facility] Medical History COPD (chronic obstructive pulmonary disease) Decreased hearing of both ears Fecal impaction History of DVT (deep vein thrombosis) IDDM (insulin dependent diabetes mellitus) Leukocytosis Lymphedema Osteoporosis with pathological fracture Pneumonia due to 2019 novel coronavirus Right lumbosacral radiculopathy Smoker Thrombocytosis after splenectomy Family History Father No problems noted. Mother No problems noted. Surgical History H/O splenectomy History of section S/P LILI-BSO (total abdominal hysterectomy and bilateral salpingo-oophorectomy) Social History Household Members: Other Housing: Other Housing Other:: nsg home Unable to assess alcohol history related to: Unable to respond Alcohol intake: never Patient Tobacco Use Status: Former Tobacco user Tobacco use type: Cigarette Cigarettes Per Day: 3 e-Cigarette/Vaping Use: Never Used Second Hand Smoke Exposure: No Use of substances other than those prescribed or required for medical reasons: No Advance Directives: Yes Advance Directives on File: Yes Advance Directives Date on File: 08/10/21 service: No Current occupational status: disabled Cognitive needs: Yes (wheelchair) Hearing needs: No Vision needs: No Meds Allergies Allergy/AdvReac Type Severity Reaction Status Date / Time No Known Allergies Allergy Unknown Verified 08/10/21 02:22 Active Medications: Current Medications Acetaminophen (Acetaminophen 325 Mg Tablet) 650 mg PO Q6H PRN PRN Reason: Pain, Mild (Pain Scale 1-3) Albuterol Sulfate (Albuterol Sulfate (0.083%) 2.5 Mg/3 Ml Vial.Neb) 2.5 mg INHALE Q4H PRN PRN Reason: Shortness Of Breath Albuterol Sulfate (Albuterol Sulfate 90 Mcg 8 Gm Inhaler) 2 puff INHALE Q4-6H PRN PRN Reason: Wheezing Aspirin (Aspirin 81 Mg Tab.Chew) 81 mg PO DAILY [facility] Atorvastatin Calcium (Atorvastatin Calcium 40 Mg Tablet) 40 mg PO DAILY [facility] Diltiazem HCl (Diltiazem Hcl Cd 240 Mg Cap.Er.Deg) 240 mg PO DAILY [facility]; Protocol Docusate Sodium (Docusate Sodium 100 Mg Capsule) 100 mg PO DAILY PRN PRN Reason: Constipation Piperacillin Sod/Tazobactam (Sod 4.5 gm/ Sodium Chloride) 100 mls @ 200 mls/hr IV RQ6H ONE Stop: 09/16/21 17:09 Non-Formulary Medication (Citalopram) 10 mg PO DAILY [facility] Non-Formulary Medication (Ipratropium-Albuterol) 2 spray INHALE QID [facility] Omeprazole (Omeprazole 20 Mg Capsule.Dr) 20 mg PO BID@0630,1630 [facility] Rivaroxaban (Rivaroxaban 15 Mg Tablet) 15 mg PO DAILY [facility] Sodium Chloride (0.9 % Sodium Chloride Flush 3 Ml Syringe) 3 ml IVFLUSH QSHIFT [facility] Spironolactone (Spironolactone 25 Mg Tablet) 25 mg PO DAILY [facility]; Protocol Home Medications Medication Instructions Recorded Confirmed Last Taken Type insulin aspart U-100 100 unit/mL 0 sliding scale dose SUBCUT TIDAC 08/10/21 09/16/21 Unknown History (3 mL) subcutaneous pen (Novolog Flexpen U-100 Insulin aspart) insulin glargine 100 unit/mL (3 10 unit SUBCUT BEDTIME 08/10/21 09/16/21 Unknown History mL) subcutaneous pen lidocaine 4 % topical patch 1 patch TOPICAL DAILY 08/18/21 09/16/21 Unknown History diltiazem HCl 240 mg capsule,24 240 mg PO DAILY 08/29/21 09/16/21 Unknown History hr,extended release spironolactone 25 mg tablet 1 tab PO DAILY 08/29/21 09/16/21 Unknown History albuterol sulfate 0.5 vial INHALATION Q4H PRN 09/16/21 09/16/21 Unknown History albuterol sulfate 90 mcg/actuation 2 puff INHALATION Q4-6H PRN 09/16/21 09/16/21 Unknown History aerosol inhaler ipratropium 18 mcg-albuterol 103 2 spray INHALATION QID 09/16/21 09/16/21 Unknown History mcg/actuation aerosol inhaler Physical Exam Vital Signs and Narrative: Vital Signs: Last Vital Signs Temp 98.4 F 09/16/21 11:19 Pulse 57 09/16/21 14:42 Resp 18 09/16/21 16:09 BP 124/47 L 09/16/21 15:15 Pulse Ox 98 09/16/21 15:15 BMI result Body Mass Index 24.1 Const: Other: awake alert Resp: Other: able to speak in short sentences, diminished at bases. Scattered expiratory wheezes all wilson Cardio: Other: no S4; positive S1-S2; no S3 murmurs or gallops GI: Other: soft nontender nondistended with normoactive bowel sounds Extrem: Other: no edema bilaterally Results Labs CBC and Chem 7: 09/16/21 12:12 09/16/21 12:12 Labs: Laboratory Results - last 24 hr 09/16/21 09/16/21 09/16/21 11:51 12:12 12:12 MCV 99.7 H MCH 31.4 MCHC 31.5 RDW 17.1 H Plt Count 298 MPV 10.3 Immature Gran % (Auto) 0.8 H Neut % (Auto) 94.3 H Lymph % (Auto) 1.2 L Boyd % (Auto) 3.6 Eos % (Auto) 0.0 Baso % (Auto) 0.1 Lymph # (Auto) 0.3 L Boyd # (Auto) 1.0 Eos # (Auto) 0.0 Baso # (Auto) 0.0 Abs Immat Gran (auto) 0.21 H Absolute Neuts (auto) 26.1 H Absolute Nucleated RBC 0.000 Nucleated RBC % (auto) 0.0 Smear Tech's Comments VERIFIED PT 12.7 INR 1.1 APTT 31.1 D-Dimer High Sensitivty 452 O2 Saturation 91.0 ABG pH at Pt Temp 7.41 ABG pCO2 at Pt Temp 34 ABG pO2 at Pt Temp 67 L ABG HCO3 21 L ABG Base Excess (Actual) -2.1 Anion Gap Estim Creat Clear Calc Estimated GFR Random Glucose Lactic Acid Calcium Total Bilirubin AST ALT Alkaline Phosphatase B-Natriuretic Peptide Total Protein Albumin Lipase Procalcitonin 09/16/21 09/16/21 09/16/21 12:12 12:12 12:12 MCV MCH MCHC RDW Plt Count MPV Immature Gran % (Auto) Neut % (Auto) Lymph % (Auto) Boyd % (Auto) Eos % (Auto) Baso % (Auto) Lymph # (Auto) Boyd # (Auto) Eos # (Auto) Baso # (Auto) Abs Immat Gran (auto) Absolute Neuts (auto) Absolute Nucleated RBC Nucleated RBC % (auto) Smear Tech's Comments PT INR APTT D-Dimer High Sensitivty O2 Saturation ABG pH at Pt Temp ABG pCO2 at Pt Temp ABG pO2 at Pt Temp ABG HCO3 ABG Base Excess (Actual) Anion Gap 15 Estim Creat Clear Calc 23.1 Estimated GFR 27 Random Glucose 366 H* Lactic Acid 1.3 Calcium 8.1 L Total Bilirubin 0.4 AST 23 ALT 31 Alkaline Phosphatase 122 H B-Natriuretic Peptide 240 H Total Protein 4.9 L Albumin 2.6 L Lipase 92 H Procalcitonin 09/16/21 12:12 MCV MCH MCHC RDW Plt Count MPV Immature Gran % (Auto) Neut % (Auto) Lymph % (Auto) Boyd % (Auto) Eos % (Auto) Baso % (Auto) Lymph # (Auto) Boyd # (Auto) Eos # (Auto) Baso # (Auto) Abs Immat Gran (auto) Absolute Neuts (auto) Absolute Nucleated RBC Nucleated RBC % (auto) Smear Tech's Comments PT INR APTT D-Dimer High Sensitivty O2 Saturation ABG pH at Pt Temp ABG pCO2 at Pt Temp ABG pO2 at Pt Temp ABG HCO3 ABG Base Excess (Actual) Anion Gap Estim Creat Clear Calc Estimated GFR Random Glucose Lactic Acid Calcium Total Bilirubin AST ALT Alkaline Phosphatase B-Natriuretic Peptide Total Protein Albumin Lipase Procalcitonin 0.08 Imaging Radiologist's Impressions: Impressions Abdomen/Pelvis CT 09/16/21 14:03 IMPRESSION: Constipation with fecal impaction throughout the colon. Large gluteal hematoma on the left. Small bilateral pleural effusions with atelectasis on the right. Bilateral adrenal gland adenomas. Possible punctate calcification in right collecting system. Fleischner guidelines were followed. Chest CT 09/16/21 14:03 IMPRESSION: 1. Mild mediastinal lymphadenopathy cardiomegaly and possibly pulmonary artery hypertension. 2. Bibasilar atelectasis and small pleural effusion. 3. Bilateral adrenal gland adenomas. Technically limited study. Fleischner guidelines were followed. Venous Duplex 09/16/21 14:43 IMPRESSION: No DVT demonstrated in the right upper extremity Assessment and Plan (1) Hypoxia: Status: Acute (2) PAF (paroxysmal atrial fibrillation): Status: Acute Plan 81-year-old female recently discharged from with [facility] status post COVID-19 pneumonia presents with worsening shortness of breath this a.m.. In the emergency room required high-flow O2 to maintain sats. centrally no changes on CT scan to qualify changes. 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 DMII -sliding scale insulin -adjust as indicated Eloquist full code Quality Stroke Does the patient have a stroke diagnosis?: No VTE Prior VTE?: No VTE Risk Level:: Medical - moderate - high VTE Device Contraindication: Treatment Not Indicated VTE Drug Contraindication: N/A - Med Ordered
--- NOTE | 2021-09-16 16:55 | PC.NURSE ---
pt is currently asleep, respirations even and unlabored, vs stable, continuos on being on high flow
[2021-09-16] MEDS: methylPREDNISolone Sod Succ 125 MG/2 ML VIAL 60 MG IVPUSH (18:26)
[2021-09-16] MEDS: Albuterol/Iprat 2.5/0.5MG 3 ML AMPUL.NEB INHALE (19:35)
--- NOTE | 2021-09-16 20:15 | PC.NURSE ---
respiratory in room for eval. pt resting in stretcher with eyes closed. pt on high flow with po 98%. pt remains on monitor. pt awaiting further orders. will continue to monitor pt.
[2021-09-16] MEDS: Piperacillin Sodium/Tazobactam 4.5 GM in 0.9 % Sodium Chloride 100 ML IV (20:36)
--- NOTE | 2021-09-16 21:00 | PC.NURSE ---
pt medicated as per emar.
--- NOTE | 2021-09-16 23:50 | PC.NURSE ---
pt sitting up in hospital bed with sitter at bedside. pt in NAD, no chg in pt's condition. will continue to monitor pt
[2021-09-17] VITALS (14 sets, daily range): BP systolic 130–166; BP diastolic 51–73; PULSE 64–105; RESP 15–23; TEMP 36.4–36.7; O2SAT 83–100
[2021-09-17] MEDS: methylPREDNISolone Sod Succ 125 MG/2 ML VIAL 60 MG IVPUSH ×3 (01:01→17:26)
--- NOTE | 2021-09-17 02:35 | PC.NURSE ---
pt resting in stretcher with eyes closed. pt wakes to voice, VS obtained. pt remains on high-flow and on monitor. will continue to monitor pt.
--- NOTE | 2021-09-17 07:16 | PC.NURSE ---
this curriculum writer assumed care of this pt at 0700. pt satting 96% on 97% high-flow at 45LPM. vss. pt alert and oriented, denies pain. pt repositioned for comfort, will continue to monitor.
[2021-09-17] MEDS: Piperacillin Sodium/Tazobactam 4.5 GM in 0.9 % Sodium Chloride 100 ML IV ×3 (07:29→21:20)
[2021-09-17] MEDS: Albuterol/Iprat 2.5/0.5MG 3 ML AMPUL.NEB INHALE ×4 (07:42→19:27)
[2021-09-17 08:01] LABS: Basophils Percent Auto 0.1 % (0-2); Hematocrit 32.7 % (37.0-47.0); Imm Gran Abs Auto 0.21 X10*3/uL (0.00-0.03); Imm Gran Pct Auto 0.7 % (0.0-0.4); Lymphocytes Absolute Auto 0.3 X10*3/uL (1.2-4.9); Lymphocytes Percent Auto 0.9 % (20-40); MANUAL DIFF FLAG SCAN; Mean Corpuscular HGB Conc 30.6 g/dl (31.0-35.0); Mean Corpuscular Hemoglobin 31.3 pg (27.0-33.0); Mean Corpuscular Volume 102.5 fL (80.0-98.0); Mean Platelet Volume 10.4 fL (9.4-12.3); Monocytes Absolute Auto 0.2 X10*3/uL (0.1-1.2); Monocytes Percent Auto 0.7 % (2-11); Neutrophils Absolute Auto 30.6 x10*3/uL (2.0-8.3); Neutrophils Percent Auto 97.6 % (45-73); Platelet Count 255 X10*3/uL (160-400); Red Blood Count 3.19 X10*6/uL (4.20-5.50); SCAN SMEAR FLAG 1
[2021-09-17 08:03] LABS: White Blood Count 31.4 X10*3/uL (4.8-10.8)
[2021-09-17 08:42] LABS: SLIDE REVIEW VERIFIED
[2021-09-17 09:44] LABS: Alanine Aminotransferase 24 U/L (0-31); Albumin Level 2.5 g/dL (3.5-5.0); Alkaline Phosphatase 109 U/L (39-117); Anion Gap 19 (12-20); Aspartate Amino Transferase 13 U/L (5-31); Bilirubin Total 0.4 mg/dL (0.0-1.0); Blood Urea Nitrogen 93 mg/dL (9-16); Calcium 7.9 mg/dL (8.4-10.2); Carbon Dioxide 18 mmol/L (22-29); Chloride 107 mmol/L (96-108); Creatinine Clr Calc Pharmacy 20.9; Estimated Glomerular Filt Rate 24; Glucose Fasting 627 mg/dL (60-99); Sodium 139 mmol/L (135-145); Total Protein 4.6 g/dL (6.5-8.0)
[2021-09-17 09:50] LABS: Glucose, Whole Blood 561 mg/dL (60-115)
[2021-09-17] MEDS: Aspirin 81 MG TAB.CHEW PO (10:41)
[2021-09-17] MEDS: Escitalopram Oxalate 5 MG TABLET PO (10:42)
[2021-09-17] MEDS: Atorvastatin Calcium 40 MG TABLET PO (10:42)
[2021-09-17] MEDS: Spironolactone 25 MG TABLET PO (10:42)
[2021-09-17] MEDS: 0.9 % Sodium Chloride Flush 3 ML SYRINGE IVFLUSH ×3 (10:51→21:29)
[2021-09-17] MEDS: Rivaroxaban 15 MG TABLET PO (11:24)
[2021-09-17] MEDS: dilTIAZem HCL CD 240 MG CAP.ER.DEG PO (11:25)
--- NOTE | 2021-09-17 14:04 | HO.PM.IMPN ---
Subjective Subjective Date of Service: 09/17/21 Review of Systems unable to obtain Physical Exam Vital Signs: Vital Signs: Last Vital Signs Temp 98.4 F 09/16/21 11:19 Pulse 70 09/17/21 07:43 Resp 20 09/17/21 11:30 BP 159/62 H 09/17/21 06:09 Pulse Ox 96 09/17/21 06:09 BMI result Body Mass Index 24.1 Const: Other: awake alert Resp: Other: able to speak in short sentences, diminished at bases. Scattered expiratory wheezes all wilson Cardio: Other: no S4; positive S1-S2; no S3 murmurs or gallops GI: Other: soft nontender nondistended with normoactive bowel sounds Extrem: Other: no edema bilaterally Objective Data Active Medications Acetaminophen (Acetaminophen 325 Mg Tablet) 650 mg PO Q6H PRN PRN Reason: Pain, Mild (Pain Scale 1-3) Albuterol Sulfate (Albuterol Sulfate (0.083%) 2.5 Mg/3 Ml Vial.Neb) 2.5 mg INHALE Q4H PRN PRN Reason: Shortness Of Breath Albuterol Sulfate (Albuterol Sulfate 90 Mcg 8 Gm Inhaler) 2 puff INHALE Q4H PRN PRN Reason: Wheezing Albuterol/Ipratropium (Albuterol/Iprat 2.5/0.5mg 3 Ml Ampul.Neb) 3 ml INHALE RQID [facility] Last Admin: 09/17/21 11:30 Dose: 3 ml Documented by: ISAÍAS Aspirin (Aspirin 81 Mg Tab.Chew) 81 mg PO DAILY [facility] Last Admin: 09/17/21 10:41 Dose: 81 mg Documented by: WILDER Atorvastatin Calcium (Atorvastatin Calcium 40 Mg Tablet) 40 mg PO DAILY [facility] Last Admin: 09/17/21 10:42 Dose: 40 mg Documented by: WILDRE Diltiazem HCl (Diltiazem Hcl Cd 240 Mg Cap.Er.Deg) 240 mg PO DAILY [facility]; Protocol Last Admin: 09/17/21 11:25 Dose: 240 mg Documented by: WILDER Docusate Sodium (Docusate Sodium 100 Mg Capsule) 100 mg PO DAILY PRN PRN Reason: Constipation Escitalopram Oxalate (Escitalopram Oxalate 5 Mg Tablet) 5 mg PO DAILY [facility] Last Admin: 09/17/21 10:42 Dose: 5 mg Documented by: WILDER Piperacillin Sod/Tazobactam (Sod 4.5 gm/ Sodium Chloride) 100 mls @ 200 mls/hr IV Q8H [facility] Last Infusion: 09/17/21 08:26 Dose: 0 mls/hr Documented by: WILDER Methylprednisolone Sodium Succinate (Methylprednisolone Sod Succ 125 Mg/2 Ml Vial) 60 mg IVPUSH Q8H [facility] Last Admin: 09/17/21 10:41 Dose: 60 mg Documented by: WILDER Omeprazole (Omeprazole 20 Mg Capsule.Dr) 20 mg PO BID@0630,1630 [facility] Last Admin: 09/17/21 11:24 Dose: Not Given Documented by: WILDER Non-Admin Reason: Physician Approved Pharmacy Consult (Consult Rx Perform Med Rec) 1 each MISCELLANE ONCE PRN PRN Reason: Consult order Rivaroxaban (Rivaroxaban 15 Mg Tablet) 15 mg PO DAILY [facility] Last Admin: 09/17/21 11:24 Dose: 15 mg Documented by: WILDER Sodium Chloride (0.9 % Sodium Chloride Flush 3 Ml Syringe) 3 ml IVFLUSH QSHIFT [facility] Last Admin: 09/17/21 10:51 Dose: 3 ml Documented by: WILDER Spironolactone (Spironolactone 25 Mg Tablet) 25 mg PO DAILY [facility]; Protocol Last Admin: 09/17/21 10:42 Dose: 25 mg Documented by: WILDER Labs CBC & Chem 7: 09/17/21 07:30 09/17/21 09:17 Labs: Laboratory Results - last 24 hr 09/17/21 09/17/21 09/17/21 07:30 09:17 09:46 MCV 102.5 H MCH 31.3 MCHC 30.6 L RDW 17.0 H Plt Count 255 MPV 10.4 Immature Gran % (Auto) 0.7 H Neut % (Auto) 97.6 H Lymph % (Auto) 0.9 L Slope % (Auto) 0.7 L Eos % (Auto) 0.0 Baso % (Auto) 0.1 Lymph # (Auto) 0.3 L [place] # (Auto) 0.2 Eos # (Auto) 0.0 Baso # (Auto) 0.0 Abs Immat Gran (auto) 0.21 H Absolute Neuts (auto) 30.6 H Absolute Nucleated RBC 0.000 Nucleated RBC % (auto) 0.0 Smear Tech's Comments VERIFIED Anion Gap 19 Estim Creat Clear Calc 20.9 Estimated GFR 24 POC Glucose 561 H* Fasting Glucose 627 H* D Calcium 7.9 L Total Bilirubin 0.4 AST 13 D ALT 24 Alkaline Phosphatase 109 Total Protein 4.6 L Albumin 2.5 L Assessment and Plan (1) Pneumonia due to 2019 novel coronavirus: Status: Acute (2) PAF (paroxysmal atrial fibrillation): Status: Acute Plan 81-year-old female recently discharged from with [facility] status post COVID-19 pneumonia presents with worsening shortness of breath this a.m.. In the emergency room required high-flow O2 to maintain sats. centrally no changes on CT scan to qualify changes. 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 DMII -sliding scale insulin -adjust as indicated Elobreanna DNR/DNI Quality Stroke Does the patient have a stroke diagnosis?: No VTE Prior VTE?: No VTE Risk Level:: Medical - moderate - high VTE Device Contraindication: Treatment Not Indicated VTE Drug Contraindication: N/A - Med Ordered
--- NOTE | 2021-09-17 16:00 | PC.NURSE ---
PATIENT WAS INC OF URINE AND STOOL ,BED BATH WAS GIVEN ,LINEN WAS CHANGE ,MOUTH CARE GIVEN ,PATIENT IS POCKETING FOOD ,RN RAYA MENDIOLA IS AWARE .
--- NOTE | 2021-09-17 16:03 | MHC.CM.PN ---
PT WAS READMITTED AFTER BEING DISCHARGED TO [facility] THIS PAST WEEK. CM CALLED PTS SON, JACOB [phone] JACOB REPORTS HE IS UNSURE IF HE WOULD LIKE THE PT TO RETURN TO [facility] AGAIN HOWEVER HE WAS WORKING AND ASKS THAT HE BE CONTACTED TOMORROW TO DISCUSS OPTIONS FURTHER. CM WILL CALL JACOB AGAIN TOMORROW NO REFERRALS PLACED AT THIS TIME, AWAITING PREFERENCES IMM DELIVERED, COPY SENT TO [facility] TBD, LIKELY STR HOWEVER SNF UNKNOWN BLS TRANSPORT
--- NOTE | 2021-09-17 17:10 | PC.NURSE ---
report given to rama calhoun
--- NOTE | 2021-09-17 19:02 | PC.NURSE ---
This attempted to perform an admission Risk assessment. Pt. refused to answer most of questions. Unable to do a thorough admission risk assessment.
[2021-09-18] VITALS (19 sets, daily range): BP systolic 125–164; BP diastolic 54–92; PULSE 72–107; RESP 16–22; TEMP 36.6–36.8; O2SAT 89–100
[2021-09-18] MEDS: methylPREDNISolone Sod Succ 125 MG/2 ML VIAL 60 MG IVPUSH ×2 (02:08→08:27)
[2021-09-18] MEDS: Piperacillin Sodium/Tazobactam 4.5 GM in 0.9 % Sodium Chloride 100 ML IV ×3 (05:54→21:13)
[2021-09-18] MEDS: Omeprazole 20 MG CAPSULE.DR PO ×2 (05:54→16:01)
[2021-09-18] MEDS: Albuterol/Iprat 2.5/0.5MG 3 ML AMPUL.NEB INHALE ×4 (07:57→19:08)
[2021-09-18] MEDS: 0.9 % Sodium Chloride Flush 3 ML SYRINGE IVFLUSH (08:27)
[2021-09-18] MEDS: dilTIAZem HCL CD 240 MG CAP.ER.DEG PO (08:27)
[2021-09-18] MEDS: Aspirin 81 MG TAB.CHEW PO (08:27)
[2021-09-18] MEDS: Atorvastatin Calcium 40 MG TABLET PO (08:28)
[2021-09-18] MEDS: Rivaroxaban 15 MG TABLET PO (08:28)
[2021-09-18] MEDS: Escitalopram Oxalate 5 MG TABLET PO (08:28)
[2021-09-18] MEDS: Spironolactone 25 MG TABLET PO (08:28)
[2021-09-18] MEDS: Acetaminophen 325 MG TABLET 650 MG PO (08:28)
[2021-09-18 08:38] LABS: Glucose, Whole Blood > 600 mg/dL (60-115)
[2021-09-18] MEDS: Insulin Lispro 100 UNIT/ML 3 ML VIAL SUBCUT ×3 (09:23→21:12)
[2021-09-18 10:06] LABS: Venous Blood Gas Refer to POC result
[2021-09-18 10:13] LABS: Basophils Percent Auto 0.1 % (0-2); Hematocrit 25.7 % (37.0-47.0); Imm Gran Abs Auto 0.28 X10*3/uL (0.00-0.03); Lymphocytes Absolute Auto 0.1 X10*3/uL (1.2-4.9); Lymphocytes Percent Auto 0.5 % (20-40); MANUAL DIFF FLAG SCAN; Mean Corpuscular HGB Conc 31.1 g/dl (31.0-35.0); Mean Corpuscular Hemoglobin 31.9 pg (27.0-33.0); Mean Corpuscular Volume 102.4 fL (80.0-98.0); Mean Platelet Volume 11.1 fL (9.4-12.3); Monocytes Absolute Auto 0.7 X10*3/uL (0.1-1.2); Monocytes Percent Auto 2.4 % (2-11); Neutrophils Absolute Auto 26.4 x10*3/uL (2.0-8.3); Platelet Count 243 X10*3/uL (160-400); Red Blood Count 2.51 X10*6/uL (4.20-5.50); Red Cell Distribution Width 17.7 % (11.0-16.0); SCAN SMEAR FLAG 1; White Blood Count 27.5 X10*3/uL (4.8-10.8)
[2021-09-18 10:19] LABS: Glucose, Whole Blood > 600 mg/dL (60-115)
--- NOTE | 2021-09-18 10:22 | PM.CNPUL ---
History of Present Illness History of Present Illness Consult date: 09/18/21 Requesting physician: Ru Martin Chief complaint: SOB Narrative: 81-year-old lady with underlying history of AFib, diastolic heart failure, COPD, recent admission to [facility] from 08/29/2021 through 09/15/2021 for hypoxic respiratory failure secondary to COVID-19 discharged on 3 L continuous flow of supplemental oxygen, readmitted on 09/16/2021 with worsening dyspnea, now requiring high-flow nasal cannula at 60% to maintain normoxemia. Her initial workup this time demonstrated bilateral pleural effusions with compressive atelectasis of bilateral lower lobes, right worse than left. She was started on empiric broad-spectrum antibiotics and systemic glucocorticoids and admitted to [facility]. Upper extremity duplex was negative for DVT. Pulmonary evaluation was requested. Review of Systems Review of Systems: Yes Unobtainable due to mental status PMFSH Past Medical History Medical History COPD (chronic obstructive pulmonary disease) Decreased hearing of both ears Fecal impaction History of DVT (deep vein thrombosis) IDDM (insulin dependent diabetes mellitus) Leukocytosis Lymphedema Osteoporosis with pathological fracture Pneumonia due to 2019 novel coronavirus Right lumbosacral radiculopathy Smoker Thrombocytosis after splenectomy Family History Family History Father No problems noted. Mother No problems noted. Surgical History Surgical History H/O splenectomy History of section S/P LILI-BSO (total abdominal hysterectomy and bilateral salpingo-oophorectomy) Social History Social History Household Members: None Housing: Halfway Housing Other:: nsg home Do you presently have visiting nurse or other home services: No Unable to assess alcohol history related to: Refusing to respond Alcohol intake: never Patient Tobacco Use Status: Former Tobacco user Tobacco use type: Cigarette Cigarettes Per Day: 3 e-Cigarette/Vaping Use: Never Used Second Hand Smoke Exposure: No Advance Directives Date on File: 08/10/21 service: No Current occupational status: disabled Cognitive needs: Yes (wheelchair) Hearing needs: No Vision needs: No Meds Allergies Allergy/AdvReac Type Severity Reaction Status Date / Time No Known Allergies Allergy Unknown Verified 08/10/21 02:22 Active Medications: Current Medications Acetaminophen (Acetaminophen 325 Mg Tablet) 650 mg PO Q6H PRN PRN Reason: Pain, Mild (Pain Scale 1-3) Last Admin: 09/18/21 08:28 Dose: 650 mg Documented by: Albuterol Sulfate (Albuterol Sulfate (0.083%) 2.5 Mg/3 Ml Vial.Neb) 2.5 mg INHALE Q4H PRN PRN Reason: Shortness Of Breath Albuterol Sulfate (Albuterol Sulfate 90 Mcg 8 Gm Inhaler) 2 puff INHALE Q4H PRN PRN Reason: Wheezing Albuterol/Ipratropium (Albuterol/Iprat 2.5/0.5mg 3 Ml Ampul.Neb) 3 ml INHALE RQID [facility] Last Admin: 09/18/21 07:57 Dose: 3 ml Documented by: Aspirin (Aspirin 81 Mg Tab.Chew) 81 mg PO DAILY [facility] Last Admin: 09/18/21 08:27 Dose: 81 mg Documented by: Atorvastatin Calcium (Atorvastatin Calcium 40 Mg Tablet) 40 mg PO DAILY [facility] Last Admin: 09/18/21 08:28 Dose: 40 mg Documented by: Dextrose (Dextrose 50 % 25 Gm/50 Ml Syringe) 25 gm IVPUSH Q15M PRN; Protocol PRN Reason: per Hypoglycemia Standing Ord. Diltiazem HCl (Diltiazem Hcl Cd 240 Mg Cap.Er.Deg) 240 mg PO DAILY [facility]; Protocol Last Admin: 09/18/21 08:27 Dose: 240 mg Documented by: Docusate Sodium (Docusate Sodium 100 Mg Capsule) 100 mg PO DAILY PRN PRN Reason: Constipation Escitalopram Oxalate (Escitalopram Oxalate 5 Mg Tablet) 5 mg PO DAILY [facility] Last Admin: 09/18/21 08:28 Dose: 5 mg Documented by: Glucose (Glucose Gel 15 Gm Gel..Gram.) 15 gm PO Q15M PRN; Protocol PRN Reason: per Hypoglycemia Standing Ord. Piperacillin Sod/Tazobactam (Sod 4.5 gm/ Sodium Chloride) 100 mls @ 200 mls/hr IV Q8H [facility] Last Infusion: 09/18/21 06:54 Dose: Infused Documented by: Insulin Human Lispro (Insulin Lispro 100 Unit/Ml 3 Ml Vial) 0 unit SUBCUT QIDACHS [facility]; Protocol Last Admin: 09/18/21 09:23 Dose: 10 unit Documented by: Methylprednisolone Sodium Succinate (Methylprednisolone Sod Succ 125 Mg/2 Ml Vial) 60 mg IVPUSH Q8H [facility] Last Admin: 09/18/21 08:27 Dose: 60 mg Documented by: Omeprazole (Omeprazole 20 Mg Capsule.) 20 mg PO BID@0630,1630 [facility] Last Admin: 09/18/21 05:54 Dose: 20 mg Documented by: Pharmacy Consult (Consult Rx Perform Med Rec) 1 each MISCELLANE ONCE PRN PRN Reason: Consult order Rivaroxaban (Rivaroxaban 15 Mg Tablet) 15 mg PO DAILY [facility] Last Admin: 09/18/21 08:28 Dose: 15 mg Documented by: Sodium Chloride (0.9 % Sodium Chloride Flush 3 Ml Syringe) 3 ml IVFLUSH QSHIFT [facility] Last Admin: 09/18/21 08:27 Dose: 3 ml Documented by: Spironolactone (Spironolactone 25 Mg Tablet) 25 mg PO DAILY [facility]; Protocol Last Admin: 09/18/21 08:28 Dose: 25 mg Documented by: Home Medications Medication Instructions Recorded Confirmed Last Taken Type insulin aspart U-100 100 unit/mL 0 sliding scale dose SUBCUT TIDAC 08/10/21 09/16/21 Unknown History (3 mL) subcutaneous pen (Novolog Flexpen U-100 Insulin aspart) insulin glargine 100 unit/mL (3 10 unit SUBCUT BEDTIME 08/10/21 09/16/21 Unknown History mL) subcutaneous pen lidocaine 4 % topical patch 1 patch TOPICAL DAILY 08/18/21 09/16/21 Unknown History diltiazem HCl 240 mg capsule,24 240 mg PO DAILY 08/29/21 09/16/21 Unknown History hr,extended release spironolactone 25 mg tablet 1 tab PO DAILY 08/29/21 09/16/21 Unknown History albuterol sulfate 0.5 vial INHALATION Q4H PRN 09/16/21 09/16/21 Unknown History albuterol sulfate 90 mcg/actuation 2 puff INHALATION Q4-6H PRN 09/16/21 09/16/21 Unknown History aerosol inhaler ipratropium 18 mcg-albuterol 103 2 spray INHALATION QID 02/26/22 02/26/22 Unknown History mcg/actuation aerosol inhaler Physical Exam Vital Signs: Vital Signs: Last Vital Signs Temp 98.3 F 09/18/21 08:00 Pulse 76 09/18/21 08:05 Resp 20 09/18/21 08:06 BP 150/68 H 09/18/21 08:00 Pulse Ox 100 09/18/21 08:00 BMI result Body Mass Index 24.1 Const: General: no acute distress and lethargic Orientation/consciousness: lethargic Eyes: Sclerae: sclerae normal EOM: EOMs intact bilaterally Neck: Neck: Yes no lymphadenopathy, Yes trachea midline and Yes supple Resp: Effort & Inspection: normal respiratory effort and no respiratory distress Auscultation: other ( Bibasilar poor air movement, otherwise clear) Cardio: Rate: regular rate Rhythm: regular rhythm Heart sounds: no gallops, no murmurs and no rubs GI: Palpation (GI): Soft to palpation and Other GI palpation findings present ( Nontender) Auscultation: normal bowel sounds Extrem: General: No clubbing, No cyanosis and Yes pedal edema ( trace bilateral) Results Laboratory Findings CBC and BMP: 09/17/21 07:30 09/17/21 09:17 ABG, PT/INR, D-dimer: PT/INR, D-dimer PT 12.7 SEC (9.9-13.0) 09/16/21 12:12 INR 1.1 (0.9-1.1) 09/16/21 12:12 Abnormal lab findings: Abnormal Labs 09/16/21 09/16/21 09/16/21 11:51 12:12 12:12 WBC 27.7 H RBC 3.06 L Hgb 9.6 L Hct 30.5 L MCV 99.7 H MCHC RDW 17.1 H Immature Gran % (Auto) 0.8 H Neut % (Auto) 94.3 H Lymph % (Auto) 1.2 L [place] % (Auto) Lymph # (Auto) 0.3 L Abs Immat Gran (auto) 0.21 H Absolute Neuts (auto) 26.1 H ABG pO2 at Pt Temp 67 L ABG HCO3 21 L Potassium 5.4 H Carbon Dioxide 21 L BUN 85 H Creatinine 1.78 H POC Glucose Random Glucose 366 H* Fasting Glucose Calcium 8.1 L Alkaline Phosphatase 122 H Troponin I High Sens B-Natriuretic Peptide Total Protein 4.9 L Albumin 2.6 L Lipase 92 H 09/16/21 09/17/21 09/17/21 12:12 07:30 09:17 WBC 31.4 H* RBC 3.19 L Hgb 10.0 L Hct 32.7 L MCV 102.5 H MCHC 30.6 L RDW 17.0 H Immature Gran % (Auto) 0.7 H Neut % (Auto) 97.6 H Lymph % (Auto) 0.9 L [place] % (Auto) 0.7 L Lymph # (Auto) 0.3 L Abs Immat Gran (auto) 0.21 H Absolute Neuts (auto) 30.6 H ABG pO2 at Pt Temp ABG HCO3 Potassium Carbon Dioxide 18 L BUN 93 H Creatinine 1.97 H POC Glucose Random Glucose Fasting Glucose 627 H* D Calcium 7.9 L Alkaline Phosphatase Troponin I High Sens 49.1 H B-Natriuretic Peptide 240 H Total Protein 4.6 L Albumin 2.5 L Lipase 09/17/21 09/18/21 09/18/21 09:46 08:34 10:15 WBC RBC Hgb Hct MCV MCHC RDW Immature Gran % (Auto) Neut % (Auto) Lymph % (Auto) [place] % (Auto) Lymph # (Auto) Abs Immat Gran (auto) Absolute Neuts (auto) ABG pO2 at Pt Temp ABG HCO3 Potassium Carbon Dioxide BUN Creatinine POC Glucose 561 H* > 600 H* > 600 H* Random Glucose Fasting Glucose Calcium Alkaline Phosphatase Troponin I High Sens B-Natriuretic Peptide Total Protein Albumin Lipase Microbiology: Microbiology 09/16/21 13:11 Blood - Venous Blood Culture - Preliminary No growth after 24 hours. 09/16/21 12:12 Blood - Venous Blood Culture - Preliminary No growth after 24 hours. Assessment and Plan (1) Acute and chronic respiratory failure with hypoxia: Status: Acute (2) Post covid-19 condition, unspecified: Status: Acute (3) COPD (chronic obstructive pulmonary disease): Status: Acute Plan Impression: 81-year-old lady recently discharged on 3 L continuous flow after being hospitalized for COVID-19 hypoxia, now presenting with worsening hypoxia requiring high-flow nasal cannula. Empirically treated with systemic glucocorticoids and broad-spectrum antibiotics. CT chest with worsening bilateral pleural effusions with compressive atelectasis of bilateral lower lobes, but no evidence of fibrosis. On prior 2D echocardiogram with diastolic dysfunction. Recommendations: No evidence of development of fibrosis, consider discontinuation of systemic glucocorticoids. Agree with broad empiric antibiotic coverage while cultures are pending. Would suggest right-sided diagnostic/therapeutic thoracentesis. Will continue to follow. Procedures Date of Service Date of Service: 09/18/21
[2021-09-18 10:24] LABS: Alanine Aminotransferase 21 U/L (0-31); Albumin Level 2.4 g/dL (3.5-5.0); Alkaline Phosphatase 110 U/L (39-117); Anion Gap 17 (12-20); Aspartate Amino Transferase 13 U/L (5-31); Bilirubin Total 0.4 mg/dL (0.0-1.0); Blood Urea Nitrogen 105 mg/dL (9-16); Carbon Dioxide 23 mmol/L (22-29); Chloride 110 mmol/L (96-108); Creatinine Clr Calc Pharmacy 16.3; Estimated Glomerular Filt Rate 18; Potassium 5.6 mmol/L (3.3-5.1); Sodium 144 mmol/L (135-145); Total Protein 4.6 g/dL (6.5-8.0)
[2021-09-18 10:30] LABS: B Type Natriuretic Peptide 636 pg/mL (<100)
[2021-09-18 10:40] LABS: C Reactive Protein 1.27 mg/dL (< or = 0.50)
[2021-09-18 10:42] LABS: Glucose Fasting 937 mg/dL (60-99)
[2021-09-18 11:15] LABS: Acetone, serum QL Negative (Negative)
[2021-09-18] MEDS: Insulin Regular, Human 100 UNIT/ML 3 ML VIAL 10 UNIT IVPUSH ×2 (11:17→16:01)
[2021-09-18] MEDS: Sodium Zirconium Cyclosilicate 10 GM POWD.PACK PO (11:20)
[2021-09-18 11:48] LABS: Glucose, Whole Blood > 600 mg/dL (60-115)
[2021-09-18] MEDS: 0.9 % Sodium Chloride 1,000 ML 100 ML IVCONT (12:30)
[2021-09-18] MEDS: Insulin Regular, Human 100 UNIT/ML 3 ML VIAL 7 UNIT IVPUSH (12:42)
[2021-09-18 13:14] LABS: SLIDE REVIEW VERIFIED
--- NOTE | 2021-09-18 13:18 | MHC.CM.PN ---
PATIENT STILL ON HIGH FLOW O2. NO PLAN FOR DISCHARGE TODAY. PLAN IS TO ATTEMPT TO WEAN FOR RETURN TO SNF. PATIENT IS A BED HOLD AT [facility]; HOWEVER, IT IS UNCLEAR IF SON IS NOT WANTING PATIENT TO RETURN CASE MANAGEMENT FOLLOWING FOR DC PLANS
[2021-09-18 13:34] LABS: Glucose, Whole Blood > 600 mg/dL (60-115)
[2021-09-18 13:34] LABS: Glucose, Whole Blood 581 mg/dL (60-115)
[2021-09-18 13:34] LABS: Glucose, Whole Blood 565 mg/dL (60-115)
[2021-09-18 14:06] LABS: Glucose, Whole Blood 555 mg/dL (60-115)
--- NOTE | 2021-09-18 14:10 | P.PNIM_ITS ---
Subjective Subjective Date of Service: 09/18/21 Interval History: On HFNC, 55 Lpm @ 65% fiO2 Confused; unable to obtain ROS due to mental status Review of Systems Review of Systems: Yes Unobtainable due to mental status Physical Exam Vital Signs: Vital Signs: Last Vital Signs Temp 98.2 F 09/18/21 11:55 Pulse 104 H 09/18/21 11:55 Resp 19 09/18/21 11:55 BP 139/92 H 09/18/21 11:55 Pulse Ox 95 09/18/21 11:55 BMI result Body Mass Index 24.1 Gen: in no acute distress HEENT: sclera anicteric, moist mucus membranes Neck: supple Lungs: diminished bilateral bases Heart: tachycardic, no murmurs Abd: soft, non-tender, non-distended Ext: no edema Skin: warm/well-perfused Neuro: alert, disoriented Psych: impaired insight Objective Data Active Medications Acetaminophen (Acetaminophen 325 Mg Tablet) 650 mg PO Q6H PRN PRN Reason: Pain, Mild (Pain Scale 1-3) Last Admin: 09/18/21 08:28 Dose: 650 mg Documented by: JUANA Albuterol Sulfate (Albuterol Sulfate (0.083%) 2.5 Mg/3 Ml Vial.Neb) 2.5 mg INHALE Q4H PRN PRN Reason: Shortness Of Breath Albuterol Sulfate (Albuterol Sulfate 90 Mcg 8 Gm Inhaler) 2 puff INHALE Q4H PRN PRN Reason: Wheezing Albuterol/Ipratropium (Albuterol/Iprat 2.5/0.5mg 3 Ml Ampul.Neb) 3 ml INHALE RQID [facility] Last Admin: 09/18/21 11:15 Dose: 3 ml Documented by: ERIN Aspirin (Aspirin 81 Mg Tab.Chew) 81 mg PO DAILY [facility] Last Admin: 09/18/21 08:27 Dose: 81 mg Documented by: JUANA Atorvastatin Calcium (Atorvastatin Calcium 40 Mg Tablet) 40 mg PO DAILY [facility] Last Admin: 09/18/21 08:28 Dose: 40 mg Documented by: JUANA Dextrose (Dextrose 50 % 25 Gm/50 Ml Syringe) 25 gm IVPUSH Q15M PRN; Protocol PRN Reason: per Hypoglycemia Standing Ord. Diltiazem HCl (Diltiazem Hcl Cd 240 Mg Cap.Er.Deg) 240 mg PO DAILY [facility]; Protocol Last Admin: 09/18/21 08:27 Dose: 240 mg Documented by: JUANA Docusate Sodium (Docusate Sodium 100 Mg Capsule) 100 mg PO DAILY PRN PRN Reason: Constipation Escitalopram Oxalate (Escitalopram Oxalate 5 Mg Tablet) 5 mg PO DAILY [facility] Last Admin: 09/18/21 08:28 Dose: 5 mg Documented by: JUANA Glucose (Glucose Gel 15 Gm Gel..Gram.) 15 gm PO Q15M PRN; Protocol PRN Reason: per Hypoglycemia Standing Ord. Piperacillin Sod/Tazobactam (Sod 4.5 gm/ Sodium Chloride) 100 mls @ 200 mls/hr IV Q8H [facility] Last Admin: 09/18/21 13:47 Dose: 200 mls/hr Documented by: JUANA Sodium Chloride (Ns) 1,000 mls @ 100 mls/hr IVCONT .Q10H [facility] Stop: 09/19/21 08:14 Last Admin: 09/18/21 12:30 Dose: 100 mls/hr Documented by: JUANA Insulin Glargine (Insulin Glargine,Hum.Rec.Anlog 100 Unit/Ml 10 Ml Vial) 10 unit SUBCUT BEDTIME [facility] Insulin Human Lispro (Insulin Lispro 100 Unit/Ml 3 Ml Vial) 0 unit SUBCUT QIDACHS [facility]; Protocol Last Admin: 09/18/21 13:47 Dose: 10 unit Documented by: JUANA Methylprednisolone Sodium Succinate (Methylprednisolone Sod Succ 40 Mg/Ml Vial) 40 mg IVPUSH Q24H [facility] Omeprazole (Omeprazole 20 Mg Capsule.Dr) 20 mg PO BID@0630,1630 [facility] Last Admin: 09/18/21 05:54 Dose: 20 mg Documented by: IRENE Pharmacy Consult (Consult Rx Perform Med Rec) 1 each MISCELLANE ONCE PRN PRN Reason: Consult order Rivaroxaban (Rivaroxaban 15 Mg Tablet) 15 mg PO DAILY [facility] Last Admin: 09/18/21 08:28 Dose: 15 mg Documented by: JUANA Sodium Chloride (0.9 % Sodium Chloride Flush 3 Ml Syringe) 3 ml IVFLUSH QSHIFT [facility] Last Admin: 09/18/21 08:27 Dose: 3 ml Documented by: JUANA Labs CBC & Chem 7: 09/18/21 09:50 09/18/21 09:50 Labs: Laboratory Results - last 24 hr 09/18/21 09/18/21 09/18/21 08:34 09:50 09:50 MCV 102.4 H MCH 31.9 MCHC 31.1 RDW 17.7 H Plt Count 243 MPV 11.1 Immature Gran % (Auto) 1.0 H Neut % (Auto) 96.0 H Lymph % (Auto) 0.5 L [place] % (Auto) 2.4 Eos % (Auto) 0.0 Baso % (Auto) 0.1 Lymph # (Auto) 0.1 L [place] # (Auto) 0.7 Eos # (Auto) 0.0 Baso # (Auto) 0.0 Abs Immat Gran (auto) 0.28 H Absolute Neuts (auto) 26.4 H Absolute Nucleated RBC 0.000 Nucleated RBC % (auto) 0.0 Smear Tech's Comments VERIFIED Anion Gap 17 Estim Creat Clear Calc 16.3 Estimated GFR 18 POC Glucose > 600 H* Random Glucose Fasting Glucose 937 H* D Calcium 8.0 L Total Bilirubin 0.4 AST 13 ALT 21 Alkaline Phosphatase 110 C-Reactive Protein B-Natriuretic Peptide Total Protein 4.6 L Albumin 2.4 L Procalcitonin Acetone, Qual 09/18/21 09/18/21 09/18/21 09:50 09:50 09:50 MCV Cancelled MCH Cancelled MCHC Cancelled RDW Cancelled Plt Count Cancelled MPV Cancelled Immature Gran % (Auto) Neut % (Auto) Lymph % (Auto) [place] % (Auto) Eos % (Auto) Baso % (Auto) Lymph # (Auto) [place] # (Auto) Eos # (Auto) Baso # (Auto) Abs Immat Gran (auto) Absolute Neuts (auto) Absolute Nucleated RBC Cancelled Nucleated RBC % (auto) Cancelled Smear Tech's Comments Anion Gap Cancelled Estim Creat Clear Calc Cancelled Estimated GFR Cancelled POC Glucose Random Glucose Cancelled Fasting Glucose Calcium Cancelled Total Bilirubin AST ALT Alkaline Phosphatase C-Reactive Protein 1.27 H B-Natriuretic Peptide Total Protein Albumin Procalcitonin 0.30 Acetone, Qual Negative 09/18/21 09/18/21 09/18/21 09:50 09:50 10:15 MCV MCH MCHC RDW Plt Count MPV Immature Gran % (Auto) Neut % (Auto) Lymph % (Auto) [place] % (Auto) Eos % (Auto) Baso % (Auto) Lymph # (Auto) [place] # (Auto) Eos # (Auto) Baso # (Auto) Abs Immat Gran (auto) Absolute Neuts (auto) Absolute Nucleated RBC Nucleated RBC % (auto) Smear Tech's Comments Anion Gap Estim Creat Clear Calc Estimated GFR POC Glucose > 600 H* Random Glucose Cancelled Fasting Glucose Calcium Total Bilirubin AST ALT Alkaline Phosphatase C-Reactive Protein B-Natriuretic Peptide 636 H Total Protein Albumin Procalcitonin Acetone, Qual 09/18/21 09/18/21 09/18/21 11:18 12:07 13:04 MCV MCH MCHC RDW Plt Count MPV Immature Gran % (Auto) Neut % (Auto) Lymph % (Auto) [place] % (Auto) Eos % (Auto) Baso % (Auto) Lymph # (Auto) [place] # (Auto) Eos # (Auto) Baso # (Auto) Abs Immat Gran (auto) Absolute Neuts (auto) Absolute Nucleated RBC Nucleated RBC % (auto) Smear Tech's Comments Anion Gap Estim Creat Clear Calc Estimated GFR POC Glucose > 600 H* > 600 H* 565 H* Random Glucose Fasting Glucose Calcium Total Bilirubin AST ALT Alkaline Phosphatase C-Reactive Protein B-Natriuretic Peptide Total Protein Albumin Procalcitonin Acetone, Qual 09/18/21 09/18/21 13:31 14:03 MCV MCH MCHC RDW Plt Count MPV Immature Gran % (Auto) Neut % (Auto) Lymph % (Auto) [place] % (Auto) Eos % (Auto) Baso % (Auto) Lymph # (Auto) [place] # (Auto) Eos # (Auto) Baso # (Auto) Abs Immat Gran (auto) Absolute Neuts (auto) Absolute Nucleated RBC Nucleated RBC % (auto) Smear Tech's Comments Anion Gap Estim Creat Clear Calc Estimated GFR POC Glucose 581 H* 555 H* Random Glucose Fasting Glucose Calcium Total Bilirubin AST ALT Alkaline Phosphatase C-Reactive Protein B-Natriuretic Peptide Total Protein Albumin Procalcitonin Acetone, Qual Microbiology Microbiology Results: Microbiology 09/16/21 13:11 Blood Culture - Preliminary Blood - Venous No growth after 24 hours. 09/16/21 12:12 Blood Culture - Preliminary Blood - Venous No growth after 24 hours. Assessment and Plan (1) Pneumonia due to 2019 novel coronavirus: Status: Acute (2) PAF (paroxysmal atrial fibrillation): Status: Acute Plan hospital d#2 81yo F recently admitted to [facility] [08/29-09/15/21] with post-Covid19 bacterial pneumonia with hypoxia and COPD exacerbation, readmitted for hypoxia # acute hypoxic respiratory failure - wean off HFNC as tolerated # [id number] pneumonia # pleural effusions - Pulmonology consulted, recommend stopping glucocorticoids- will wean over next few days- and pursusing diagnostic/therapeutic R thoracentesis - continue pip/justice d#3, follow BCx + check urine antigen tests for Leigonella + pneumococcus # pAF - continue diltiazem for rate control - hold rivaroxaban for possible thoracentesis # TONYA - will give IV fluids- likely prerenal # encephalopathy secondary to hypoxia and infection - treat as above # DM2 with hyperglycemia - A1c 9.3 in early Aug - not in DKA. given 10 + 7 units IV regular insulin, also 10 units SQ lispro with breakfast and lunch - correction-dose lispro # mood disorder - escitalopram # VTE ppx - holding rivaroxaban Quality Stroke Does the patient have a stroke diagnosis?: No VTE Prior VTE?: No VTE Risk Level:: Medical - moderate - high VTE Device Contraindication: Treatment Not Indicated VTE Drug Contraindication: N/A - Med Ordered
[2021-09-18 15:15] LABS: Glucose, Whole Blood 478 mg/dL (60-115)
[2021-09-18 15:36] LABS: Anion Gap 23 (12-20); Blood Urea Nitrogen 110 mg/dL (9-16); Calcium 8.2 mg/dL (8.4-10.2); Carbon Dioxide 16 mmol/L (22-29); Chloride 113 mmol/L (96-108); Creatinine Clr Calc Pharmacy 16.9; Estimated Glomerular Filt Rate 19; Glucose Random 645 mg/dL (60-115); Potassium 4.6 mmol/L (3.3-5.1); Sodium 147 mmol/L (135-145)
[2021-09-18 16:28] LABS: Glucose, Whole Blood 442 mg/dL (60-115)
[2021-09-18 16:48] LABS: Adenovirus PCR Not Detected (Not Detect.); Bordetella parapertussis PCR Not Detected (Not Detect.); Bordetella pertussis PCR Not Detected (Not Detect.); Chlamydia pneumoniae PCR Not Detected (Not Detect.); Coronavirus 229E PCR Not Detected (Not Detect.); Coronavirus HKU1 PCR Not Detected (Not Detect.); Coronavirus NL63 PCR Not Detected (Not Detect.); Coronavirus OC43 PCR Not Detected (Not Detect.); Human metapneumovirus PCR Not Detected (Not Detect.); Influenza A PCR Not Detected (Not Detect.); Influenza B PCR Not Detected (Not Detect.); Mycoplasma pneumoniae PCR Not Detected (Not Detect.); Parainfluenza 1 PCR Not Detected (Not Detect.); Parainfluenza 2 PCR Not Detected (Not Detect.); Parainfluenza 3 PCR Not Detected (Not Detect.); Parainfluenza 4 PCR Not Detected (Not Detect.); RSV PCR Not Detected (Not Detect.); Rhino/Enterovirus PCR Not Detected (Not Detect.); SARS-CoV-2 PCR Not Detected (Not Detect.)
[2021-09-18 17:21] LABS: Glucose, Whole Blood 401 mg/dL (60-115)
[2021-09-18 18:11] LABS: Glucose, Whole Blood 330 mg/dL (60-115)
[2021-09-18 19:35] LABS: Glucose, Whole Blood 345 mg/dL (60-115)
[2021-09-18 20:27] LABS: Glucose, Whole Blood 318 mg/dL (60-115)
[2021-09-18] MEDS: Insulin Glargine,Hum.rec.anlog 100 UNIT/ML 10 ML VIAL 10 UNIT SUBCUT (21:12)
[2021-09-18 21:32] LABS: Glucose, Whole Blood 336 mg/dL (60-115)
[2021-09-18 22:14] LABS: Glucose, Whole Blood 348 mg/dL (60-115)
[2021-09-19] VITALS (14 sets, daily range): BP systolic 109–136; BP diastolic 52–73; PULSE 78–100; RESP 17–22; TEMP 36.2–37.1; O2SAT 93–99; BMI 24.1
[2021-09-19 00:51] LABS: Glucose, Whole Blood 219 mg/dL (60-115)
[2021-09-19 02:19] LABS: Glucose, Whole Blood 220 mg/dL (60-115)
[2021-09-19 04:03] LABS: Glucose, Whole Blood 248 mg/dL (60-115)
[2021-09-19] MEDS: Omeprazole 20 MG CAPSULE.DR PO ×2 (05:37→17:38)
[2021-09-19] MEDS: Piperacillin Sodium/Tazobactam 4.5 GM in 0.9 % Sodium Chloride 100 ML IV ×3 (05:37→21:51)
[2021-09-19 06:24] LABS: Basophils Percent Auto 0.1 % (0-2); Hematocrit 24.9 % (37.0-47.0); Hemoglobin 7.6 g/dl (12.0-16.0); Lymphocytes Absolute Auto 0.4 X10*3/uL (1.2-4.9); Lymphocytes Percent Auto 1.4 % (20-40); MANUAL DIFF FLAG SCAN; Mean Corpuscular HGB Conc 30.5 g/dl (31.0-35.0); Mean Corpuscular Hemoglobin 31.5 pg (27.0-33.0); Mean Corpuscular Volume 103.3 fL (80.0-98.0); Mean Platelet Volume 10.9 fL (9.4-12.3); Monocytes Absolute Auto 0.9 X10*3/uL (0.1-1.2); Monocytes Percent Auto 2.9 % (2-11); Neutrophils Absolute Auto 28.5 x10*3/uL (2.0-8.3); Neutrophils Percent Auto 94.6 % (45-73); Platelet Count 207 X10*3/uL (160-400); Red Blood Count 2.41 X10*6/uL (4.20-5.50); Red Cell Distribution Width 17.4 % (11.0-16.0); SCAN SMEAR FLAG 1
[2021-09-19 06:38] LABS: Alanine Aminotransferase 18 U/L (0-31); Albumin Level 2.5 g/dL (3.5-5.0); Alkaline Phosphatase 89 U/L (39-117); Anion Gap 17 (12-20); Aspartate Amino Transferase 12 U/L (5-31); Bilirubin Total 0.3 mg/dL (0.0-1.0); Blood Urea Nitrogen 110 mg/dL (9-16); Calcium 8.1 mg/dL (8.4-10.2); Carbon Dioxide 20 mmol/L (22-29); Chloride 115 mmol/L (96-108); Estimated Glomerular Filt Rate 19; Glucose Fasting 315 mg/dL (60-99); Sodium 148 mmol/L (135-145); Total Protein 4.5 g/dL (6.5-8.0); White Blood Count 30.1 X10*3/uL (4.8-10.8)
[2021-09-19 06:44] LABS: SLIDE REVIEW VERIFIED
[2021-09-19 07:05] LABS: Glucose, Whole Blood 270 mg/dL (60-115)
[2021-09-19 07:13] LABS: Glucose, Whole Blood 289 mg/dL (60-115)
[2021-09-19] MEDS: Albuterol/Iprat 2.5/0.5MG 3 ML AMPUL.NEB INHALE ×4 (07:20→21:16)
[2021-09-19] MEDS: methylPREDNISolone Sod Succ 40 MG/ML VIAL 20 MG IVPUSH (08:01)
[2021-09-19] MEDS: 0.9 % Sodium Chloride Flush 3 ML SYRINGE IVFLUSH (08:01)
[2021-09-19] MEDS: Insulin Lispro 100 UNIT/ML 3 ML VIAL SUBCUT ×4 (08:01→21:51)
[2021-09-19] MEDS: Aspirin 81 MG TAB.CHEW PO (08:02)
[2021-09-19] MEDS: Escitalopram Oxalate 5 MG TABLET PO (08:02)
[2021-09-19] MEDS: Acetaminophen 325 MG TABLET 650 MG PO (08:02)
[2021-09-19] MEDS: dilTIAZem HCL CD 240 MG CAP.ER.DEG PO (08:02)
[2021-09-19] MEDS: Atorvastatin Calcium 40 MG TABLET PO (08:02)
[2021-09-19 09:18] LABS: VBG Base Excess -2.9 mmol/L; VBG HCO3 22 mmol/L (22-26); VBG pCO2 39 mmHg; VBG pH 7.35 (7.32-7.43); VBG pO2 38 mmHg
--- NOTE | 2021-09-19 10:38 | P.PNIM_ITS ---
Subjective Subjective Date of Service: 09/19/21 Interval History: More awake Feels better; still on HFNC Ate breakfast this AM. BGs improved though still in 200s Review of Systems Review of Systems: Yes all other systems are reviewed and are negative Physical Exam Vital Signs: Vital Signs: Last Vital Signs Temp 97.8 F 09/19/21 07:30 Pulse 100 09/19/21 07:30 Resp 20 09/19/21 07:30 BP 109/68 09/19/21 07:30 Pulse Ox 99 09/19/21 07:30 BMI result Body Mass Index 24.1 Gen: in no acute distress HEENT: sclera anicteric, moist mucus membranes Neck: supple Lungs: diminished bilateral bases Heart: tachycardic, no murmurs Abd: soft, non-tender, non-distended Ext: no edema Skin: warm/well-perfused Neuro: alert, oriented to self/place Objective Data Active Medications Acetaminophen (Acetaminophen 325 Mg Tablet) 650 mg PO Q6H PRN PRN Reason: Pain, Mild (Pain Scale 1-3) Last Admin: 09/19/21 08:02 Dose: 650 mg Documented by: JUANA Albuterol Sulfate (Albuterol Sulfate (0.083%) 2.5 Mg/3 Ml Vial.Neb) 2.5 mg INHALE Q4H PRN PRN Reason: Shortness Of Breath Albuterol Sulfate (Albuterol Sulfate 90 Mcg 8 Gm Inhaler) 2 puff INHALE Q4H PRN PRN Reason: Wheezing Albuterol/Ipratropium (Albuterol/Iprat 2.5/0.5mg 3 Ml Ampul.Neb) 3 ml INHALE RQID [facility] Last Admin: 09/19/21 07:20 Dose: 3 ml Documented by: HUDSON Aspirin (Aspirin 81 Mg Tab.Chew) 81 mg PO DAILY [facility] Last Admin: 09/19/21 08:02 Dose: 81 mg Documented by: JUANA Atorvastatin Calcium (Atorvastatin Calcium 40 Mg Tablet) 40 mg PO DAILY [facility] Last Admin: 09/19/21 08:02 Dose: 40 mg Documented by: JUANA Dextrose (Dextrose 50 % 25 Gm/50 Ml Syringe) 25 gm IVPUSH Q15M PRN; Protocol PRN Reason: per Hypoglycemia Standing Ord. Diltiazem HCl (Diltiazem Hcl Cd 240 Mg Cap.Er.Deg) 240 mg PO DAILY [facility]; Protocol Last Admin: 09/19/21 08:02 Dose: 240 mg Documented by: JUANA Docusate Sodium (Docusate Sodium 100 Mg Capsule) 100 mg PO DAILY PRN PRN Reason: Constipation Escitalopram Oxalate (Escitalopram Oxalate 5 Mg Tablet) 5 mg PO DAILY [facility] Last Admin: 09/19/21 08:02 Dose: 5 mg Documented by: JUANA Glucose (Glucose Gel 15 Gm Gel..Gram.) 15 gm PO Q15M PRN; Protocol PRN Reason: per Hypoglycemia Standing Ord. Piperacillin Sod/Tazobactam (Sod 4.5 gm/ Sodium Chloride) 100 mls @ 200 mls/hr IV Q8H [facility] Last Infusion: 09/19/21 06:37 Dose: 0 mls/hr Documented by: KASSI Insulin Glargine (Insulin Glargine,Hum.Rec.Anlog 100 Unit/Ml 10 Ml Vial) 12 u nit SUBCUT BEDTIME [facility] Insulin Human Lispro (Insulin Lispro 100 Unit/Ml 3 Ml Vial) 0 unit SUBCUT QIDACHS [facility]; Protocol Last Admin: 09/19/21 08:01 Dose: 9 unit Documented by: JUANA Methylprednisolone Sodium Succinate (Methylprednisolone Sod Succ 40 Mg/Ml Vial) 20 mg IVPUSH Q24H [facility] Last Admin: 09/19/21 08:01 Dose: 20 mg Documented by: JUANA Omeprazole (Omeprazole 20 Mg Capsule.Dr) 20 mg PO BID@0630,1630 [facility] Last Admin: 09/19/21 05:37 Dose: 20 mg Documented by: KASSI Pharmacy Consult (Consult Rx Perform Med Rec) 1 each MISCELLANE ONCE PRN PRN Reason: Consult order Rivaroxaban (Rivaroxaban 15 Mg Tablet) 15 mg PO DAILY [facility] Last Admin: 09/18/21 08:28 Dose: 15 mg Documented by: JUANA Sodium Chloride (0.9 % Sodium Chloride Flush 3 Ml Syringe) 3 ml IVFLUSH QSHIFT [facility] Last Admin: 09/19/21 08:01 Dose: 3 ml Documented by: JUANA Labs CBC & Chem 7: 09/19/21 06:06 09/19/21 06:06 Labs: Laboratory Results - last 24 hr 09/18/21 09/18/21 09/18/21 09:50 09:50 09:50 MCV 102.4 H MCH 31.9 MCHC 31.1 RDW 17.7 H Plt Count 243 MPV 11.1 Immature Gran % (Auto) 1.0 H Neut % (Auto) 96.0 H Lymph % (Auto) 0.5 L Placer % (Auto) 2.4 Eos % (Auto) 0.0 Baso % (Auto) 0.1 Lymph # (Auto) 0.1 L Placer # (Auto) 0.7 Eos # (Auto) 0.0 Baso # (Auto) 0.0 Abs Immat Gran (auto) 0.28 H Absolute Neuts (auto) 26.4 H Absolute Nucleated RBC 0.000 Nucleated RBC % (auto) 0.0 Smear Tech's Comments VERIFIED VBG pH VBG pCO2 VBG pO2 VBG HCO3 VBG O2 Saturation VBG Base Excess Anion Gap Cancelled Estim Creat Clear Calc Cancelled Estimated GFR Cancelled POC Glucose Random Glucose Cancelled Fasting Glucose 937 H* D Calcium Cancelled Total Bilirubin AST ALT Alkaline Phosphatase C-Reactive Protein 1.27 H Total Protein Albumin Procalcitonin Acetone, Qual Negative Respiratory Panel [place] Adenovirus (Rapid PCR) B.pert (TEM-PCR) B.parapertussis DNA PCR C. pneumoniae DNA (PCR) Coronavirus OC43 (PCR) Coronavirus HKU1 (PCR) Coronavirus 229E (PCR) Coronavirus NL63 (PCR) Human Metapneumovir PCR Influenza A (RT-PCR) Influenza B (RT-PCR) M. pneumoniae (PCR) Parainfluenza 1 (PCR) Parainfluenza 2 (PCR) Parainfluenza 3 (PCR) Parainfluenza 4 (PCR) RSV (PCR) Entero/Rhino (PCR) SARS-CoV-2 RNA (RT-PCR) 09/18/21 09/18/21 09/18/21 09:50 10:00 11:18 MCV MCH MCHC RDW Plt Count MPV Immature Gran % (Auto) Neut % (Auto) Lymph % (Auto) Placer % (Auto) Eos % (Auto) Baso % (Auto) Lymph # (Auto) Placer # (Auto) Eos # (Auto) Baso # (Auto) Abs Immat Gran (auto) Absolute Neuts (auto) Absolute Nucleated RBC Nucleated RBC % (auto) Smear Tech's Comments VBG pH 7.35 VBG pCO2 39 VBG pO2 38 VBG HCO3 22 VBG O2 Saturation 51.0 VBG Base Excess -2.9 Anion Gap Estim Creat Clear Calc Estimated GFR POC Glucose > 600 H* Random Glucose Fasting Glucose Calcium Total Bilirubin AST ALT Alkaline Phosphatase C-Reactive Protein Total Protein Albumin Procalcitonin 0.30 Acetone, Qual Respiratory Panel [place] Adenovirus (Rapid PCR) B.pert (TEM-PCR) B.parapertussis DNA PCR C. pneumoniae DNA (PCR) Coronavirus OC43 (PCR) Coronavirus HKU1 (PCR) Coronavirus 229E (PCR) Coronavirus NL63 (PCR) Human Metapneumovir PCR Influenza A (RT-PCR) Influenza B (RT-PCR) M. pneumoniae (PCR) Parainfluenza 1 (PCR) Parainfluenza 2 (PCR) Parainfluenza 3 (PCR) Parainfluenza 4 (PCR) RSV (PCR) Entero/Rhino (PCR) SARS-CoV-2 RNA (RT-PCR) 09/18/21 09/18/21 09/18/21 12:07 13:04 13:31 MCV MCH MCHC RDW Plt Count MPV Immature Gran % (Auto) Neut % (Auto) Lymph % (Auto) Placer % (Auto) Eos % (Auto) Baso % (Auto) Lymph # (Auto) Placer # (Auto) Eos # (Auto) Baso # (Auto) Abs Immat Gran (auto) Absolute Neuts (auto) Absolute Nucleated RBC Nucleated RBC % (auto) Smear Tech's Comments VBG pH VBG pCO2 VBG pO2 VBG HCO3 VBG O2 Saturation VBG Base Excess Anion Gap Estim Creat Clear Calc Estimated GFR POC Glucose > 600 H* 565 H* 581 H* Random Glucose Fasting Glucose Calcium Total Bilirubin AST ALT Alkaline Phosphatase C-Reactive Protein Total Protein Albumin Procalcitonin Acetone, Qual Respiratory Panel [place] Adenovirus (Rapid PCR) B.pert (TEM-PCR) B.parapertussis DNA PCR C. pneumoniae DNA (PCR) Coronavirus OC43 (PCR) Coronavirus HKU1 (PCR) Coronavirus 229E (PCR) Coronavirus NL63 (PCR) Human Metapneumovir PCR Influenza A (RT-PCR) Influenza B (RT-PCR) M. pneumoniae (PCR) Parainfluenza 1 (PCR) Parainfluenza 2 (PCR) Parainfluenza 3 (PCR) Parainfluenza 4 (PCR) RSV (PCR) Entero/Rhino (PCR) SARS-CoV-2 RNA (RT-PCR) 09/18/21 09/18/21 09/18/21 14:03 15:02 15:10 MCV MCH MCHC RDW Plt Count MPV Immature Gran % (Auto) Neut % (Auto) Lymph % (Auto) Placer % (Auto) Eos % (Auto) Baso % (Auto) Lymph # (Auto) Placer # (Auto) Eos # (Auto) Baso # (Auto) Abs Immat Gran (auto) Absolute Neuts (auto) Absolute Nucleated RBC Nucleated RBC % (auto) Smear Tech's Comments VBG pH VBG pCO2 VBG pO2 VBG HCO3 VBG O2 Saturation VBG Base Excess Anion Gap 23 H Estim Creat Clear Calc 16.9 Estimated GFR 19 POC Glucose 555 H* 478 H* Random Glucose 645 H* Fasting Glucose Calcium 8.2 L Total Bilirubin AST ALT Alkaline Phosphatase C-Reactive Protein Total Protein Albumin Procalcitonin Acetone, Qual Respiratory Panel [place] Adenovirus (Rapid PCR) B.pert (TEM-PCR) B.parapertussis DNA PCR C. pneumoniae DNA (PCR) Coronavirus OC43 (PCR) Coronavirus HKU1 (PCR) Coronavirus 229E (PCR) Coronavirus NL63 (PCR) Human Metapneumovir PCR Influenza A (RT-PCR) Influenza B (RT-PCR) M. pneumoniae (PCR) Parainfluenza 1 (PCR) Parainfluenza 2 (PCR) Parainfluenza 3 (PCR) Parainfluenza 4 (PCR) RSV (PCR) Entero/Rhino (PCR) SARS-CoV-2 RNA (RT-PCR) 09/18/21 09/18/21 09/18/21 15:31 16:10 17:16 MCV MCH MCHC RDW Plt Count MPV Immature Gran % (Auto) Neut % (Auto) Lymph % (Auto) Placer % (Auto) Eos % (Auto) Baso % (Auto) Lymph # (Auto) Placer # (Auto) Eos # (Auto) Baso # (Auto) Abs Immat Gran (auto) Absolute Neuts (auto) Absolute Nucleated RBC Nucleated RBC % (auto) Smear Tech's Comments VBG pH VBG pCO2 VBG pO2 VBG HCO3 VBG O2 Saturation VBG Base Excess Anion Gap Estim Creat Clear Calc Estimated GFR POC Glucose 442 H* 401 H* Random Glucose Fasting Glucose Calcium Total Bilirubin AST ALT Alkaline Phosphatase C-Reactive Protein Total Protein Albumin Procalcitonin Acetone, Qual Respiratory Panel [place] See Note Adenovirus (Rapid PCR) Not Detected B.pert (TEM-PCR) Not Detected B.parapertussis DNA PCR Not Detected C. pneumoniae DNA (PCR) Not Detected Coronavirus OC43 (PCR) Not Detected Coronavirus HKU1 (PCR) Not Detected Coronavirus 229E (PCR) Not Detected Coronavirus NL63 (PCR) Not Detected Human Metapneumovir PCR Not Detected Influenza A (RT-PCR) Not Detected Influenza B (RT-PCR) Not Detected M. pneumoniae (PCR) Not Detected Parainfluenza 1 (PCR) Not Detected Parainfluenza 2 (PCR) Not Detected Parainfluenza 3 (PCR) Not Detected Parainfluenza 4 (PCR) Not Detected RSV (PCR) Not Detected Entero/Rhino (PCR) Not Detected SARS-CoV-2 RNA (RT-PCR) Not Detected 09/18/21 09/18/21 09/18/21 18:07 19:27 20:23 MCV MCH MCHC RDW Plt Count MPV Immature Gran % (Auto) Neut % (Auto) Lymph % (Auto) Placer % (Auto) Eos % (Auto) Baso % (Auto) Lymph # (Auto) Placer # (Auto) Eos # (Auto) Baso # (Auto) Abs Immat Gran (auto) Absolute Neuts (auto) Absolute Nucleated RBC Nucleated RBC % (auto) Smear Tech's Comments VBG pH VBG pCO2 VBG pO2 VBG HCO3 VBG O2 Saturation VBG Base Excess Anion Gap Estim Creat Clear Calc Estimated GFR POC Glucose 330 H 345 H 318 H Random Glucose Fasting Glucose Calcium Total Bilirubin AST ALT Alkaline Phosphatase C-Reactive Protein Total Protein Albumin Procalcitonin Acetone, Qual Respiratory Panel [place] Adenovirus (Rapid PCR) B.pert (TEM-PCR) B.parapertussis DNA PCR C. pneumoniae DNA (PCR) Coronavirus OC43 (PCR) Coronavirus HKU1 (PCR) Coronavirus 229E (PCR) Coronavirus NL63 (PCR) Human Metapneumovir PCR Influenza A (RT-PCR) Influenza B (RT-PCR) M. pneumoniae (PCR) Parainfluenza 1 (PCR) Parainfluenza 2 (PCR) Parainfluenza 3 (PCR) Parainfluenza 4 (PCR) RSV (PCR) Entero/Rhino (PCR) SARS-CoV-2 RNA (RT-PCR) 09/18/21 09/18/21 09/19/21 21:28 22:10 00:45 MCV MCH MCHC RDW Plt Count MPV Immature Gran % (Auto) Neut % (Auto) Lymph % (Auto) Placer % (Auto) Eos % (Auto) Baso % (Auto) Lymph # (Auto) Placer # (Auto) Eos # (Auto) Baso # (Auto) Abs Immat Gran (auto) Absolute Neuts (auto) Absolute Nucleated RBC Nucleated RBC % (auto) Smear Tech's Comments VBG pH VBG pCO2 VBG pO2 VBG HCO3 VBG O2 Saturation VBG Base Excess Anion Gap Estim Creat Clear Calc Estimated GFR POC Glucose 336 H 348 H 219 H Random Glucose Fasting Glucose Calcium Total Bilirubin AST ALT Alkaline Phosphatase C-Reactive Protein Total Protein Albumin Procalcitonin Acetone, Qual Respiratory Panel [place] Adenovirus (Rapid PCR) B.pert (TEM-PCR) B.parapertussis DNA PCR C. pneumoniae DNA (PCR) Coronavirus OC43 (PCR) Coronavirus HKU1 (PCR) Coronavirus 229E (PCR) Coronavirus NL63 (PCR) Human Metapneumovir PCR Influenza A (RT-PCR) Influenza B (RT-PCR) M. pneumoniae (PCR) Parainfluenza 1 (PCR) Parainfluenza 2 (PCR) Parainfluenza 3 (PCR) Parainfluenza 4 (PCR) RSV (PCR) Entero/Rhino (PCR) SARS-CoV-2 RNA (RT-PCR) 09/19/21 09/19/21 09/19/21 02:14 03:58 06:06 MCV 103.3 H MCH 31.5 MCHC 30.5 L RDW 17.4 H Plt Count 207 MPV 10.9 Immature Gran % (Auto) 1.0 H Neut % (Auto) 94.6 H Lymph % (Auto) 1.4 L Placer % (Auto) 2.9 Eos % (Auto) 0.0 Baso % (Auto) 0.1 Lymph # (Auto) 0.4 L Placer # (Auto) 0.9 Eos # (Auto) 0.0 Baso # (Auto) 0.0 Abs Immat Gran (auto) 0.30 H Absolute Neuts (auto) 28.5 H Absolute Nucleated RBC 0.000 Nucleated RBC % (auto) 0.0 Smear Tech's Comments VERIFIED VBG pH VBG pCO2 VBG pO2 VBG HCO3 VBG O2 Saturation VBG Base Excess Anion Gap Estim Creat Clear Calc Estimated GFR POC Glucose 220 H 248 H Random Glucose Fasting Glucose Calcium Total Bilirubin AST ALT Alkaline Phosphatase C-Reactive Protein Total Protein Albumin Procalcitonin Acetone, Qual Respiratory Panel [place] Adenovirus (Rapid PCR) B.pert (TEM-PCR) B.parapertussis DNA PCR C. pneumoniae DNA (PCR) Coronavirus OC43 (PCR) Coronavirus HKU1 (PCR) Coronavirus 229E (PCR) Coronavirus NL63 (PCR) Human Metapneumovir PCR Influenza A (RT-PCR) Influenza B (RT-PCR) M. pneumoniae (PCR) Parainfluenza 1 (PCR) Parainfluenza 2 (PCR) Parainfluenza 3 (PCR) Parainfluenza 4 (PCR) RSV (PCR) Entero/Rhino (PCR) SARS-CoV-2 RNA (RT-PCR) 09/19/21 09/19/21 09/19/21 06:06 06:41 07:10 MCV MCH MCHC RDW Plt Count MPV Immature Gran % (Auto) Neut % (Auto) Lymph % (Auto) Placer % (Auto) Eos % (Auto) Baso % (Auto) Lymph # (Auto) Placer # (Auto) Eos # (Auto) Baso # (Auto) Abs Immat Gran (auto) Absolute Neuts (auto) Absolute Nucleated RBC Nucleated RBC % (auto) Smear Tech's Comments VBG pH VBG pCO2 VBG pO2 VBG HCO3 VBG O2 Saturation VBG Base Excess Anion Gap 17 Estim Creat Clear Calc 17.0 Estimated GFR 19 POC Glucose 270 H 289 H Random Glucose TNP Fasting Glucose 315 H D Calcium 8.1 L Total Bilirubin 0.3 AST 12 ALT 18 Alkaline Phosphatase 89 C-Reactive Protein Total Protein 4.5 L Albumin 2.5 L Procalcitonin Acetone, Qual Respiratory Panel [place] Adenovirus (Rapid PCR) B.pert (TEM-PCR) B.parapertussis DNA PCR C. pneumoniae DNA (PCR) Coronavirus OC43 (PCR) Coronavirus HKU1 (PCR) Coronavirus 229E (PCR) Coronavirus NL63 (PCR) Human Metapneumovir PCR Influenza A (RT-PCR) Influenza B (RT-PCR) M. pneumoniae (PCR) Parainfluenza 1 (PCR) Parainfluenza 2 (PCR) Parainfluenza 3 (PCR) Parainfluenza 4 (PCR) RSV (PCR) Entero/Rhino (PCR) SARS-CoV-2 RNA (RT-PCR) Microbiology Microbiology Results: Microbiology 09/16/21 13:11 Blood Culture - Preliminary Blood - Venous No growth after 48 hours. 09/16/21 12:12 Blood Culture - Preliminary Blood - Venous No growth after 48 hours. Assessment and Plan (1) Pneumonia due to 2019 novel coronavirus: Status: Acute (2) PAF (paroxysmal atrial fibrillation): Status: Acute Plan hospital d#4 81yo F recently [place] [facility] [place] with post-Covid19 bacterial pneumonia with hypoxia and COPD exacerbation, readmitted for hypoxia # acute hypoxic respiratory failure - wean off HFNC as tolerated # [id number] pneumonia # pleural effusions - Pulmonology consulted, recommend stopping glucocorticoids- will wean over next few days- and pursusing diagnostic/therapeutic R thoracentesis which will be done tomorrow morning - continue pip/justice d#4, follow BCx + check urine antigen tests for Leigonella + pneumococcus # hyperNa - encourage free water intake # pAF - continue diltiazem for rate control - hold rivaroxaban for thoracentesis tomorrow # TONYA - SCr stable after giving IV fluids- was likely rerenal # encephalopathy secondary to hypoxia and infection - treat as above # DM2 with hyperglycemia likely exacerbated by steroid use - A1c 9.3 in early Aug - taper steroids - basal/bolus insulin # mood disorder - escitalopram # VTE ppx - holding rivaroxaban Quality Stroke Does the patient have a stroke diagnosis?: No VTE Prior VTE?: No VTE Risk Level:: Medical - moderate - high VTE Device Contraindication: Treatment Not Indicated VTE Drug Contraindication: N/A - Med Ordered
[2021-09-19 11:19] LABS: Glucose, Whole Blood 344 mg/dL (60-115)
--- NOTE | 2021-09-19 12:13 | MHC.CM.PN ---
THIS FRYLINE ATTENDANT RECEIVED NOTIFICATION THAT PATIENT'S SON (NO NAME GIVEN) WANTS A RETURN CALL TO SPEAK ABOUT DC PLAN FOR PATIENT. CALL TO NUMBER LEFT ON VOICEMAIL ([phone]) RESULTS IN AN OUTGOING MESSAGE THAT INDICATES THE MAILBOX IS FULL AND UNABLE TO RECEIVE ANY MESSAGES
[2021-09-19 16:16] LABS: Glucose, Whole Blood 200 mg/dL (60-115)
[2021-09-19 19:53] LABS: Glucose, Whole Blood 292 mg/dL (60-115)
[2021-09-19] MEDS: Insulin Glargine,Hum.rec.anlog 100 UNIT/ML 10 ML VIAL 12 UNIT SUBCUT (21:52)
[2021-09-20] VITALS (8 sets, daily range): BP systolic 117–146; BP diastolic 48–69; PULSE 71–94; RESP 14–22; TEMP 36.1–36.6; O2SAT 94–100
[2021-09-20] MEDS: Piperacillin Sodium/Tazobactam 4.5 GM in 0.9 % Sodium Chloride 100 ML IV ×2 (05:54→15:12)
[2021-09-20] MEDS: Omeprazole 20 MG CAPSULE.DR PO ×2 (05:55→18:12)
[2021-09-20 06:23] LABS: Hematocrit 23.1 % (37.0-47.0); Hemoglobin 7.3 g/dl (12.0-16.0); Mean Corpuscular HGB Conc 31.6 g/dl (31.0-35.0); Mean Corpuscular Hemoglobin 31.3 pg (27.0-33.0); Mean Corpuscular Volume 99.1 fL (80.0-98.0); Mean Platelet Volume 10.7 fL (9.4-12.3); Platelet Count 201 X10*3/uL (160-400); Red Blood Count 2.33 X10*6/uL (4.20-5.50); Red Cell Distribution Width 17.4 % (11.0-16.0); White Blood Count 27.7 X10*3/uL (4.8-10.8)
[2021-09-20 06:42] LABS: INTERNATIONAL NORM RATIO 0.9 (0.9-1.1); Prothrombin Time 9.8 SEC (9.9-13.0)
[2021-09-20 06:46] LABS: Anion Gap 15 (12-20); Blood Urea Nitrogen 108 mg/dL (9-16); Calcium 7.6 mg/dL (8.4-10.2); Carbon Dioxide 21 mmol/L (22-29); Chloride 111 mmol/L (96-108); Creatinine Clr Calc Pharmacy 16.6; Estimated Glomerular Filt Rate 19; Glucose Random 288 mg/dL (60-115); Sodium 143 mmol/L (135-145)
[2021-09-20 07:11] LABS: Glucose, Whole Blood 246 mg/dL (60-115)
[2021-09-20 07:58] LABS: Immature Retic Fraction 4.7 % (3.0-15.9); Reticulocyte Percent 1.4 % (0.5-1.8); Reticulocytes Absolute 0.032 X10*6/uL (0.026-0.095)
[2021-09-20 08:16] LABS: Iron 76 mcg/dL (30-160); Lactate Dehydrogenase 342 U/L (122-220); Percent Iron Saturation 44 % (15-50); Total Iron Binding Capacity 171 mcg/dL (228-428); Unsaturated Iron Binding 95 ug/dL
[2021-09-20 08:35] LABS: Ferritin 199 ng/mL (10-250)
[2021-09-20 09:02] LABS: Folate 6.1 ng/mL (> or = 4.0); Vitamin B12 485 pg/mL (200-900)
[2021-09-20] MEDS: methylPREDNISolone Sod Succ 40 MG/ML VIAL 20 MG IVPUSH (09:38)
--- NOTE | 2021-09-20 09:57 | HO.PM.IMPN ---
Subjective Subjective Date of Service: 09/20/21 Interval History: Breathing improved, weaned to NC 5L Review of Systems Review of Systems: Yes all other systems are reviewed and are negative Physical Exam Vital Signs: Vital Signs: Last Vital Signs Temp 98 F 09/20/21 07:07 Pulse 73 09/20/21 07:07 Resp 20 09/20/21 07:07 BP 146/62 H 09/20/21 07:07 Pulse Ox 98 09/20/21 07:07 BMI result Body Mass Index 24.1 Gen: in no acute distress HEENT: sclera anicteric, moist mucus membranes Neck: supple Lungs: diminished bilateral bases Heart: regular, no murmurs Abd: soft, non-tender, non-distended Ext: no edema Skin: warm/well-perfused Neuro: alert, oriented to self/place Objective Data Active Medications Acetaminophen (Acetaminophen 325 Mg Tablet) 650 mg PO Q6H PRN PRN Reason: Pain, Mild (Pain Scale 1-3) Last Admin: 09/19/21 08:02 Dose: 650 mg Documented by: JUANA Albuterol Sulfate (Albuterol Sulfate (0.083%) 2.5 Mg/3 Ml Vial.Neb) 2.5 mg INHALE Q4H PRN PRN Reason: Shortness Of Breath Albuterol Sulfate (Albuterol Sulfate 90 Mcg 8 Gm Inhaler) 2 puff INHALE Q4H PRN PRN Reason: Wheezing Albuterol/Ipratropium (Albuterol/Iprat 2.5/0.5mg 3 Ml Ampul.Neb) 3 ml INHALE RQID [facility] Last Admin: 09/20/21 07:30 Dose: Not Given Documented by: ISAÍAS Non-Admin Reason: Patient Refused Aspirin (Aspirin 81 Mg Tab.Chew) 81 mg PO DAILY [facility] Last Admin: 09/19/21 08:02 Dose: 81 mg Documented by: JUANA Atorvastatin Calcium (Atorvastatin Calcium 40 Mg Tablet) 40 mg PO DAILY [facility] Last Admin: 09/19/21 08:02 Dose: 40 mg Documented by: JUANA Dextrose (Dextrose 50 % 25 Gm/50 Ml Syringe) 25 gm IVPUSH Q15M PRN; Protocol PRN Reason: per Hypoglycemia Standing Ord. Diltiazem HCl (Diltiazem Hcl Cd 240 Mg Cap.Er.Deg) 240 mg PO DAILY [facility]; Protocol Last Admin: 09/19/21 08:02 Dose: 240 mg Documented by: JUANA Docusate Sodium (Docusate Sodium 100 Mg Capsule) 100 mg PO DAILY PRN PRN Reason: Constipation Escitalopram Oxalate (Escitalopram Oxalate 5 Mg Tablet) 5 mg PO DAILY [facility] Last Admin: 09/19/21 08:02 Dose: 5 mg Documented by: JUANA Glucose (Glucose Gel 15 Gm Gel..Gram.) 15 gm PO Q15M PRN; Protocol PRN Reason: per Hypoglycemia Standing Ord. Piperacillin Sod/Tazobactam (Sod 4.5 gm/ Sodium Chloride) 100 mls @ 200 mls/hr IV Q8H [facility] Last Infusion: 09/20/21 06:29 Dose: 0 mls/hr Documented by: JESUS Insulin Glargine (Insulin Glargine,Hum.Rec.Anlog 100 Unit/Ml 10 Ml Vial) 12 unit SUBCUT BEDTIME [facility] Last Admin: 09/19/21 21:52 Dose: 12 unit Documented by: JESUS Insulin Human Lispro (Insulin Lispro 100 Unit/Ml 3 Ml Vial) 0 unit SUBCUT QIDACHS [facility]; Protocol Last Admin: 09/20/21 09:19 Dose: Not Given Documented by: SAMUEL Non-Admin Reason: NPO Methylprednisolone Sodium Succinate (Methylprednisolone Sod Succ 40 Mg/Ml Vial) 20 mg IVPUSH Q24H [facility] Last Admin: 09/20/21 09:38 Dose: 20 mg Documented by: SAMUEL Omeprazole (Omeprazole 20 Mg Capsule.) 20 mg PO BID@0630,1630 [facility] Last Admin: 09/20/21 05:55 Dose: 20 mg Documented by: JESUS Pharmacy Consult (Consult Rx Perform Med Rec) 1 each MISCELLANE ONCE PRN PRN Reason: Consult order Rivaroxaban (Rivaroxaban 15 Mg Tablet) 15 mg PO DAILY [facility] Last Admin: 09/18/21 08:28 Dose: 15 mg Documented by: JUANA Sodium Chloride (0.9 % Sodium Chloride Flush 3 Ml Syringe) 3 ml IVFLUSH QSHIFT [facility] Last Admin: 09/20/21 09:18 Dose: Not Given Documented by: SAMUEL Non-Admin Reason: IV Running Labs CBC & Chem 7: 09/20/21 05:56 03/02/22 05:56 Labs: Laboratory Results - last 24 hr 09/19/21 09/19/21 09/19/21 10:53 16:12 19:45 MCV MCH MCHC RDW Plt Count MPV Absolute Nucleated RBC Nucleated RBC % (auto) Absolute Retic Percent Retic Immature Retic Fraction Retic Hgb Equivalent PT INR Anion Gap Estim Creat Clear Calc Estimated GFR POC Glucose 344 H 200 H 292 H Random Glucose Calcium Iron TIBC % Saturation Unsat Iron Binding Ferritin Lactate Dehydrogenase Vitamin B12 Folate Blood Type Antibody Screen 09/20/21 09/20/21 09/20/21 05:55 05:56 05:56 MCV 99.1 H MCH 31.3 MCHC 31.6 RDW 17.4 H Plt Count 201 MPV 10.7 Absolute Nucleated RBC 0.000 Nucleated RBC % (auto) 0.0 Absolute Retic 0.032 Percent Retic 1.4 Immature Retic Fraction 4.7 Retic Hgb Equivalent 34.0 PT 9.8 L INR 0.9 Anion Gap Estim Creat Clear Calc Estimated GFR POC Glucose Random Glucose Calcium Iron TIBC % Saturation Unsat Iron Binding Ferritin Lactate Dehydrogenase Vitamin B12 Folate Blood Type B Positive Antibody Screen NEGATIVE 09/20/21 09/20/21 09/20/21 05:56 06:16 07:07 MCV MCH MCHC RDW Plt Count MPV Absolute Nucleated RBC Nucleated RBC % (auto) Absolute Retic Percent Retic Immature Retic Fraction Retic Hgb Equivalent PT INR Anion Gap 15 Estim Creat Clear Calc 16.6 Estimated GFR 19 POC Glucose 246 H Random Glucose 288 H D Calcium 7.6 L D Iron 76 TIBC 171 L % Saturation 44 Unsat Iron Binding 95 Ferritin 199 Lactate Dehydrogenase 342 H Vitamin B12 485 Folate 6.1 Blood Type Antibody Screen Assessment and Plan (1) Pneumonia due to 2019 novel coronavirus: Status: Acute (2) PAF (paroxysmal atrial fibrillation): Status: Acute Plan hospital d#5 81yo F recently admitted to [facility] [place]08/29-09/15/21] with [id number] bacterial pneumonia with hypoxia and COPD exacerbation, readmitted for hypoxia # acute hypoxic respiratory failure - supplemental O2 via NC, wean as tolerated # [id number] pneumonia # pleural effusions - Pulmonology consulted, recommend stopping glucocorticoids- continue to wean over the next few days- and pursusing diagnostic/therapeutic R thoracentesis which will be done this morning - continue pip/justice d#5. BCx negative. sent urine antigen tests for Leigonella + pneumococcus # hyperNa - resolved # anemia - likely anemia of chronic disease but check FOBT and T+S active. # pAF - continue diltiazem for rate control - hold rivaroxaban for thoracentesis today, resume post-procedure # TONYA - SCr stable after giving IV fluids- was likely prerenal # encephalopathy secondary to hypoxia and infection - treat as above # DM2 with hyperglycemia likely exacerbated by steroid use - A1c 9.3 in early Aug - taper steroids as above - basal/bolus insulin # mood disorder - escitalopram # VTE ppx - holding rivaroxaban Quality Stroke Does the patient have a stroke diagnosis?: No VTE Prior VTE?: No VTE Risk Level:: Medical - moderate - high VTE Device Contraindication: Treatment Not Indicated VTE Drug Contraindication: N/A - Med Ordered
--- NOTE | 2021-09-20 10:04 | HE.PHANOTE ---
Antibiotic Stewardship Pt on Zosyn since 09/16/21. Pt from halfway with recent [facility] hospitalization. Pt NPO. Continue Zosyn, checking urine. Patients WBC also elevated.
[2021-09-20 11:02] LABS: Procalcitonin 0.26 ng/mL
--- NOTE | 2021-09-20 11:10 | MHC.CM.PN ---
Addendum entered by Ronda Jean-Baptiste 09/21/21 09:01: RETURN CALL FROM RENETTA. RENETTA IS A PARTRIDGE F[employer]ER FOR PATIENT'S DAUGHTER IN THE COMMUNITY. SHE IS ASKING FOR REFERRALS TO ALTERNATE FACILITIES. RENETTA MADE AWARE THAT HCP MUST MAKE THESE DECISIONS AD INFORMATION CANNOT BE GIVEN TO RENETTA WITHOUT PERMISSION FROM PATIENT OR HCP RENETTA MADE AWARE THAT CASE MANAGEMENT IS UNABLE TO LEAVE A VOICEMAIL FOR HCP AND WE ARE WAITING FOR HIM TO CALL BACK. Original Note: CALL TO RENETTA HURST AT [phone] X [phone] MESSAGE LEFT FOR A RETURN CALL. THIS CALL WAS PLACED A RESULT OF RENETTA (A [employer])
[2021-09-20 11:23] LABS: Glucose, Whole Blood 194 mg/dL (60-115)
[2021-09-20] MEDS: Albuterol/Iprat 2.5/0.5MG 3 ML AMPUL.NEB INHALE ×2 (11:33→20:02)
--- NOTE | 2021-09-20 12:08 | P.CDIC_ITS ---
CDI Concurrent Query Documentation Clarification: PHYSICIAN'S DOCUMENTATION REQUEST Date of Query: 09/20/21 1208 Patient Name: Bibi Cormier Admit Date: 09/16/21 Dear Doctor, A review of the medical record indicates additional documentation may be needed. Please review below and update the documentation accordingly. Clinical Indicators: Risk Factors/Clinical Indicators/Treatments Per MD progress note 09/20/21: encephalopathy secondary to hypoxia and infection Based on the above, please further specify, in the Progress Notes, the known or suspected type of the documented encephalopathy: * Metabolic * Septic * Toxic * Toxic metabolic * Other (please specify) * Unable to determine Use of terms such as suspected, likely, concern for, or probable (associated with a specific diagnosis that is being evaluated, monitored, or treated as if it exists) are acceptable and can be coded in the inpatient setting, when documented at the time of discharge. Thank you, Salina Young RN Extension: [phone] Please use your independent medical judgment in providing your response. THIS QUERY IS PART OF THE PERMANENT MEDICAL RECORD Provider Response: Other Other Diagnosis: encephalopathy due to infection
[2021-09-20 14:00] LABS: Glucose, Whole Blood 222 mg/dL (60-115)
[2021-09-20 15:53] LABS: Glucose, Whole Blood 234 mg/dL (60-115)
[2021-09-20] MEDS: Lidocaine HCl 1 % MPF 5 ML VIAL SUBCUT (16:38)
[2021-09-20 17:09] LABS: WBC Pleural Fluid 0.529 X10*3/uL
[2021-09-20 17:10] LABS: RBC Pleural Fluid < 0.002 X10*3/uL
[2021-09-20] MEDS: 0.9 % Sodium Chloride Flush 3 ML SYRINGE IVFLUSH (17:17)
[2021-09-20] MEDS: Insulin Lispro 100 UNIT/ML 3 ML VIAL SUBCUT ×2 (18:11→20:58)
[2021-09-20 18:58] LABS: Neutrophils Pleural Fluid 24 %
[2021-09-20 18:59] LABS: Lymphocytes Pleural Fluid 62 %; Monocytes Pleural Fluid 14 %; Other Cells Plerual Fl 81 %
[2021-09-20 19:00] LABS: BF Shift QC OK YES
[2021-09-20 19:47] LABS: Glucose, Whole Blood 202 mg/dL (60-115)
[2021-09-20] MEDS: Insulin Glargine,Hum.rec.anlog 100 UNIT/ML 10 ML VIAL 15 UNIT SUBCUT (20:59)
[2021-09-21] VITALS (10 sets, daily range): BP systolic 126–182; BP diastolic 58–83; PULSE 74–102; RESP 15–20; TEMP 35.9–36.9; O2SAT 93–99
[2021-09-21] MEDS: Piperacillin Sodium/Tazobactam 4.5 GM in 0.9 % Sodium Chloride 100 ML IV ×4 (00:18→23:38)
[2021-09-21] MEDS: 0.9 % Sodium Chloride Flush 3 ML SYRINGE IVFLUSH ×4 (00:18→23:42)
[2021-09-21] MEDS: Omeprazole 20 MG CAPSULE.DR PO ×2 (05:57→16:58)
[2021-09-21 06:32] LABS: Hematocrit 28.4 % (37.0-47.0); Hemoglobin 8.9 g/dl (12.0-16.0); Mean Corpuscular HGB Conc 31.3 g/dl (31.0-35.0); Mean Corpuscular Hemoglobin 31.9 pg (27.0-33.0); Mean Corpuscular Volume 101.8 fL (80.0-98.0); Mean Platelet Volume 10.2 fL (9.4-12.3); Platelet Count 197 X10*3/uL (160-400); Red Blood Count 2.79 X10*6/uL (4.20-5.50); Red Cell Distribution Width 17.4 % (11.0-16.0); White Blood Count 27.4 X10*3/uL (4.8-10.8)
[2021-09-21 07:03] LABS: Anion Gap 14 (12-20); Blood Urea Nitrogen 101 mg/dL (9-16); Calcium 8.2 mg/dL (8.4-10.2); Carbon Dioxide 23 mmol/L (22-29); Chloride 113 mmol/L (96-108); Estimated Glomerular Filt Rate 22; Glucose Random 43 mg/dL (60-115); Sodium 146 mmol/L (135-145)
[2021-09-21 07:12] LABS: Glucose, Whole Blood 42 mg/dL (60-115)
[2021-09-21] MEDS: Dextrose 50 % 25 GM/50 ML SYRINGE IVPUSH (07:19)
[2021-09-21 07:20] LABS: Glucose Pleural Fluid 265; LDH Pleural Fluid 129
[2021-09-21 07:21] LABS: pH Pleural Fluid 7.48
[2021-09-21 07:43] LABS: Glucose, Whole Blood 134 mg/dL (60-115)
[2021-09-21] MEDS: Albuterol/Iprat 2.5/0.5MG 3 ML AMPUL.NEB INHALE ×4 (07:53→19:57)
[2021-09-21] MEDS: Atorvastatin Calcium 40 MG TABLET PO (09:10)
[2021-09-21] MEDS: dilTIAZem HCL CD 240 MG CAP.ER.DEG PO (09:10)
[2021-09-21] MEDS: Aspirin 81 MG TAB.CHEW PO (09:10)
[2021-09-21] MEDS: Escitalopram Oxalate 5 MG TABLET PO (09:10)
[2021-09-21] MEDS: methylPREDNISolone Sod Succ 40 MG/ML VIAL 10 MG IVPUSH (09:10)
[2021-09-21 11:14] LABS: Glucose, Whole Blood 193 mg/dL (60-115)
--- NOTE | 2021-09-21 11:42 | MHC.CM.PN ---
PATIENT NOW ON 4 LITRES O2 VIA CANNULA. PLAN IS RETURN TO [facility] ON SATURDAY WHERE SHE IS A BEDHOLD. HCP/SON IS AWARE THAT PATIENT IS A BEDHOLD AT FACILITY.
--- NOTE | 2021-09-21 13:42 | MHC.CLN ---
F/U PT WITH INCREASED NUTRITION NEEDS R/T PRESSURE INJURY PO INTAKE IMPROVED 75-100% X 3 MEALS DIET RX: 2000DM GRD M/S-APPROPRIATE PT RECEIVING ENSURE BID TO PROMOTE WOUND HEALING PROVIDES 700KCALS, 40G PROTEIN MONITOR PO INTAKE CLOSELY
--- NOTE | 2021-09-21 13:52 | HO.PM.IMPN ---
Subjective Subjective Date of Service: 09/21/21 Interval History: Thoracentesis done yesterday On 4-5L O2 via NC Feels less dyspneic Hypoglycemic this am Review of Systems Review of Systems: Yes all other systems are reviewed and are negative Physical Exam Vital Signs: Vital Signs: Last Vital Signs Temp 97.2 F 09/21/21 07:58 Pulse 84 09/21/21 12:09 Resp 16 09/21/21 12:09 BP 182/83 H 09/21/21 07:58 Pulse Ox 99 09/21/21 07:58 BMI result Body Mass Index 24.1 Gen: in no acute distress HEENT: sclera anicteric, moist mucus membranes Neck: supple Lungs: diminished bilateral bases, thoracentesis site R without bleeding Heart: regular, no murmurs Abd: soft, non-tender, non-distended Ext: no edema Skin: warm/well-perfused Neuro: alert, oriented to self/place Objective Data Active Medications Acetaminophen (Acetaminophen 325 Mg Tablet) 650 mg PO Q6H PRN PRN Reason: Pain, Mild (Pain Scale 1-3) Last Admin: 09/19/21 08:02 Dose: 650 mg Documented by: JUANA Albuterol Sulfate (Albuterol Sulfate (0.083%) 2.5 Mg/3 Ml Vial.Neb) 2.5 mg INHALE Q4H PRN PRN Reason: Shortness Of Breath Albuterol Sulfate (Albuterol Sulfate 90 Mcg 8 Gm Inhaler) 2 puff INHALE Q4H PRN PRN Reason: Wheezing Albuterol/Ipratropium (Albuterol/Iprat 2.5/0.5mg 3 Ml Ampul.Neb) 3 ml INHALE RQID [facility] Last Admin: 09/21/21 12:07 Dose: 3 ml Documented by: JA Aspirin (Aspirin 81 Mg Tab.Chew) 81 mg PO DAILY [facility] Last Admin: 09/21/21 09:10 Dose: 81 mg Documented by: SAMUEL Atorvastatin Calcium (Atorvastatin Calcium 40 Mg Tablet) 40 mg PO DAILY [facility] Last Admin: 09/21/21 09:10 Dose: 40 mg Documented by: SAMUEL Dextrose (Dextrose 50 % 25 Gm/50 Ml Syringe) 25 gm IVPUSH Q15M PRN; Protocol PRN Reason: per Hypoglycemia Standing Ord. Last Admin: 09/21/21 07:19 Dose: 25 gm Documented by: SAMUEL Comments: blood sugar 43 Diltiazem HCl (Diltiazem Hcl Cd 240 Mg Cap.Er.Deg) 240 mg PO DAILY [facility]; Protocol Last Admin: 09/21/21 09:10 Dose: 240 mg Documented by: SAMUEL Docusate Sodium (Docusate Sodium 100 Mg Capsule) 100 mg PO DAILY PRN PRN Reason: Constipation Escitalopram Oxalate (Escitalopram Oxalate 5 Mg Tablet) 5 mg PO DAILY [facility] Last Admin: 09/21/21 09:10 Dose: 5 mg Documented by: SAMUEL Glucose (Glucose Gel 15 Gm Gel..Gram.) 15 gm PO Q15M PRN; Protocol PRN Reason: per Hypoglycemia Standing Ord. Piperacillin Sod/Tazobactam (Sod 4.5 gm/ Sodium Chloride) 100 mls @ 200 mls/hr IV Q8H [facility] Last Infusion: 09/21/21 10:02 Dose: 200 mls/hr Documented by: SAMUEL Insulin Glargine (Insulin Glargine,Hum.Rec.Anlog 100 Unit/Ml 10 Ml Vial) 8 unit SUBCUT BEDTIME [facility] Insulin Human Lispro (Insulin Lispro 100 Unit/Ml 3 Ml Vial) 0 unit SUBCUT QIDACHS [facility]; Protocol Last Admin: 09/21/21 12:17 Dose: Not Given Documented by: SAMUEL Non-Admin Reason: No Insulin Coverage Methylprednisolone Sodium Succinate (Methylprednisolone Sod Succ 40 Mg/Ml Vial) 10 mg IVPUSH Q24H [facility] Stop: 09/22/21 18:00 Last Admin: 09/21/21 09:10 Dose: 10 mg Documented by: SAMUEL Omeprazole (Omeprazole 20 Mg Capsule.) 20 mg PO BID@0630,1630 [facility] Last Admin: 09/21/21 05:57 Dose: 20 mg Documented by: GRAZYNA Pharmacy Consult (Consult Rx Perform Med Rec) 1 each MISCELLANE ONCE PRN PRN Reason: Consult order Rivaroxaban (Rivaroxaban 15 Mg Tablet) 15 mg PO DAILY@1800 [facility] Sodium Chloride (0.9 % Sodium Chloride Flush 3 Ml Syringe) 3 ml IVFLUSH QSHIFT [facility] Last Admin: 09/21/21 07:20 Dose: 3 ml Documented by: HO.YOUB Labs CBC & Chem 7: 09/21/21 06:19 09/21/21 06:19 Labs: Laboratory Results - last 24 hr 09/20/21 09/20/21 09/20/21 13:57 15:36 16:25 MCV MCH MCHC RDW Plt Count MPV Absolute Nucleated RBC Nucleated RBC % (auto) Anion Gap Estim Creat Clear Calc Estimated GFR POC Glucose 222 H 234 H Random Glucose Calcium Fl Pathologist Review Pleural pH Pleural WBC 0.529 Pleural RBC < 0.002 Pleural Neutrophils 24 Pleural Lymphocytes 62 Pleural Monocytes 14 Pleural Other Cells 81 Pleural Total Protein Pleural LDH Pleural Glucose 09/20/21 09/20/21 09/20/21 16:25 16:25 16:25 MCV MCH MCHC RDW Plt Count MPV Absolute Nucleated RBC Nucleated RBC % (auto) Anion Gap Estim Creat Clear Calc Estimated GFR POC Glucose Random Glucose Calcium Fl Pathologist Review Cancelled Pleural pH 7.48 Pleural WBC Pleural RBC Pleural Neutrophils Pleural Lymphocytes Pleural Monocytes Pleural Other Cells Pleural Total Protein 1.0 Pleural LDH 129 Pleural Glucose 265 09/20/21 09/21/21 09/21/21 19:30 06:19 06:19 MCV 101.8 H MCH 31.9 MCHC 31.3 RDW 17.4 H Plt Count 197 MPV 10.2 Absolute Nucleated RBC 0.000 Nucleated RBC % (auto) 0.0 Anion Gap 14 Estim Creat Clear Calc 19.0 Estimated GFR 22 POC Glucose 202 H Random Glucose 43 L* Calcium 8.2 L D Fl Pathologist Review Pleural pH Pleural WBC Pleural RBC Pleural Neutrophils Pleural Lymphocytes Pleural Monocytes Pleural Other Cells Pleural Total Protein Pleural LDH Pleural Glucose 09/21/21 09/21/21 09/21/21 07:09 07:37 11:06 MCV MCH MCHC RDW Plt Count MPV Absolute Nucleated RBC Nucleated RBC % (auto) Anion Gap Estim Creat Clear Calc Estimated GFR POC Glucose 42 L* 134 H 193 H Random Glucose Calcium Fl Pathologist Review Pleural pH Pleural WBC Pleural RBC Pleural Neutrophils Pleural Lymphocytes Pleural Monocytes Pleural Other Cells Pleural Total Protein Pleural LDH Pleural Glucose Microbiology Microbiology Results: Microbiology 09/20/21 16:25 Gram Stain - Final Thoracentesis Fluid Anaerobic Culture - Preliminary No growth to date. Body Fluid Culture - Preliminary No growth to date. Assessment and Plan (1) Pneumonia due to 2019 novel coronavirus: Status: Acute (2) PAF (paroxysmal atrial fibrillation): Status: Acute Plan hospital d#6 81yo F recently admitted to [facility] [08/29-09/15/21] with [id number] bacterial pneumonia with hypoxia and COPD exacerbation, readmitted for hypoxia # acute hypoxic respiratory failure - supplemental O2 via NC, wean as tolerated, currently on 4-5L via NC # [id number] pneumonia # pleural effusions - Pulmonology consulted, wean off steroids by tomorrow, 350 mL pleural fluid removed from R thorax yesterday and fluid is transudative - continue pip/justice d#12/26. BCx negative. pending urine antigen tests for Leigonella + pneumococcus # hyperNa - encourage PO water intake # anemia - likely anemia of chronic disease but check FOBT and T+S active. # pAF - continue diltiazem for rate control - resume rivaroxaban today # TONYA - SCr improved after gentle IV hydration # encephalopathy secondary to hypoxia and infection - treat as above # DM2 with hyperglycemia likely exacerbated by steroid use, now hypoglycemic - A1c 9.3 in early Aug - taper steroids as above - basal/bolus insulin- decrease doses # mood disorder - escitalopram # VTE ppx - rivaroxaban # dispo - plan return to [facility] for [facility] Quality Stroke Does the patient have a stroke diagnosis?: No VTE Prior VTE?: No VTE Risk Level:: Medical - moderate - high VTE Device Contraindication: Treatment Not Indicated VTE Drug Contraindication: N/A - Med Ordered
[2021-09-21 16:50] LABS: Glucose, Whole Blood 313 mg/dL (60-115)
[2021-09-21] MEDS: Insulin Lispro 100 UNIT/ML 3 ML VIAL SUBCUT ×2 (16:57→20:59)
[2021-09-21] MEDS: Rivaroxaban 15 MG TABLET PO (16:58)
[2021-09-21] MEDS: Acetaminophen 325 MG TABLET 650 MG PO (17:01)
[2021-09-21 20:14] LABS: Glucose, Whole Blood 311 mg/dL (60-115)
[2021-09-21] MEDS: Insulin Glargine,Hum.rec.anlog 100 UNIT/ML 10 ML VIAL 8 UNIT SUBCUT (21:00)
[2021-09-21 22:57] LABS: Strep Pneumo Ag urine Not Detected (Not Detected)
[2021-09-22] VITALS (12 sets, daily range): BP systolic 112–141; BP diastolic 60–65; PULSE 74–90; RESP 13–22; TEMP 35.8–36.8; O2SAT 92–100
[2021-09-22] MEDS: Acetaminophen 325 MG TABLET 650 MG PO ×2 (01:06→21:30)
[2021-09-22] MEDS: Albuterol Sulfate (0.083%) 2.5 MG/3 ML VIAL.NEB INHALE (01:28)
[2021-09-22] MEDS: Omeprazole 20 MG CAPSULE.DR PO ×2 (05:28→16:07)
[2021-09-22 07:14] LABS: Glucose, Whole Blood 95 mg/dL (60-115)
[2021-09-22] MEDS: Albuterol/Iprat 2.5/0.5MG 3 ML AMPUL.NEB INHALE ×4 (08:21→20:46)
[2021-09-22] MEDS: methylPREDNISolone Sod Succ 40 MG/ML VIAL 10 MG IVPUSH (08:44)
[2021-09-22] MEDS: Piperacillin Sodium/Tazobactam 4.5 GM in 0.9 % Sodium Chloride 100 ML IV ×2 (08:44→16:13)
[2021-09-22] MEDS: Aspirin 81 MG TAB.CHEW PO (08:45)
[2021-09-22] MEDS: dilTIAZem HCL CD 240 MG CAP.ER.DEG PO (08:45)
[2021-09-22] MEDS: Atorvastatin Calcium 40 MG TABLET PO (08:45)
[2021-09-22] MEDS: Escitalopram Oxalate 5 MG TABLET PO (08:45)
[2021-09-22] MEDS: 0.9 % Sodium Chloride Flush 3 ML SYRINGE IVFLUSH ×3 (09:01→21:01)
[2021-09-22 11:20] LABS: Glucose, Whole Blood 135 mg/dL (60-115)
--- NOTE | 2021-09-22 13:58 | MHC.CM.PN ---
nurse lining caser note patient continues to have increadsed respiratory rate and is on 5 liters of ocxugen via nasal canula , she continues on her inhalers , dionebs , iv abx and iv ssteroids DISCHARGE PLAN RETURN BACK TO [facility]
--- NOTE | 2021-09-22 14:02 | PM.PNPUL ---
Subjective Subjective Date of Service: 09/22/21 Interval history: FiO2 requirements improved significantly Objective Data Labs CBC & Chem 7: 09/21/21 06:19 09/21/21 06:19 Labs: Laboratory Results - last 24 hr 09/19/21 09/21/21 09/21/21 11:57 16:05 19:57 POC Glucose 313 H 311 H Ur Strep pneumoniae Ag Not Detected 09/22/21 09/22/21 07:10 10:53 POC Glucose 95 135 H Ur Strep pneumoniae Ag Microbiology Microbiology Results: Microbiology 09/20/21 16:25 Thoracentesis Fluid Gram Stain - Final 09/20/21 16:25 Thoracentesis Fluid Anaerobic Culture - Preliminary No growth to date. 09/20/21 16:25 Thoracentesis Fluid Body Fluid Culture - Preliminary No growth after 1 day 09/16/21 13:11 Blood - Venous Blood Culture - Final No growth after 5 days. 09/16/21 12:12 Blood - Venous Blood Culture - Final No growth after 5 days. Review of Systems Cardiovascular: Denies chest pain at rest and Reports dyspnea ( significantly improved) Respiratory: Denies cough, Reports dyspnea ( significantly improved) and Denies wheezing Allergic/Immunologic: Denies wheezing Physical Exam Vital Signs: Vital Signs: Last Vital Signs Temp 97.2 F 09/22/21 11:34 Pulse 74 09/22/21 11:54 Resp 22 H 09/22/21 11:54 BP 112/60 09/22/21 11:34 Pulse Ox 97 09/22/21 11:34 BMI result Body Mass Index 24.1 Resp: Effort & Inspection: normal respiratory effort and no respiratory distress Auscultation: clear to auscultation bilaterally Cardio: Rate: regular rate Rhythm: regular rhythm Extrem: General: No clubbing, No cyanosis and No edema Procedures Date of Service Date of Service: 09/22/21 Assessment and Plan Assessment and plan (1) Post covid-19 condition, unspecified: Status: Acute (2) Hypoxia: Status: Acute Plan Impression: 81-year-old lady recently discharged on 3 L continuous flow after being hospitalized for COVID-19 hypoxia,presented with worsening hypoxia requiring high-flow nasal cannula. Empirically treated with systemic glucocorticoids and broad-spectrum antibiotics. CT chest with worsening bilateral pleural effusions with compressive atelectasis of bilateral lower lobes, but no evidence of fibrosis. On prior 2D echocardiogram with diastolic dysfunction. status post right-sided thoracentesis with drainage of 350 cc of transudative fluid. Now with significant improvement in baseline FiO2 requirements. Recommendations: Consider discontinuation of systemic glucocorticoids. Continues to improve from her recent COVID-19. Will sign off. Time Spent With Patient Time: Total time spent is greater than 50% in coordination of care (as documented) at patient's floor/unit and/or counseling patient: Time with patient: 15 - 24 minutes Progress Note: Quality Stroke Does the patient have a stroke diagnosis?: No
--- NOTE | 2021-09-22 15:01 | HO.PM.IMPN ---
Subjective Subjective Date of Service: 09/22/21 Interval History: Feels better, no worsening dyspnea in last 24 hours, no change in oxygen requirement on 5 L via nasal cannula, no recurrent episode of hypoglycemia, no overnight events. Review of Systems Review of Systems: Yes all other systems are reviewed and are negative Physical Exam Vital Signs: Vital Signs: Last Vital Signs Temp 97.2 F 09/22/21 11:34 Pulse 74 09/22/21 11:54 Resp 22 H 09/22/21 11:54 BP 112/60 09/22/21 11:34 Pulse Ox 97 09/22/21 11:34 BMI result Body Mass Index 24.1 Const: Other: Gen: Sitting in bed,no acute distress HEENT: sclera anicteric, moist mucus membranes Neck: supple, no JVD Lungs: diminished breath sounds bilaterally, mildly tachypneic Heart: regular, no murmurs Abd: soft, non-tender, non-distended Ext: Right upper extremity swelling improving, no lower extremity edema Skin: warm/well-perfused Neuro: alert, oriented to self/place, hard of hearing, minimal verbalization ? Objective Data Active Medications Acetaminophen (Acetaminophen 325 Mg Tablet) 650 mg PO Q6H PRN PRN Reason: Pain, Mild (Pain Scale 1-3) Last Admin: 09/22/21 01:06 Dose: 650 mg Documented by: FERDINAND Albuterol Sulfate (Albuterol Sulfate (0.083%) 2.5 Mg/3 Ml Vial.Neb) 2.5 mg INHALE Q4H PRN PRN Reason: Shortness Of Breath Last Admin: 09/22/21 01:28 Dose: 2.5 mg Documented by: BEAR Albuterol Sulfate (Albuterol Sulfate 90 Mcg 8 Gm Inhaler) 2 puff INHALE Q4H PRN PRN Reason: Wheezing Albuterol/Ipratropium (Albuterol/Iprat 2.5/0.5mg 3 Ml Ampul.Neb) 3 ml INHALE RQID [facility] Last Admin: 09/22/21 11:53 Dose: 3 ml Documented by: ERIN Aspirin (Aspirin 81 Mg Tab.Chew) 81 mg PO DAILY [facility] Last Admin: 09/22/21 08:45 Dose: 81 mg Documented by: SAMUEL Atorvastatin Calcium (Atorvastatin Calcium 40 Mg Tablet) 40 mg PO DAILY [facility] Last Admin: 09/22/21 08:45 Dose: 40 mg Documented by: SAMUEL Dextrose (Dextrose 50 % 25 Gm/50 Ml Vial) 25 gm IVPUSH Q15M PRN; Protocol PRN Reason: per Hypoglycemia Standing Ord. Diltiazem HCl (Diltiazem Hcl Cd 240 Mg Cap.Er.Deg) 240 mg PO DAILY [facility]; Protocol Last Admin: 09/22/21 08:45 Dose: 240 mg Documented by: SAMUEL Docusate Sodium (Docusate Sodium 100 Mg Capsule) 100 mg PO DAILY PRN PRN Reason: Constipation Escitalopram Oxalate (Escitalopram Oxalate 5 Mg Tablet) 5 mg PO DAILY [facility] Last Admin: 09/22/21 08:45 Dose: 5 mg Documented by: SAMUEL Glucose (Glucose Gel 15 Gm Gel..Gram.) 15 gm PO Q15M PRN; Protocol PRN Reason: per Hypoglycemia Standing Ord. Piperacillin Sod/Tazobactam (Sod 4.5 gm/ Sodium Chloride) 100 mls @ 200 mls/hr IV Q8H [facility] Last Infusion: 09/22/21 09:36 Dose: 200 mls/hr Documented by: SAMUEL Insulin Glargine (Insulin Glargine,Hum.Rec.Anlog 100 Unit/Ml 10 Ml Vial) 8 unit SUBCUT BEDTIME [facility] Last Admin: 09/21/21 21:00 Dose: 8 unit Documented by: FERDINAND Insulin Human Lispro (Insulin Lispro 100 Unit/Ml 3 Ml Vial) 0 unit SUBCUT QIDACHS [facility]; Protocol Last Admin: 09/22/21 11:35 Dose: Not Given Documented by: SAMUEL Non-Admin Reason: No Insulin Coverage Methylprednisolone Sodium Succinate (Methylprednisolone Sod Succ 40 Mg/Ml Vial) 10 mg IVPUSH Q24H [facility] Stop: 09/22/21 18:00 Last Admin: 09/22/21 08:44 Dose: 10 mg Documented by: SAMUEL Omeprazole (Omeprazole 20 Mg Capsule.) 20 mg PO BID@0630,1630 [facility] Last Admin: 09/22/21 05:28 Dose: 20 mg Documented by: FERDINAND Pharmacy Consult (Consult Rx Perform Med Rec) 1 each MISCELLANE ONCE PRN PRN Reason: Consult order Rivaroxaban (Rivaroxaban 15 Mg Tablet) 15 mg PO DAILY@1800 [facility] Last Admin: 09/21/21 16:58 Dose: 15 mg Documented by: GRAZYNA Sodium Chloride (0.9 % Sodium Chloride Flush 3 Ml Syringe) 3 ml IVFLUSH QSHIFT [facility] Last Admin: 09/22/21 09:01 Dose: 3 ml Documented by: SAMUEL Labs CBC & Chem 7: 09/21/21 06:19 09/21/21 06:19 Labs: Laboratory Results - last 24 hr 09/19/21 09/21/21 09/21/21 11:57 16:05 19:57 POC Glucose 313 H 311 H Ur Strep pneumoniae Ag Not Detected 09/22/21 09/22/21 07:10 10:53 POC Glucose 95 135 H Ur Strep pneumoniae Ag Microbiology Microbiology Results: Microbiology 09/20/21 16:25 Gram Stain - Final Thoracentesis Fluid Anaerobic Culture - Preliminary No growth to date. Body Fluid Culture - Preliminary No growth after 1 day 09/16/21 13:11 Blood Culture - Final Blood - Venous No growth after 5 days. 09/16/21 12:12 Blood Culture - Final Blood - Venous No growth after 5 days. Assessment and Plan (1) Pneumonia due to 2019 novel coronavirus: Status: Acute (2) PAF (paroxysmal atrial fibrillation): Status: Acute Plan hospital d#6 81yo F recently admitted to [facility] [08/29-09/15/21] with [id number] bacterial pneumonia with hypoxia and COPD exacerbation, readmitted for hypoxia # acute hypoxic respiratory failure - supplemental O2 via NC, wean as tolerated, currently on 4-5L via NC # [id number] pneumonia/right pleural effusion # status post right thoracocentesis 350 mL of clear yellow fluid removed , fluid is transudative On IV Zosyn day 01/25 will DC antibiotics after today, blood cultures negative, will wean steroids. pending urine antigen tests for Leigonella, strep pneumococcus antigen is neg. # hyperNa - encourage PO water intake, follow BMP at a.m. # anemia - likely anemia of chronic disease , hematocrit stable, hold transfusion,FOBT not collected. # pAF - continue diltiazem for rate control,cont. rivaroxaban # TONYA - SCr improved after gentle IV hydration, follow BMP, encourage by mouth # acute toxic metabolic encephalopathy secondary to hypoxia and infection Improving, patient more interactive continue to treat infection and hypoxia # DM2 with hyperglycemia likely exacerbated by steroid use, now hypoglycemic - A1c 9.3 in early Aug - taper steroids as above - continue basal/bolus insulin, adjusted dose of sliding scale # mood disorder -continue escitalopram # right upper extremity swelling, venous Doppler ultrasound negative keep arm elevated. # leukocytosis due to steroids # VTE ppx - rivaroxaban # dispo - plan return to [facility] for [facility] once medically improves, need continued inpatient hospitalization for IV antibiotics, and high-flow oxygen since oxygenation drops with activity, associated with worsening shortness of breath. Quality Stroke Does the patient have a stroke diagnosis?: No VTE Prior VTE?: No VTE Risk Level:: Medical - moderate - high VTE Device Contraindication: Treatment Not Indicated VTE Drug Contraindication: N/A - Med Ordered
--- NOTE | 2021-09-22 15:13 | MHC.CLN ---
F/U PT WITH INCREASED NUTRITION NEEDS R/T PRESSURE INJURY PO INTAKE 75% X 1 DIET RX: 2000DM GRD M/S-APPROPRIATE PT RECEIVING ENSURE BID TO PROMOTE WOUND HEALING PROVIDES 700KCALS, 40G PROTEIN CONTINUE TO MONITOR PO INTAKE CLOSELY
[2021-09-22 16:16] LABS: Glucose, Whole Blood 167 mg/dL (60-115)
[2021-09-22] MEDS: Insulin Lispro 100 UNIT/ML 3 ML VIAL SUBCUT ×2 (16:25→21:00)
[2021-09-22] MEDS: Rivaroxaban 15 MG TABLET PO (17:23)
[2021-09-22 20:40] LABS: Glucose, Whole Blood 180 mg/dL (60-115)
[2021-09-22] MEDS: Insulin Glargine,Hum.rec.anlog 100 UNIT/ML 10 ML VIAL 8 UNIT SUBCUT (21:00)
[2021-09-23] VITALS (11 sets, daily range): BP systolic 115–151; BP diastolic 64–74; PULSE 77–95; RESP 16–22; TEMP 35.6–36.4; O2SAT 90–100
[2021-09-23] MEDS: Piperacillin Sodium/Tazobactam 4.5 GM in 0.9 % Sodium Chloride 100 ML IV (00:03)
[2021-09-23 05:31] LABS: MANUAL DIFF FLAG NO
[2021-09-23] MEDS: Omeprazole 20 MG CAPSULE.DR PO ×2 (05:38→17:21)
[2021-09-23 05:49] LABS: Basophils Percent Auto 0.1 % (0-2); Eosinophils Percent Auto 0.2 % (0-4); Hematocrit 25.9 % (37.0-47.0); Hemoglobin 7.8 g/dl (12.0-16.0); Imm Gran Abs Auto 0.13 X10*3/uL (0.00-0.03); Imm Gran Pct Auto 0.7 % (0.0-0.4); Lymphocytes Absolute Auto 0.7 X10*3/uL (1.2-4.9); Lymphocytes Percent Auto 3.7 % (20-40); Mean Corpuscular HGB Conc 30.1 g/dl (31.0-35.0); Mean Corpuscular Hemoglobin 31.7 pg (27.0-33.0); Mean Corpuscular Volume 105.3 fL (80.0-98.0); Mean Platelet Volume 11.4 fL (9.4-12.3); Monocytes Percent Auto 5.3 % (2-11); NRBC Pct Auto 0.1 /100WBC (0.0-0.2); Neutrophils Absolute Auto 17.5 x10*3/uL (2.0-8.3); Platelet Count 185 X10*3/uL (160-400); Red Blood Count 2.46 X10*6/uL (4.20-5.50); Red Cell Distribution Width 17.5 % (11.0-16.0); White Blood Count 19.4 X10*3/uL (4.8-10.8)
[2021-09-23 06:00] LABS: Anion Gap 14 (12-20); Blood Urea Nitrogen 85 mg/dL (9-16); Calcium 7.8 mg/dL (8.4-10.2); Carbon Dioxide 23 mmol/L (22-29); Chloride 111 mmol/L (96-108); Creatinine Clr Calc Pharmacy 24.4; Estimated Glomerular Filt Rate 29; Glucose Random 81 mg/dL (60-115); Potassium 4.3 mmol/L (3.3-5.1); Sodium 144 mmol/L (135-145)
[2021-09-23 07:42] LABS: Glucose, Whole Blood 63 mg/dL (60-115)
[2021-09-23] MEDS: Albuterol/Iprat 2.5/0.5MG 3 ML AMPUL.NEB INHALE ×4 (07:58→19:30)
[2021-09-23] MEDS: Aspirin 81 MG TAB.CHEW PO (09:59)
[2021-09-23] MEDS: Escitalopram Oxalate 5 MG TABLET PO (09:59)
[2021-09-23] MEDS: dilTIAZem HCL CD 240 MG CAP.ER.DEG PO (09:59)
[2021-09-23] MEDS: 0.9 % Sodium Chloride Flush 3 ML SYRINGE IVFLUSH ×3 (09:59→20:35)
[2021-09-23] MEDS: Atorvastatin Calcium 40 MG TABLET PO (10:00)
[2021-09-23 11:50] LABS: Glucose, Whole Blood 104 mg/dL (60-115)
--- NOTE | 2021-09-23 12:12 | P.PNIM_ITS ---
Subjective Subjective Date of Service: 09/24/21 Interval History: No acute events overnight, patient awake alert does not verbalize much, complaining of not getting enough air continue to require 5 L of oxygen to maintain finger oximetry above 90. Review of Systems Review of Systems: Yes all other systems are reviewed and are negative Physical Exam Vital Signs: Vital Signs: Last Vital Signs Temp 97.0 F 09/23/21 11:24 Pulse 81 09/23/21 11:32 Resp 18 09/23/21 11:32 BP 147/74 H 09/23/21 11:24 Pulse Ox 98 09/23/21 11:24 BMI result Body Mass Index 24.1 Const: Other: Gen:? Resting in bed,no acute distress HEENT: sclera anicteric, moist mucus membranes Neck: supple, no JVD Lungs: diminished breath sounds bilaterally, no distress Heart: regular, no murmurs Abd: soft, non-tender, non-distended Ext:? Right upper extremity swelling improving, no lower extremity edema Skin: warm/well-perfused Neuro: alert, oriented to self/place, hard of hearing, minimal verbalization ? Objective Data Active Medications Acetaminophen (Acetaminophen 325 Mg Tablet) 650 mg PO Q6H PRN PRN Reason: Pain, Mild (Pain Scale 1-3) Last Admin: 09/22/21 21:30 Dose: 650 mg Documented by: KIMBERLY Albuterol Sulfate (Albuterol Sulfate (0.083%) 2.5 Mg/3 Ml Vial.Neb) 2.5 mg INHALE Q4H PRN PRN Reason: Shortness Of Breath Last Admin: 09/22/21 01:28 Dose: 2.5 mg Documented by: BEAR Albuterol Sulfate (Albuterol Sulfate 90 Mcg 8 Gm Inhaler) 2 puff INHALE Q4H PRN PRN Reason: Wheezing Albuterol/Ipratropium (Albuterol/Iprat 2.5/0.5mg 3 Ml Ampul.Neb) 3 ml INHALE RQID [facility] Last Admin: 09/23/21 11:32 Dose: 3 ml Documented by: ERIN Aspirin (Aspirin 81 Mg Tab.Chew) 81 mg PO DAILY [facility] Last Admin: 09/23/21 09:59 Dose: 81 mg Documented by: ANIKET Atorvastatin Calcium (Atorvastatin Calcium 40 Mg Tablet) 40 mg PO DAILY [facility] Last Admin: 09/23/21 10:00 Dose: 40 mg Documented by: ANIKET Dextrose (Dextrose 50 % 25 Gm/50 Ml Vial) 25 gm IVPUSH Q15M PRN; Protocol PRN Reason: per Hypoglycemia Standing Ord. Diltiazem HCl (Diltiazem Hcl Cd 240 Mg Cap.Er.Deg) 240 mg PO DAILY [facility]; Protocol Last Admin: 09/23/21 09:59 Dose: 240 mg Documented by: ANIKET Docusate Sodium (Docusate Sodium 100 Mg Capsule) 100 mg PO DAILY PRN PRN Reason: Constipation Escitalopram Oxalate (Escitalopram Oxalate 5 Mg Tablet) 5 mg PO DAILY [facility] Last Admin: 09/23/21 09:59 Dose: 5 mg Documented by: ANIKET Glucose (Glucose Gel 15 Gm Gel..Gram.) 15 gm PO Q15M PRN; Protocol PRN Reason: per Hypoglycemia Standing Ord. Insulin Glargine (Insulin Glargine,Hum.Rec.Anlog 100 Unit/Ml 10 Ml Vial) 8 unit SUBCUT BEDTIME [facility] Last Admin: 09/22/21 21:00 Dose: 8 unit Documented by: KIMBERLY Insulin Human Lispro (Insulin Lispro 100 Unit/Ml 3 Ml Vial) 0 unit SUBCUT QIDACHS [facility]; Protocol Last Admin: 09/23/21 11:52 Dose: Not Given Documented by: ANIKET Non-Admin Reason: No Insulin Coverage Omeprazole (Omeprazole 20 Mg Capsule.) 20 mg PO BID@0630,1630 [facility] Last Admin: 09/23/21 05:38 Dose: 20 mg Documented by: KIMBERLY Pharmacy Consult (Consult Rx Perform Med Rec) 1 each MISCELLANE ONCE PRN PRN Reason: Consult order Rivaroxaban (Rivaroxaban 15 Mg Tablet) 15 mg PO DAILY@1800 [facility] Last Admin: 09/22/21 17:23 Dose: 15 mg Documented by: NELDA Sodium Chloride (0.9 % Sodium Chloride Flush 3 Ml Syringe) 3 ml IVFLUSH QSHIFT [facility] Last Admin: 09/23/21 09:59 Dose: 3 ml Documented by: ANIKET Labs CBC & Chem 7: 09/23/21 05:10 09/24/21 08:03 Labs: Laboratory Results - last 24 hr 09/22/21 09/22/21 09/23/21 16:04 20:33 05:10 MCV 105.3 H MCH 31.7 MCHC 30.1 L RDW 17.5 H Plt Count 185 MPV 11.4 Immature Gran % (Auto) 0.7 H Neut % (Auto) 90.0 H Lymph % (Auto) 3.7 L Dixon % (Auto) 5.3 Eos % (Auto) 0.2 Baso % (Auto) 0.1 Lymph # (Auto) 0.7 L Dixon # (Auto) 1.0 Eos # (Auto) 0.0 Baso # (Auto) 0.0 Abs Immat Gran (auto) 0.13 H Absolute Neuts (auto) 17.5 H Absolute Nucleated RBC 0.020 H Nucleated RBC % (auto) 0.1 Anion Gap Estim Creat Clear Calc Estimated GFR POC Glucose 167 H 180 H Random Glucose Calcium 09/23/21 09/23/21 09/23/21 05:10 07:06 11:24 MCV MCH MCHC RDW Plt Count MPV Immature Gran % (Auto) Neut % (Auto) Lymph % (Auto) Dixon % (Auto) Eos % (Auto) Baso % (Auto) Lymph # (Auto) Dixon # (Auto) Eos # (Auto) Baso # (Auto) Abs Immat Gran (auto) Absolute Neuts (auto) Absolute Nucleated RBC Nucleated RBC % (auto) Anion Gap 14 Estim Creat Clear Calc 24.4 Estimated GFR 29 POC Glucose 63 104 Random Glucose 81 Calcium 7.8 L Microbiology Microbiology Results: Microbiology 09/20/21 16:25 Gram Stain - Final Thoracentesis Fluid Anaerobic Culture - Preliminary No growth to date. Body Fluid Culture - Final No growth after 2 days Assessment and Plan (1) Pneumonia due to 2019 novel coronavirus: Status: Resolved (2) PAF (paroxysmal atrial fibrillation): Status: Acute Plan hospital d#6 81yo F recently admitted to [facility] [08/29-09/15/21] with [id number] bacterial pneumonia with hypoxia and COPD exacerbation, readmitted for hypoxia # acute on chronic hypoxic respiratory failure - supplemental O2 via NC, wean as tolerated, currently on 5L via NC, and baseline use 2-3 L of oxygen # [id number] pneumonia/right pleural effusion # status post right thoracocentesis 350 mL of clear yellow fluid removed , fluid is transudative s/p IV Zosyn x 7 day , blood cultures negative, WBC trending down pending urine antigen tests for Leigonella, strep pneumococcus antigen is neg. # hyperNa - encourage PO water intake, follow BMP at a.m. # anemia - likely anemia of chronic disease , hematocrit stable, hold transfusion,FOBT no t collected. # pAF - continue diltiazem for rate control,cont. rivaroxaban # TONYA - SCr improved after gentle IV hydration, creatinine remains elevated at 1.69, follow BMP, encourage by mouth # acute toxic metabolic encephalopathy secondary to hypoxia and infection Spoke with son Kwasi Cormier he informed that at baseline patient has mild dementia and has difficulty with communication, patient seems to be at baseline at present, # DM2 with hyperglycemia likely exacerbated by steroid use, now hypoglycemic - A1c 9.3 in early Aug - continue basal/bolus insulin, adjusted dose of sliding scale, blood sugars are stable today # mood disorder -continue escitalopram # right upper extremity swelling, venous Doppler ultrasound negative keep arm elevated. # leukocytosis due to steroids, trending down continue to follow # VTE ppx - rivaroxaban # code status DNR DNI # dispo - plan return to [facility] for STR ,need continued inpatient hospitalization due to persistent hypoxia worse with activity and movement, associated with worsening shortness of breath. Quality Stroke Does the patient have a stroke diagnosis?: No VTE Prior VTE?: No VTE Risk Level:: Medical - moderate - high VTE Device Contraindication: Treatment Not Indicated VTE Drug Contraindication: N/A - Med Ordered
[2021-09-23 16:45] LABS: Glucose, Whole Blood 173 mg/dL (60-115)
[2021-09-23] MEDS: Rivaroxaban 15 MG TABLET PO (17:21)
[2021-09-23] MEDS: Insulin Lispro 100 UNIT/ML 3 ML VIAL SUBCUT ×2 (17:21→20:34)
[2021-09-23 20:27] LABS: Glucose, Whole Blood 240 mg/dL (60-115)
[2021-09-23] MEDS: Insulin Glargine,Hum.rec.anlog 100 UNIT/ML 10 ML VIAL 8 UNIT SUBCUT (20:34)
[2021-09-24] VITALS: BP 140/65; PULSE 60; RESP 17; TEMP 36.2; O2SAT 97
[2021-09-24 01:16] LABS: Legionella Ag Urine Not Detected (Not Detected)
[2021-09-24 04:00] VITALS: BP 129/59; PULSE 70; RESP 17; TEMP 36.1; O2SAT 96
[2021-09-24] MEDS: Omeprazole 20 MG CAPSULE.DR PO (06:35)
[2021-09-24 07:06] VITALS: BP 164/77; PULSE 97; RESP 18; TEMP 36.3; O2SAT 98
[2021-09-24 08:20] LABS: Glucose, Whole Blood 138 mg/dL (60-115)
[2021-09-24 08:51] LABS: Anion Gap 13 (12-20); Blood Urea Nitrogen 71 mg/dL (9-16); Calcium 7.7 mg/dL (8.4-10.2); Carbon Dioxide 24 mmol/L (22-29); Chloride 111 mmol/L (96-108); Creatinine Clr Calc Pharmacy 30.3; Estimated Glomerular Filt Rate 37; Glucose Random 133 mg/dL (60-115); Potassium 4.4 mmol/L (3.3-5.1); Sodium 144 mmol/L (135-145)
[2021-09-24] MEDS: dilTIAZem HCL CD 240 MG CAP.ER.DEG PO (09:29)
[2021-09-24] MEDS: Escitalopram Oxalate 5 MG TABLET PO (09:29)
[2021-09-24] MEDS: Aspirin 81 MG TAB.CHEW PO (09:29)
[2021-09-24] MEDS: 0.9 % Sodium Chloride Flush 3 ML SYRINGE IVFLUSH (09:29)
[2021-09-24] MEDS: Atorvastatin Calcium 40 MG TABLET PO (09:29)
--- NOTE | 2021-09-24 09:59 | P.DS_ITS ---
DS: Providers Provider Date of Service: 09/24/21 Date of admission: 09/16/21 16:32 Primary care physician: Josse Carrera MD Consults: 09/18/21 08:27 Consult to Pulmonology Routine Consulting Provider: [facility] Pulmonology Services Reason for consultation: post covid pna DS: Diagnosis Discharge Diagnosis (1) Pneumonia due to 2019 novel coronavirus: Status: Resolved (2) PAF (paroxysmal atrial fibrillation): Status: Acute DS: Summary Hospital Course Hospital Course: Date of Service: 09/16/21 Chief Complaint: SOB ?81-year-old female recently discharged ( 09/15/2021 ) after prolonged stay related to COVID-19.? Patient was discharged on approximately 3 L nasal cannula was doing well until she developed acute shortness of breath this morning.? She was transferred back to [facility] ER where she was found to be hypoxic and placed on high-flow O2.? Currently she is satting in the high 90s on high-flow I for further treatment... will be admitted Hospital course 81yo F recently admitted to [facility] [08/29-09/15/21] with [id number] bacterial pneumonia with hypoxia and COPD exacerbation, readmitted for worsening hypoxia, patient admitted to intermediate care unit with diagnosis of acute on chronic hypoxic respiratory failure related to post COVID-19 pneumonia, and right pleural effusion, patient was treated with IV Zosyn for 7 days, blood cultures came back negative, patient underwent right thoracocentesis 350 mL of clear yellow fluid was removed, fluid was transudative, urine antigen tests for Leigonella, and strep pneumococcus antigen is neg. with above treatment patient oxygen requirement has improved, currently on 4 L of oxygen, she is feeling significantly better, therefore being discharged back to rehab facility. Patient's stay was complicated by hypoglycemia with underlying history of diabetes likely due to poor by mouth intake, therefore dose of insulin was adjusted currently on Lantus 8 units at bedtime and insulin sliding scale blood sugars are now stable in last 48 hours. During course of hospitalization patient also noted to have acute kidney injury and hypernatremia patient treated with IV fluids sodium and creatinine has normalized. Patient also noted to have acute toxic metabolic encephalopathy secondary to hypoxia and infection that has now resolved, patient seems to be at baseline with likely mild dementia. Other medical issues included # paroxysmal atrial fibrillation recommend to continue diltiazem for rate control, and rivaroxaban # mood disorder continue escitalopram # right upper extremity swelling, venous Doppler ultrasound negative keep arm elevated. # leukocytosis due to steroids, trending down , no recurrent fever chills. Time Spent with Patient Time attestation: Total time spent providing and/or coordinating discharge services: Discharge coordination time: Greater than 30 minutes Quality: Stroke Does the patient have a stroke diagnosis?: No Physical Exam Vital Signs: Vital Signs: Last Vital Signs Temp 97.3 F 09/24/21 07:06 Pulse 97 09/24/21 07:06 Resp 18 09/24/21 07:06 BP 164/77 H 09/24/21 07:06 Pulse Ox 98 09/24/21 07:06 BMI result Body Mass Index 24.1 Const: Other: Gen:? Resting in bed,no acute distress HEENT: sclera anicteric, moist mucus membranes Neck: supple, no JVD Lungs: diminished breath sounds bilaterally, no distress Heart: regular, no murmurs Abd: soft, non-tender, non-distended Ext:? Right upper extremity swelling improving, no lower extremity edema Skin: warm/well-perfused Neuro: alert, oriented to self/place, hard of hearing, minimal verbalization seems her baseline ? DS: Data Data Completed and Pending Completed studies during hospitalization [Text1]: Pending at discharge 09/20/21 16:25 Cytology [PTH] Routine Procedures Extirpation of Matter from Rectum, Via Natural or Artificial Opening (08/29/21) Labs on day of discharge: Laboratory Results - last 24 hr 09/19/21 09/23/21 09/23/21 11:57 11:24 16:39 Sodium Potassium Chloride Carbon Dioxide Anion Gap BUN Creatinine Estim Creat Clear Calc Estimated GFR POC Glucose 104 173 H Random Glucose Calcium Ur L.pneumophila Ag Not Detected 09/23/21 09/24/21 09/24/21 20:13 07:04 08:03 Sodium 144 Potassium 4.4 Chloride 111 H Carbon Dioxide 24 Anion Gap 13 BUN 71 H Creatinine 1.36 Estim Creat Clear Calc 30.3 Estimated GFR 37 POC Glucose 240 H 138 H Random Glucose 133 H Calcium 7.7 L Ur L.pneumophila Ag Preliminary micro results at discharge 09/20/21 16:25 Anaerobic Culture - Preliminary Thoracentesis Fluid No growth to date. Discharge Plan Discharge Patient Disposition: Xfer SNF Discharge Diagnosis: Acute hypoxic respiratory failure Post COVID pneumonia/right pleural effusion Hypernatremia Acute kidney injury Acute toxic metabolic encephalopathy Referrals: Josse Carrera MD [Primary Care Provider] - 1 Week Discharge Medications: Continued (DME) FreeStyle Lite Strips Strip See Rx Instructions .Route Qty: 100 12RF Rx Instructions: As directed three times daily citalopram 10 mg tablet 10 mg PO DAILY Qty: 90 1RF insulin aspart U-100 [Novolog Flexpen U-100 Insulin] 100 unit/mL (3 mL) insulin pen 0 sliding scale dose subcut TIDAC 0RF Protocol: Insulin Correction Scale Less than or equal to 110 ---- Give (units): 0 111 to 150 Give (units): 0 151 to 200 Give (units): 2 201 to 250 Give (units): 4 251 to 300 Give (units): 6 301 to 350 Give (units): 8 Greater than 350 Give (units): 10 Call MD if Blood Glucose > : 350 insulin glargine 100 unit/mL (3 mL) insulin pen 10 unit subcut BEDTIME 0RF diltiazem HCl 240 mg capsule,extended release 24 hr 240 mg PO DAILY 0RF atorvastatin 40 mg Tablet 40 mg PO DAILY Qty: 30 0RF acetaminophen 325 mg Tablet 650 mg PO Q6H PRN (Reason: Pain, Mild (Pain Scale 1-3)) Qty: 60 0RF docusate sodium 100 mg Capsule 100 mg PO DAILY PRN (Reason: Constipation) Qty: 30 0RF omeprazole 20 mg Capsule,Delayed Release(Dr/Ec) 20 mg PO BID@0630,1630 Qty: 30 0RF aspirin 81 mg Tablet,Chewable 81 mg PO DAILY Qty: 30 0RF albuterol sulfate 2.5 mg /3 mL (0.083 %) solution for nebulization 0.5 vial inhalation Q4H PRN (Reason: Shortness Of Breath) 0RF ipratropium-albuterol 18-103 mcg/actuation Aerosol 2 spray INHALATION QID 0RF albuterol sulfate 90 mcg/actuation Hfa Aerosol Inhaler 2 puff INHALATION Q4-6H PRN (Reason: Wheezing) 0RF (DME) lancets [FreeStyle Lancets] 28 gauge misc See Rx Instructions .ROUTE .MEDSUPPLY Qty: 100 0RF Rx Instructions: As directed Xarelto 15 mg tablet 15 mg PO DAILY Qty: 90 1RF Changed insulin glargine 100 unit/mL (3 mL) insulin pen 8 unit subcut BEDTIME Qty: 0 0RF Discontinued spironolactone 25 mg tablet 1 tab PO DAILY 0RF prednisone 10 mg tablet See Rx Instructions .Route .COMPLEX Qty: 45 0RF Rx Instructions: 10 mg orally; 5 tabs p.o. daily x3 days; 4 tabs p.o. daily x3 days; 3 tabs daily x3 days; 2 tabs daily x3 days; 1 tab daily x3 days lidocaine 4 % Adhesive Patch,Medicated 1 patch TOPICAL DAILY 0RF Discharge Orders: Discharge Order (Routine); Ordered 09/24/21 Ordered By: Robert South Diet: diabetic diet Activity on Discharge: As tolerated Stand Alone Forms: Patient Portal Discharge page Care Plan Goals: Continue current treatment as ordered gradually wean oxygen currently on 4 L Health Concerns: Diabetes mellitus/COPD continue all home medications as prescribed Plan of Treatment: Close outpatient follow-up with PCP/being transferred to rehab Assessment: per dc summary
[2021-09-24 10:07] LABS: COVID-19 Test Positive (Negative); IDNOW Serial# 16C4AD1C
--- NOTE | 2021-09-24 10:25 | MHC.CM.PN ---
Addendum entered by Ronda Jean-Baptiste 09/24/21 11:10: [facility] STATES THAT PATIENT CAN RETURN TODAY, SHE WAS COVID + OVER A MONTH AGO. [facility], [facility], RN, AND SON JACOB ([phone])AWARE. IMM 09/23 IN CHART Original Note: PLAN WAS FOR PATIENT TO RETURN TO [facility] TODAY. SON/HCP JACOB WAS AWARE OF PLAN. [phone]. PATIENT THEN TESTED POSITIVE FOR COVID. JAIRO MERCEDES AND [facility] AWARE OF CHANGE IN DISCHARGE PLAN. RETURN CALL TO JACOB TO INFORM HIM OF PLAN (JACOB WAS ON HIS WAY TO VISIT PATIENT BEFORE SHE RETURNED TO [facility]) BUT [employer]ILBOX IS FULL AND CANNOT ACCEPT ANY MESSAGES.
[2021-09-24 12:00] VITALS: BP 154/77; PULSE 95; RESP 18; TEMP 36.9; O2SAT 96
[2021-09-24 12:16] LABS: Glucose, Whole Blood 250 mg/dL (60-115)
== END 2021-09-24 13:15 | disposition skilled nursing facility (03) | DRG 193 ==
LOC: HO.ED 16:12 → HO.EDOVER 16:51 → HO.S3 09-17 15:58 → HO.IMC 09-24 10:31 → HO.S3 09-24 10:58
PROVIDERS: Family Medicine; Admitting Provider Hospitalist; Emergency Provider Emergency Medicine Emergency Medical Services; PCP Family Medicine; Visit Provider Hospitalist
DX: J18.9 Pneumonia, unspecified organism (principal); J96.01 Acute respiratory failure with hypoxia; G92.8 Other toxic encephalopathy; J91.8 Pleural effusion in other conditions classified elsewhere; N17.9 Acute kidney failure, unspecified; E87.0 Hyperosmolality and hypernatremia; J44.0 Chronic obstructive pulmonary disease with (acute) lower respiratory infection; I48.0 Paroxysmal atrial fibrillation; E11.65 Type 2 diabetes mellitus with hyperglycemia; F39 Unspecified mood [affective] disorder; D63.8 Anemia in other chronic diseases classified elsewhere; E11.649 Type 2 diabetes mellitus with hypoglycemia without coma; D72.829 Elevated white blood cell count, unspecified; T38.0X5A Adverse effect of glucocorticoids and synthetic analogues, initial encounter; E11.9 Type 2 diabetes mellitus without complications; U09.9 Post COVID-19 condition, unspecified; Z99.81 Dependence on supplemental oxygen; Z79.4 Long term (current) use of insulin; Z79.01 Long term (current) use of anticoagulants; Z79.82 Long term (current) use of aspirin; Z79.899 Other long term (current) drug therapy; Z66 Do not resuscitate
CPT/HCPCS: 32555; 36415; 71250; 74176; 80048; 80053; 82009; 82607; 82728; 82746; 82803; 82945; 82947; 83540; 83605; 83615; 83690; 83880; 83986; 84145; 84157; 84484; 85025; 85027; 85045; 85379; 85610; 85730; 86140; 86850; 86900; 86901; 87040; 87070; 87073; 87205; 87449; 87633; 87635; 87899; 88112; 88305; 89051; 93005; 93971; 94640; 99285; J2543; J2920; J2930